=== PATIENT | male | born 1945 | race Caucasian/White ===

== ENCOUNTER 2018-01-31 02:31 | Inpatient (IN) ==
[2018-01-31] MEDS ORDERED: *HR* LORazepam 2 MG/ML VIAL IVP ONE (02:57)
--- NOTE | 2018-01-31 02:58 | Emergency Department Note ---
Disposition Clinical Impression: Lactic acidosis, Elevated troponin I level, Hyponatremia Dyspnea Qualifiers: Dyspnea type: unspecified Qualified Code(s): R06.00 - Dyspnea, unspecified Disposition: Still a Patient Condition: Undetermined Time of Disposition: 07:00 SOB HPI - General Chief Complaint: ED Shortness of Breath/Dyspnea Stated Complaint: Mynor Time Seen by Provider: 01/31/18 02:55 Source: patient, EMS Limitations: no limitations Nursing Notes Reviewed: Yes Vital Signs Reviewed: Yes - History of Present Illness 72 y.o. male presenting via EMS to the ED c/o sudden onset shortness of breath x 2-3 hours. He reports chest pain and describes it as "pain in my lungs". He reportedly took several Duo-neb treatments, without relief of symptoms. He states he has experienced a similar episode and was hospitalized [facility]. He notes he underwent a blood transfusion while there, but is unsure of any diagnosis or other interventions provided. He states he is unable to provide much history for his current symptoms secondary to feeling as though he cannot breathe. Pt Subjective Complaint: shortness of breath Onset (ago): hour(s) Consistency/Duration: constant, gradually worsening Improves with: nothing Worsens with: nothing Treatment prior to arrival: other (nebulizer) - Related Data Allergies Allergy/AdvReac Type Severity Reaction Status Date / Time No Known Allergies Allergy Verified 01/31/18 02:45 All systems ED: reviewed and negative except as stated. Past Medical History - Past Medical History Attestation: Yes The following information was validated with the patient. Source: patient Medical history: Reports: CHF, COPD, diabetes, hyperlipidemia, hypertension - Social History Smoking Status: Current every day smoker Smokeless Tobacco Status: No Alcohol use: Reports: none Drug use: Reports: none Physical Exam - General Limitations: no limitations General appearance: alert, in no apparent distress - Head Head exam: atraumatic, normocephalic, normal inspection - Eye Eye exam: Present: EOMI - ENT ENT exam: normal exam, normal oropharynx, mucous membranes moist - Neck Neck exam: Present: normal inspection, full ROM, trachea midline - Chest Chest inspection: Present: normal inspection, symmetric chest wall rise - Respiratory Respiratory exam: Present: normal lung sounds bilaterally - Cardiovascular Cardiovascular exam: Present: normal rhythm, tachycardia - Abdominal Exam Abdominal exam: Present: soft, Non-Tender. Absent: tenderness, distention, guarding, rebound, rigidity - Extremities Exam Extremities exam: Present: normal inspection, full ROM. Absent: tenderness, pedal edema - Neurological Exam Neurological exam: Present: alert, oriented X3 - Psychiatric Psychiatric exam: Present: normal affect, normal mood - Skin Skin exam: Present: warm, dry, intact, normal color Course Course Narrative: Patient seen and examined. Difficulty breathing over the last several hours. Upon my examination, his lungs are completely clear. He has no wheezing with good aeration. His oxygen saturation is 100% on room air. He is very agitated and continually saying he cannot breathe. Patient is tachycardic in the 120s. Cardiopulmonary workup was initiated. Since patient appears very anxious, he was given 1 mg of Ativan. - Reevaluation(s) Reevaluation #1: Patient's lab work came back with hyponatremia with a sodium of 126, lactic acidosis of greater than 10, elevated troponin of 0.07. Patient does have an anion gap based on his metabolic panel. We will add serum ketones, a VBG, repeat troponin, repeat lactic acid, salicylate level. I discussed with the hospitalist who would also like a CTA of the chest abdomen and pelvis to evaluate for either pulmonary embolus or ischemic bowel. Time: 05:24 Reevaluation #2: Pending CT results of the chest abdomen and pelvis, salicylate and VBG levels. LFTs, lithium level were ordered. Patient needs admitted once these results. [facility] Joseph Time: 07:00 Vital Signs Temperature 97.5 F L 01/31/18 02:33 Pulse Rate 128 01/31/18 02:33 Respiratory Rate 20 01/31/18 02:33 Blood Pressure 102/71 01/31/18 02:33 O2 Sat by Pulse Oximetry 93 01/31/18 02:33 Temperature 97.5 F L 01/31/18 02:33 Pulse Rate 105 01/31/18 07:02 Respiratory Rate 20 01/31/18 07:02 Blood Pressure 102/60 01/31/18 07:02 O2 Sat by Pulse Oximetry 97 01/31/18 07:02 Oxygen Delivery Oxygen Delivery Room Air Shortness of Breath/Dyspnea - Medical Records Medical records reviewed: Yes I reviewed the patient's medical records. - Lab Data Lab results reviewed: Yes I reviewed the patient's lab results. Result diagrams: 01/31/18 02:40 01/31/18 02:40 Lab Results 01/31/18 01/31/18 01/31/18 Range/Units 02:40 02:40 02:40 WBC 12.2 H (4.3-11.1) K/mcL RBC 3.48 L (4.19-5.50) M/mcL Hgb 9.7 L (12.9-16.9) g/dL Hct 28.6 L (37.5-50.1) % MCV 82.2 L (83.0-100.0) fL MCH 27.9 L (28.0-33.3) pg MCHC 33.9 (31.6-35.5) g/dL RDW 19.2 H (11.5-14.5) % Plt Count 175 (140-400) K/mcL MPV 10.6 (9.4-12.4) fL Immature Gran % 0.7 (0-4) % Seg Neutrophils % 92.1 % Lymphocytes % 4.1 % Monocytes % 3.0 % Eosinophils % 0.0 % Basophils % 0.1 % Neutrophils # 11.2 H (1.6-8.9) K/mcL Lymphocytes # 0.5 L (0.6-4.6) K/mcL Monocytes # 0.4 (0.0-1.3) K/mcL Eosinophils # 0.0 (0.0-0.6) K/mcL Basophils # 0.0 (0.0-0.2) K/mcL Sodium 126 L (136-145) mEq/L Potassium 3.5 (3.5-5.1) mEq/L Chloride 89 L (98-107) mEq/L Carbon Dioxide 15 L (23-29) mEq/L BUN 20 (8-23) mg/dL Creatinine 0.68 L (0.70-1.30) mg/dL Est GFR ( Amer) > 60 (> 60) Est GFR (Non-Af Amer) > 60 (> 60) BUN/Creatinine Ratio 29 H (6-26) Glucose 304 H (70-105) mg/dL Calculated Osmolality 276 L (280-300) Lactic Acid (0.5-2.2) mmol/L Calcium 9.0 (8.6-10.3) mg/dL Troponin I 0.07 H* (< 0.04) ng/mL B-Natriuretic Peptide 126 H (Less than 100) pg/mL Beta-Hydroxybutyric Acd (0.02-0.27) mmol/L Blood Type Antibody Screen 01/31/18 01/31/18 01/31/18 Range/Units 03:23 03:23 05:09 WBC (4.3-11.1) K/mcL RBC (4.19-5.50) M/mcL Hgb (12.9-16.9) g/dL Hct (37.5-50.1) % MCV (83.0-100.0) fL MCH (28.0-33.3) pg MCHC (31.6-35.5) g/dL RDW (11.5-14.5) % Plt Count (140-400) K/mcL MPV (9.4-12.4) fL Immature Gran % (0-4) % Seg Neutrophils % % Lymphocytes % % Monocytes % % Eosinophils % % Basophils % % Neutrophils # (1.6-8.9) K/mcL Lymphocytes # (0.6-4.6) K/mcL Monocytes # (0.0-1.3) K/mcL Eosinophils # (0.0-0.6) K/mcL Basophils # (0.0-0.2) K/mcL Sodium (136-145) mEq/L Potassium (3.5-5.1) mEq/L Chloride (98-107) mEq/L Carbon Dioxide (23-29) mEq/L BUN (8-23) mg/dL Creatinine (0.70-1.30) mg/dL Est GFR ( Amer) (> 60) Est GFR (Non-Af Amer) (> 60) BUN/Creatinine Ratio (6-26) Glucose (70-105) mg/dL Calculated Osmolality (280-300) Lactic Acid > 10.0 H* (0.5-2.2) mmol/L Calcium (8.6-10.3) mg/dL Troponin I (< 0.04) ng/mL B-Natriuretic Peptide (Less than 100) pg/mL Beta-Hydroxybutyric Acd 0.38 H (0.02-0.27) mmol/L Blood Type AB POSITIVE Antibody Screen NEGATIVE 01/31/18 Range/Units 05:09 WBC (4.3-11.1) K/mcL RBC (4.19-5.50) M/mcL Hgb (12.9-16.9) g/dL Hct (37.5-50.1) % MCV (83.0-100.0) fL MCH (28.0-33.3) pg MCHC (31.6-35.5) g/dL RDW (11.5-14.5) % Plt Count (140-400) K/mcL MPV (9.4-12.4) fL Immature Gran % (0-4) % Seg Neutrophils % % Lymphocytes % % Monocytes % % Eosinophils % % Basophils % % Neutrophils # (1.6-8.9) K/mcL Lymphocytes # (0.6-4.6) K/mcL Monocytes # (0.0-1.3) K/mcL Eosinophils # (0.0-0.6) K/mcL Basophils # (0.0-0.2) K/mcL Sodium (136-145) mEq/L Potassium (3.5-5.1) mEq/L Chloride (98-107) mEq/L Carbon Dioxide (23-29) mEq/L BUN (8-23) mg/dL Creatinine (0.70-1.30) mg/dL Est GFR ( Amer) (> 60) Est GFR (Non-Af Amer) (> 60) BUN/Creatinine Ratio (6-26) Glucose (70-105) mg/dL Calculated Osmolality (280-300) Lactic Acid 10.0 H* (0.5-2.2) mmol/L Calcium (8.6-10.3) mg/dL Troponin I (< 0.04) ng/mL B-Natriuretic Peptide (Less than 100) pg/mL Beta-Hydroxybutyric Acd (0.02-0.27) mmol/L Blood Type Antibody Screen - Radiology Data Radiology results reviewed: Yes I reviewed the patient's radiology results. Chest X-Ray 01/31/18 02:55 IMPRESSION: Negative portable chest. D/ / Alvarado Mace MD / Alvarado Mace MD Interpreting Provider: Alvarado Mace MD - EKG Data EKG attestation: Yes I reviewed and interpreted this EKG. EKG results narrative: EKG done at 239 shows sinus tachycardia with a rate of [address] elevation or depression. Left posterior fascicular block noted. Critical Care Time Critical Care Time: Yes Total Critical Care Time: 35 Attestation: Acute hypotension and acidosis. Fluid resuscitation required Attestation Statement - Attestation Attestation: Dr Alexandre note: Patient has been seen in conjunction with resident Dr. Tameka Juan; please see her charting for complete documentation. Assessment [id number] time with the patient and agree with the patient's treatment and disposition. Patient has no chest pain or abdominal pain. He ambulates from the room without difficulty. He is anxious and on arrival complains only eating a nebulizer treatment. He is a poor historian but denies taking any aspirin and Tylenol or Motrin. Denies being on lithium. CT results which show pericholecystic fluid are noted but not clinically applicable at this time. 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 The patient has no individually dysfunction abdominal pain, or leg pain. This time he has acidosis of unclear etiology. He is known to be on Glucophage. Disposition will be admission to the hospitalist with outliers still pending as above
[2018-01-31 03:19] LABS: Basophils % 0.1 %; Hematocrit 28.6 % (37.5-50.1); Hemoglobin 9.7 g/dL (12.9-16.9); Immature Granulocytes % 0.7 % (0-4); Lymphocytes # 0.5 K/mcL (0.6-4.6); Lymphocytes % 4.1 %; Mean Corpuscular HGB Conc 33.9 g/dL (31.6-35.5); Mean Corpuscular Hemoglobin 27.9 pg (28.0-33.3); Mean Corpuscular Volume 82.2 fL (83.0-100.0); Mean Platelet Volume 10.6 fL (9.4-12.4); Monocytes # 0.4 K/mcL (0.0-1.3); Neutrophils # 11.2 K/mcL (1.6-8.9); Platelet Count 175 K/mcL (140-400); Red Blood Count 3.48 M/mcL (4.19-5.50); Red Cell Distribution Width 19.2 % (11.5-14.5); Segmented Neutrophils % 92.1 %
[2018-01-31 03:30] LABS: BUN/Creatinine Ratio 29 (6-26); Blood Urea Nitrogen 20 mg/dL (8-23); Carbon Dioxide 15 mEq/L (23-29); Chloride 89 mEq/L (98-107); Glucose 304 mg/dL (70-105); Osmolality,Calculated 276 (280-300); Potassium 3.5 mEq/L (3.5-5.1); Sodium 126 mEq/L (136-145); eGFR For Non-African Americans > 60 (> 60)
[2018-01-31] MEDS ORDERED: 0.9 % Sodium Chloride 1,000 ML IVC ONE ×3 (04:00→07:37)
[2018-01-31 04:05] LABS: Troponin I 0.07 ng/mL (< 0.04)
[2018-01-31] MEDS ORDERED: diazePAM 10 MG/2 ML SYRINGE IVP STA (04:06)
[2018-01-31] MEDS ORDERED: Isovue-370 500 ML INFUS..BTL IV ONE (04:49)
[2018-01-31] MEDS ORDERED: Sodium Bicarbonate 50 MEQ/50 ML VIAL IVP ONE (05:27)
[2018-01-31 07:08] LABS: VBG HCO3 21 mEq/L (21-27); VBG PCO2 51 mmHg (41-51); VBG PH 7.21 pH Units (7.32-7.42); VBG PO2 42 mmHg (25-50)
--- NOTE | 2018-01-31 07:13 | Emergency Department Note ---
Disposition Clinical Impression: Lactic acidosis, Elevated troponin I level, Hyponatremia, Metabolic acidosis Dyspnea Qualifiers: Dyspnea type: unspecified Qualified Code(s): R06.00 - Dyspnea, unspecified Anemia Qualifiers: Anemia type: unspecified type Qualified Code(s): D64.9 - Anemia, unspecified Disposition: Admitted As Inpatient Condition: Undetermined Time of Disposition: 08:02 General Adult HPI - General Chief complaint: ED Shortness of Breath/Dyspnea Stated complaint: Mynor Time Seen by Provider: 01/31/18 02:55 Source: patient, EMS Limitations: no limitations - History of Present Illness Pain Scale: 0 - Related Data Allergies Allergy/AdvReac Type Severity Reaction Status Date / Time No Known Allergies Allergy Verified 01/31/18 02:45 Past Medical History - Past Medical History Medical history: Reports: CHF, COPD, diabetes, hyperlipidemia, hypertension - Social History Smoking Status: Current every day smoker Smokeless Tobacco Status: No Alcohol use: Reports: none Drug use: Reports: none Physical Exam - General Limitations: no limitations General appearance: alert, in no apparent distress Course Vital Signs Temperature 97.5 F L 01/31/18 02:33 Pulse Rate 128 01/31/18 02:33 Respiratory Rate 20 01/31/18 02:33 Blood Pressure 102/71 01/31/18 02:33 O2 Sat by Pulse Oximetry 93 01/31/18 02:33 Temperature 97.5 F L 01/31/18 02:33 Pulse Rate 106 01/31/18 07:50 Respiratory Rate 30 01/31/18 07:50 Blood Pressure 106/78 01/31/18 07:50 O2 Sat by Pulse Oximetry 100 01/31/18 07:50 Oxygen Delivery Oxygen Delivery Nasal Cannula Medical Decision Making - Lab Data Result diagrams: 01/31/18 02:40 01/31/18 02:40 Lab Results 01/31/18 01/31/18 01/31/18 Range/Units 02:40 02:40 02:40 WBC 12.2 H (4.3-11.1) K/mcL RBC 3.48 L (4.19-5.50) M/mcL Hgb 9.7 L (12.9-16.9) g/dL Hct 28.6 L (37.5-50.1) % MCV 82.2 L (83.0-100.0) fL MCH 27.9 L (28.0-33.3) pg MCHC 33.9 (31.6-35.5) g/dL RDW 19.2 H (11.5-14.5) % Plt Count 175 (140-400) K/mcL MPV 10.6 (9.4-12.4) fL Immature Gran % 0.7 (0-4) % Seg Neutrophils % 92.1 % Lymphocytes % 4.1 % Monocytes % 3.0 % Eosinophils % 0.0 % Basophils % 0.1 % Neutrophils # 11.2 H (1.6-8.9) K/mcL Lymphocytes # 0.5 L (0.6-4.6) K/mcL Monocytes # 0.4 (0.0-1.3) K/mcL Eosinophils # 0.0 (0.0-0.6) K/mcL Basophils # 0.0 (0.0-0.2) K/mcL Sodium 126 L (136-145) mEq/L Potassium 3.5 (3.5-5.1) mEq/L Chloride 89 L (98-107) mEq/L Carbon Dioxide 15 L (23-29) mEq/L BUN 20 (8-23) mg/dL Creatinine 0.68 L (0.70-1.30) mg/dL Est GFR ( Amer) > 60 (> 60) Est GFR (Non-Af Amer) > 60 (> 60) BUN/Creatinine Ratio 29 H (6-26) Glucose 304 H (70-105) mg/dL Calculated Osmolality 276 L (280-300) Lactic Acid (0.5-2.2) mmol/L Calcium 9.0 (8.6-10.3) mg/dL Total Bilirubin (0.3-1.0) mg/dL Direct Bilirubin (0.0-0.2) mg/dL Indirect Bilirubin (0.0-1.2) mg/dL AST (13-39) Units/L ALT (7-52) Units/L Alkaline Phosphatase (34-104) Units/L Troponin I 0.07 H* (< 0.04) ng/mL B-Natriuretic Peptide 126 H (Less than 100) pg/mL Serum Total Protein (6.4-8.9) g/dL Albumin (3.5-5.7) g/dL Globulin (2.4-3.5) g/dL Albumin/Globulin Ratio (1.1-2.2) Lipase (11-82) Units/L Beta-Hydroxybutyric Acd (0.02-0.27) mmol/L Salicylates (15.0-30.0) mg/dL [place] (0.6-1.2) mEq/L Blood Type Antibody Screen 01/31/18 01/31/18 01/31/18 Range/Units 03:23 03:23 05:09 WBC (4.3-11.1) K/mcL RBC (4.19-5.50) M/mcL Hgb (12.9-16.9) g/dL Hct (37.5-50.1) % MCV (83.0-100.0) fL MCH (28.0-33.3) pg MCHC (31.6-35.5) g/dL RDW (11.5-14.5) % Plt Count (140-400) K/mcL MPV (9.4-12.4) fL Immature Gran % (0-4) % Seg Neutrophils % % Lymphocytes % % Monocytes % % Eosinophils % % Basophils % % Neutrophils # (1.6-8.9) K/mcL Lymphocytes # (0.6-4.6) K/mcL Monocytes # (0.0-1.3) K/mcL Eosinophils # (0.0-0.6) K/mcL Basophils # (0.0-0.2) K/mcL Sodium (136-145) mEq/L Potassium (3.5-5.1) mEq/L Chloride (98-107) mEq/L Carbon Dioxide (23-29) mEq/L BUN (8-23) mg/dL Creatinine (0.70-1.30) mg/dL Est GFR ( Amer) (> 60) Est GFR (Non-Af Amer) (> 60) BUN/Creatinine Ratio (6-26) Glucose (70-105) mg/dL Calculated Osmolality (280-300) Lactic Acid > 10.0 H* (0.5-2.2) mmol/L Calcium (8.6-10.3) mg/dL Total Bilirubin (0.3-1.0) mg/dL Direct Bilirubin (0.0-0.2) mg/dL Indirect Bilirubin (0.0-1.2) mg/dL AST (13-39) Units/L ALT (7-52) Units/L Alkaline Phosphatase (34-104) Units/L Troponin I (< 0.04) ng/mL B-Natriuretic Peptide (Less than 100) pg/mL Serum Total Protein (6.4-8.9) g/dL Albumin (3.5-5.7) g/dL Globulin (2.4-3.5) g/dL Albumin/Globulin Ratio (1.1-2.2) Lipase (11-82) Units/L Beta-Hydroxybutyric Acd 0.38 H (0.02-0.27) mmol/L Salicylates (15.0-30.0) mg/dL [place] (0.6-1.2) mEq/L Blood Type AB POSITIVE Antibody Screen NEGATIVE 01/31/18 01/31/18 01/31/18 Range/Units 05:09 05:09 05:09 WBC (4.3-11.1) K/mcL RBC (4.19-5.50) M/mcL Hgb (12.9-16.9) g/dL Hct (37.5-50.1) % MCV (83.0-100.0) fL MCH (28.0-33.3) pg MCHC (31.6-35.5) g/dL RDW (11.5-14.5) % Plt Count (140-400) K/mcL MPV (9.4-12.4) fL Immature Gran % (0-4) % Seg Neutrophils % % Lymphocytes % % Monocytes % % Eosinophils % % Basophils % % Neutrophils # (1.6-8.9) K/mcL Lymphocytes # (0.6-4.6) K/mcL Monocytes # (0.0-1.3) K/mcL Eosinophils # (0.0-0.6) K/mcL Basophils # (0.0-0.2) K/mcL Sodium (136-145) mEq/L Potassium (3.5-5.1) mEq/L Chloride (98-107) mEq/L Carbon Dioxide (23-29) mEq/L BUN (8-23) mg/dL Creatinine (0.70-1.30) mg/dL Est GFR ( Amer) (> 60) Est GFR (Non-Af Amer) (> 60) BUN/Creatinine Ratio (6-26) Glucose (70-105) mg/dL Calculated Osmolality (280-300) Lactic Acid 10.0 H* (0.5-2.2) mmol/L Calcium (8.6-10.3) mg/dL Total Bilirubin 0.7 (0.3-1.0) mg/dL Direct Bilirubin 0.1 (0.0-0.2) mg/dL Indirect Bilirubin 0.6 (0.0-1.2) mg/dL AST 46 H (13-39) Units/L ALT 23 (7-52) Units/L Alkaline Phosphatase 62 (34-104) Units/L Troponin I (< 0.04) ng/mL B-Natriuretic Peptide (Less than 100) pg/mL Serum Total Protein 6.5 (6.4-8.9) g/dL Albumin 4.2 (3.5-5.7) g/dL Globulin 2.3 L (2.4-3.5) g/dL Albumin/Globulin Ratio 1.8 (1.1-2.2) Lipase 15 (11-82) Units/L Beta-Hydroxybutyric Acd (0.02-0.27) mmol/L Salicylates < 2.5 L (15.0-30.0) mg/dL [place] < 0.1 L (0.6-1.2) mEq/L Blood Type Antibody Screen Critical Care Time Critical Care Time: Yes Total Critical Care Time: 30 Attestation: The high probability of a clinically significant, sudden or life threatening deterioration of the [] system(s) required my full and direct attention, intervention and personal management. The aggregate critical care time was [] minutes. This time is in addition to time spent performing reported procedures but includes the following: [] Data Review and interpretation [] Patient assessment and monitoring of vital signs [] Documentation [] Medication orders and management Attestation Statement - Attestation Attestation: Care assumed from Dr. Alexandre at 7 AM pending LFTs and salicylate levels. Patient presented requesting a breathing treatment. He was found to be anxious and tachypneic upon arrival. The patient was evaluated and found to have a metabolic acidosis with a lactic acidosis of uncertain etiology. I have requested medication reconciliation tech to obtain an accurate current medication list. Upon evaluation the patient is resting completely. He is sleeping. He has no focal abdominal pain. I did review the transcribed reports of his CT chest as well as CT abdomen and pelvis. 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 He has evidence of preserved perfusion to his affected extremity - he is able to stand and bear full weight at bedside. He has a soft nontender abdomen including no RUQ tenderness on exam. Labs reviewed by me indicating a metabolic acidosis, hyponatremia, anemia. ECG shows lateral ST segment depression. The patient is not complaining of any chest pain 07:30: DARRELL performed. no gross blood. fecal occult testing sent and pending. salicylate level pending. CT abd pelvis shows possible acute cholecystitis although patient has no RUQ tenderness on exam. His physical exam is somewhat limited by his unreliable question responses. Call to Dr. Bearden to discuss the CT findings (case d/w at 07:34. He recs LFT's and coags) 07:35: I discussed this case with the night hospitalist who is aware of the resulted tests and the other tests that are pending 08:00: Call placed to the daytime admitting hospitalist to arrange bed placement and ongoing care 08:25: Case discussed in detail with Dr. Akbar. Patient to be admitted to the hospitalist service
[2018-01-31] MEDS ORDERED: 0.9 % Sodium Chloride 1,000 ML IV SCH (07:15)
[2018-01-31 07:21] LABS: Salicylate < 2.5 mg/dL (15.0-30.0)
[2018-01-31 08:33] LABS: Alanine Aminotransferase 23 Units/L (7-52); Albumin 4.2 g/dL (3.5-5.7); Albumin/Globulin Ratio 1.8 (1.1-2.2); Alkaline Phosphatase 62 Units/L (34-104); Aspartate Amino Transferase 46 Units/L (13-39); Bilirubin,Direct 0.1 mg/dL (0.0-0.2); Bilirubin,Indirect 0.6 mg/dL (0.0-1.2); Bilirubin,Total 0.7 mg/dL (0.3-1.0); Globulin 2.3 g/dL (2.4-3.5); Lipase 15 Units/L (11-82); Total Protein 6.5 g/dL (6.4-8.9)
[2018-01-31] MEDS ORDERED: Ipratropium/Albuterol Neb 3 ML IH PRN (09:26)
--- NOTE | 2018-01-31 09:28 | Internal Med History&Physical ---
Date of Encounter: 01/31/18 Time of Encounter: 09:28 Internal Medicine - H&P: HPI Chief complaint: Shortness of breath Admitted From: Home Plans for Post Hospital Care: Home History of present illness: Mr. Okeefe is a 72 year old male with medical hx of DM with PAD, COPD not on O2, tobacco abuse, HTN, HLD, who presented with complains of shortness of breath. The patient reports he was in his usual state of health in this apartment till last night when he developed sudden onset difficulty in breathing, associated with increasing cough and phglem production. He denies chest pain at that time, but reports his shortness of breath was severe enough to leave him feeling he was going to . He denies fever or chills, or sick contacts, he had been borrowing breathing treatment from his friends prior to someone when the squad. He denies chest pain, he denies confusion, headaches or any neurologic symptoms. He denies palpitations, he denies orthopnea or PND. He has chronic leg swelling which she takes Lasix, he denies any pain in the extremities, he denies abdominal pain, he is chronically constipated and denies any changes in his regular bowel habits. He denies urinary symptoms. Upon presentation he was tachypneic but not hypoxic, no tachycardia, however workup in the ER showed lactic acidosis greater than 10, metabolic acidosis because of lactic acidosis, mild leukocytosis with chronic anemia. Further studies showed no pulmonary embolism, right femoral artery complete occlusion, there is also associated mild splenomegaly cholelithiasis and acute cholecystitis but imaging. Despite these findings, the patient upon my evaluation seemed asymptomatic, even though he is a poor historian, he persistently denies active chest pain, he denies any abdominal pain, no changes in bowel movement, he has normal for signs or abdominal tenderness, and his main complaint is shortness of breath. Other workup in the ER showed elevated troponin, INR is 2.7, hyponatremia which is due to hyperglycemia, liver function tests is unremarkable. Fecal occult blood test is negative. Becenti and salicylate level is negative. The patient will be admitted as inpatient for management of NSTEMI, EKG has St segment depression in lat leads, lactic acidosis likely due to severe hypoxia and decreased cardiac perfusion, use of metformin, and aginal equivalent. We will also treat him for COPD exacerbation. Even though he has complete occlusion of the right femoral artery on imaging, the patient's right leg is pink and pulses are palpable so this is likely chronic. The patient is currently clinically stable and is full code. Past Med Surg Social Fam HX - Past Medical History Medical history: CHF, COPD, diabetes, hyperlipidemia, hypertension, peripheral artery disease - Social History Smoking Status: Current every day smoker Smokeless Tobacco Status: No Alcohol use: none Drug use: none Internal Medicine - H&P: Meds Albuterol Sulfate [Ventolin Hfa] 2 puff IH QID PRN 01/31/18 [History] Brimonidine 0.2% [Alphagan] 1 drop BOTH EYES BID 01/31/18 [History] Calcium Carbonate/Vitamin D3 [Calcium 500-Vit D3 200 Tablet] 2 tab PO DAILY 11/12 [History] Furosemide [Lasix] 40 mg PO DAILY 01/31/18 [History] Gabapentin [Neurontin] 300 mg PO HS 01/31/18 [History] Insulin NPH Human Isophane [Novolin N] 15 unit SQ QPM 01/31/18 [History] Insulin NPH Human Isophane [Novolin N] 20 unit SQ QAM 01/31/18 [History] Ipratropium/Albuterol Neb [Duoneb] 3 ml IH TID PRN 01/31/18 [History] Lisinopril [Zestril] 10 mg PO DAILY 01/31/18 [History] Magnesium Oxide [Magnesium] 400 mg PO DAILY 01/31/18 [History] Metformin HCl 1,000 mg PO BID 01/31/18 [History] Methadone 20 mg PO Q8HR 01/31/18 [History] Promethazine [Phenergan] 25 mg PO BID PRN 01/31/18 [History] Ranitidine HCl [Acid Display Maker] 150 mg PO BID 01/31/18 [History] Simvastatin [Zocor] 20 mg PO HS 01/31/18 [History] Vit C/E/Zn/Coppr/Lutein/Zeaxan [Preservision Areds 2 Softgel] 1 cap PO DAILY 11/12 [History] Warfarin [Coumadin] 5 mg PO DAILY 01/31/18 [History] hydrOXYzine HCl [Hydroxyzine HCl] 50 mg PO BID 01/31/18 [History] 3 Allergy/AdvReac Type Severity Reaction Status Date / Time No Known Allergies Allergy Verified 01/31/18 02:45 All Systems PM: A 10-system review of systems was performed and is negative for pertinent findings except as documented above in the HPI. - Constitutional Constitutional: as per HPI - EENT Eyes: as per HPI Ears: as per HPI Nose, mouth and throat: as per HPI - Cardiovascular Cardiovascular ROS IM: as per HPI - Respiratory Respiratory: as per HPI - Gastrointestinal Gastrointestinal: as per HPI - Musculoskeletal Musculoskeletal ROS IM: as per HPI - Integumentary Integumentary IM: as per HPI - Neurological Neurological ROS: as per HPI - Hematologic/Lymphatic Hematologic/Lymphatic: as per HPI - Constitutional Vitals: Temp Pulse Resp BP Pulse Ox 97.5 F L 106 30 106/78 97 01/31/18 02:33 01/31/18 07:50 01/31/18 07:50 01/31/18 07:50 01/31/18 09:24 General appearance: Present: A&O X 3, pleasant, no acute distress Exam: see detailed exam below - Head Head exam: Present: atraumatic - Eye Eye exam: Present: PERRL, conjuntiva pink, sclera anicteric Pupils: Present: PERRL - Neck Neck exam general surgery: Present: supple, trachea midline. Absent: lymphadenopathy - Respiratory Respiratory exam: Present: decreased breath sounds. Absent: rales, rhonchi, stridor, wheezes - Cardiovascular Cardiovascular exam: Present: RRR, +S1, +S2. Absent: diastolic murmur, gallop, rubs, systolic murmur - GI/Abdominal GI/Abdominal exam: Present: normal bowel sounds, soft, no peritoneal signs. Absent: distended, tenderness - Extremities Exam Extremities exam: Present: pedal edema (Bilateral pitting pedal edema with chronic venostasis changes. Pulses are present in both limbs) - Neurological Exam Neurological exam: Present: alert, CN II-XII intact, oriented X3, no focal deficits. Absent: pronater drift, facial droop, speech deficit - Skin Skin exam: Present: dry, intact Internal Med - H&P Results - Labs CBC & Chem 7: 01/31/18 02:40 01/31/18 02:40 - ABG Interpretation ABG results: 01/31/18 06:54 VBG pH 7.21 L VBG pCO2 51 VBG pO2 42 VBG HCO3 21 - Assessment and plan (1) NSTEMI (non-ST elevated myocardial infarction) Current Visit: Yes Status: Acute Assessment and plan: The patient with diabetes mellitus, severe peripheral arterial disease on warfarin who presented with acute onset shortness of breath associated with severe lactic acidosis. Presenting troponin 0.07 Severe artheroscleoris on imaging EKG with ST depression in lat leads Repeat troponin 33.2, repeat EKG shows ST depression INR 2.7 due to use of Afib at home. Hold warfarin Started on low-dose heparin infusion Aspirin 325 mg by mouth once Lipitor 40 mg now and daily Check Lipid panel and A1C a.m Echocardiogram scheduled HR >100, Start on metoprolol 25mg BID, one dose now Cardiology consulted-discussed this patient with Dr. Maria We will keep him nothing by mouth for possible cardiac catheterization Patient is high risk for rapid decompensation. (2) Lactic acidosis Current Visit: Yes Status: Acute Assessment and plan: Patient presented with lactate level was greater than 10 in the setting of acute shortness of breath and likely hypoxia. Has received vigorous hydration in the ER. Repeat lactic acid now at time of review 7 Continue IV fluid hydration and continue to monitor Liver Function tests is within normal limit Patient is also on metformin, will hold for now. (3) Elevated troponin I level Current Visit: Yes Status: Acute Assessment and plan: See NSTEMI (4) COPD exacerbation Current Visit: Yes Status: Acute Assessment and plan: Duonebs q4hr, albuterol every 2 hours Azithromycin by mouth daily Prednisone 40 mg daily. (5) History of DVT (deep vein thrombosis) Current Visit: Yes Status: Chronic Assessment and plan: Anticoagulated with warfarin INR is therapeutic at 2.7 Hold warfarin and continue heparin infusion for NSTEMI. (6) PAD (peripheral artery disease) Current Visit: Yes Status: Chronic Assessment and plan: Continue ASA (7) Diabetes mellitus Current Visit: Yes Status: Chronic Assessment and plan: Likely uncontrolled, complicated with peripheral vascular disease and presentation with hyperglycemia. Sliding-scale insulin, basal and prandial is chronic Diabetic diet after review by cardiology Check A1c with morning labs. 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 insulin use: with terminal block assembler use Diabetes mellitus complication status: with circulatory complication Diabetes mellitus complication detail: with peripheral angiopathy without gangrene Qualified Code(s): E11.51 - Type 2 diabetes mellitus with diabetic peripheral angiopathy without gangrene; Z79.4 - superintendent container terminal (current) use of insulin (8) Anemia Current Visit: Yes Status: Chronic Assessment and plan: chronic, stable at this time FOBT negative Qualifiers: Anemia type: unspecified type Qualified Code(s): D64.9 - Anemia, unspecified (9) Tobacco abuse Current Visit: Yes Status: Chronic Assessment and plan: cessation encouraged - Time Spent With Patient Total time spent is greater than 50% in coordination of care (as documented) at patient's floor/unit and/or counseling patient: Greater than 35 minutes
[2018-01-31] MEDS ORDERED: 0.9 % Sodium Chloride 1,000 ML IVC SCH (09:30)
[2018-01-31 09:45] LABS: INR 2.7
[2018-01-31 09:48] LABS: Activated Partial Thrombo Time 31.2 Seconds (26.0-36.0)
[2018-01-31] MEDS ORDERED: *HR* Dextrose 50 % in Water (Syg) 50 ML SYRINGE IVP PRN (09:53)
[2018-01-31] MEDS ORDERED: Dextrose Gel 15 GM/37.5 ML TUBE PO PRN ×2 (09:53)
[2018-01-31] MEDS ORDERED: D5% in Water 1,000 ML IVC PRN (09:53)
[2018-01-31] MEDS: Magnesium Oxide 400 MG TABLET PO SCH (10:00)
[2018-01-31] MEDS: Famotidine 20 MG TABLET PO SCH (10:01)
[2018-01-31 10:02] LABS: Troponin I 33.21 ng/mL (< 0.04)
[2018-01-31] MEDS ORDERED: *HR* Heparin 5,000 UNIT/ML VIAL IVP PRN ×2 (10:11)
[2018-01-31] MEDS: Cholecalciferol (D-3) 1,000 UNIT TABLET PO SCH (10:11)
[2018-01-31] MEDS ORDERED: Aspirin 325 MG TABLET PO ONE (10:11)
[2018-01-31] MEDS ORDERED: Heparin 25,000 UNIT/500 ML D5W 25,000 UNIT/500 ML BAG IVC SCH (10:15)
[2018-01-31] MEDS: predniSONE 20 MG TABLET PO SCH (10:21)
[2018-01-31] MEDS: Azithromycin 250 MG TABLET PO SCH (10:36)
[2018-01-31] MEDS: *HR* Methadone 10 MG TABLET PO SCH ×4 (10:37→23:20)
[2018-01-31] MEDS: Ipratropium/Albuterol Neb 3 ML IH SCH ×4 (10:43→23:39)
--- NOTE | 2018-01-31 11:47 | General Surgery Consult Note ---
Date of Encounter: 01/31/18 Time of Encounter: 11:44 Assessment and Plan (1) Abnormal CT of the abdomen Current Visit: Yes Status: Acute I have reviewed the images of the CT scan of the abdomen and pelvis which shows the periportal edema and fluid around the gallbladder. Fluid around the gallbladder by itself is concerning for cholecystitis however in the face of periportal edema as well as fluid around the gallbladder there is more concerned that this may be a primary liver process/problem or a coronary problem. Given the clinical setting of the patient having a history of CHF, a lactic acidosis of 10, and liver function tests are normal CT scan findings are more suggestive of a CHF picture and not a primary liver abnormality. Additionally, the patient has no abdominal pain symptoms so there is no evidence of acute cholecystitis present. Given the overall history of a poor perfusion state given the lactic acidosis I think that he may have CHF exacerbation and agree with an echo. At this time there appears to be no surgical issue and we will sign off. Please contact us if there are any questions or concerns. (2) Lactic acidosis Current Visit: Yes Status: Acute History of Present Illness Consult date: 01/31/18 Reason for consult: other (abnormal CT abdomen) Requesting physician: Sudheer Joseph History of present illness: The patient is a 72-year-old male who presented to [facility] emergency room after being transported by EMS due to sensation of shortness of breath. The patient is a poor historian and was initially seen in the emergency room complaining of shortness of breath that had been present for about 2-3 hours. He describes some chest discomfort to the staff at that time and was given duo nebs without any relief of symptoms. He, upon being asked, denied any abdominal pain symptoms and there is no report of a history of nausea or vomiting. Laboratory studies and a CT scan study was performed which showed cholecystitis and I wasl subsequently consulted to evaluate the patient. The patient currently is on the floor on [address] and denies any nausea or vomiting or abdominal pain symptoms. He appears arousable but does not appear appropriate. He is able to ask questions of whether or not he has had any sensations of diarrhea or constipation but is not really able to give any true history related to his symptoms. Past Med Surg Social Fam HX - Past Medical History Medical history: CHF, COPD, diabetes, hyperlipidemia, hypertension, peripheral artery disease - Social History Smoking Status: Current every day smoker Smokeless Tobacco Status: No Alcohol use: none Drug use: none Medications and Allergies Albuterol Sulfate [Ventolin Hfa] 2 puff IH QID PRN 01/31/18 [History] Brimonidine 0.2% [Alphagan] 1 drop BOTH EYES BID 01/31/18 [History] Calcium Carbonate/Vitamin D3 [Calcium 500-Vit D3 200 Tablet] 2 tab PO DAILY 11/12 [History] Furosemide [Lasix] 40 mg PO DAILY 01/31/18 [History] Gabapentin [Neurontin] 300 mg PO HS 01/31/18 [History] Insulin NPH Human Isophane [Novolin N] 15 unit SQ QPM 01/31/18 [History] Insulin NPH Human Isophane [Novolin N] 20 unit SQ QAM 01/31/18 [History] Ipratropium/Albuterol Neb [Duoneb] 3 ml IH TID PRN 01/31/18 [History] Lisinopril [Zestril] 10 mg PO DAILY 01/31/18 [History] Magnesium Oxide [Magnesium] 400 mg PO DAILY 01/31/18 [History] Metformin HCl 1,000 mg PO BID 01/31/18 [History] Methadone 20 mg PO Q8HR 01/31/18 [History] Promethazine [Phenergan] 25 mg PO BID PRN 01/31/18 [History] Ranitidine HCl [Acid Instructor Business Education] 150 mg PO BID 01/31/18 [History] Simvastatin [Zocor] 20 mg PO HS 01/31/18 [History] Vit C/E/Zn/Coppr/Lutein/Zeaxan [Preservision Areds 2 Softgel] 1 cap PO DAILY 11/12 [History] Warfarin [Coumadin] 5 mg PO DAILY 01/31/18 [History] hydrOXYzine HCl [Hydroxyzine HCl] 50 mg PO BID 01/31/18 [History] 3 Allergy/AdvReac Type Severity Reaction Status Date / Time No Known Allergies Allergy Verified 01/31/18 02:45 Review of Systems All systems PM: reviewed and no additional remarkable complaints except as stated All systems PM: The remainder of the systems were reviewed and are negative General Surgery Exam Initial Vital Signs Temp Pulse Resp BP Pulse Ox 97.5 F L 128 20 102/71 93 01/31/18 02:33 01/31/18 02:33 01/31/18 02:33 01/31/18 02:33 01/31/18 02:33 - General physical appearance well developed, moderate distress - Eyes PERRL, normal ocular movement - Neck no masses, trachea midline - Respiratory normal respiratory effort (Decreased breath sounds noted at the bases bilaterally) - Cardiovascular Cardiovascular exam: Present: tachycardia, no murmurs/rubs/gallops - Abdomen Abdomen general surgery: Present: bowel sounds present, soft, non tender (No pain to palpation noted in all 4 quadrants. No masses palpated) - Neurologic Present: CN 2-12 grossly intact, memory loss (Also memory loss) - Musculoskeletal Present: other (She has noted 2+ pitting edema bilaterally with venous stasis changes noted in the bilateral lower extremities.) Exam Initial Vital Signs Temp Pulse Resp BP Pulse Ox 97.5 F L 128 20 102/71 93 01/31/18 02:33 01/31/18 02:33 01/31/18 02:33 01/31/18 02:33 01/31/18 02:33 Results - Labs 01/31/18 02:40 01/31/18 02:40 Abnormal lab results WBC 12.2 K/mcL (4.3-11.1) H 01/31/18 02:40 RBC 3.48 M/mcL (4.19-5.50) L 01/31/18 02:40 Hgb 9.7 g/dL (12.9-16.9) L 01/31/18 02:40 Hct 28.6 % (37.5-50.1) L 01/31/18 02:40 MCV 82.2 fL (83.0-100.0) L 01/31/18 02:40 MCH 27.9 pg (28.0-33.3) L 01/31/18 02:40 RDW 19.2 % (11.5-14.5) H 01/31/18 02:40 Neutrophils # 11.2 K/mcL (1.6-8.9) H 01/31/18 02:40 Lymphocytes # 0.5 K/mcL (0.6-4.6) L 01/31/18 02:40 PT 31.0 Seconds (9.4-12.1) H 01/31/18 09:27 VBG pH 7.21 pH Units (7.32-7.42) L 01/31/18 06:54 Sodium 126 mEq/L (136-145) L 01/31/18 02:40 Chloride 89 mEq/L (98-107) L 01/31/18 02:40 Carbon Dioxide 15 mEq/L (23-29) L 01/31/18 02:40 Creatinine 0.68 mg/dL (0.70-1.30) L 01/31/18 02:40 BUN/Creatinine Ratio 29 (6-26) H 01/31/18 02:40 Glucose 304 mg/dL (70-105) H 01/31/18 02:40 Calculated Osmolality 276 (280-300) L 01/31/18 02:40 Lactic Acid 7.0 mmol/L (0.5-2.2) H* 01/31/18 09:27 AST 46 Units/L (13-39) H 01/31/18 05:09 Troponin I 33.21 ng/mL (< 0.04) H* 01/31/18 09:27 B-Natriuretic Peptide 126 pg/mL (Less than 100) H 01/31/18 02:40 Globulin 2.3 g/dL (2.4-3.5) L 01/31/18 05:09 Beta-Hydroxybutyric Acd 0.38 mmol/L (0.02-0.27) H 01/31/18 05:09 Salicylates < 2.5 mg/dL (15.0-30.0) L 01/31/18 05:09 Epworth < 0.1 mEq/L (0.6-1.2) L 01/31/18 05:09 All other labs normal. - Imaging CT scan - abdomen: report reviewed, image reviewed (CT scan images and report reviewed by me. This question of acute cholecystitis with cholelithiasis however the patient has mild splenomegaly and an image of decreased attenuation around the peripheral in segment segmental portal venous branches representing portal edema. There is a significant amount of portal edema as well as fluid around the gallbladder but no signs of inflammatory changes around the gallbladder.) Consult Discharge Plan - Plan [facility]errals: [facility] [Primary Care Provider] -
[2018-01-31] MEDS: Insulin LISPRO 300 UNITS/3 ML VIAL SQ SCH ×5 (12:42→21:27)
--- NOTE | 2018-01-31 12:42 | Cardiology Consult Note ---
<Win Del Real - Last Filed: 01/31/18 12:39> Date of Encounter: 01/31/18 Time of Encounter: 12:39 Assessment and Plan (1) NSTEMI (non-ST elevated myocardial infarction) Current Visit: Yes Status: Acute NSTEMI troponin up to 33.21. EKG with ischemia in the anteriolateral leads. F/u EKG did show resolution of ST depression. Reports prior W[place] and he declined LHC. BNP 120. CXR and CTA negative for acute CHF. LHC R/B/A discussed and he declines at this time. Patient does not want to discuss and is not receptive to information. TTE ordered. Consider palliative care consult if patient continues to decline. No heparin gtt due to therapeutic INR on coumadin. Start if INR less than 2.0. Asa, statin, and bb. (2) NSVT (nonsustained ventricular tachycardia) Current Visit: Yes Status: Acute 26 beat run NSVT seen. Metoprolol started by primary team. Keep potassium 4.0 or greater and mg 2.0 or greater. TTE pending. Discussion w patient/family: The assessment and plan as outlined above was discussed with the patient and/or family members who expressed understanding and agreement. All questions were answered. Thank you for involving us in the care of your patient. Please call with any questions. History of Present Illness Consult date: 01/31/18 Requesting physician: Sukhjinder Akbar Consult reason: NSTEMI Chief complaint: SOB, cough History of present illness: Mr. Okeefe is a 72 year old male with past medical history of DM, PAD, multiple DVT on coumadin, tobacco abuse, HTN, HLD. He presents with the c/o SOB and cough starting last night. Admits to orthopnea. Reports chronic BLE edema. Symptoms started after he smoked a cigarette. He states that he felt like he was going to because he could not catch his breath. On admission he was noted to have tachypnea and tachycardia but was not hypoxic. Cardiology consulted for NSTEMI with troponin up tp 33.21. He denies chest pain or syncope. Denies history of CAD although he states that he had elevated troponin during hospital stay in the past and was told he had a WV. He refused LHC at that time. Past Med Surg Social Fam HX - Past Medical History Attestation: Yes The following information was validated with the patient. Source: patient Medical history: COPD, diabetes, hyperlipidemia, hypertension, peripheral artery disease - Social History Smoking Status: Current every day smoker Smokeless Tobacco Status: No Alcohol use: none Drug use: none Medications and Allergies Albuterol Sulfate [Ventolin Hfa] 2 puff IH QID PRN 01/31/18 [History] Brimonidine 0.2% [Alphagan] 1 drop BOTH EYES BID 01/31/18 [History] Calcium Carbonate/Vitamin D3 [Calcium 500-Vit D3 200 Tablet] 2 tab PO DAILY 11/12 [History] Furosemide [Lasix] 40 mg PO DAILY 01/31/18 [History] Gabapentin [Neurontin] 300 mg PO HS 01/31/18 [History] Insulin NPH Human Isophane [Novolin N] 15 unit SQ QPM 01/31/18 [History] Insulin NPH Human Isophane [Novolin N] 20 unit SQ QAM 01/31/18 [History] Ipratropium/Albuterol Neb [Duoneb] 3 ml IH TID PRN 01/31/18 [History] Lisinopril [Zestril] 10 mg PO DAILY 01/31/18 [History] Magnesium Oxide [Magnesium] 400 mg PO DAILY 01/31/18 [History] Metformin HCl 1,000 mg PO BID 01/31/18 [History] Methadone 20 mg PO Q8HR 01/31/18 [History] Promethazine [Phenergan] 25 mg PO BID PRN 01/31/18 [History] Ranitidine HCl [Acid Kitchen Hand] 150 mg PO BID 01/31/18 [History] Simvastatin [Zocor] 20 mg PO HS 01/31/18 [History] Vit C/E/Zn/Coppr/Lutein/Zeaxan [Preservision Areds 2 Softgel] 1 cap PO DAILY 11/12 [History] Warfarin [Coumadin] 5 mg PO DAILY 01/31/18 [History] hydrOXYzine HCl [Hydroxyzine HCl] 50 mg PO BID 01/31/18 [History] 3 Allergy/AdvReac Type Severity Reaction Status Date / Time No Known Allergies Allergy Verified 01/31/18 02:45 All Systems Review: The remainder of the systems were reviewed and are negative Physical Examination Vital Signs, Last 4 Hours Temp Pulse Resp BP Pulse Ox 01/31/18 11:41 98.1 F 105 20 100/68 98 01/31/18 10:43 17 96 01/31/18 09:57 98.1 F 100 20 117/65 96 01/31/18 09:24 97 General: Conversant, No Apparent Distress HEENT: Atraumatic, Normocephaly, Mucus Membranes Moist Neck: No JVD, Normal carotid pulses Cardiac: Reg Rate and Rhythm, Normal S1 and S2, No Murmur, Other (tachycardia) Lungs: Normal Breath Sounds, No Wheeze, Rales, Rhonchi Neuro: No focal deficits noted, Other (Falls asleep during assessment, wakens easily) Abdomen: Soft, Non-Tender Skin: Other (Redness noted RLE) Musculoskeletal: No Chest Wall Tenderness Extremities: No Clubbing, No Cyanosis, Normal Pulses, Other (1+ edema BLE, right greater than left) Results 01/31/18 02:40 01/31/18 02:40 Lab Results 01/31/18 01/31/18 09:27 09:27 INR 2.7 APTT 31.2 Troponin I 33.21 H* Chest X-Ray 01/31/18 02:55 IMPRESSION: Negative portable chest. D/ / Alvarado Mace MD / Alvarado Mace MD Interpreting Provider: Alvarado Mace MD Chest CTA 01/31/18 04:49 IMPRESSION: Limited study with no definite scan evidence for pulmonary embolus. Emphysema. D/ / Alvarado Mace MD / Alvarado Mace MD Interpreting Provider: Alvarado Mace MD Abdomen/Pelvis CT 01/31/18 04:50 IMPRESSION: 1. No definite evidence for mesenteric ischemia. 2. Cholelithiasis and acute cholecystitis. 3. Mild splenomegaly. 4. Severe atherosclerotic disease. Complete occlusion in the right common femoral artery. D/ / Alvarado Mace MD / Alvarado Mace MD Interpreting Provider: Alvarado Mace MD - Imaging and Cardiology Chest Xray: report reviewed Echo: pending Other Results: CT reviewed - EKG Interpretation EKG results cardiology: personally reviewed Consult Discharge Plan - Plan [facility]errals: [facility] [Primary Care Provider[facility] - (patient is from [place]) <Willi Maria - Last Filed: 01/31/18 13:42> Date of Encounter: 01/31/18 - Attending Attestation I have personally performed a face to face evaluation on this patient. I have reviewed and agree with the care plan. History and Exam by me shows: Presents with SOB. Found to have significant elevation in troponin. C/W NSTEMI. Agree with current medical mgmt., have recommended left heart cath. At this time he refuses. Assessment and Plan Discussion w patient/family: The assessment and plan as outlined above was discussed with the patient and/or family members who expressed understanding and agreement. All questions were answered. Thank you for involving us in the care of your patient. Please call with any questions. History of Present Illness History of present illness: Mr. Okeefe is a 72 year old male All Systems Review: The remainder of the systems were reviewed and are negative Physical Examination Vital Signs, Last 4 Hours Temp Pulse Resp BP Pulse Ox 01/31/18 13:01 102 01/31/18 11:41 98.1 F 105 20 100/68 98 01/31/18 10:43 17 96 01/31/18 09:57 98.1 F 100 20 117/65 96 Results 01/31/18 02:40 01/31/18 02:40 Lab Results 01/31/18 01/31/18 09:27 09:27 INR 2.7 APTT 31.2 Magnesium 1.1 L Troponin I 33.21 H*
[2018-01-31 13:33] LABS: Magnesium 1.1 mg/dL (1.6-2.6)
[2018-01-31 14:10] LABS: Bilirubin,Urine Negative (Negative); Blood,Urine Small (Negative); Clarity,Urine Clear (Clear); Color,Urine Yellow (Yellow); Glucose,Urine (UA) 250 mg/dL (Normal); Ketones,Urine Negative (Negative); Leukocyte Esterase,Urine Negative (Negative); Nitrite,Urine Negative (Negative); Protein,Urine >=300 mg/dL (Neg-Trace); Specific Gravity,Urine > 1.030 (1.010-1.025); Urobilinogen,Urine Normal (Normal)
[2018-01-31 14:11] LABS: Bacteria,Urine None Seen per hpf (None-Few); Hyaline Casts,Urine None Seen per lpf (None-Few); Squamous Epithelial Cell,Urine Moderate per lpf (None-Few); WBC,Urine 0-3 per hpf (0-3)
--- NOTE | 2018-01-31 14:43 | Event Note ---
Date of Encounter: 01/31/18 Time of Encounter: 14:41 My attention was drawn to this patient was sitting at the edge of the bed, diaphoretic, complaining of pain and shortness of breath, and hypotensive. He is being managed for NSTEMI, current troponin 33. The patient has refused a heart catheterization, and has refused any interventions at this time. His mean arterial pressures greater than 70 at this time. I have educated the patient on his diagnosis, and the risk of cardiac and respiratory failure with risk of invasive mechanical intubation, need for pressors, and risk of . The patient verbalizes understanding. He continues to refuse intervention, he is still full code at this time. We will have ordered a PICC line and will start the patient on pressors for cardiogenic shock if his mean arterial pressures less than 65.
[2018-01-31] MEDS ORDERED: *HR* Methadone 10 MG TABLET PO SCH (16:00)
--- NOTE | 2018-01-31 17:38 | Event Note ---
Date of Encounter: 01/31/18 Time of Encounter: 17:37 Repeat troponin >73, unable to be read by the lab, patient continues to refuse intervention Blood pressure is improving ECHO is still pending
[2018-01-31] MEDS ORDERED: Warfarin perPT PO PRN (18:00)
--- NOTE | 2018-01-31 19:15 | Event Note ---
Date of Encounter: 02/01/18 Time of Encounter: 19:09 Patient now agrees to have a C. Dr. Linares-the assembler sandal parts bus driver/monitor was informed of patients's recent trop, symptoms and vitals and that he is agreeable to heart cath. He is still symptomatic with diaphoresis and shortness of breath Lamp Decorator bus driver/monitor requested a STAT EKG, which showed persistent St depression in lateral leads and ST elevateion in V3, the pictures of the new and old EKGs were sent to Dr. Linares, the assembler sandal parts bus driver/monitor The plan is for [facility]
[2018-01-31] MEDS ORDERED: Perflutren Lipid Microsphere 1.3 ML in 0.9 % Sodium Chloride 8.7 ML IVP ONE (20:59)
[2018-01-31] MEDS: Insulin DETEMIR 100 UNIT/ML X5UNITS SQ SCH (21:30)
[2018-01-31] MEDS: Gabapentin 300 MG CAPSULE PO SCH (21:30)
[2018-02-01] MEDS: Ipratropium/Albuterol Neb 3 ML IH SCH ×6 (04:34→23:57)
[2018-02-01 05:23] LABS: Basophils % 0.3 %; Eosinophils % 0.1 %; Hematocrit 31.5 % (37.5-50.1); Hemoglobin 10.8 g/dL (12.9-16.9); Immature Granulocytes % 0.6 % (0-4); Lymphocytes # 2.6 K/mcL (0.6-4.6); Lymphocytes % 18.1 %; Mean Corpuscular HGB Conc 34.3 g/dL (31.6-35.5); Mean Corpuscular Hemoglobin 28.6 pg (28.0-33.3); Mean Corpuscular Volume 83.3 fL (83.0-100.0); Mean Platelet Volume 9.4 fL (9.4-12.4); Monocytes # 1.5 K/mcL (0.0-1.3); Neutrophils # 10.3 K/mcL (1.6-8.9); Platelet Count 193 K/mcL (140-400); Red Blood Count 3.78 M/mcL (4.19-5.50); Red Cell Distribution Width 19.7 % (11.5-14.5); Segmented Neutrophils % 70.9 %
[2018-02-01 05:27] LABS: INR 3.9
[2018-02-01 05:30] LABS: Activated Partial Thrombo Time 32.2 Seconds (26.0-36.0)
[2018-02-01 05:39] LABS: Prothrombin Time 43.8 Seconds (9.4-12.1)
[2018-02-01 05:41] LABS: Chol/HDL Ratio 3.2 (0-4.9)
[2018-02-01 05:44] LABS: Alanine Aminotransferase 191 Units/L (7-52); Albumin 3.7 g/dL (3.5-5.7); Albumin/Globulin Ratio 1.6 (1.1-2.2); Alkaline Phosphatase 82 Units/L (34-104); Aspartate Amino Transferase 277 Units/L (13-39); BUN/Creatinine Ratio 26 (6-26); Bilirubin,Total 0.6 mg/dL (0.3-1.0); Blood Urea Nitrogen 23 mg/dL (8-23); Calcium 8.4 mg/dL (8.6-10.3); Carbon Dioxide 26 mEq/L (23-29); Chloride 96 mEq/L (98-107); Globulin 2.3 g/dL (2.4-3.5); Glucose 163 mg/dL (70-105); Osmolality,Calculated 273 (280-300); Potassium 4.8 mEq/L (3.5-5.1); Sodium 128 mEq/L (136-145); eGFR For Non-African Americans > 60 (> 60)
[2018-02-01] MEDS: Insulin LISPRO 300 UNITS/3 ML VIAL SQ SCH ×7 (08:07→20:25)
[2018-02-01] MEDS: *HR* Methadone 10 MG TABLET PO SCH ×3 (08:34→22:04)
[2018-02-01] MEDS: Furosemide 40 MG TABLET PO SCH (08:34)
[2018-02-01] MEDS: Azithromycin 250 MG TABLET PO SCH (08:35)
[2018-02-01] MEDS: Famotidine 20 MG TABLET PO SCH (08:35)
[2018-02-01] MEDS: Aspirin Enteric Coated 81 MG Tablet PO SCH (08:39)
[2018-02-01] MEDS: predniSONE 20 MG TABLET PO SCH (08:39)
[2018-02-01] MEDS: Cholecalciferol (D-3) 1,000 UNIT TABLET PO SCH (08:40)
[2018-02-01] MEDS: Magnesium Oxide 400 MG TABLET PO SCH (08:40)
[2018-02-01] MEDS: Multivit/Ca/Min/Fe/FA 1 TAB TABLET PO SCH (08:40)
[2018-02-01 08:53] LABS: Estimated Average Glucose 97 mg/dl
--- NOTE | 2018-02-01 10:15 | Cardiology Progress Note ---
Date of Encounter: 02/01/18 Time of Encounter: 08:30 Assessment and Plan (1) NSTEMI (non-ST elevated myocardial infarction) Current Visit: Yes Status: Acute NSTEMI troponin , 33.21 and now greater than 73. Repeat EKG last with ischemic changes. There was concern for mild ST elevation. EKG reviewed and decided patient was able to wait until INR decreased. No significant change from prior EKG. Reports prior NE in past and he declined LHC. BNP 120. CXR and CTA negative for acute PE or CHF but did show severe athrosclerosis. Notified that patient was willing to proceed with LHC. LHC R/B/A discussed and he states he is still considering. INR 3.9. Coumadin on hold. Vitamin K ordered. Re-evaluate INR this afternoon. Preferably patient should have LHC soon with EKG changes and elevated troponin. Consider palliative care consult if patient continues to decline. No heparin gtt due to therapeutic INR on coumadin. Start once INR less than 2.0. Asa, statin, and bb. (2) NSVT (nonsustained ventricular tachycardia) Current Visit: Yes Status: Acute 27 beat run NSVT seen yesterday. No recurrent events. Metoprolol started by primary team. Keep potassium 4.0 or greater and mg 2.0 or greater. Mg 1.1- magnesium replacement given. TTE pending. Discussion w patient/family: The assessment and plan as outlined above was discussed with the patient and/or family members who expressed understanding and agreement. All questions were answered. Thank you for involving us in the care of your patient. Please call with any questions. Objective Vital Signs, Last 4 Hours Temp Pulse Resp BP Pulse Ox 02/01/18 08:07 18 100 02/01/18 07:52 97.9 F 78 18 108/68 93 02/01/18 07:35 98.0 F 81 18 108/68 95 Results 02/01/18 05:05 02/01/18 05:05 Lab Results 01/31/18 01/31/18 02/01/18 09:27 16:40 05:05 WBC 14.5 H Hgb 10.8 L Hct 31.5 L Plt Count 193 INR APTT Sodium Potassium Chloride Carbon Dioxide BUN Creatinine Glucose Calcium Magnesium 1.1 L Total Bilirubin AST ALT Alkaline Phosphatase Troponin I 33.21 H* > 73.00 H* 02/01/18 02/01/18 05:05 05:05 WBC Hgb Hct Plt Count INR 3.9 APTT 32.2 Sodium 128 L Potassium 4.8 Chloride 96 L Carbon Dioxide 26 BUN 23 Creatinine 0.90 Glucose 163 H Calcium 8.4 L Magnesium Total Bilirubin 0.6 AST 277 H ALT 191 H Alkaline Phosphatase 82 Troponin I Consult Discharge Plan - Plan [facility]errals: [facility] [Primary Care Provider[facility] - (patient is from [place])
[2018-02-01] MEDS ORDERED: Albuterol 2.5 MG/3 ML NEBULIZER IH PRN (10:24)
--- NOTE | 2018-02-01 10:53 | Event Note ---
Date of Encounter: 01/31/18 Time of Encounter: 19:15 - Cardiology Event Note Called for question of cath since pt now agreed with cath. Asked primary team to get a new ECG. Pt seen by me, didn't have new complaints, changed his mind because "better late than sorry". Feels dyspnea no change, no CP. Vital stable, no O2 requirement. Able to lie flat. Bibasilar fine crackles. New ECG reviewed, mild ROSE III/F with STD I/L similar pattern c/w 10am ECG, lost R V3. Discussed the case with production control analyst interventionalist Dr Pak.
--- NOTE | 2018-02-01 11:43 | Event Note ---
Date of Encounter: 02/01/18 Time of Encounter: 11:15 - Cardiology Event Note Was informed patient was still having neck discomfort this morning. Troponin last night >70 and reviewed EKGs from last night with [facility] this morning, worsening ST elevation inferior leads. Patient reports he is wants [facility], will proceed. INR above 2, Vitamin K given, will plan on transradial approach if possible, to reduce risk of bleeding.
[2018-02-01] MEDS ORDERED: Verapamil 5 MG/2 ML VIAL ONE (11:55)
[2018-02-01] MEDS ORDERED: ISOVUE-370 200 ML INFUS..BTL IV ONE (11:55)
[2018-02-01] MEDS ORDERED: 0.9 % Sodium Chloride 1,000 ML ONE ×2 (11:55→12:11)
[2018-02-01] MEDS ORDERED: *HR* Heparin 10,000 UNIT/10 ML VIAL ONE (11:55)
[2018-02-01] MEDS ORDERED: Heparin 1,000 UNITS/500 mL 500 ML ONE (11:55)
[2018-02-01] MEDS ORDERED: Nitroglycerin 1,000 MCG/10 ML VIAL IV ONE (11:56)
--- NOTE | 2018-02-01 12:00 | Pre-Sedation Evaluation ---
Pre-sedation evaluation - Pre-sedation checklist Date of procedure: 02/01/18 Procedure: [facility] Recent Vitals: Last Vital Signs Temp 98.2 F 02/01/18 11:40 Pulse 73 02/01/18 11:40 Resp 18 02/01/18 11:40 BP 108/73 02/01/18 11:40 Pulse Ox 98 02/01/18 11:40 H&P (including ROS) documented in medical record: Yes Previous reaction to sedatives/anesthetics: Unknown Dietary Status: NPO after Midnight Dentition: No loose teeth or bridges ASA Classification *see protocol: CLASS IV-Severe systemic disease/constant threat to pt's life, [id number] to any of the above to indicate emergent Plan of Care: Pt appropriate candidate for procedure/moderate/conscious sedation , Risks/benefits of procedure/sedation discussed w/ patient/family, If not NPO; Risk of intake outweiged by necessity to perform procedure Cardiac Registry (Cardio Only) - Functional Capacity Functional Capacity: Unknown - Clincal Frailty Scale Clinical Frailty Scale: Vulnerable
--- NOTE | 2018-02-01 12:06 | Internal Med Progress Note ---
Hospitalist Progress Note - Encounter Date of Encounter: 02/01/18 Time of Encounter: 12:04 - Subjective Interval History: Patient seen and evaluated at bedside, it seems that the patient has poor insight of his current medical condition. He denies chest pain, shortness of breath, nausea, and vomiting. - Exam Vitals: Temp Pulse Resp BP Pulse Ox 98.2 F 73 18 108/73 98 02/01/18 11:40 02/01/18 11:40 02/01/18 11:40 02/01/18 11:40 02/01/18 11:40 Exam: General: Alert and oriented 3. In no acute distress. Cardiovascular: Normal S1 & S2, no rubs, murmurs or gallops. Lungs: Basilar crackles at both bases. Expiratory wheezes at the bases, and rales. Abdomen: Soft, non-tender, no rigidity. Extremities: Chronic venous Restasis changes in the lower extremity bilaterally , 1+ edema, no tenderness, no joint swelling or clubbing. Neurological: Normal cognition and motor skills. Rest of the physical exam is non contributory - Assessment and Plan (1) NSTEMI (non-ST elevated myocardial infarction) Current Visit: Yes Status: Acute Assessment and Plan: Patient presenting with chest pain, elevated lactic acid, troponins more than 70. EKG changes Plan: - Patient scheduled for cardiac cath - Continue aspirin - On Metoprolol and lisinopril - Will discuss with cardiology whether patient can be started on Brillinta or plavix - Will continue to follow cardiology recommendations (2) COPD (chronic obstructive pulmonary disease) Current Visit: Yes Status: Acute Assessment and Plan: Bacillary crackles, and expiratory wheezing. Plan: - Continue Prednisone 40mg daily/PO - Nebs Q6RT - Incentive spectrometry - Switched to levofloxacin 750mg/IV daily - (3) Lactic acidosis Current Visit: Yes Status: Acute Assessment and Plan: Due to NTSEMI. Plan: - Plan of care as #1 (4) Anemia Current Visit: Yes Status: Chronic Assessment and Plan: Possible anemia or chronic disease vs alcohol abuse Plan: - Monitor H&H - Iron panel - will consider transfusing if patient becomes symptomatic or based or cardiology recommendations if they want a target H&H as patient admitted for NSTEMI (5) History of DVT (deep vein thrombosis) Current Visit: Yes Status: Chronic Assessment and Plan: On warfarin. Plan: - Held, supratherapeutic INR, and patient is scheduled for a cardiac catheterization. (6) PAD (peripheral artery disease) Current Visit: Yes Status: Chronic Assessment and Plan: Plan: - Continue antiplatelet therapy. (7) Diabetes mellitus Current Visit: Yes Status: Chronic Assessment and Plan: Blood sugar well controlled. Plan: - To continue levemir 10 units plus Lispro AC and sliding scale - Diabetic diet following cardiac cath (8) Supratherapeutic INR Current Visit: Yes Status: Acute Assessment and Plan: Plan: - Warfarin has been held - Given 10mg of Vit K iv (9) Transaminitis Current Visit: Yes Status: Acute Assessment and Plan: Most likely due to decreased perfusion due to NTSEMI Plan: - F/U Am Liver function test (10) Congestive cardiac failure Current Visit: Yes Status: Chronic Assessment and Plan: No on acute exacerbation. Plan: - Strict intake and output - Water restriction to 1.5 litters a day - Continue furosemide 40mg PO daily. (11) Hyponatremia Current Visit: Yes Status: Acute Assessment and Plan: Possible due to pain. Plan: - Water restriction. - Patient with no neurological symptoms - DVT Prophylaxis: On full dose anticoagulation with warfarin due to a DVT Plan: - Warfarin held due to supratherapeutic INR. - Summary of Assessment and Plan Summary of Assessment and Plan: Patient scheduled to undergo a cardiac cath today. - Time Spent with Patient Total time spent is greater than 50% in coordination of care (as documented) at patient's floor/unit and/or counseling patient: Greater than 35 minutes Plan of Care Discussed with: patient Internal Medicine: Result - Labs CBC & Chem 7: 02/01/18 05:05 02/01/18 05:05 Labs: Short CBC 02/01/18 Range/Units 05:05 WBC 14.5 H (4.3-11.1) K/mcL Hgb 10.8 L (12.9-16.9) g/dL Hct 31.5 L (37.5-50.1) % Plt Count 193 (140-400) K/mcL Neutrophils # 10.3 H (1.6-8.9) K/mcL BMP 02/01/18 05:05 Sodium 128 L Potassium 4.8 Chloride 96 L Carbon Dioxide 26 BUN 23 Creatinine 0.90 Glucose 163 H Calcium 8.4 L Cardiac Enzymes 01/31/1801/31/18 Range/Units 09:27 16:40 Troponin I 33.21 H* > 73.00 H* (< 0.04) ng/mL Liver Function 02/01/18 Range/Units 05:05 Total Bilirubin 0.6 (0.3-1.0) mg/dL AST 277 H (13-39) Units/L ALT 191 H (7-52) Units/L Alkaline Phosphatase 82 (34-104) Units/L Albumin 3.7 (3.5-5.7) g/dL Urine 01/31/18 Range/Units 13:50 Urine Color Yellow (Yellow) Urine Clarity Clear (Clear) Urine pH 6.0 (5.0-8.0) pH Units Ur Specific Wake > 1.030 H (1.010-1.025) Urine Protein >=300 H (Neg-Trace) mg/dL Urine Glucose (UA) 250 H (Normal) mg/dL - ABG Interpretation ABG results: PT/INR, D-dimer PT 43.8 Seconds (9.4-12.1) H* 02/01/18 05:05 Consult Discharge Plan - Plan [facility]errals: [facility] [Primary Care Provider] - (patient is from [place]) (2) COPD (chronic obstructive pulmonary disease) Qualifiers: COPD type: unspecified COPD Qualified Code(s): J44.9 - Chronic obstructive pulmonary disease, unspecified (4) Anemia Qualifiers: Anemia type: unspecified type Qualified Code(s): D64.9 - Anemia, unspecified (7) Diabetes mellitus Qualifiers: Diabetes mellitus type: type 2 Diabetes mellitus fci insulin use: with fci use Diabetes mellitus complication status: with circulatory complication Diabetes mellitus complication detail: with peripheral angiopathy without gangrene Qualified Code(s): E11.51 - Type 2 diabetes mellitus with diabetic peripheral angiopathy without gangrene; Z79.4 - intermediate designer (current) use of insulin (10) Congestive cardiac failure Qualifiers: Heart failure type: systolic Heart failure chronicity: chronic Qualified Code(s): I50.22 - Chronic systolic (congestive) heart failure
[2018-02-01 12:08] LABS: Prothrombin Time 33.4 Seconds (9.4-12.1)
[2018-02-01] MEDS ORDERED: *HR* FentaNYL (PF) 100 MCG/2 ML VIAL ONE ×2 (12:21→12:36)
[2018-02-01] MEDS ORDERED: *HR* Midazolam HCl 2 MG/2 ML VIAL ONE ×3 (12:21→12:36)
[2018-02-01] MEDS ORDERED: DOPamine Premix 0 MG/0 ML BAG ONE (12:43)
--- NOTE | 2018-02-01 13:29 | Invasive Diagnostic Lab Proc ---
Name: Gerson Okeefe Date of Study: 02/01/2018 Date: 1945 Ht: 66.9in Medical Record#: [id number] Age: 72 Wt: 158.73lb Gender: Male BSA: 1.83 Order #: [id number] BMI: 24.91 Physicians Procedure Physician: Dae Frost MD, [facility] Referring MD: Referring MD: Staff Name Position Time In Sites, [facility] RT (R) Monitor 12:26 PM Laura Mart RN Chief Station Engineer 12:26 PM Denice Estes RT (R) Scrub 12:26 PM Indications Indication Non-Stemi Procedures Performed Procedure L HRT ARTERY/VENTRICLE ANGIO Pre-Procedure Checklist Informed consent is complete signed and on chart. H&P is on chart. ID band is on and ID verified with patient. Patient NPO for procedure The procedure was described for the patient and questions were answered. Blood Pressure: 117/69 ECG is on chart. Rhythm: NSR Plan of Care Patient will tolerate the procedure without complications. Adequate level of comfort will be maintained. Hemodynamics will remain stable Patient will recover from procedure without complications. Respiratory function will be maintained. Cardiac rhythm will remain stable. Patient temperature will be maintained. Patient and/or family have verbalized understanding of the procedure. Patient Education Chief Complaint/Reason for Test: Cardiac Cath Developmental Category: Geriatric (65+ years) Developmentally Appropriate for Age: Yes Learning Barriers: None Education Needs: Procedure Education Method: Verbal Information Taught: Cardiac Cath Educational Evaluation: Able to repeat information Intravenous Access Time IV Size Location DC'd Fluid/Drip Rate Units RN 18g 1 05/31" Patent On Arrival Rt Antecubital 0.9NaCl 50 ml/hr Laura Mart RN Allergies No Known Allergies Cephalexin Vital Signs Time BP (mmHg) HR (bpm) O2 Sat. RR (bpm) LOC 12:28 PM / % 5 = Fully awake and oriented or at pre-proc level 12:28 PM / % 4 = Oriented but drowsy 12:23 PM / 75 % 17 12:24 PM 117 / 69 74 98 % 13 12:29 PM 97 / 59 72 95 % 13 12:34 PM 92 / 59 72 96 % 17 12:39 PM 99 / 72 78 97 % 17 12:40 PM 76 / 52 77 93 % 11 12:42 PM 69 / 50 77 87 % 23 12:43 PM 73 / 44 72 99 % 18 12:44 PM 72 / 48 71 99 % 14 12:49 PM 83 / 53 74 91 % 13 12:54 PM 76 / 25 77 95 % 13 12:43 PM / % 4 = Oriented but drowsy Procedural Medications Time Medication Dose Units Method Given By 12:27 PM Oxygen 2 L/min nasal cannula Laura Mart RN 12:27 PM Versed 2 mg Intravenous Laura Mart RN 12:27 PM Fentanyl 50 mcg Intravenous Laura Mart RN 12:33 PM Versed 1 mg Intravenous Laura Mart RN 12:34 PM Fentanyl 25 mcg Intravenous Laura Mart RN 12:35 PM Lidocaine 2% 0.5 ml Subcutaneous Dae Frost MD, FACC 12:35 PM Versed 2 mg Intravenous Laura Mart RN 12:37 PM Fentanyl 50 mcg Intravenous Laura Mart RN 12:40 PM Heparin 4000 units Nitroglycerin 200 mcg Verapamil 2.5 mg Intraarterial Dae Frost MD, FACC 12:44 PM Versed 1 mg Intravenous Laura Mart RN ASA Classification: CLASS IV- Severe systemic that is constant threat to patient's life Emergent Procedure: ASA score is assumed Ifrah Score Preprocedure Postprocedure Activity 2- Moves 4 extremities sustained head lift Activity 2- Moves 4 extremities sustained head lift Circulation 2- SBP +/= 20 points of pre-anesthetic level Circulation 2- SBP +/= 20 points of pre-anesthetic level Consciousness 2- Awake and alert oriented x 3 Consciousness 2- Awake and alert oriented x 3 O2 Saturation 2- Able to maintain O2 satruation of 92% on room air O2 Saturation 2- Able to maintain O2 satruation of 92% on room air Respiratory 2- Able to deep breathe and cough well Respiratory 2- Able to deep breathe and cough well Total Score 10 Total Score 10 Contrast Agent: Isovue Diagnostic Contrast: 61 ml Total Contrast: 61 ml Fluoro Dose: 1819 mGy Procedure Log Time Note Enter By 12:23 PM HR=75 bpm, Resp=17 B/min 12:23 PM Vitals capture started with the following parameters, Patient=Adult, Interval=5 min, Initial Dftmxaqp=154 mmHg, Deflation Rate=5 mmHg, Cuff placed on Right Arm 12:24 PM CathStat 12:24 PM Case Start 12:24 PM HR=74 bpm, TMQC=045/69 mmhg, SpO2=98.0 %, Resp=13 B/min 12:25 PM Recorded ECG: HR=77 Condition=Condition 1 12: PM Pt arrived to rags laborer 2 at 12: tsites 12: PM Patient charges- Angio tray pack, Navilyst 3mm J, Pulse Oximetry and ACIST tubing and transducer tsites 12: PM Physician arrived 12: tsites 12: PM Letty Bejarano RT (R) Position: Monitor Time in: 12: tsites 12: PM Laura Mart RN Position: Chief Station Engineer Time in: 12: tsites 12: PM Denice Estes RT (R) Position: Scrub Time in: : tsites 12: PM Meet and greet completed tsites 12: PM Sign in performed according to hospital policy. tsites 12:27 PM Procedure start 12: tsites 12: PM Hair removed from procedure site in holding area using clippers. Right wrist prepped with Chloraprep by Letty Bejarano (R), then patient was draped. Skin intact. tsites 12: PM Time: 12:27 Oxygen on at 2 L/min per nasal cannula by Laura Mart RN tsites 12: PM Time: 12:27 Versed 2 mg Intravenous Given by Laura Mart RN tsites 12: PM Time: 12:27 Fentanyl 50 mcg Intravenous Given by Laura Mart RN tsites 12:27 PM Time: 12:27 Patient comfortable and pain free: Yes tsites 12:28 PM Time: 12:28LOC: 5 = Fully awake and oriented or at pre-proc level tsites 12:28 PM Clinical Presentation: Unstable angina tsites 12:28 PM pt feels 100% normal at this time. denies any chest pain or discomfort. sob last night tsites 12:28 PM Clinical Presentation: STEMI or equivalent tsites 12:29 PM HR=72 bpm, NIBP=97/59 mmhg, SpO2=95.0 %, Resp=13 B/min 12:30 PM Time out performed according to hospital policy tsites 12:31 PM Time: 12:35 0.5 ml Lidocaine 2% to right radial Subcutaneous Given by Dae Frost MD, [facility] tsites 12:32 PM ultrasound used for radial access tsites 12:34 PM Time: 12:33 Versed 1 mg Intravenous Given by Laura Mart RN tsites 12:34 PM Time: 12:34 Fentanyl 25 mcg Intravenous Given by Laura Mart RN tsites 12:34 PM HR=72 bpm, NIBP=92/59 mmhg, SpO2=96.0 %, Resp=17 B/min, Comment=sr bbb 12:37 PM Time: 12:35 Versed 2 mg Intravenous Given by Laura Mart RN tsites 12:37 PM Time: 12:37 Fentanyl 50 mcg Intravenous Given by Laura Mart RN tsites 12:39 PM HR=78 bpm, NIBP=99/72 mmhg, SpO2=97.0 %, Resp=17 B/min, Comment=sr bbb 12:40 PM NIBP STAT measurement started. 12:40 PM Access obtained by percutaneous puncture. 6Fr 11cm Terumo Glidesheath sheath placed in right Radial artery. [id number] tsites 12:40 PM Time: 12:40 Patient given 4,000 units Heparin, 200 mcg Nitroglycerin, and 2.5 mg Verapamil Intraarterial by Dae Frost MD, [facility]. This is given to reduce risk of vessel spasm and thrombosis. tsites 12:40 PM HR=77 bpm, NIBP=76/52 mmhg, SpO2=93 %, Resp=11 B/min, Comment=sr bbb 12:41 PM 5Fr TIG catheter inserted over the wire DNC tsites 12:41 PM NIBP STAT measurement started. 12:41 PM patient is moving on the table at this time tsites 12:42 PM HR=77 bpm, NIBP=69/50 mmhg, SpO2=87.0 %, Resp=23 B/min, Comment=sr bbb 12:42 PM Recorded Pressure: Ao, HR=76, Condition=Condition 1 (Aorta) Ao 75/46/59 12:42 PM LCA angiography performed in multiple views. tsites 12:43 PM Time: 12:27 Patient comfortable and pain free: Yes tsites 12:43 PM NIBP STAT measurement started. 12:43 PM Time: 12:28LOC: 4 = Oriented but drowsy tsites 12:43 PM HR=72 bpm, NIBP=73/44 mmhg, SpO2=99.0 %, Resp=18 B/min, Comment=sr bbb 12:44 PM Time: 12:44 Versed 1 mg Intravenous Given by Laura Mart RN tsites 12:44 PM Recorded Pressure: Ao, HR=71, Condition=Condition 1 (Aorta) Ao 79/47/61 12:44 PM HR=71 bpm, NIBP=72/48 mmhg, SpO2=99.0 %, Resp=14 B/min, Comment=sr bbb 12:45 PM repositioning catheter to RCA tsites 12:48 PM RCA angiography performed in multiple views. tsites 12:48 PM Catheter removed tsites 12:48 PM Recorded Pressure: LV, HR=75, Condition=Condition 1 (Left Ventricle) LV 88/8/16 12:48 PM 5Fr Pigtail catheter inserted over the wire C tsites 12:49 PM Catheter selectively placed in left ventricle tsites 12:49 PM HR=74 bpm, NIBP=83/53 mmhg, SpO2=91.0 %, Resp=13 B/min, Comment=sr bbb 12:50 PM Bolus angiogram of left Ventricle complete: 10 ml/sec for a total of 30 mls tsites 12:51 PM Recorded Pressure: LV, Ao, HR=73, Condition=Condition 1 (Left Ventricle) LV 97/25/23, (Aorta) Ao 95/49/68 12:54 PM HR=77 bpm, NIBP=76/25 mmhg, SpO2=95.0 %, Resp=13 B/min, Comment=sr bbb 12:57 PM Catheter removed tsites 12:57 PM Coronary Dominance: Co-dominant tsites 12:57 PM Procedure completed at 12:57 02/01/2018 tsites 12:58 PM Time: 12:43LOC: 4 = Oriented but drowsy tsites 12:58 PM Time: 12:43 Patient comfortable and pain free: Yes tsites 12:58 PM Did you address LIT flow and Dominance? Yes tsites 12:59 PM Sign out completed: Radiation Dose 193 mGy, 1819 cGy/cm2 Fluoro Time: 1.6 Isovue 370 - 200ml contrast 61 ml given by Dae Frost MD, [facility]. Complications: NoneCardiac Rehab Consult needed: NoConfirmed administered medications: Yes tsites 12:59 PM Isovue 370 - 200ml,1 Bottle(s) used. tsites 12:59 PM Arterial sheath pulled, Vasc Band closure device used and was Successful S/N. tsites 12:59 PM 18 ml air in Vasc Band. tsites 12:59 PM Estimated Blood Loss: minimal tsites 12:59 PM Post ECG NSR tsites 01:00 PM Post Blood Pressure 83/53 tsites 01:00 PM 13:00 Post Pulses Rt Radial 1+ tsites 01:00 PM Information taught Cardiac Cath and Vasc Band tsites 01:00 PM Education needs Procedure, Plan of Care, and Responsibilities of Patient in Care tsites 01:00 PM Learning barriers :None tsites 01:01 PM Education Methods Verbal tsites 01:01 PM Education evaluation Able to repeat information tsites 01:01 PM Site status No bleeding/hematoma - Rt Wrist as reported by Denice Estes RT (R) at 13:01 tsites 01:01 PM Plavix, Effient or Brilinta given No tsites 01:01 PM Delay to floor No tsites 01:02 PM Family placed in no family here at this time. tsites 01:02 PM Complications: None tsites 01:03 PM Patient out of room: 13:03 tsites 01:12 PM Complications: None tsites 01:12 PM Report given to Feliberto GARIBAY Pt taken to 2N Room #6. 13:12 tsites 01:14 PM ASA Class CLASS IV- Severe systemic that is constant threat to patient's life tsites 01:14 PM Coronary Dominance: Co-dominant tsites 01:14 PM Lesion found in Proximal LMCA. Pre Stenosis: 50 Pre LIT Flow: tsites 01:14 PM Lesion found in Proximal RCA. Pre Stenosis: 99 Pre LIT Flow: 2: Partial Flow/Perfusion (> 1 but < 3) tsites 01:14 PM Lesion found in 1st Marginal. Pre Stenosis: 80 Pre LIT Flow: tsites 01:15 PM Left Main Coronary Artery with 50% stenosis tsites 01:15 PM Circumflex, Obtuse Marginal, Left Posterior Descending, and Left Posterolateral Coronary Arteries with 80 % stenosis. If graft is supplying this area, 0 % stenosis tsites 01:15 PM Right Coronary, Right Posterior Descending Arteries with Right Posterolateral and Acute Marginal branches with 99 % stenosis. If graft is supplying this area, 0 % stenosis tsites 01:[address] surgery consulted. Spoke with Dr. Rolle about this consult, so he is aware. tsites Complications Complication None None None Hemodynamics Pressures Site Systolic/A Wave Diastolic/V Wave Mean AO 75 46 59 AO 79 47 61 LV 88 8 16 LV 97 25 23 AO 95 49 68 Post Procedure Information Blood Pressure: 83/53 mmHg Rhythm: NSR Post procedural instructions were given Surgery consult for CABG Closure Device Time Device Success/Fail 02/01/2018 1:02:00 PM MynxGrip Successful Site Checks Time Location Status Staff Sheath In? Note 01:01 PM Rt Wrist No bleeding/hematoma Denice Estes RT (R) Pulses Time Site Pre-Procedure Post-Procedure Note Rt DP Doppler Bilateral radial 2+ Lt DP 1+ 1:00:00 PM Rt Radial 1+ Updated by [facility], RT (R) on 02/01/2018 1:19:47 [facility] electronically signed on 02/01/2018 1:20:21 PM with status of Final
--- NOTE | 2018-02-01 13:30 | Event Note ---
Date of Encounter: 02/01/18 Time of Encounter: 13:25 - Cardiology Event Note Mr. Okeefe underwent LHC for NSTEMI. LHC revealed severe CAD including LMCA. EF 35%. CT surgery consulted for CABG evaluation. Patient informed of finding. Explained findings and recommendations more than once. Patient falls asleep during discussion and appears to not understand diagnosis. We will re-discuss once he is less sedated.
--- NOTE | 2018-02-01 14:37 | Invasive Diagnostic Lab Proc ---
Name: Gerson Okeefe Date of Study: 02/01/2018 Date: 1945 Ht: 66.9in Medical Record#: [id number] Age: 72 Wt: 158.73lb Gender: Male BSA: 1.83 Order #: [id number] BMI: 24.91 Physicians Procedure Physician: Dae Frost MD, [facility] Referring MD: Referring MD: Staff Name Position Time In Sites, [facility] RT (R) Monitor 12:26 PM Laura Mart RN Viscosity Inspector 12:26 PM Denice Estes RT (R) Scrub 12:26 PM Indications Indication Non-Stemi Procedures Performed Procedure L HRT ARTERY/VENTRICLE ANGIO Pre-Procedure Checklist Informed consent is complete signed and on chart. H&P is on chart. ID band is on and ID verified with patient. Patient NPO for procedure The procedure was described for the patient and questions were answered. Blood Pressure: 117/69 ECG is on chart. Rhythm: NSR Plan of Care Patient will tolerate the procedure without complications. Adequate level of comfort will be maintained. Hemodynamics will remain stable Patient will recover from procedure without complications. Respiratory function will be maintained. Cardiac rhythm will remain stable. Patient temperature will be maintained. Patient and/or family have verbalized understanding of the procedure. Patient Education Chief Complaint/Reason for Test: Cardiac Cath Developmental Category: Geriatric (65+ years) Developmentally Appropriate for Age: Yes Learning Barriers: None Education Needs: Procedure Education Method: Verbal Information Taught: Cardiac Cath Educational Evaluation: Able to repeat information Intravenous Access Time IV Size Location DC'd Fluid/Drip Rate Units RN 18g 1 05/31" Patent On Arrival Rt Antecubital 0.9NaCl 50 ml/hr Laura Mart RN Allergies No Known Allergies Cephalexin Vital Signs Time BP (mmHg) HR (bpm) O2 Sat. RR (bpm) LOC 12:28 PM / % 5 = Fully awake and oriented or at pre-proc level 12:28 PM / % 4 = Oriented but drowsy 12:23 PM / 75 % 17 12:24 PM 117 / 69 74 98 % 13 12:29 PM 97 / 59 72 95 % 13 12:34 PM 92 / 59 72 96 % 17 12:39 PM 99 / 72 78 97 % 17 12:40 PM 76 / 52 77 93 % 11 12:42 PM 69 / 50 77 87 % 23 12:43 PM 73 / 44 72 99 % 18 12:44 PM 72 / 48 71 99 % 14 12:49 PM 83 / 53 74 91 % 13 12:54 PM 76 / 25 77 95 % 13 12:43 PM / % 4 = Oriented but drowsy Procedural Medications Time Medication Dose Units Method Given By 12:27 PM Oxygen 2 L/min nasal cannula Laura Mart RN 12:27 PM Versed 2 mg Intravenous Laura Mart RN 12:27 PM Fentanyl 50 mcg Intravenous Laura Mart RN 12:33 PM Versed 1 mg Intravenous Laura Mart RN 12:34 PM Fentanyl 25 mcg Intravenous Laura Mart RN 12:35 PM Lidocaine 2% 0.5 ml Subcutaneous Dae Frost MD, FACC 12:35 PM Versed 2 mg Intravenous Laura Mart RN 12:37 PM Fentanyl 50 mcg Intravenous Laura Mart RN 12:40 PM Heparin 4000 units Nitroglycerin 200 mcg Verapamil 2.5 mg Intraarterial Dae Frost MD, FACC 12:44 PM Versed 1 mg Intravenous Laura Mart RN ASA Classification: CLASS IV- Severe systemic that is constant threat to patient's life Emergent Procedure: ASA score is assumed Ifrah Score Preprocedure Postprocedure Activity 2- Moves 4 extremities sustained head lift Activity 2- Moves 4 extremities sustained head lift Circulation 2- SBP +/= 20 points of pre-anesthetic level Circulation 2- SBP +/= 20 points of pre-anesthetic level Consciousness 2- Awake and alert oriented x 3 Consciousness 2- Awake and alert oriented x 3 O2 Saturation 2- Able to maintain O2 satruation of 92% on room air O2 Saturation 2- Able to maintain O2 satruation of 92% on room air Respiratory 2- Able to deep breathe and cough well Respiratory 2- Able to deep breathe and cough well Total Score 10 Total Score 10 Contrast Agent: Isovue Diagnostic Contrast: 61 ml Total Contrast: 61 ml Fluoro Dose: 1819 mGy Procedure Log Time Note Enter By 12:23 PM HR=75 bpm, Resp=17 B/min 12:23 PM Vitals capture started with the following parameters, Patient=Adult, Interval=5 min, Initial Rzlayglt=567 mmHg, Deflation Rate=5 mmHg, Cuff placed on Right Arm 12:24 PM CathStat 12:24 PM Case Start 12:24 PM HR=74 bpm, ECML=899/69 mmhg, SpO2=98.0 %, Resp=13 B/min 12:25 PM Recorded ECG: HR=77 Condition=Condition 1 12: PM 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 tsites 12:27 PM Procedure start 12: tsites 12: PM Hair removed from procedure site in holding area using clippers. Right wrist prepped with Chloraprep by Letty Bejarano (R), then patient was draped. Skin intact. tsites 12: PM Time: 12:27 Oxygen on at 2 L/min per nasal cannula by Laura Mart RN tsites 12: PM Time: 12:27 Versed 2 mg Intravenous Given by Laura Mart RN tsites 12: PM Time: 12:27 Fentanyl 50 mcg Intravenous Given by Laura Mart RN tsites 12:27 PM Time: 12:27 Patient comfortable and pain free: Yes tsites 12:28 PM Time: 12:28LOC: 5 = Fully awake and oriented or at pre-proc level tsites 12:28 PM Clinical Presentation: Unstable angina tsites 12:28 PM pt feels 100% normal at this time. denies any chest pain or discomfort. sob last night tsites 12:28 PM Clinical Presentation: STEMI or equivalent tsites 12:29 PM HR=72 bpm, NIBP=97/59 mmhg, SpO2=95.0 %, Resp=13 B/min 12:30 PM Time out performed according to hospital policy tsites 12:31 PM Time: 12:35 0.5 ml Lidocaine 2% to right radial Subcutaneous Given by Dae Frost MD, [facility] tsites 12:32 PM ultrasound used for radial access tsites 12:34 PM Time: 12:33 Versed 1 mg Intravenous Given by Laura Mart RN tsites 12:34 PM Time: 12:34 Fentanyl 25 mcg Intravenous Given by Laura Mart RN tsites 12:34 PM HR=72 bpm, NIBP=92/59 mmhg, SpO2=96.0 %, Resp=17 B/min, Comment=sr bbb 12:37 PM Time: 12:35 Versed 2 mg Intravenous Given by Laura Mart RN tsites 12:37 PM Time: 12:37 Fentanyl 50 mcg Intravenous Given by Laura Mart RN tsites 12:39 PM HR=78 bpm, NIBP=99/72 mmhg, SpO2=97.0 %, Resp=17 B/min, Comment=sr bbb 12:40 PM NIBP STAT measurement started. 12:40 PM Access obtained by percutaneous puncture. 6Fr 11cm Terumo Glidesheath sheath placed in right Radial artery. [id number] tsites 12:40 PM Time: 12:40 Patient given 4,000 units Heparin, 200 mcg Nitroglycerin, and 2.5 mg Verapamil Intraarterial by Dae Frost MD, [facility]. This is given to reduce risk of vessel spasm and thrombosis. tsites 12:40 PM HR=77 bpm, NIBP=76/52 mmhg, SpO2=93 %, Resp=11 B/min, Comment=sr bbb 12:41 PM 5Fr TIG catheter inserted over the wire DNC tsites 12:41 PM NIBP STAT measurement started. 12:41 PM patient is moving on the table at this time tsites 12:42 PM HR=77 bpm, NIBP=69/50 mmhg, SpO2=87.0 %, Resp=23 B/min, Comment=sr bbb 12:42 PM Recorded Pressure: Ao, HR=76, Condition=Condition 1 (Aorta) Ao 75/46/59 12:42 PM LCA angiography performed in multiple views. tsites 12:43 PM Time: 12:27 Patient comfortable and pain free: Yes tsites 12:43 PM NIBP STAT measurement started. 12:43 PM Time: 12:28LOC: 4 = Oriented but drowsy tsites 12:43 PM HR=72 bpm, NIBP=73/44 mmhg, SpO2=99.0 %, Resp=18 B/min, Comment=sr bbb 12:44 PM Time: 12:44 Versed 1 mg Intravenous Given by Laura Mart RN tsites 12:44 PM Recorded Pressure: Ao, HR=71, Condition=Condition 1 (Aorta) Ao 79/47/61 12:44 PM HR=71 bpm, NIBP=72/48 mmhg, SpO2=99.0 %, Resp=14 B/min, Comment=sr bbb 12:45 PM repositioning catheter to RCA tsites 12:48 PM RCA angiography performed in multiple views. tsites 12:48 PM Catheter removed tsites 12:48 PM Recorded Pressure: LV, HR=75, Condition=Condition 1 (Left Ventricle) LV 88/8/16 12:48 PM 5Fr Pigtail catheter inserted over the wire C tsites 12:49 PM Catheter selectively placed in left ventricle tsites 12:49 PM HR=74 bpm, NIBP=83/53 mmhg, SpO2=91.0 %, Resp=13 B/min, Comment=sr bbb 12:50 PM Bolus angiogram of left Ventricle complete: 10 ml/sec for a total of 30 mls tsites 12:51 PM Recorded Pressure: LV, Ao, HR=73, Condition=Condition 1 (Left Ventricle) LV 97/25/23, (Aorta) Ao 95/49/68 12:54 PM HR=77 bpm, NIBP=76/25 mmhg, SpO2=95.0 %, Resp=13 B/min, Comment=sr bbb 12:57 PM Catheter removed tsites 12:57 PM Coronary Dominance: Co-dominant tsites 12:57 PM Procedure completed at 12:57 02/01/2018 tsites 12:58 PM Time: 12:43LOC: 4 = Oriented but drowsy tsites 12:58 PM Time: 12:43 Patient comfortable and pain free: Yes tsites 12:58 PM Did you address LIT flow and Dominance? Yes tsites 12:59 PM Sign out completed: Radiation Dose 193 mGy, 1819 cGy/cm2 Fluoro Time: 1.6 Isovue 370 - 200ml contrast 61 ml given by Dae Frost MD, [facility]. Complications: NoneCardiac Rehab Consult needed: NoConfirmed administered medications: Yes tsites 12:59 PM Isovue 370 - 200ml,1 Bottle(s) used. tsites 12:59 PM Arterial sheath pulled, Vasc Band closure device used and was Successful S/N. tsites 12:59 PM 18 ml air in Vasc Band. tsites 12:59 PM Estimated Blood Loss: minimal tsites 12:59 PM Post ECG NSR tsites 01:00 PM Post Blood Pressure 83/53 tsites 01:00 PM 13:00 Post Pulses Rt Radial 1+ tsites 01:00 PM Information taught Cardiac Cath and Vasc Band tsites 01:00 PM Education needs Procedure, Plan of Care, and Responsibilities of Patient in Care tsites 01:00 PM Learning barriers :None tsites 01:01 PM Education Methods Verbal tsites 01:01 PM Education evaluation Able to repeat information tsites 01:01 PM Site status No bleeding/hematoma - Rt Wrist as reported by Denice Estes RT (R) at 13:01 tsites 01:01 PM Plavix, Effient or Brilinta given No tsites 01:01 PM Delay to floor No tsites 01:02 PM Family placed in no family here at this time. tsites 01:02 PM Complications: None tsites 01:03 PM Patient out of room: 13:03 tsites 01:12 PM Complications: None tsites 01:12 PM Report given to Feliberto GARIBAY Pt taken to 2N Room #6. 13:12 tsites 01:14 PM ASA Class CLASS IV- Severe systemic that is constant threat to patient's life tsites 01:14 PM Coronary Dominance: Co-dominant tsites 01:14 PM Lesion found in Proximal LMCA. Pre Stenosis: 50 Pre LIT Flow: tsites 01:14 PM Lesion found in Proximal RCA. Pre Stenosis: 99 Pre LIT Flow: 2: Partial Flow/Perfusion (> 1 but < 3) tsites 01:14 PM Lesion found in 1st Marginal. Pre Stenosis: 80 Pre LIT Flow: tsites 01:15 PM Left Main Coronary Artery with 50% stenosis tsites 01:15 PM Circumflex, Obtuse Marginal, Left Posterior Descending, and Left Posterolateral Coronary Arteries with 80 % stenosis. If graft is supplying this area, 0 % stenosis tsites 01:15 PM Right Coronary, Right Posterior Descending Arteries with Right Posterolateral and Acute Marginal branches with 99 % stenosis. If graft is supplying this area, 0 % stenosis tsites 01:[address] surgery consulted. Spoke with Dr. Rolle about this consult, so he is aware. tsites 02:26 PM Pt is a heart class 3 tsites Complications Complication None None None Hemodynamics Pressures Site Systolic/A Wave Diastolic/V Wave Mean AO 75 46 59 AO 79 47 61 LV 88 8 16 LV 97 25 23 AO 95 49 68 Post Procedure Information Blood Pressure: 83/53 mmHg Rhythm: NSR Post procedural instructions were given Surgery consult for CABG Closure Device Time Device Success/Fail 02/01/2018 1:02:00 PM MynxGrip Successful Site Checks Time Location Status Staff Sheath In? Note 01:01 PM Rt Wrist No bleeding/hematoma Denice Estes RT (R) Pulses Time Site Pre-Procedure Post-Procedure Note Rt DP Doppler Bilateral radial 2+ Lt DP 1+ 1:00:00 PM Rt Radial 1+ Updated by [facility], RT (R) on 02/01/2018 2:29:41 PM [facility], RT electronically signed on 02/01/2018 2:30:05 PM with status of Final
[2018-02-01 15:20] LABS: INR 2.1; Prothrombin Time 23.5 Seconds (9.4-12.1)
[2018-02-01] MEDS: Insulin DETEMIR 100 UNIT/ML X5UNITS SQ SCH (22:04)
[2018-02-01] MEDS: Gabapentin 300 MG CAPSULE PO SCH (22:04)
[2018-02-02] MEDS: Ipratropium/Albuterol Neb 3 ML IH SCH ×2 (03:41→07:47)
[2018-02-02 04:19] LABS: % Iron Saturation 13 % (20-55); Alanine Aminotransferase 159 Units/L (7-52); Albumin 3.8 g/dL (3.5-5.7); Albumin/Globulin Ratio 1.7 (1.1-2.2); Alkaline Phosphatase 77 Units/L (34-104); Aspartate Amino Transferase 159 Units/L (13-39); BUN/Creatinine Ratio 29 (6-26); Bilirubin,Direct 0.2 mg/dL (0.0-0.2); Bilirubin,Indirect 0.7 mg/dL (0.0-1.2); Bilirubin,Total 0.9 mg/dL (0.3-1.0); Blood Urea Nitrogen 26 mg/dL (8-23); Calcium 8.6 mg/dL (8.6-10.3); Carbon Dioxide 28 mEq/L (23-29); Chloride 98 mEq/L (98-107); Globulin 2.3 g/dL (2.4-3.5); Glucose 106 mg/dL (70-105); Iron 50 mcg/dL (65-175); Magnesium 1.9 mg/dL (1.6-2.6); Osmolality,Calculated 277 (280-300); Potassium 4.4 mEq/L (3.5-5.1); Sodium 131 mEq/L (136-145); Total Protein 6.1 g/dL (6.4-8.9); Transferrin 278 mg/dL (203-362); eGFR For Non-African Americans > 60 (> 60)
[2018-02-02 05:04] LABS: Basophils % 0.2 %; Eosinophils % 0.3 %; Hematocrit 27.6 % (37.5-50.1); Immature Granulocytes % 0.6 % (0-4); Lymphocytes # 3.3 K/mcL (0.6-4.6); Lymphocytes % 23.6 %; Mean Corpuscular Hemoglobin 27.9 pg (28.0-33.3); Mean Corpuscular Volume 84.7 fL (83.0-100.0); Mean Platelet Volume 10.3 fL (9.4-12.4); Monocytes # 1.6 K/mcL (0.0-1.3); Monocytes % 11.3 %; Neutrophils # 9.1 K/mcL (1.6-8.9); Platelet Count 183 K/mcL (140-400); Red Blood Count 3.26 M/mcL (4.19-5.50); Red Cell Distribution Width 19.7 % (11.5-14.5)
[2018-02-02 05:06] LABS: Hemoglobin 9.1 g/dL (12.9-16.9)
[2018-02-02] MEDS: *HR* Enoxaparin 80 MG/0.8 ML SYRINGE SQ SCH ×2 (05:38→17:02)
[2018-02-02] MEDS ORDERED: Ipratropium/Albuterol Neb 3 ML IH PRN (07:48)
[2018-02-02] MEDS: Furosemide 40 MG TABLET PO SCH (08:05)
[2018-02-02] MEDS: Magnesium Oxide 400 MG TABLET PO SCH (08:05)
[2018-02-02] MEDS: Famotidine 20 MG TABLET PO SCH ×2 (08:06→09:55)
[2018-02-02] MEDS: predniSONE 20 MG TABLET PO SCH (08:06)
[2018-02-02] MEDS: Aspirin Enteric Coated 81 MG Tablet PO SCH (08:06)
[2018-02-02] MEDS: Multivit/Ca/Min/Fe/FA 1 TAB TABLET PO SCH (08:06)
[2018-02-02] MEDS: Cholecalciferol (D-3) 1,000 UNIT TABLET PO SCH (08:07)
[2018-02-02] MEDS: *HR* Methadone 10 MG TABLET PO SCH ×3 (08:07→22:06)
[2018-02-02] MEDS: Levofloxacin 750 MG/150 ML 750 MG/150 ML BAG IVPB SCH (08:11)
[2018-02-02] MEDS: Insulin LISPRO 300 UNITS/3 ML VIAL SQ SCH ×7 (08:14→21:57)
--- NOTE | 2018-02-02 08:59 | Internal Med Progress Note ---
Hospitalist Progress Note - Encounter Date of Encounter: 02/02/18 Time of Encounter: 08:57 - Subjective Interval History: Patient seen and evaluated at bedside, denies chest pain or shortness of breath. Denies denies abdominal pain, nausea, vomiting. Patient keeps repeating that he needs to go home because he has some family matters needs to take care of. No overnight events.. - Exam Vitals: Temp Pulse Resp BP Pulse Ox 97.5 F L 76 18 120/72 96 02/02/18 07:28 02/02/18 08:05 02/02/18 07:28 02/02/18 08:02 02/02/18 07:28 Exam: General: Alert and oriented 3. In no acute distress. Cardiovascular: Normal S1 & S2, no rubs, murmurs or gallops. Lungs: Basilar crackles at both bases. Expiratory wheezes at the bases, and rales. Abdomen: Soft, non-tender, no rigidity. Extremities: Chronic venous stasis changes in the lower extremity bilaterally, 1 + edema, no tenderness, no joint swelling or clubbing. Neurological: Normal cognition and motor skills. Rest of the physical exam is non contributory - Assessment and Plan (1) NSTEMI (non-ST elevated myocardial infarction) Current Visit: Yes Status: Acute Assessment and Plan: S/P LHC. LHC revealed severe CAD including LMCA. EF 35%. Plan: - Thoracic surgery consulted. Recommended medical therapy, and/or angioplasty. - Continue aspirin - We will discuss with cardiology about starting patient on Plavix, or burning. - Metoprolol dose decreased to 25 mg once a day, because of low blood pressure. - We will continue to follow cardiology recommendation. - Continue full dose Lovenox for 48-72 hours. - Hold warfarin, continue decision is made whether to treat patient with medical therapy versus angioplasty. - Patient continues expressing his desire to leave the hospital. Explained to the patient that it's not a safe for him to go home at this time as he requires further treatment. - Patient seems to have a poor insight of his condition. (2) COPD (chronic obstructive pulmonary disease) Current Visit: Yes Status: Acute Assessment and Plan: Bilateral mild crackles at the bases, expiratory wheezings. No respiratory distress. Plan: - Continue nebs when necessary - Patient has refused nebs treatment, and told respiratory therapist that he would call them when he thinks, he needs treatment - Continue Levofloxacin for at least 4 more days - Prednisone 40mg PO daily. (3) Anemia Current Visit: Yes Status: Chronic Assessment and Plan: H&H is stable. No active signs of bleeding. Continue to monitor. (4) History of DVT (deep vein thrombosis) Current Visit: Yes Status: Chronic Assessment and Plan: Plan: Warfarin has been on hold for [facility]. - Continue to hold until decision is made whether to treat medically for to proceed with angioplasty - On full dose anticoagulation with lovenox (5) PAD (peripheral artery disease) Current Visit: Yes Status: Chronic Assessment and Plan: To continue aspirin and statins. (6) Transaminitis Current Visit: Yes Status: Acute Assessment and Plan: Possible secondary to hypo-perfusion Plan: - LFT trending down - will repeat LFT before d/c (7) Congestive cardiac failure Current Visit: Yes Status: Chronic Assessment and Plan: S/P [facility] E.F 35% Plan: - Continue low-dose beta uziel low-dose VERONICA inhibitor. - Furosemide has been held due to hypotension. (8) Hyperglycemia Current Visit: Yes Status: Acute Assessment and Plan: Possible secondary to hypo-perfusion. Nondiabetic, A1c of 5.0. Plan: - Continue low-dose Levemir 5 units daily at bedtime. And lispro sliding scale. blood sugar goal between 180-110 to avoid hypoglycemia DVT Prophylaxis: Anticoagulated due to NSTEMI - Time Spent with Patient Total time spent is greater than 50% in coordination of care (as documented) at patient's floor/unit and/or counseling patient: Greater than 35 minutes Plan of Care Discussed with: patient (and the nurse.) Internal Medicine: Result - Labs CBC & Chem 7: 02/02/18 03:11 02/02/18 03:11 Labs: Short CBC 02/02/18 Range/Units 03:11 WBC 14.1 H (4.3-11.1) K/mcL Hgb 9.1 L D (12.9-16.9) g/dL Hct 27.6 L (37.5-50.1) % Plt Count 183 (140-400) K/mcL Neutrophils # 9.1 H (1.6-8.9) K/mcL BMP 02/02/18 03:11 Sodium 131 L Potassium 4.4 Chloride 98 Carbon Dioxide 28 BUN 26 H Creatinine 0.89 Glucose 106 H Calcium 8.6 Liver Function 02/02/18 Range/Units 03:11 Total Bilirubin 0.9 (0.3-1.0) mg/dL Direct Bilirubin 0.2 (0.0-0.2) mg/dL AST 159 H (13-39) Units/L ALT 159 H (7-52) Units/L Alkaline Phosphatase 77 (34-104) Units/L Albumin 3.8 (3.5-5.7) g/dL - ABG Interpretation ABG results: PT/INR, D-dimer PT 23.5 Seconds (9.4-12.1) H 02/01/18 14:58 - Impressions Impressions Echocardiogram 01/31/18 08:30 Impressions: LVEF 45%. Moderate segmental left ventricular systolic dysfunction. Grossly normal RV size and function Moderate mitral regurgitation. Mild tricuspid regurgitation. No pulmonary hypertension. Estimated RA pressure is 15 mmHg. Left Ventricular Wall Motion: Rest Echo Findings The mid inferior septal, basal inferior septal and mid inferior lateral wilson were hypokinetic. The mid inferior, basal inferior and basal inferior lateral wilson were akinetic. All other wall segments showed normal motion. Findings: Study Quality * Technically adequate exam. ECG Findings * Sinus rhythm with PVCs. Left Ventricle * LVEF 45%. * Moderate segmental left ventricular systolic dysfunction. * Mild left ventricular diastolic dysfunction. * Definity echo contrast was used. * There is no LV thrombus. * Normal LV chamber size, wall thickness. Left Atrium * Normal left atrial size. Right Atrium * Normal right atrial size. Interatrial Septum * Interatrial septum not well evaluated. Aortic Valve * Mild aortic regurgitation. Mitral Valve * Moderate mitral regurgitation. Tricuspid Valve * Mild tricuspid regurgitation. * Estimated RVSP is 30 mmHg. * Estimated RA pressure is 15 mmHg. * No pulmonary hypertension. Pulmonic Valve * Pulmonic valve not well visualized. Aorta * Not well visualized Pericardium * The pericardium appears normal. IVC * The IVC is dilated. * < 50% respiratory change. Right Ventricle * No well seen, grossly normal size and function Consult Discharge Plan - Plan [facility] Provider[facility] - 02/11/18 10:30 am ([facility] team) (2) COPD (chronic obstructive pulmonary disease) Qualifiers: COPD type: unspecified COPD Qualified Code(s): J44.9 - Chronic obstructive pulmonary disease, unspecified (3) Anemia Qualifiers: Anemia type: unspecified type Qualified Code(s): D64.9 - Anemia, unspecified (7) Congestive cardiac failure Qualifiers: Heart failure type: systolic Heart failure chronicity: chronic Qualified Code(s): I50.22 - Chronic systolic (congestive) heart failure
--- NOTE | 2018-02-02 09:04 | Cardiothoracic Consult Note ---
Date of Encounter: 02/02/18 Time of Encounter: 08:58 - History of Present Illness History of present illness: Mr. Okeefe is a 72 year old male The patient is a 72-year-old gentleman who was admitted with shortness of breath and lactic acidosis. His troponin was up to 73. Echocardiogram revealed an ejection fraction of 45% with moderate mitral regurgitation. Cardiac catheterization revealed a 50% left main lesion. The LAD was not significantly blocked. The right coronary artery was 99% blocked. The first obtuse marginal branch of the circumflex had a 70-80% blockage. Ejection fraction was 35%. CT scan of the chest revealed emphysema. CT scan of the abdomen and pelvis revealed occlusion of his right femoral artery. Past medical history is notable for congestive heart failure, COPD, hyperlipidemia, hypertension, peripheral arterial disease, diabetes, previous myocardial infarction and deep venous thrombosis. He is status post right carotid endarterectomy and right femoral popliteal bypass grafting. 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 He is on insulin for his diabetes and Coumadin for his deep venous thrombosis. Social history. He lives in an apartment in [place] by himself. This is at the [place]. He continues to smoke AGAINST MEDICAL ADVICE on a daily basis. Does not drink alcohol. Review of systems is negative for saphenous vein varicosities or strippings. He does get edema in his lower extremities. No history of stroke or TIA. Past Med Surg Social Fam HX - Past Medical History Medical history: COPD, diabetes, hyperlipidemia, hypertension, peripheral artery disease - Social History Smoking Status: Current every day smoker Smokeless Tobacco Status: No Alcohol use: none Drug use: none Medications and Allergies Albuterol Sulfate [Ventolin Hfa] 2 puff IH QID PRN 01/31/18 [History] Brimonidine 0.2% [Alphagan] 1 drop BOTH EYES BID 01/31/18 [History] Calcium Carbonate/Vitamin D3 [Calcium 500-Vit D3 200 Tablet] 2 tab PO DAILY 11/12 [History] Furosemide [Lasix] 40 mg PO DAILY 01/31/18 [History] Gabapentin [Neurontin] 300 mg PO HS 01/31/18 [History] Insulin NPH Human Isophane [Novolin N] 15 unit SQ QPM 01/31/18 [History] Insulin NPH Human Isophane [Novolin N] 20 unit SQ QAM 01/31/18 [History] Ipratropium/Albuterol Neb [Duoneb] 3 ml IH TID PRN 01/31/18 [History] Lisinopril [Zestril] 10 mg PO DAILY 01/31/18 [History] Magnesium Oxide [Magnesium] 400 mg PO DAILY 01/31/18 [History] Metformin HCl 1,000 mg PO BID 01/31/18 [History] Methadone 20 mg PO Q8HR 01/31/18 [History] Promethazine [Phenergan] 25 mg PO BID PRN 01/31/18 [History] Ranitidine HCl [Acid Operations Technician] 150 mg PO BID 01/31/18 [History] Simvastatin [Zocor] 20 mg PO HS 01/31/18 [History] Vit C/E/Zn/Coppr/Lutein/Zeaxan [Preservision Areds 2 Softgel] 1 cap PO DAILY 11/12 [History] Warfarin [Coumadin] 5 mg PO DAILY 01/31/18 [History] hydrOXYzine HCl [Hydroxyzine HCl] 50 mg PO BID 01/31/18 [History] 3 Allergy/AdvReac Type Severity Reaction Status Date / Time No Known Allergies Allergy Verified 01/31/18 02:45 All Systems Review: The remainder of the systems were reviewed and are negative Physical Examination Vital Signs, Last 4 Hours Temp Pulse Resp BP Pulse Ox 02/02/18 08:05 76 02/02/18 08:02 120/72 02/02/18 07:28 97.5 F L 66 18 76/48 96 Pupils are equal, round and reactive to light and accommodation. He is edentulous. Neck is supple. Trachea in the midline. He is status post left carotid endarterectomy. Lungs are clear to percussion and auscultation. Heart is in a regular rate and rhythm. There is a 2/6 systolic murmur. Abdomen is benign. No tenderness, rebound or guarding. Extremities have 2+ pitting edema. He is status post right femoral-popliteal grafting. No saphenous vein varicosities or strippings. Cranial nerves, motor and sensory intact. I am unable to enter the assessment and plan under the appropriate setting, so I am placing it here. The patient has coronary artery disease involving the [place] coronary arteries of the [place] heart without angina which is I25.10. The options for treatment our medical therapy, PTCA with stent placement and open heart surgery. The patient is quite high risk for open heart surgery given his numerous medical problems. The patient himself refuses to have open heart surgery and I agree that it would be a prohibitive risk. His best options would be PTCA and stent placement in his right coronary artery with or without PTCA and stent placement in the circumflex coronary artery versus medical therapy. The patient states that he wishes to quit smoking and go with conservative measures. Results 02/02/18 03:11 02/02/18 03:11 Lab Results, Last 24 hours 02/01/18 02/01/18 02/01/18 11:45 11:45 14:58 WBC Hgb Hct Plt Count INR 3.0 2.1 Sodium Potassium Chloride Carbon Dioxide BUN Creatinine Glucose Calcium Magnesium 2.1 Total Bilirubin AST ALT Alkaline Phosphatase 02/02/18 02/02/18 03:11 03:11 WBC 14.1 H Hgb 9.1 L D Hct 27.6 L Plt Count 183 INR Sodium 131 L Potassium 4.4 Chloride 98 Carbon Dioxide 28 BUN 26 H Creatinine 0.89 Glucose 106 H Calcium 8.6 Magnesium 1.9 Total Bilirubin 0.9 AST 159 H ALT 159 H Alkaline Phosphatase 77 Consult Discharge Plan - Plan [facility]errals: [facility]Primary Care Provider[facility] - 02/11/18 10:30 am ([facility] team)
--- NOTE | 2018-02-02 11:57 | Cardiology Progress Note ---
Date of Encounter: 02/02/18 Time of Encounter: 11:53 Assessment and Plan (1) NSTEMI (non-ST elevated myocardial infarction) Current Visit: Yes Status: Acute NSTEMI troponin greater than 73. Repeat EKG last with ischemic changes. There was concern for mild ST elevation. EKG reviewed and decided patient was able to wait until INR decreased. No significant change from prior EKG. Reports prior NC in past and he declined [facility] this admission demonstrated severe multi-vessel CAD. CT surgery evaluated and he was high risk for surgery due to multiple co-morbidities. He declined surgery. PCI verses medical management discussed. He declines PCI. States he doesn't believe he had a heart attack. He states that he doesn't believe in stents. He prefers conservative therapy. Consider psychiatric evaluation. Not clear patient is capable of understanding diagnosis. We will proceed with medical management per his wishes. Discussed with Dr. Willi Maria. Start plavix and imdur. Continue asa, statin, and bb. Call with changes. Out-pt f/u will be scheduled. (2) NSVT (nonsustained ventricular tachycardia) Current Visit: Yes Status: Acute 27 beat run NSVT seen yesterday. No recurrent events. Metoprolol started by primary team. Keep potassium 4.0 or greater and mg 2.0 or greater. Mg 1.1- magnesium replacement given. Tele shows SR. One refugio seen. Otherwise no significant NSVT. Increase bb. TTE shows EF 45%, LVEF 45%. Moderate segmental left ventricular systolic dysfunction. Grossly normal RV size and function Moderate mitral regurgitation. Mild tricuspid regurgitation. No pulmonary hypertension. Estimated RA pressure is 15 mmHg. Discussion w patient/family: The assessment and plan as outlined above was discussed with the patient and/or family members who expressed understanding and agreement. All questions were answered. Thank you for involving us in the care of your patient. Please call with any questions. Subjective Principal diagnosis: NSTEMI Interval history: Mr. Okeefe denies chest pain or recurrent SOB. He states "I still don't fully believe I had a heart attack." Objective Vital Signs, Last 4 Hours Temp Pulse Resp BP Pulse Ox 02/02/18 11:18 97.5 F L 65 18 114/62 100 02/02/18 09:45 79 123/66 02/02/18 08:05 76 02/02/18 08:02 120/72 General: Conversant, No Apparent Distress HEENT: Atraumatic, Normocephaly, Mucus Membranes Moist Neck: No JVD, Normal carotid pulses Cardiac: Reg Rate and Rhythm, Normal S1 and S2, No Murmur Lungs: Normal Breath Sounds, No Wheeze, Rales, Rhonchi Neuro: Alert and responsive, No focal deficits noted Abdomen: Soft, Non-Tender Skin: No rashes noted on visualized skin Musculoskeletal: No Chest Wall Tenderness Extremities: No Clubbing, No Cyanosis, No Edema, Normal Pulses, Other (No problem noted with right radial access site. ) Results 02/02/18 03:11 02/02/18 03:11 Lab Results 02/01/18 02/01/18 02/01/18 11:45 11:45 14:58 WBC Hgb Hct Plt Count INR 3.0 2.1 Sodium Potassium Chloride Carbon Dioxide BUN Creatinine Glucose Calcium Magnesium 2.1 Total Bilirubin AST ALT Alkaline Phosphatase 02/02/18 02/02/18 03:11 03:11 WBC 14.1 H Hgb 9.1 L D Hct 27.6 L Plt Count 183 INR Sodium 131 L Potassium 4.4 Chloride 98 Carbon Dioxide 28 BUN 26 H Creatinine 0.89 Glucose 106 H Calcium 8.6 Magnesium 1.9 Total Bilirubin 0.9 AST 159 H ALT 159 H Alkaline Phosphatase 77 - Imaging and Cardiology Echo: report reviewed Cardiac cath: report reviewed - EKG Interpretation EKG results cardiology: personally reviewed Consult Discharge Plan - Plan [facility]errals: [facility]Primary Care Provider] - 02/11/18 10:30 am ([facility] team)
[2018-02-02 13:18] LABS: INR 1.2
--- NOTE | 2018-02-02 15:16 | Electrocardiograph Report ---
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
--- NOTE | 2018-02-02 15:24 | Electrocardiograph Report ---
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 Electronically Signed On 02-02-2018 15:23:06 EDT by Jesse Linares
--- NOTE | 2018-02-02 15:29 | Electrocardiograph Report ---
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
--- NOTE | 2018-02-02 15:49 | Electrocardiograph Report ---
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
[2018-02-02] MEDS: Isosorbide MONOnitrate (24 HR) 30 MG TAB.ER.24H PO SCH (17:01)
[2018-02-02] MEDS: Gabapentin 300 MG CAPSULE PO SCH (22:06)
[2018-02-02] MEDS: Insulin DETEMIR 100 UNIT/ML X5UNITS SQ SCH (22:09)
[2018-02-03] MEDS: *HR* Enoxaparin 80 MG/0.8 ML SYRINGE SQ SCH ×2 (06:49→17:15)
[2018-02-03] MEDS: *HR* Methadone 10 MG TABLET PO SCH ×2 (08:16→15:58)
[2018-02-03] MEDS: Aspirin Enteric Coated 81 MG Tablet PO SCH (08:17)
[2018-02-03] MEDS: Famotidine 20 MG TABLET PO SCH (08:17)
[2018-02-03] MEDS: Magnesium Oxide 400 MG TABLET PO SCH (08:17)
[2018-02-03] MEDS: Cholecalciferol (D-3) 1,000 UNIT TABLET PO SCH (08:17)
[2018-02-03] MEDS: Isosorbide MONOnitrate (24 HR) 30 MG TAB.ER.24H PO SCH (08:17)
[2018-02-03] MEDS: predniSONE 20 MG TABLET PO SCH (08:17)
[2018-02-03] MEDS: Multivit/Ca/Min/Fe/FA 1 TAB TABLET PO SCH (08:17)
[2018-02-03] MEDS: Insulin LISPRO 300 UNITS/3 ML VIAL SQ SCH ×7 (08:18→23:16)
[2018-02-03] MEDS: Levofloxacin 750 MG/150 ML 750 MG/150 ML BAG IVPB SCH (08:18)
--- NOTE | 2018-02-03 10:22 | Cardiology Progress Note ---
Date of Encounter: 02/03/18 Time of Encounter: 10:20 Assessment and Plan (1) NSTEMI (non-ST elevated myocardial infarction) Current Visit: Yes Status: Acute NSTEMI troponin greater than 73. EKGs with ischemic changes. Reports prior MT in past and he declined [facility] this admission demonstrated severe multi-vessel CAD. CT surgery evaluated and he was high risk for surgery due to multiple co-morbidities. He declined surgery. PCI verses medical management discussed. He declines PCI. States he doesn't believe he had a heart attack. He states that he doesn't believe in stents. He prefers conservative therapy. Psych consult recommended to assess ability to make decisions. Not clear patient is capable of understanding diagnosis. We will proceed with medical management per his wishes. He did not tolerate imdur with low blood pressure. Hold lisinopril. Continue asa, statin, and bb. (2) NSVT (nonsustained ventricular tachycardia) Current Visit: Yes Status: Acute 27 beat run NSVT seen yesterday. No recurrent events. Metoprolol started by primary team. Keep potassium 4.0 or greater and mg 2.0 or greater. Mg 1.1- magnesium replacement given. Tele shows SR. One refugio seen. Otherwise no significant NSVT. Unable to increase bb due to hypotension. TTE shows EF 45%, LVEF 45%. Moderate segmental left ventricular systolic dysfunction. Grossly normal RV size and function Moderate mitral regurgitation. Mild tricuspid regurgitation. No pulmonary hypertension. Estimated RA pressure is 15 mmHg. Discussion w patient/family: The assessment and plan as outlined above was discussed with the patient and/or family members who expressed understanding and agreement. All questions were answered. Thank you for involving us in the care of your patient. Please call with any questions. Subjective Principal diagnosis: NSTEMI Interval history: Mr. Okeefe denies chest pain or recurrent SOB. He states "I still don't think I need a stent." Objective Vital Signs, Last 4 Hours Temp Pulse Resp BP Pulse Ox 02/03/18 07:14 97.7 F 63 18 78/43 96 General: Conversant, No Apparent Distress HEENT: Atraumatic, Normocephaly, Mucus Membranes Moist Neck: No JVD, Normal carotid pulses Cardiac: Reg Rate and Rhythm, Normal S1 and S2, No Murmur Lungs: Normal Breath Sounds, No Wheeze, Rales, Rhonchi Neuro: Alert and responsive, No focal deficits noted Abdomen: Soft, Non-Tender Skin: No rashes noted on visualized skin Musculoskeletal: No Chest Wall Tenderness Extremities: No Clubbing, No Cyanosis, No Edema, Normal Pulses, Other (No problem with right groin access. ) Results 02/02/18 03:11 02/02/18 03:11 Lab Results 02/02/18 02/03/18 12:22 08:53 INR 1.2 Magnesium 1.4 L Consult Discharge Plan - Plan [facility]errals: [facility]Primary Care Provider] - 02/11/18 10:30 am ([facility] team)
--- NOTE | 2018-02-03 10:50 | Internal Med Progress Note ---
Hospitalist Progress Note - Encounter Date of Encounter: 02/03/18 Time of Encounter: 10:49 - Subjective Interval History: Evaluated at bed side, patient reports doing well, denies chest pain but reports that last night he was feeling lightheaded. Denies palpitations, shortness of breath. No nausea or vomiting. - Exam Vitals: Temp Pulse Resp BP Pulse Ox 97.7 F 63 18 78/43 96 02/03/18 07:14 02/03/18 07:14 02/03/18 07:14 02/03/18 07:14 02/03/18 07:14 Exam: General: Alert and oriented 3. no distress. Cardiovascular: Normal S1 & S2, no rubs, murmurs or gallops. Lungs: minimal Basilar crackles at both bases. no wheezes,or rales at the bases Abdomen: Soft, non-tender, no rigidity. Extremities: Chronic venous stasis changes in the lower extremity bilaterally, 2 + edema, no tenderness, no joint swelling or clubbing. Neurological: Normal cognition and motor skills. CN II-XII intact. Rest of the physical exam is non contributory - Assessment and Plan (1) NSTEMI (non-ST elevated myocardial infarction) Current Visit: Yes Status: Acute Assessment and Plan: Evaluated by cardiothoraxic surgery who recommended PCI. Patient refused PCI. Plan: - Cardiology recommended medical therapy - On aspirin and plavix - On Metoprolol 25mg daily - Isosorbide and Lisinopril discontinued due to hypotension - Psych consulted for assessment of capacity. Patient seems to lack insight of the seriousness of his medical condition - Continue On full dose lovenox until INR is therapeutic due to Hx DVT (2) Hypotension Current Visit: Yes Status: Acute Assessment and Plan: Possible due to cardiac disfunction vs medication induced. Plan: - DC isosorbide and lisinopril - Telemetry monitoring (3) Congestive cardiac failure Current Visit: Yes Status: Chronic Assessment and Plan: No on acute exacerbation. Plan: - Strict intake and out put - On a beta uziel - No stefan or Isosorbide due to hypotension - On low dose furosemide 20mg daily (4) COPD (chronic obstructive pulmonary disease) Current Visit: Yes Status: Acute Assessment and Plan: Plan: - Continue with Prednisone for at least 24 more hours - ON levofloxacin 750mg/IV daily - Nebs Q4RT - Patient educated about importance of smoking cessation (5) Anemia Current Visit: Yes Status: Chronic Assessment and Plan: Possible due to anemia of chronic disease Plan: - Continue to monitor - No intervention needed at this time. (6) History of DVT (deep vein thrombosis) Current Visit: Yes Status: Chronic Assessment and Plan: Plan: - Re-started on Warfarin daily - Continue full dose lovenox until INR is therapeutic - am INR (7) PAD (peripheral artery disease) Current Visit: Yes Status: Chronic Assessment and Plan: On dual antiplatelets therapy (8) Transaminitis Current Visit: Yes Status: Acute Assessment and Plan: Improving. f/u am LFTs (9) Hyperglycemia Current Visit: Yes Status: Acute Assessment and Plan: Hyperglycemia. No Hx of diabetes AC 5.0 Plan: - Continue insulin coverage as inpatient DVT Prophylaxis: On full dose lovenox due to a Hx of DVT. - Summary of Assessment and Plan Summary of Assessment and Plan: Patient needs to remain in the hospital due to hypotension. - Time Spent with Patient Total time spent is greater than 50% in coordination of care (as documented) at patient's floor/unit and/or counseling patient: Greater than 35 minutes Plan of Care Discussed with: patient (and the nurse.) Internal Medicine: Result - Labs CBC & Chem 7: 02/02/18 03:11 02/02/18 03:11 - ABG Interpretation ABG results: PT/INR, D-dimer PT 14.0 Seconds (9.4-12.1) H 02/02/18 12:22 Consult Discharge Plan - Plan [facility]errals: [facility] [Primary Care Provider] - 02/11/18 10:30 am ([facility] team) (2) Hypotension Qualifiers: Hypotension type: unspecified hypotension type Qualified Code(s): I95.9 - Hypotension, unspecified (3) Congestive cardiac failure Qualifiers: Heart failure type: systolic Heart failure chronicity: chronic Qualified Code(s): I50.22 - Chronic systolic (congestive) heart failure (4) COPD (chronic obstructive pulmonary disease) Qualifiers: COPD type: unspecified COPD Qualified Code(s): J44.9 - Chronic obstructive pulmonary disease, unspecified (5) Anemia Qualifiers: Anemia type: unspecified type Qualified Code(s): D64.9 - Anemia, unspecified
[2018-02-03 12:39] LABS: INR 1.2; Prothrombin Time 13.7 Seconds (9.4-12.1)
--- NOTE | 2018-02-03 14:39 | Consult Note ---
Date of Encounter: 02/03/18 Time of Encounter: 14:14 Assessment & Recommendation (1) Elevated troponin I level Current visit: Yes Status: Acute Assessment & Recommendation: Recommend further education on need for stent placement. Client appears to have capacity at this time. Client did say he would reconsider his refusal for stent placement if he thought his life expectancy would be shortened if he refused or if the stent was the only realistic treatment option at this time. He wants to know his options. History of Present Illness Requesting Physician: Ruiz Sagastume MD Reason for consult: capacity assessment History of present illness: Mr. Okeefe is a 72 year old male who was admitted medically due to respiratory and cardiac issues. Per consult he is refusing recommendation of the Server Security Administrator and Psychiatry consulted for a capacity assessment. On evaluation today client is alert and oriented. Pleasant and cooperative with assessment. According to client the recommendation is that he receive a stent. Client reports not wanting a stent because of what he hears about them on TV. Client also reports his Troponins have been high in the past but that it was never the recommendation that he have a stent before so he is reluctant to consider one now. Client reports no one has told him the stent is his only option. Client states he would reconsider the stent if he thought he did not have other options. Does not seem to be in denial about his condition but also does not seem to realize the importance of what is being recommended at this time. Client is aware that can result from not following a doctor's recommendations. However, he does not seem to think he is in that position. Based on his presentation he does have capacity in that he understands what is being recommended and that can result if the recommendation is not followed. However, he could use some more education on why the stent is being recommended and why it is the best/only option at this time. Client did say he would reconsider his refusal if he had more information indicating this was his best/only option. CC: Ruiz Sagastume MD Past Med Surg Social Fam HX - Past Medical History Medical history: COPD, diabetes, hyperlipidemia, hypertension, peripheral artery disease - Past Psychiatric History Psychiatric history: Reports: no psych history Family psychiatric history: Unknown Family History of Suicide: Unknown - Social History Smoking Status: Current every day smoker Smokeless Tobacco Status: No Alcohol use: none Drug use: none Medications & Allergies Albuterol Sulfate [Ventolin Hfa] 2 puff IH QID PRN 01/31/18 [History] Brimonidine 0.2% [Alphagan] 1 drop BOTH EYES BID 01/31/18 [History] Calcium Carbonate/Vitamin D3 [Calcium 500-Vit D3 200 Tablet] 2 tab PO DAILY 11/12 [History] Furosemide [Lasix] 40 mg PO DAILY 01/31/18 [History] Gabapentin [Neurontin] 300 mg PO HS 01/31/18 [History] Insulin NPH Human Isophane [Novolin N] 15 unit SQ QPM 01/31/18 [History] Insulin NPH Human Isophane [Novolin N] 20 unit SQ QAM 01/31/18 [History] Ipratropium/Albuterol Neb [Duoneb] 3 ml IH TID PRN 01/31/18 [History] Lisinopril [Zestril] 10 mg PO DAILY 01/31/18 [History] Magnesium Oxide [Magnesium] 400 mg PO DAILY 01/31/18 [History] Metformin HCl 1,000 mg PO BID 01/31/18 [History] Methadone 20 mg PO Q8HR 01/31/18 [History] Promethazine [Phenergan] 25 mg PO BID PRN 01/31/18 [History] Ranitidine HCl [Acid Environmental Engineering Assistant] 150 mg PO BID 01/31/18 [History] Simvastatin [Zocor] 20 mg PO HS 01/31/18 [History] Vit C/E/Zn/Coppr/Lutein/Zeaxan [Preservision Areds 2 Softgel] 1 cap PO DAILY 11/12 [History] Warfarin [Coumadin] 5 mg PO DAILY 01/31/18 [History] hydrOXYzine HCl [Hydroxyzine HCl] 50 mg PO BID 01/31/18 [History] 3 Allergy/AdvReac Type Severity Reaction Status Date / Time No Known Allergies Allergy Verified 01/31/18 02:45 Review of Systems Constitutional: Denies: fever, chills, weakness, weight change Eyes: Denies: eye pain, vision change Ears, Nose, Throat: Denies: ear pain, throat pain, dental pain, hearing loss, congestion Cardiovascular: Reports: other Respiratory: Reports: cough, dyspnea, sputum production Gastrointestinal: Denies: abdominal pain, nausea, vomiting, diarrhea, constipation Genitourinary male: Denies: urgency, dysuria, frequency, genital lesions Musculoskeletal: Denies: joint swelling, joint pain Integumentary: Denies: rash, lesions, pruritus Neurological: Denies: headache, weakness, numbness, memory loss Endocrine: Denies: fatigue, heat or cold intolerance Hematologic/Lymphatic: Denies: easy bruising, lymphadenopathy Allergic/Immunologic: Denies: urticaria, itchy eyes Psychiatry Exam - Constitutional Vitals: Temp Pulse Resp BP Pulse Ox 97.8 F 80 18 109/56 96 02/03/18 11:26 02/03/18 11:55 02/03/18 11:26 02/03/18 11:55 02/03/18 11:26 General appearance: age & developmentally appropriate, well-groomed, well- nourished - Musculoskeletal Gait: normal Station: relaxed Strength & Tone: normal for patient - Psychiatric Patient Orientation: Yes Person, Yes Time, Yes Place Level of alertness: Alert Behavior: calm, cooperative Psychomotor activity: Normal Eye Contact: Maintains Eye Contact Mood Description: Euthymic/stable Affect description: congruent with mood, full range Speech Volume: Normal Speech pattern: normal rate, normal rhythm, normal tone, fluent, spontaneous Language & Vocabulary: consistent with education Thought Process: Linear, Goal Oriented Thought Content: No Suicidal ideation, No Homicidal ideation, No Overt delusions Perceptual Disturbances: No Auditory hallucinations, No Visual hallucinations Attention Span Ability: Capable of Focused Attention Memory Description: Grossly Intact Patient Reliability: Reliable Historian Fund of knowledge: Yes abstraction ability, Yes aware of current events Intelligence Estimate: Average Judgment: Fair Insight: Partial Results - Labs Labs: Laboratory Last Values WBC 14.1 K/mcL (4.3-11.1) H 02/02/18 03:11 RBC 3.26 M/mcL (4.19-5.50) L 02/02/18 03:11 Hgb 9.1 g/dL (12.9-16.9) L D 02/02/18 03:11 Hct 27.6 % (37.5-50.1) L 02/02/18 03:11 MCV 84.7 fL (83.0-100.0) 02/02/18 03:11 MCH 27.9 pg (28.0-33.3) L 02/02/18 03:11 MCHC 33.0 g/dL (31.6-35.5) 02/02/18 03:11 RDW 19.7 % (11.5-14.5) H 02/02/18 03:11 Plt Count 183 K/mcL (140-400) 02/02/18 03:11 MPV 10.3 fL (9.4-12.4) 02/02/18 03:11 Immature Gran % 0.6 % (0-4) 02/02/18 03:11 Seg Neutrophils % 64.0 % 02/02/18 03:11 Lymphocytes % 23.6 % 02/02/18 03:11 Monocytes % 11.3 % 02/02/18 03:11 Eosinophils % 0.3 % 02/02/18 03:11 Basophils % 0.2 % 02/02/18 03:11 Neutrophils # 9.1 K/mcL (1.6-8.9) H 02/02/18 03:11 Lymphocytes # 3.3 K/mcL (0.6-4.6) 02/02/18 03:11 Monocytes # 1.6 K/mcL (0.0-1.3) H 02/02/18 03:11 Eosinophils # 0.0 K/mcL (0.0-0.6) 02/02/18 03:11 Basophils # 0.0 K/mcL (0.0-0.2) 02/02/18 03:11 PT 13.7 Seconds (9.4-12.1) H 02/03/18 11:41 INR 1.2 02/03/18 11:41 APTT 32.2 Seconds (26.0-36.0) 02/01/18 05:05 VBG pH 7.21 pH Units (7.32-7.42) L 01/31/18 06:54 VBG pCO2 51 mmHg (41-51) 01/31/18 06:54 VBG pO2 42 mmHg (25-50) 01/31/18 06:54 VBG HCO3 21 mEq/L (21-27) 01/31/18 06:54 Sodium 131 mEq/L (136-145) L 02/02/18 03:11 Potassium 4.4 mEq/L (3.5-5.1) 02/02/18 03:11 Chloride 98 mEq/L (98-107) 02/02/18 03:11 Carbon Dioxide 28 mEq/L (23-29) 02/02/18 03:11 BUN 26 mg/dL (8-23) H 02/02/18 03:11 Creatinine 0.89 mg/dL (0.70-1.30) 02/02/18 03:11 Est GFR ( Amer) > 60 (> 60) 02/02/18 03:11 Est GFR (Non-Af Amer) > 60 (> 60) 02/02/18 03:11 BUN/Creatinine Ratio 29 (6-26) H 02/02/18 03:11 Glucose 106 mg/dL (70-105) H 02/02/18 03:11 POC Glucose 129 mg/dL (70-99) H 02/03/18 11:26 Est Mean Plasma Glucose 97 mg/dl 02/01/18 05:05 Hemoglobin A1c 5.0 % (-5.6) 02/01/18 05:05 Calculated Osmolality 277 (280-300) L 02/02/18 03:11 Lactic Acid 1.4 mmol/L (0.5-2.2) 02/03/18 08:53 Calcium 8.6 mg/dL (8.6-10.3) 02/02/18 03:11 Magnesium 1.4 mg/dL (1.6-2.6) L 02/03/18 08:53 Iron 50 mcg/dL (65-175) L 02/02/18 03:11 % Saturation 13 % (20-55) L 02/02/18 03:11 Transferrin 278 mg/dL (203-362) 02/02/18 03:11 Total Bilirubin 0.9 mg/dL (0.3-1.0) 02/02/18 03:11 Direct Bilirubin 0.2 mg/dL (0.0-0.2) 02/02/18 03:11 Indirect Bilirubin 0.7 mg/dL (0.0-1.2) 02/02/18 03:11 AST 159 Units/L (13-39) H 02/02/18 03:11 ALT 159 Units/L (7-52) H 02/02/18 03:11 Alkaline Phosphatase 77 Units/L (34-104) 02/02/18 03:11 Troponin I > 73.00 ng/mL (< 0.04) H* 01/31/18 16:40 B-Natriuretic Peptide 126 pg/mL (Less than 100) H 01/31/18 02:40 Serum Total Protein 6.1 g/dL (6.4-8.9) L 02/02/18 03:11 Albumin 3.8 g/dL (3.5-5.7) 02/02/18 03:11 Globulin 2.3 g/dL (2.4-3.5) L 02/02/18 03:11 Albumin/Globulin Ratio 1.7 (1.1-2.2) 02/02/18 03:11 Triglycerides 151 mg/dL (< 150) H 02/01/18 05:05 Cholesterol 107 mg/dL (< 200) 02/01/18 05:05 LDL Cholesterol, Calc 44 mg/dL (0-99) 02/01/18 05:05 VLDL Cholesterol, Calc 30 mg/dL (< 31) 02/01/18 05:05 HDL Cholesterol 33 mg/dL (40-59) L 02/01/18 05:05 Cholesterol/HDL Ratio 3.2 (0-4.9) 02/01/18 05:05 Lipase 15 Units/L (11-82) 01/31/18 05:09 Beta-Hydroxybutyric Acd 0.38 mmol/L (0.02-0.27) H 01/31/18 05:09 Urine Color Yellow (Yellow) 01/31/18 13:50 Urine Clarity Clear (Clear) 01/31/18 13:50 Urine pH 6.0 pH Units (5.0-8.0) 01/31/18 13:50 Ur Specific [place] > 1.030 (1.010-1.025) H 01/31/18 13:50 Urine Protein >=300 mg/dL (Neg-Trace) H 01/31/18 13:50 Urine Glucose (UA) 250 mg/dL (Normal) H 01/31/18 13:50 Urine Ketones Negative mg/dL (Negative) 01/31/18 13:50 Urine Blood Small (Negative) H 01/31/18 13:50 Urine Nitrite Negative (Negative) 01/31/18 13:50 Urine Bilirubin Negative (Negative) 01/31/18 13:50 Urine Urobilinogen Normal mg/dL (Normal) 01/31/18 13:50 Ur Leukocyte Esterase Negative (Negative) 01/31/18 13:50 Urine Microscopic RBC 3-5 per hpf (0-3) H 01/31/18 13:50 Urine Microscopic WBC 0-3 per hpf (0-3) 01/31/18 13:50 Ur Squamous Epith Cells Moderate per lpf (None-Few) H 01/31/18 13:50 Urine Bacteria None Seen per hpf (None-Few) 01/31/18 13:50 Hyaline Casts None Seen per lpf (None-Few) 01/31/18 13:50 Ur Culture Indicated? NO (NO) 01/31/18 13:50 Stool Occult Bld Scrn Negative (Negative) 01/31/18 07:15 Salicylates < 2.5 mg/dL (15.0-30.0) L 01/31/18 05:09 Bennet < 0.1 mEq/L (0.6-1.2) L 01/31/18 05:09 Blood Type AB POSITIVE 01/31/18 03:23 Antibody Screen NEGATIVE 01/31/18 03:23 Consult Discharge Plan - Plan [facility] - 02/11/18 10:30 am ([facility] team)
[2018-02-03] MEDS: Furosemide 20 MG TABLET PO SCH (16:28)
[2018-02-03] MEDS ORDERED: *HR* Warfarin 5 MG TABLET PO ONE (18:00)
[2018-02-03] MEDS: Gabapentin 300 MG CAPSULE PO SCH (21:30)
[2018-02-03] MEDS: Insulin DETEMIR 100 UNIT/ML X5UNITS SQ SCH (21:31)
[2018-02-04] MEDS: *HR* Methadone 10 MG TABLET PO SCH ×4 (03:27→23:38)
[2018-02-04 05:53] LABS: Basophils % 0.1 %; Eosinophils % 0.4 %; Immature Granulocytes % 0.4 % (0-4); Lymphocytes # 1.8 K/mcL (0.6-4.6); Lymphocytes % 25.3 %; Mean Corpuscular HGB Conc 33.6 g/dL (31.6-35.5); Mean Corpuscular Hemoglobin 27.5 pg (28.0-33.3); Mean Corpuscular Volume 81.8 fL (83.0-100.0); Mean Platelet Volume 10.3 fL (9.4-12.4); Monocytes # 0.7 K/mcL (0.0-1.3); Monocytes % 9.5 %; Neutrophils # 4.4 K/mcL (1.6-8.9); Platelet Count 124 K/mcL (140-400); Red Blood Count 2.69 M/mcL (4.19-5.50); Red Cell Distribution Width 19.1 % (11.5-14.5); Segmented Neutrophils % 64.3 %
[2018-02-04 05:57] LABS: Hemoglobin 7.4 g/dL (12.9-16.9)
[2018-02-04] MEDS: *HR* Enoxaparin 80 MG/0.8 ML SYRINGE SQ SCH (05:59)
[2018-02-04 06:01] LABS: INR 1.3; Prothrombin Time 14.4 Seconds (9.4-12.1)
[2018-02-04 06:12] LABS: Alanine Aminotransferase 125 Units/L (7-52); Albumin 3.6 g/dL (3.5-5.7); Albumin/Globulin Ratio 1.6 (1.1-2.2); Alkaline Phosphatase 66 Units/L (34-104); Aspartate Amino Transferase 61 Units/L (13-39); BUN/Creatinine Ratio 30 (6-26); Bilirubin,Direct 0.2 mg/dL (0.0-0.2); Bilirubin,Indirect 0.5 mg/dL (0.0-1.2); Bilirubin,Total 0.7 mg/dL (0.3-1.0); Blood Urea Nitrogen 22 mg/dL (8-23); Calcium 8.6 mg/dL (8.6-10.3); Carbon Dioxide 31 mEq/L (23-29); Chloride 94 mEq/L (98-107); Globulin 2.2 g/dL (2.4-3.5); Glucose 221 mg/dL (70-105); Magnesium 1.4 mg/dL (1.6-2.6); Osmolality,Calculated 278 (280-300); Potassium 4.3 mEq/L (3.5-5.1); Sodium 129 mEq/L (136-145); Total Protein 5.8 g/dL (6.4-8.9); eGFR For Non-African Americans > 60 (> 60)
[2018-02-04] MEDS: Multivit/Ca/Min/Fe/FA 1 TAB TABLET PO SCH (09:08)
[2018-02-04] MEDS: Famotidine 20 MG TABLET PO SCH (09:09)
[2018-02-04] MEDS: predniSONE 20 MG TABLET PO SCH (09:10)
[2018-02-04] MEDS: Magnesium Oxide 400 MG TABLET PO SCH (09:10)
[2018-02-04] MEDS: Cholecalciferol (D-3) 1,000 UNIT TABLET PO SCH (09:10)
[2018-02-04] MEDS: Furosemide 20 MG TABLET PO SCH ×2 (09:11→15:59)
[2018-02-04] MEDS: Levofloxacin 750 MG/150 ML 750 MG/150 ML BAG IVPB SCH (09:11)
[2018-02-04] MEDS: Aspirin Enteric Coated 81 MG Tablet PO SCH (09:11)
[2018-02-04] MEDS: Insulin LISPRO 300 UNITS/3 ML VIAL SQ SCH ×7 (09:19→20:27)
--- NOTE | 2018-02-04 11:18 | Internal Med Progress Note ---
Hospitalist Progress Note - Encounter Date of Encounter: 02/04/18 Time of Encounter: 11:15 - Subjective Interval History: Patient evaluated at bedside, reports doing well, but slightly lightheaded which he believed is due to one of those new medications he has been taking. Denies chest pain, abdominal pain nausea or vomiting. Had a BM last night an denies having seen blood in it. - Exam Vitals: Temp Pulse Resp BP Pulse Ox 98.8 F 73 16 136/64 97 02/04/18 07:55 02/04/18 07:55 02/04/18 07:55 02/04/18 07:55 02/04/18 07:55 Exam: General: Alert and oriented 3. no distress. Cardiovascular: RRR, Normal S1 & S2, no rubs, murmurs or gallops. Lungs: Clear to auscultation b/l, no wheezes,or rales at the bases Abdomen: Soft, non-tender, no rigidity. Extremities: Chronic venous stasis changes in the lower extremity bilaterally, 2 + edema, no tenderness, no joint swelling or clubbing. Neurological: Normal cognition and motor skills. CN II-XII intact. Rest of the physical exam is non contributory - Assessment and Plan (1) NSTEMI (non-ST elevated myocardial infarction) Current Visit: Yes Status: Acute Assessment and Plan: Plan: continue with medical therapy on metoprolol 25mg/PO daily will re-start lisinopril 5mg/po daily as BP more stable on aspirin and plavix will continue to follow cardiology recommendations Psych evaluated the patient for capacity: Client appears to have capacity at this time (2) Congestive cardiac failure Current Visit: Yes Status: Chronic Assessment and Plan: No on exacerbation. Positive balance of 4 litters. Plan: As BP is more stable will increase Furosemide to 40mg/PO BID daily weight water restriction to 1.5 litter a day strict intake and output on low a dose ACEs and a Beta uziel will continue to follow cardiology recommendations (3) COPD (chronic obstructive pulmonary disease) Current Visit: Yes Status: Acute Assessment and Plan: Clear chest to auscultation b/l Plan: continue Nebs Q4RT PRN Discontinue levofloxacin, patient has completed 4 days of antibiotics D/C prednisone incentive spirometry (4) Anemia Current Visit: Yes Status: Chronic Assessment and Plan: Drop in H&H without signs of bleeding. Plan: will transfuse 1 unit of PRBCs repeat FOBT, as patient on dual antiplatelets plus on lovenox plus warfarin CBC 1 hour post transfusion if H&H drops post transfusion, will consider GI evaluation. (5) History of DVT (deep vein thrombosis) Current Visit: Yes Status: Chronic Assessment and Plan: Plan: Being bridge with lovenox until INR is therapeutic Continue Warfarin Patient has been refusing his lovenox dosage for the past 2 days. (6) PAD (peripheral artery disease) Current Visit: Yes Status: Chronic Assessment and Plan: Continue with dual antiplatelet therapy. (7) Hyperglycemia Current Visit: Yes Status: Acute Assessment and Plan: Non-diabetic Plan: Increase levemir to 10 units BID continue Lispro ac and slinding scale Diabetic diet (8) Hyponatremia Current Visit: Yes Status: Acute Assessment and Plan: Unclear etiology. Possible secondary pain from NSTEIM? Plan: Water restriction DVT Prophylaxis: On full dose anticoagulation due to a Hx of DVT. - Summary of Assessment and Plan Summary of Assessment and Plan: Possible DC tomorrow if Post transfusion H&H remains stable. If there is a drop in H&H will consider GI evaluation. - Time Spent with Patient Total time spent is greater than 50% in coordination of care (as documented) at patient's floor/unit and/or counseling patient: Greater than 35 minutes Plan of Care Discussed with: patient Internal Medicine: Result - Labs CBC & Chem 7: 02/04/18 04:50 02/04/18 04:50 Labs: Short CBC 02/04/18 Range/Units 04:50 WBC 6.9 D (4.3-11.1) K/mcL Hgb 7.4 L D (12.9-16.9) g/dL Hct 22.0 L (37.5-50.1) % Plt Count 124 L (140-400) K/mcL Neutrophils # 4.4 (1.6-8.9) K/mcL BMP 02/04/18 04:50 Sodium 129 L Potassium 4.3 Chloride 94 L Carbon Dioxide 31 H BUN 22 Creatinine 0.73 Glucose 221 H Calcium 8.6 Liver Function 02/04/18 Range/Units 04:50 Total Bilirubin 0.7 (0.3-1.0) mg/dL Direct Bilirubin 0.2 (0.0-0.2) mg/dL AST 61 H (13-39) Units/L ALT 125 H (7-52) Units/L Alkaline Phosphatase 66 (34-104) Units/L Albumin 3.6 (3.5-5.7) g/dL - ABG Interpretation ABG results: PT/INR, D-dimer PT 14.4 Seconds (9.4-12.1) H 02/04/18 04:50 Consult Discharge Plan - Plan Referrals: ESTRELLA,PCP [Primary Care Provider] - 02/11/18 10:30 am ([facility] team) (2) Congestive cardiac failure Qualifiers: Heart failure type: systolic Heart failure chronicity: chronic Qualified Code(s): I50.22 - Chronic systolic (congestive) heart failure (3) COPD (chronic obstructive pulmonary disease) Qualifiers: COPD type: unspecified COPD Qualified Code(s): J44.9 - Chronic obstructive pulmonary disease, unspecified (4) Anemia Qualifiers: Anemia type: unspecified type Qualified Code(s): D64.9 - Anemia, unspecified
--- NOTE | 2018-02-04 13:48 | Cardiology Progress Note ---
Date of Encounter: 02/04/18 Time of Encounter: 11:00 Assessment and Plan (1) NSTEMI (non-ST elevated myocardial infarction) Current Visit: Yes Status: Acute NSTEMI troponin greater than 73. EKGs with ischemic changes. Reports prior VT in past and he declined [facility] this admission demonstrated severe multi-vessel CAD including LMCA disease. CT surgery evaluated and he was high risk for surgery due to multiple co- morbidities and patient declined surgery. PCI verses medical management discussed extensively with patient. Informed he could have repeat VT, worsening CHF. He declines PCI. He prefers conservative therapy. Psych consulted and patient is deemed able to make his own decision at this time. [facility]. He did not tolerate imdur with low blood pressure. Continue asa,plavix, statin, and bb. Noted to have anemia and requiring transfusion. Stop therapeutic lovenox. Consider DVT prophylaxis if HGB stable. Out-pt f/u will be coordinated with [facility] and [facility] Cardiology will sign off. Call with questions or changes. (2) NSVT (nonsustained ventricular tachycardia) Current Visit: Yes Status: Acute 27 beat run NSVT seen on day of admit. No recurrent events. Metoprolol started. Keep potassium 4.0 or greater and mg 2.0 or greater. Mg 1.1- magnesium replacement given. Tele shows SR, no pauses, no significant bradycardia. No VT. TTE shows EF 45%, LVEF 45%. Moderate segmental left ventricular systolic dysfunction. Grossly normal RV size and function Moderate mitral regurgitation. Mild tricuspid regurgitation. No pulmonary hypertension. Estimated RA pressure is 15 mmHg. (3) Cardiomyopathy Current Visit: Yes Status: Acute EF 45%. currently euvolemic. Continue bb. No aceI due to severe hypotension. Consider starting in future if able. Low sodium diet. Qualifiers: Cardiomyopathy type: ischemic Qualified Code(s): I25.5 - Ischemic cardiomyopathy Discussion w patient/family: The assessment and plan as outlined above was discussed with the patient and/or family members who expressed understanding and agreement. All questions were answered. Thank you for involving us in the care of your patient. Please call with any questions. Subjective Principal diagnosis: NSTEMI Interval history: Mr. Okeefe denies chest pain or recurrent SOB. Reports intermittent dizziness. Objective Vital Signs, Last 4 Hours Temp Pulse Resp BP Pulse Ox 02/04/18 11:59 98.1 F 68 16 120/59 02/04/18 11:38 97.7 F 62 16 112/59 96 General: Conversant, No Apparent Distress HEENT: Atraumatic, Normocephaly, Mucus Membranes Moist Neck: No JVD, Normal carotid pulses Cardiac: Reg Rate and Rhythm, Normal S1 and S2, No Murmur Lungs: Normal Breath Sounds, No Wheeze, Rales, Rhonchi Neuro: Alert and responsive, No focal deficits noted Abdomen: Soft, Non-Tender Skin: No rashes noted on visualized skin Musculoskeletal: No Chest Wall Tenderness Extremities: No Clubbing, No Cyanosis, No Edema, Normal Pulses Results 02/04/18 04:50 02/04/18 04:50 Lab Results 02/04/18 02/04/18 02/04/18 04:50 04:50 04:50 WBC 6.9 D Hgb 7.4 L D Hct 22.0 L Plt Count 124 L INR 1.3 Sodium 129 L Potassium 4.3 Chloride 94 L Carbon Dioxide 31 H BUN 22 Creatinine 0.73 Glucose 221 H Calcium 8.6 Magnesium 1.4 L Total Bilirubin 0.7 AST 61 H ALT 125 H Alkaline Phosphatase 66 - Imaging and Cardiology Echo: report reviewed Cardiac cath: report reviewed - EKG Interpretation EKG results cardiology: personally reviewed Consult Discharge Plan - Plan Referrals: ESTRELLAPCP [Primary Care Provider] - 02/11/18 10:30 am ([facility] team)
[2018-02-04 16:26] LABS: Hematocrit 29.6 % (37.5-50.1); Mean Corpuscular HGB Conc 34.1 g/dL (31.6-35.5); Mean Corpuscular Hemoglobin 28.9 pg (28.0-33.3); Mean Corpuscular Volume 84.6 fL (83.0-100.0); Mean Platelet Volume 10.1 fL (9.4-12.4); Platelet Count 153 K/mcL (140-400); Red Cell Distribution Width 18.5 % (11.5-14.5)
[2018-02-04 16:29] LABS: Hemoglobin 10.1 g/dL (12.9-16.9)
[2018-02-04] MEDS ORDERED: *HR* Warfarin 5 MG TABLET PO ONE (18:00)
[2018-02-04] MEDS: Insulin DETEMIR 100 UNIT/ML X5UNITS SQ SCH (20:28)
[2018-02-04] MEDS: Gabapentin 300 MG CAPSULE PO SCH (20:28)
[2018-02-05 06:26] LABS: Basophils % 0.2 %; Eosinophils # 0.1 K/mcL (0.0-0.6); Eosinophils % 0.6 %; Hemoglobin 10.1 g/dL (12.9-16.9); Immature Granulocytes % 0.6 % (0-4); Lymphocytes # 2.3 K/mcL (0.6-4.6); Lymphocytes % 25.4 %; Mean Corpuscular HGB Conc 33.7 g/dL (31.6-35.5); Mean Corpuscular Hemoglobin 27.7 pg (28.0-33.3); Mean Corpuscular Volume 82.4 fL (83.0-100.0); Mean Platelet Volume 10.6 fL (9.4-12.4); Neutrophils # 5.6 K/mcL (1.6-8.9); Platelet Count 158 K/mcL (140-400); Red Blood Count 3.64 M/mcL (4.19-5.50); Red Cell Distribution Width 18.6 % (11.5-14.5); Segmented Neutrophils % 62.2 %
[2018-02-05 06:31] LABS: INR 1.3; Prothrombin Time 14.7 Seconds (9.4-12.1)
[2018-02-05 06:48] LABS: BUN/Creatinine Ratio 29 (6-26); Blood Urea Nitrogen 25 mg/dL (8-23); Calcium 9.6 mg/dL (8.6-10.3); Carbon Dioxide 32 mEq/L (23-29); Chloride 90 mEq/L (98-107); Glucose 160 mg/dL (70-105); Osmolality,Calculated 280 (280-300); Potassium 4.3 mEq/L (3.5-5.1); Sodium 131 mEq/L (136-145); eGFR For Non-African Americans > 60 (> 60)
[2018-02-05] MEDS: Insulin LISPRO 300 UNITS/3 ML VIAL SQ SCH ×4 (08:47→12:21)
[2018-02-05] MEDS: Magnesium Oxide 400 MG TABLET PO SCH (09:04)
[2018-02-05] MEDS: Famotidine 20 MG TABLET PO SCH (09:04)
[2018-02-05] MEDS: Cholecalciferol (D-3) 1,000 UNIT TABLET PO SCH (09:04)
[2018-02-05] MEDS: *HR* Methadone 10 MG TABLET PO SCH (09:04)
[2018-02-05] MEDS: Multivit/Ca/Min/Fe/FA 1 TAB TABLET PO SCH (09:04)
[2018-02-05] MEDS: Furosemide 20 MG TABLET PO SCH (09:05)
[2018-02-05] MEDS: Aspirin Enteric Coated 81 MG Tablet PO SCH (09:05)
[2018-02-05] MEDS: Insulin DETEMIR 100 UNIT/ML X5UNITS SQ SCH (10:41)
[2018-02-05 11:43] VITALS: BP 139/72
--- NOTE | 2018-02-05 11:49 | Discharge Summary ---
- NOTES TO OUTPATIENT PROVIDER Notes to Outpatient Provider: Patient to follow-up with primary care for acute blood loss anemia Orders not resulted at time of discharge: Pending orders 02/06/18 04:00 INR/PT [Prothrombin Time INR] [COAG] AM 0400 Date of Encounter: 02/05/18 Time of Encounter: 11:00 - Discharge Diagnosis (1) Hyponatremia Priority: Secondary Status: Acute (2) Anemia Priority: Secondary Status: Chronic Qualifiers: Anemia type: unspecified type Qualified Code(s): D64.9 - Anemia, unspecified (3) History of DVT (deep vein thrombosis) Priority: Secondary Status: Chronic (4) PAD (peripheral artery disease) Priority: Secondary Status: Chronic (5) NSTEMI (non-ST elevated myocardial infarction) Priority: Primary Status: Acute (6) COPD (chronic obstructive pulmonary disease) Priority: Primary Status: Acute Qualifiers: COPD type: unspecified COPD Qualified Code(s): J44.9 - Chronic obstructive pulmonary disease, unspecified (7) Congestive cardiac failure Priority: Secondary Status: Chronic Qualifiers: Heart failure type: systolic Heart failure chronicity: chronic Qualified Code(s): I50.22 - Chronic systolic (congestive) heart failure (8) Hyperglycemia Priority: Secondary Status: Acute Hospital course: Patient is a 72-year-old male with past medical history significant for DM with PAD, COPD not on O2, tobacco abuse, HTN, HLD, who presented with complains of shortness of breath. The patient was admitted as inpatient for management of NSTEMI, EKG changes including St segment depression in lat leads. During patients hospital stay cardiology was consulted and left heart catheterization showed multivessel coronary arterial disease. Cardiothoracic surgery evaluate patient as well and patient was determined to be a high surgical risk due to multiple comorbidities therefore he declined surgery. Patient was also treated for COPD exacerbation during hospital stay and was transfused 1 unit of packed red blood cells due to acute blood loss anemia. Patient will be discharged to follow up with primary care provider. - Time Spent with Patient Total time spent providing and/or coordinating discharge services: Less than 30 minutes - Discharge Medications Prescriptions: Aspirin Enteric Coated [Aspirin EC] 81 mg PO DAILY #30 tablet. Clopidogrel [Plavix] 75 mg PO DAILY #30 tablet Lisinopril [Zestril] 5 mg PO DAILY #30 tablet Metoprolol [Lopressor] 25 mg PO DAILY #30 tablet Home Medications: Albuterol Sulfate [Ventolin Hfa] 2 puff IH QID PRN 01/31/18 [History] Brimonidine 0.2% [Alphagan] 1 drop BOTH EYES BID 01/31/18 [History] Calcium Carbonate/Vitamin D3 [Calcium 500-Vit D3 200 Tablet] 2 tab PO DAILY 11/12 [History] Furosemide [Lasix] 40 mg PO DAILY 01/31/18 [History] Gabapentin [Neurontin] 300 mg PO HS 01/31/18 [History] Insulin NPH Human Isophane [Novolin N] 15 unit SQ QPM 01/31/18 [History] Insulin NPH Human Isophane [Novolin N] 20 unit SQ QAM 01/31/18 [History] Ipratropium/Albuterol Neb [Duoneb] 3 ml IH TID PRN 01/31/18 [History] Magnesium Oxide [Magnesium] 400 mg PO DAILY 01/31/18 [History] Metformin HCl 1,000 mg PO BID 01/31/18 [History] Methadone 20 mg PO Q8HR 01/31/18 [History] Promethazine [Phenergan] 25 mg PO BID PRN 01/31/18 [History] Ranitidine HCl [Acid Grocery Carrier] 150 mg PO BID 01/31/18 [History] Simvastatin [Zocor] 20 mg PO HS 01/31/18 [History] Vit C/E/Zn/Coppr/Lutein/Zeaxan [Preservision Areds 2 Softgel] 1 cap PO DAILY 11/12 [History] Warfarin [Coumadin] 5 mg PO DAILY 01/31/18 [History] hydrOXYzine HCl [Hydroxyzine HCl] 50 mg PO BID 01/31/18 [History] Aspirin Enteric Coated [Aspirin EC] 81 mg PO DAILY #30 tablet 02/05/18 [Rx] Clopidogrel [Plavix] 75 mg PO DAILY #30 tablet 02/05/18 [Rx] Lisinopril [Zestril] 5 mg PO DAILY #30 tablet 02/05/18 [Rx] Metoprolol [Lopressor] 25 mg PO DAILY #30 tablet 02/05/18 [Rx] Allergies/Adverse Reactions: 3 Allergy/AdvReac Type Severity Reaction Status Date / Time No Known Allergies Allergy Verified 01/31/18 02:45 Date of admission: 01/31/18 08:28 [facility] Consults: 01/31/18 10:23 Consult to Cardiology [CONS] Stat Comment: Consulting Provider: Cardiology [facility] Reason for Consult: NSTEMI, Trop 33 Time Notified: 10:09 Call Completed: Yes 01/31/18 14:26 Consult to Invasive Line Access Team [CONS] Stat Reason for Consult: cardiogenic shock Line Type: PICC 02/01/18 08:19 Consult to Cardiac Rehabilitation-Phase1 [CONS] Routine Comment: Reason for Consult: NSTEMI Call Completed: No 02/02/18 13:04 Consult to Psychiatry [CONS] Routine Consulting Provider: Psychiatry [facility] Reason consult: Capacity assessment - Constitutional Vitals: Temp Pulse Resp BP Pulse Ox 98.6 F 58 18 139/72 96 02/05/18 11:38 02/05/18 11:38 02/05/18 11:38 02/05/18 11:38 02/05/18 11:38 General appearance: Present: A&O X 3, pleasant, no acute distress Exam: General: Alert and oriented 3. no distress. Cardiovascular: RRR, Normal S1 & S2, no rubs, murmurs or gallops. - Patient Status Disposition: Home, Self-Care Condition: Undetermined - Discharge Instructions Instructions: Metoprolol (By mouth), Lisinopril (By mouth), Aspirin (By mouth) , Clopidogrel (By mouth), Myocardial Infarction (DC) Follow Up With: Willi Maria MD [Partnered Physician] - ([facility] WILL CALL YOU WITH A FOLLOW UP APPOINTMENT. ) [facility],PCP [Primary Care Provider] - 02/11/18 10:30 am ([facility]) Additional Instructions: - PLEASE CONTINUE TO HAVE YOUR PT/INR CHECKED BY THE [facility] FOR COUMADIN MANAGEMENT. - PLEASE CHECK YOUR HR AND BP IN AM AND PM AND KEEP A LOG AND TAKE WITH YOU TO YOUR FOLLOW UP APPOINTMENTS. RISK FACTORS: STOP SMOKING: If you smoke, STOP. Smoking or tobacco use significantly increases your risk of heart disease because nicotine causes the arteries to narrow or constrict. It also causes fats to stick to the artery. Your chances of having a heart attack are greatly increased if you continue to smoke. For more information, call the education line for smoking cessation [id number]-[id number] EAT A LOW FAT/CHOLESTEROL/SODIUM DIET: This diet may help reduce your chances of having a heart attack. LIFTING: With affected extremity: Avoid bending, pushing off and lifting more than 2 pounds for 24 hours The following 48 hours, avoid lifting anything more than 5 pounds Avoid strenuous activity or repetitive motions ACTIVITY: You may walk or climb stairs as tolerated You can resume sexual activity as tolerated In general, you are encouraged to engage in a minimum of 30 minutes or more of moderate intensity physical activity, such as brisk walking, daily or at least 3 -4 times weekly BATHING Do not submerge the site into water (bath tub, hot tub, swimming pool, dishes) for 1 week. This can be a source for infection into the blood stream. You may shower after 24 hours SITE CARE: After 24 hours, you may remove the dressing and leave the site open to air. Keep the site clean and dry. Clean gently and pat dry. You can expect bruising and tenderness that gradually resolve within a week or two. Return to work as instructed per your physician Resume driving as instructed per physician Keep all scheduled follow up appointments Resume medications as instructed IMPORTANT: If prescribed a Platelet Aggregation Inhibitor such as, Plavix, Brilinta or Effient: Duration of therapy is minimum one year These medications are often used in combination with Aspirin in prevention of future heart attacks Never discontinue unless consult with your Thinner Sprayer STROKE (CVA) Risk factors for a stroke are: Age, cigarette smoking, diabetes, excessive alcohol consumption, family history, high blood pressure, overweight, physical inactivity, prior stroke, heart attack, diagnosis of carotid artery stenosis or other artery disease. Warning signs: Sudden numbness or weakness of the face, arm or leg; especially on one side of the body, sudden confusion, trouble speaking or understanding, sudden trouble seeing in one or both eyes, sudden trouble walking, dizziness, loss of balance or coordination, sudden severe headache with no cause. Call 911 or go to the Emergency Room. CONGESTIVE HEART FAILURE: If you have been diagnosed with Congestive Heart Failure (CHF) and your symptoms return, make an appointment with your physician Weigh yourself daily. Notify your physician if you have a weight gain of two or more pounds in one day or five or more pounds in one week. If you experience any difficulty breathing, please call 911 BLEEDING: Although the risk of bleeding is minimal, it can happen. If you have any bleeding from the site, apply firm pressure above the puncture site for 10-15 minutes. If the bleeding does not stop, continue manual pressure and call 911 Contact [facility] ( ) if: You develop a fever greater than 101 degrees Fahrenheit Your site becomes reddened or has any drainage You have an increase in pain or burning at the site or if a large knot forms at the site. If you experience chest pain, shortness of breath, dizziness, or extreme tiredness, stop the activity and rest. Please notify [facility] office if you experience any of these symptoms and they are not relieved by rest please call 911!
[2018-02-05] MEDS ORDERED: *HR* Warfarin 7.5 MG TABLET PO ONE (18:00)
== END 2018-02-05 14:14 | disposition home or self-care (01) | DRG 281 ==
LOC: 2NNU 02:31 → EMEROOARM 02:31 → SUATTDRO 08:28 → 2NNU 08:37
PROVIDERS: ADMIT Internal Medicine; ATTEND Hospitalist

== ENCOUNTER 2018-03-28 06:19 | Inpatient (IN) ==
--- NOTE | 2018-03-28 06:35 | Emergency Department Note ---
Disposition Clinical Impression: Shortness of breath, Anxiety reaction Disposition: Still a Patient [facility]errals: [facility] [Primary Care Provider] - Forms: ED Satisfaction Letter General Adult HPI - General Chief complaint: ED Shortness of Breath/Dyspnea Stated complaint: sheron Time Seen by Provider: 03/28/18 06:23 Source: patient, EMS Mode of arrival: EMS Limitations: no limitations Nursing Notes Reviewed: Yes Vital Signs Reviewed: Yes - History of Present Illness HPI Narrative: Patient is a 72-year-old male with past medical history of hypertension, hyperlipidemia, COPD and CHF presenting to [facility] ED for a one-day history of dyspnea. According to EMS the patient has anxiety/panic disorder and has had multiple recurrent episodes of similar events where he feels short of breath and takes multiple DuoNeb nebs/albuterol inhalers. Patient admitted to using his nebulizer and inhaler multiple times today and states that he feels as though he cannot breathe. Patient states that answering questions causes a greater feeling of dyspnea and admits to headache but denies chest pain, nausea/vomiting, and numbness or paresthesias. Pt Subjective Complaint: Difficulty breathing Onset (ago): day(s) Pain Scale: 0 Improves with: rest Worsens with: other (Moving/talking) Associated symptoms: Reports: headaches, shortness of breath Treatments Prior to Arrival: other (Nebulizer and albuterol inhaler) - Related Data Home Medications Medication Instructions Recorded Confirmed Albuterol Sulfate [Ventolin Hfa] 2 puff IH QID PRN 01/31/18 01/31/18 Brimonidine 0.2% [Alphagan] 1 drop BOTH EYES BID 01/31/18 01/31/18 Calcium Carbonate/Vitamin D3 2 tab PO DAILY 01/31/18 01/31/18 [Calcium 500-Vit D3 200 Tablet] Furosemide [Lasix] 40 mg PO DAILY 01/31/18 01/31/18 Gabapentin [Neurontin] 300 mg PO HS 01/31/18 01/31/18 Insulin NPH Human Isophane 15 unit SQ QPM 01/31/18 01/31/18 [Novolin N] Insulin NPH Human Isophane 20 unit SQ QAM 01/31/18 01/31/18 [Novolin N] Ipratropium/Albuterol Neb [Duoneb] 3 ml IH TID PRN 01/31/18 01/31/18 Magnesium Oxide [Magnesium] 400 mg PO DAILY 01/31/18 01/31/18 Metformin HCl 1,000 mg PO BID 01/31/18 01/31/18 Methadone 20 mg PO Q8HR 01/31/18 01/31/18 Promethazine [Phenergan] 25 mg PO BID PRN 01/31/18 01/31/18 Ranitidine HCl [Acid Operator Control Room] 150 mg PO BID 01/31/18 01/31/18 Simvastatin [Zocor] 20 mg PO HS 01/31/18 01/31/18 Vit C/E/Zn/Coppr/Lutein/Zeaxan 1 cap PO DAILY 01/31/18 01/31/18 [Preservision Areds 2 Softgel] Warfarin [Coumadin] 5 mg PO DAILY 01/31/18 01/31/18 hydrOXYzine HCl [Hydroxyzine HCl] 50 mg PO BID 01/31/18 01/31/18 Previous Rx's Medication Instructions Recorded Aspirin Enteric Coated [Aspirin EC] 81 mg PO DAILY #30 tablet. 02/05/18 Clopidogrel [Plavix] 75 mg PO DAILY #30 tablet 02/05/18 Lisinopril [Zestril] 5 mg PO DAILY #30 tablet 02/05/18 Metoprolol [Lopressor] 25 mg PO DAILY #30 tablet 02/05/18 Allergies Allergy/AdvReac Type Severity Reaction Status Date / Time No Known Allergies Allergy Verified 01/31/18 02:45 All systems ED: reviewed and negative except as stated. Review of Systems: As Per HPI Cardiovascular: Reports: dyspnea on exertion. Denies: chest pain Respiratory: Reports: dyspnea Gastrointestinal: Denies: abdominal pain, nausea, vomiting Neurological: Reports: headache. Denies: numbness, paresthesias Psychiatric: Reports: anxiety Past Medical History - Past Medical History Medical history: Reports: CHF, COPD, diabetes, hyperlipidemia, hypertension, peripheral artery disease Psychiatric history: Reports: no psych history - Social History Smoking Status: Current every day smoker Smokeless Tobacco Status: No Alcohol use: Reports: none Drug use: Reports: none Physical Exam - General Limitations: no limitations General appearance: alert, in no apparent distress, anxious - Head Head exam: atraumatic, normocephalic, normal inspection - Eye Eye exam: Present: normal appearance, PERRL, EOMI. Absent: scleral icterus, conjunctival injection - Neck Neck exam: Present: trachea midline - Chest Chest inspection: Present: normal inspection, symmetric chest wall rise - Respiratory Respiratory exam: Present: normal lung sounds bilaterally. Absent: respiratory distress, wheezes, stridor, accessory muscle use, prolonged expiratory phase - Cardiovascular Cardiovascular exam: Present: normal rhythm, tachycardia, normal heart sounds, +S1, +S2. Absent: rubs, gallop, clicks, JVD, +S3, +S4 - Abdominal Exam Abdominal exam: Present: soft, Non-Tender, normal bowel sounds. Absent: distention, guarding, rebound, rigidity - Neurological Exam Neurological exam: Present: alert, oriented X3 - Psychiatric Psychiatric exam: Present: agitated, anxious - Skin Skin exam: Present: warm, dry, intact, normal color. Absent: cyanosis, diaphoresis Course Course Narrative: Patient history, review of systems, and physical exam are concerning for anxiety/panic attack versus cardiopulmonary pathology. CBC, BMP, BNP, troponin, chest x-ray, and EKG will be performed for further assessment of metabolic versus cardiopulmonary etiologies. - Reevaluation(s) Reevaluation #1: Anxiety appears to be worsening, patient states that he feels that he cannot breathe and needs more oxygen. Patient is satting currently 100% on room air. Patient is asking for medications given to him last time he was in the ED "to help him relax". Patient will be given 0.5 mg of Ativan for anxiety relief. Time: 06:53 Vital Signs Temperature 98.2 F 03/28/18 06:22 Pulse Rate 109 03/28/18 06:22 Respiratory Rate 26 03/28/18 06:22 Blood Pressure 110/98 03/28/18 06:22 O2 Sat by Pulse Oximetry 99 03/28/18 06:22 Temperature 98.2 F 03/28/18 06:22 Pulse Rate 109 03/28/18 06:22 Respiratory Rate 26 03/28/18 06:22 Blood Pressure 110/98 03/28/18 06:22 O2 Sat by Pulse Oximetry 99 03/28/18 06:22 Oxygen Delivery Oxygen Delivery Room Air Medical Decision Making - MDM Narrative Medical decision making narrative: Due to shift change patient will be transferred to the care of resident physician Dr. Benjamin Holley and attending physician Dr. James Valenzuela. - Lab Data Lab results reviewed: Yes I reviewed the patient's lab results. Result diagrams: 03/28/18 06:45 Lab Results 03/28/18 03/28/18 Range/Units 06:37 06:45 WBC 11.2 H (4.3-11.1) K/mcL RBC 4.00 L (4.19-5.50) M/mcL Hgb 11.1 L (12.9-16.9) g/dL Hct 33.1 L (37.5-50.1) % MCV 82.8 L (83.0-100.0) fL MCH 27.8 L (28.0-33.3) pg MCHC 33.5 (31.6-35.5) g/dL RDW 18.4 H (11.5-14.5) % Plt Count 162 (140-400) K/mcL MPV 9.6 (9.4-12.4) fL Immature Gran % 0.5 (0-4) % Seg Neutrophils % 86.5 % Lymphocytes % 7.6 % Monocytes % 4.6 % Eosinophils % 0.4 % Basophils % 0.4 % Neutrophils # 9.7 H (1.6-8.9) K/mcL Lymphocytes # 0.9 (0.6-4.6) K/mcL Monocytes # 0.5 (0.0-1.3) K/mcL Eosinophils # 0.1 (0.0-0.6) K/mcL Basophils # 0.1 (0.0-0.2) K/mcL POC Glucose 231 H (70-99) mg/dL - Radiology Data Radiology results reviewed: Yes I reviewed the patient's radiology results. Chest X-Ray 03/28/18 06:30 IMPRESSION: Pulmonary edema with trace pleural effusions. D/ / Alvarado Mace MD / Alvarado Mace MD Interpreting Provider: Alvarado Mace MD - EKG Data EKG #1 EKG attestation: Yes I reviewed and interpreted this EKG. EKG results narrative: Patient EKG shows sinus tachycardia with right axis deviation with a normal rhythm. Ventricular rate is 112 bpm, VT interval 159 ms, QRS duration 104 ms, QT/QTc interval 312/426 ms respectively. There are no overt ST segment elevations or depressions, abnormal Q waves inversions or any other signs of acute ischemic change. EKG performed today is improved from previous EKG performed on 01/31/[address] segment elevations with reciprocal depression.
[2018-03-28] MEDS ORDERED: *HR* LORazepam 2 MG/ML VIAL IVP ONE (06:44)
--- NOTE | 2018-03-28 06:48 | Emergency Department Note ---
Disposition Clinical Impression: Shortness of breath, Anxiety reaction Disposition: Still a Patient [facility]errals: [facility] [Primary Care Provider] - General Adult HPI - General Chief complaint: ED Shortness of Breath/Dyspnea Stated complaint: sheron Time Seen by Provider: 03/28/18 06:23 Source: patient, EMS Mode of arrival: EMS Limitations: no limitations - History of Present Illness Pain Scale: 0 Improves with: rest Worsens with: other (Moving/talking) Associated symptoms: Reports: headaches, shortness of breath Treatments Prior to Arrival: other (Nebulizer and albuterol inhaler) - Related Data Home Medications Medication Instructions Recorded Confirmed Albuterol Sulfate [Ventolin Hfa] 2 puff IH QID PRN 01/31/18 01/31/18 Brimonidine 0.2% [Alphagan] 1 drop BOTH EYES BID 01/31/18 01/31/18 Calcium Carbonate/Vitamin D3 2 tab PO DAILY 01/31/18 01/31/18 [Calcium 500-Vit D3 200 Tablet] Furosemide [Lasix] 40 mg PO DAILY 01/31/18 01/31/18 Gabapentin [Neurontin] 300 mg PO HS 01/31/18 01/31/18 Insulin NPH Human Isophane 15 unit SQ QPM 01/31/18 01/31/18 [Novolin N] Insulin NPH Human Isophane 20 unit SQ QAM 01/31/18 01/31/18 [Novolin N] Ipratropium/Albuterol Neb [Duoneb] 3 ml IH TID PRN 01/31/18 01/31/18 Magnesium Oxide [Magnesium] 400 mg PO DAILY 01/31/18 01/31/18 Metformin HCl 1,000 mg PO BID 01/31/18 01/31/18 Methadone 20 mg PO Q8HR 01/31/18 01/31/18 Promethazine [Phenergan] 25 mg PO BID PRN 01/31/18 01/31/18 Ranitidine HCl [Acid Laboratory Animal Caretaker] 150 mg PO BID 01/31/18 01/31/18 Simvastatin [Zocor] 20 mg PO HS 01/31/18 01/31/18 Vit C/E/Zn/Coppr/Lutein/Zeaxan 1 cap PO DAILY 01/31/18 01/31/18 [Preservision Areds 2 Softgel] Warfarin [Coumadin] 5 mg PO DAILY 01/31/18 01/31/18 hydrOXYzine HCl [Hydroxyzine HCl] 50 mg PO BID 01/31/18 01/31/18 Previous Rx's Medication Instructions Recorded Aspirin Enteric Coated [Aspirin EC] 81 mg PO DAILY #30 tablet. 02/05/18 Clopidogrel [Plavix] 75 mg PO DAILY #30 tablet 02/05/18 Lisinopril [Zestril] 5 mg PO DAILY #30 tablet 02/05/18 Metoprolol [Lopressor] 25 mg PO DAILY #30 tablet 02/05/18 Allergies Allergy/AdvReac Type Severity Reaction Status Date / Time No Known Allergies Allergy Verified 01/31/18 02:45 Cardiovascular: Reports: dyspnea on exertion. Denies: chest pain Respiratory: Reports: dyspnea Gastrointestinal: Denies: abdominal pain, nausea, vomiting Neurological: Reports: headache. Denies: numbness, paresthesias Psychiatric: Reports: anxiety Past Medical History - Past Medical History Medical history: Reports: CHF, COPD, diabetes, hyperlipidemia, hypertension, peripheral artery disease Psychiatric history: Reports: no psych history - Social History Smoking Status: Current every day smoker Smokeless Tobacco Status: No Alcohol use: Reports: none Drug use: Reports: none Physical Exam - General Limitations: no limitations General appearance: alert, in no apparent distress, anxious Course Vital Signs Temperature 98.2 F 03/28/18 06:22 Pulse Rate 109 03/28/18 06:22 Respiratory Rate 26 03/28/18 06:22 Blood Pressure 110/98 03/28/18 06:22 O2 Sat by Pulse Oximetry 99 03/28/18 06:22 Temperature 98.2 F 03/28/18 06:22 Pulse Rate 109 03/28/18 06:22 Respiratory Rate 26 03/28/18 06:22 Blood Pressure 110/98 03/28/18 06:22 O2 Sat by Pulse Oximetry 99 03/28/18 06:22 Oxygen Delivery Oxygen Delivery Room Air Attestation Statement - Attestation Attestation: I examined this patient and my medical decision-making was reviewed with the Resident Physician. I agree with the documented findings, disposition and treatment plan as described except to the extent set forth below. 72-year-old male presented to emergency room for shortness of breath. States it got worse over this evening and into this morning. Patient arrived via EMS. History of same in the past. Patient gets very anxious with this shortness of breath. He has a tendency to overuse his albuterol inhaler. His vitals are stable in the emergency room. He is not hypoxic. . We will check screening lab work. EKG was nondiagnostic. We will add on a chest x-ray as well. Patient is very anxious and feels like he is having panic attacks. We will give him is very low dose of Ativan to see if this helps with his breathing and anxiety. Pt does not wear home O2. He keeps wanting to wear his nasal canula. He doesn't wear any at home he is not wheezing at this time dispo pending based on labs and cxr and see how he repso
[2018-03-28 06:57] LABS: Basophils # 0.1 K/mcL (0.0-0.2); Basophils % 0.4 %; Eosinophils # 0.1 K/mcL (0.0-0.6); Eosinophils % 0.4 %; Hematocrit 33.1 % (37.5-50.1); Hemoglobin 11.1 g/dL (12.9-16.9); Immature Granulocytes % 0.5 % (0-4); Lymphocytes # 0.9 K/mcL (0.6-4.6); Lymphocytes % 7.6 %; Mean Corpuscular HGB Conc 33.5 g/dL (31.6-35.5); Mean Corpuscular Hemoglobin 27.8 pg (28.0-33.3); Mean Corpuscular Volume 82.8 fL (83.0-100.0); Mean Platelet Volume 9.6 fL (9.4-12.4); Monocytes # 0.5 K/mcL (0.0-1.3); Monocytes % 4.6 %; Neutrophils # 9.7 K/mcL (1.6-8.9); Platelet Count 162 K/mcL (140-400); Red Cell Distribution Width 18.4 % (11.5-14.5); Segmented Neutrophils % 86.5 %
[2018-03-28] MEDS ORDERED: Furosemide 20 MG/2 ML VIAL IVP ONE (07:03)
[2018-03-28 07:22] LABS: BUN/Creatinine Ratio 33 (6-26); Blood Urea Nitrogen 24 mg/dL (8-23); Calcium 9.7 mg/dL (8.6-10.3); Carbon Dioxide 23 mEq/L (23-29); Chloride 95 mEq/L (98-107); Glucose 211 mg/dL (70-105); Osmolality,Calculated 282 (280-300); Potassium 3.8 mEq/L (3.5-5.1); Sodium 131 mEq/L (136-145); eGFR For Non-African Americans > 60 (> 60)
[2018-03-28 07:25] LABS: Troponin I 0.25 ng/mL (< 0.04)
--- NOTE | 2018-03-28 07:26 | Emergency Department Note ---
Disposition Clinical Impression: Shortness of breath, Elevated troponin CHF exacerbation Qualifiers: Heart failure type: unspecified Qualified Code(s): I50.9 - Heart failure, unspecified Disposition: Admitted As Inpatient Condition: Fair [facility]: [facility]Primary Care Provider[facility] - Forms: ED Satisfaction Letter Time of Disposition: 08:00 SOB HPI - General Chief Complaint: ED Shortness of Breath/Dyspnea Stated Complaint: sheron Time Seen by Provider: 03/28/18 06:23 Source: patient, EMS Mode of arrival: EMS Limitations: no limitations Nursing Notes Reviewed: Yes Vital Signs Reviewed: Yes - Related Data Home Medications Medication Instructions Recorded Confirmed Albuterol Sulfate [Ventolin Hfa] 2 puff IH QID PRN 01/31/18 01/31/18 Brimonidine 0.2% [Alphagan] 1 drop BOTH EYES BID 01/31/18 01/31/18 Calcium Carbonate/Vitamin D3 2 tab PO DAILY 01/31/18 01/31/18 [Calcium 500-Vit D3 200 Tablet] Furosemide [Lasix] 40 mg PO DAILY 01/31/18 01/31/18 Gabapentin [Neurontin] 300 mg PO HS 01/31/18 01/31/18 Insulin NPH Human Isophane 15 unit SQ QPM 01/31/18 01/31/18 [Novolin N] Insulin NPH Human Isophane 20 unit SQ QAM 01/31/18 01/31/18 [Novolin N] Ipratropium/Albuterol Neb [Duoneb] 3 ml IH TID PRN 01/31/18 01/31/18 Magnesium Oxide [Magnesium] 400 mg PO DAILY 01/31/18 01/31/18 Metformin HCl 1,000 mg PO BID 01/31/18 01/31/18 Methadone 20 mg PO Q8HR 01/31/18 01/31/18 Promethazine [Phenergan] 25 mg PO BID PRN 01/31/18 01/31/18 Ranitidine HCl [Acid Laundry Operator Wash Room] 150 mg PO BID 01/31/18 01/31/18 Simvastatin [Zocor] 20 mg PO HS 01/31/18 01/31/18 Vit C/E/Zn/Coppr/Lutein/Zeaxan 1 cap PO DAILY 01/31/18 01/31/18 [Preservision Areds 2 Softgel] Warfarin [Coumadin] 5 mg PO DAILY 01/31/18 01/31/18 hydrOXYzine HCl [Hydroxyzine HCl] 50 mg PO BID 01/31/18 01/31/18 Previous Rx's Medication Instructions Recorded Aspirin Enteric Coated [Aspirin EC] 81 mg PO DAILY #30 tablet. 02/05/18 Clopidogrel [Plavix] 75 mg PO DAILY #30 tablet 02/05/18 Lisinopril [Zestril] 5 mg PO DAILY #30 tablet 02/05/18 Metoprolol [Lopressor] 25 mg PO DAILY #30 tablet 02/05/18 Allergies Allergy/AdvReac Type Severity Reaction Status Date / Time No Known Allergies Allergy Verified 01/31/18 02:45 All systems ED: reviewed and negative except as stated. Cardiovascular: Reports: dyspnea on exertion. Denies: chest pain Respiratory: Reports: dyspnea Gastrointestinal: Denies: abdominal pain, nausea, vomiting Neurological: Reports: headache. Denies: numbness, paresthesias Psychiatric: Reports: anxiety Past Medical History - Past Medical History Attestation: Yes The following information was validated with the patient. Source: patient Medical history: Reports: CHF, COPD, diabetes, hyperlipidemia, hypertension, peripheral artery disease Psychiatric history: Reports: no psych history - Social History Smoking Status: Current every day smoker Smokeless Tobacco Status: No Alcohol use: Reports: none Drug use: Reports: none Physical Exam - General Limitations: no limitations General appearance: alert, anxious - Head Head exam: atraumatic, normocephalic, normal inspection - Eye Eye exam: Present: normal appearance, PERRL, EOMI - ENT ENT exam: normal exam, normal oropharynx, mucous membranes moist - Neck Neck exam: Present: normal inspection, full ROM, trachea midline - Chest Chest inspection: Present: normal inspection, symmetric chest wall rise - Respiratory Respiratory exam: Present: other (Increased work of breathing, crackles of bilateral lower lobes) - Cardiovascular Cardiovascular exam: Present: normal rhythm, tachycardia, normal heart sounds - Abdominal Exam Abdominal exam: Present: soft, Non-Tender. Absent: tenderness, distention, guarding, rebound, rigidity - Extremities Exam Extremities exam: Present: full ROM. Absent: tenderness, pedal edema - Neurological Exam Neurological exam: Present: alert, oriented X3 - Psychiatric Psychiatric exam: Present: anxious - Skin Skin exam: Present: warm, dry, intact, normal color Course Course Narrative: Patient was a sign out from previous team, Dr. Zamudio and Dr. Decker, please see their notes for any additional detail. In summary, patient is a 72-year-old male with past medical history of COPD, CHF, uses daily inhalers and as needed Lasix 40 mg, previous NE in january 2018, on coumadin due to previous LE DVT. Not on chronic oxygen. States he has never required BiPAP in the past. Pr esents today due to increased work of breathing, shortness breath, increased sputum production, anxiety. Patient states that he woke up this morning and was feeling anxious and short of breath. He states that this feels somewhat similar to previous COPD and CHF exacerbations. Denies any chest pain. Denies any other nausea, vomiting, fevers, diarrhea, abdominal pain. He does report an increase in sputum production, mainly clear. Denies being on any recent antibiotics or steroids. He also notes that he has not been taking his Lasix because he has not noticed any lower extremity edema. He also reports that he is on a blood thinner due to previous history of lower extremity DVTs but denies any history of PE. He has been taking his daily blood thinner without any missed doses. Upon my evaluation, the previous team had ordered EKG, chest x- ray, basic blood work, troponin, BNP. Chest x-ray shows: Pulmonary edema with trace pleural effusions. CBC, BMP, troponin, BNP pending. Patient was given Ativan and Lasix by previous team. 07:26. Troponin is elevated 0.25 EKG reviewed again and there is no acute ST elevation or depression. Aspirin given. No other major lab abnormality. EKG #1 03/28/2018 at 06:32. Sinus tachycardia. Heart rate 112. IA 159. QRS 104. QTC 426. Normal axis. No acute ST elevation or depression. 07:40 BNP elevated at 700s from 100s. 07:46 EKG # at 07:46. Sinus tachycardia. Heart rate 107. IA 162. QRS 103. QTC 433. Normal axis. No acute ST elevation or depression. Remains unchanged from first EKG. Currently waiting on INR. If therapeutic, will not start heparin at this time. Jigger Operator has been paged to discuss case. Patient has improvement in breathing after Ativan and Lasix. Continues to deny any chest pain. 17:[address] Linares with cardiology. Arben EKG, lab findings, critical presentation. He reported that if INR was therapeutic, no heparin drip was indicated. However, if INR is less than 2, go ahead and start heparin drip without bolus. Otherwise, no acute intervention at this time. Also recommended obtaining an echocardiogram after patient is admitted. Chest X-Ray 03/28/18 06:30 IMPRESSION: Pulmonary edema with trace pleural effusions. D/ / Alvarado Mace MD / Alvarado Mace MD Interpreting Provider: Alvarado Mace MD Vital Signs Temperature 98.2 F 03/28/18 06:22 Pulse Rate 109 03/28/18 06:22 Respiratory Rate 26 03/28/18 06:22 Blood Pressure 110/98 03/28/18 06:22 O2 Sat by Pulse Oximetry 99 03/28/18 06:22 Temperature 98.2 F 03/28/18 06:22 Pulse Rate 108 03/28/18 08:25 Respiratory Rate 21 03/28/18 08:25 Blood Pressure 110/98 03/28/18 06:22 O2 Sat by Pulse Oximetry 97 03/28/18 08:25 Oxygen Delivery Oxygen Delivery Room Air Shortness of Breath/Dyspnea - MDM Narrative Medical decision making narrative: Patient was a sign out from previous team, Dr. Zamudio and Dr. Decker, please see their notes for any additional detail. In summary, patient is a 72-year-old male with past medical history of COPD, CHF, uses daily inhalers and as needed Lasix 40 mg, previous NE in january 2018, on coumadin due to previous LE DVT. Not on chronic oxygen. States he has never required BiPAP in the past. Presents today due to increased work of breathing, shortness breath, increased sputum production, anxiety. Patient states that he woke up this morning and was feeling anxious and short of breath. He states that this feels somewhat similar to previous COPD and CHF exacerbations. Denies any chest pain. Denies any other nausea, vomiting, fevers, diarrhea, abdominal pain. He does report an increase in sputum production, mainly clear. Denies being on any recent antibiotics or steroids. He also notes that he has not been taking his Lasix because he has not noticed any lower extremity edema. He also reports that he is on a blood thinner due to previous history of lower extremity DVTs but denies any history of PE. He has been taking his daily blood thinner without any missed doses. Upon my evaluation, the previous team had ordered EKG, chest x- ray, basic blood work, troponin, BNP. Chest x-ray shows: Pulmonary edema with trace pleural effusions. CBC, BMP, troponin, BNP pending. Patient was given Ativan and Lasix by previous team. 07:26. Troponin is elevated 0.25 EKG reviewed again and there is no acute ST elevation or depression. Aspirin given. No other major lab abnormality. EKG #1 03/28/2018 at 06:32. Sinus tachycardia. Heart rate 112. IA 159. QRS 104. QTC 426. Normal axis. No acute ST elevation or depression. 07:40 BNP elevated at 700s from 100s. 07:46 EKG # at 07:46. Sinus tachycardia. Heart rate 107. IA 162. QRS 103. QTC 433. Normal axis. No acute ST elevation or depression. Remains unchanged from first EKG. Currently waiting on INR. If therapeutic, will not start heparin at this time. Jigger Operator has been paged to discuss case. Patient has improvement in breathing after Ativan and Lasix. Continues to deny any chest pain. 17:[address] Linares with cardiology. Arben EKG, lab findings, critical presentation. He reported that if INR was therapeutic, no heparin drip was indicated. However, if INR is less than 2, go ahead and start heparin drip without bolus. Otherwise, no acute intervention at this time. Also recommended obtaining an echocardiogram after patient is admitted. - Lab Data Result diagrams: 03/28/18 06:45 03/28/18 06:45 Lab Results 03/28/18 03/28/18 03/28/18 Range/Units 06:37 06:45 06:45 WBC 11.2 H (4.3-11.1) K/mcL RBC 4.00 L (4.19-5.50) M/mcL Hgb 11.1 L (12.9-16.9) g/dL Hct 33.1 L (37.5-50.1) % MCV 82.8 L (83.0-100.0) fL MCH 27.8 L (28.0-33.3) pg MCHC 33.5 (31.6-35.5) g/dL RDW 18.4 H (11.5-14.5) % Plt Count 162 (140-400) K/mcL MPV 9.6 (9.4-12.4) fL Immature Gran % 0.5 (0-4) % Seg Neutrophils % 86.5 % Lymphocytes % 7.6 % Monocytes % 4.6 % Eosinophils % 0.4 % Basophils % 0.4 % Neutrophils # 9.7 H (1.6-8.9) K/mcL Lymphocytes # 0.9 (0.6-4.6) K/mcL Monocytes # 0.5 (0.0-1.3) K/mcL Eosinophils # 0.1 (0.0-0.6) K/mcL Basophils # 0.1 (0.0-0.2) K/mcL PT (9.4-12.1) Seconds INR Sodium 131 L (136-145) mEq/L Potassium 3.8 (3.5-5.1) mEq/L Chloride 95 L (98-107) mEq/L Carbon Dioxide 23 (23-29) mEq/L BUN 24 H (8-23) mg/dL Creatinine 0.72 (0.70-1.30) mg/dL Est GFR ( Amer) > 60 (> 60) Est GFR (Non-Af Amer) > 60 (> 60) BUN/Creatinine Ratio 33 H (6-26) Glucose 211 H (70-105) mg/dL POC Glucose 231 H (70-99) mg/dL Calculated Osmolality 282 (280-300) Calcium 9.7 (8.6-10.3) mg/dL Troponin I 0.25 H* (< 0.04) ng/mL B-Natriuretic Peptide (Less than 100) pg/mL 03/28/18 03/28/18 Range/Units 06:45 07:44 WBC (4.3-11.1) K/mcL RBC (4.19-5.50) M/mcL Hgb (12.9-16.9) g/dL Hct (37.5-50.1) % MCV (83.0-100.0) fL MCH (28.0-33.3) pg MCHC (31.6-35.5) g/dL RDW (11.5-14.5) % Plt Count (140-400) K/mcL MPV (9.4-12.4) fL Immature Gran % (0-4) % Seg Neutrophils % % Lymphocytes % % Monocytes % % Eosinophils % % Basophils % % Neutrophils # (1.6-8.9) K/mcL Lymphocytes # (0.6-4.6) K/mcL Monocytes # (0.0-1.3) K/mcL Eosinophils # (0.0-0.6) K/mcL Basophils # (0.0-0.2) K/mcL PT 36.6 H (9.4-12.1) Seconds INR 3.2 Sodium (136-145) mEq/L Potassium (3.5-5.1) mEq/L Chloride (98-107) mEq/L Carbon Dioxide (23-29) mEq/L BUN (8-23) mg/dL Creatinine (0.70-1.30) mg/dL Est GFR ( Amer) (> 60) Est GFR (Non-Af Amer) (> 60) BUN/Creatinine Ratio (6-26) Glucose (70-105) mg/dL POC Glucose (70-99) mg/dL Calculated Osmolality (280-300) Calcium (8.6-10.3) mg/dL Troponin I (< 0.04) ng/mL B-Natriuretic Peptide 774 H (Less than 100) pg/mL S.B.A.R. - Aria.[email or web address] Situation: Demographics, MOA Background: Presenting Complaint, Relevant PMH, Meds, & Allergies Assessment: Vital Signs, Course and respsone to treatment, Exam Concerns, Patient/Family Expectation, Pertinant Lab Results Recommendation: Barrier(s) to disposition, Recommendation based on pending studies, treatments, or consults S.B.A.RRustam Report Given to: Dr. Chris PedroAJelena Repor Time: 08:30
[2018-03-28] MEDS ORDERED: Aspirin 325 MG TABLET PO ONE (07:28)
[2018-03-28 08:06] LABS: INR 3.2; Prothrombin Time 36.6 Seconds (9.4-12.1)
[2018-03-28] MEDS ORDERED: Naloxone 0.4 MG/ML INJ IVP PRN (08:13)
[2018-03-28 08:54] LABS: Activated Partial Thrombo Time 39.4 Seconds (26.0-36.0)
--- NOTE | 2018-03-28 10:34 | Internal Med History&Physical ---
Date of Encounter: 03/28/18 Time of Encounter: 09:27 Internal Medicine - H&P: HPI Chief complaint: shortness of breath Admitted From: Home Plans for Post Hospital Care: Home History of present illness: Mr. Okeefe is a 72 year old male triple-vessel coronary artery disease (declined CABG), recent non-STEMI in January 2018, heart failure reduced EF 45%, DVT on Coumadin, and COPD not on home oxygen presented to emergency department with complaint of shortness of breath. As per patient his shortness of breath started in the early hours of this morning, progressively worsening prompting him to come to the emergency department for further evaluation. He was at rest when shortness of breath started and it woke him up from sleep. He felt anxious and is unsure if the anxiety has caused him to develop shortness of breath or the shortness of breath has caused him to develop anxiety. He does report sputum production and coughing in order to bring up thick phlegm. He reports that the phlegm is white in color denies blood. He does have history of COPD and has not used his inhalers in the past week, he was advised to stop smoking however he still smoking 5-6 cigarettes daily. He reports compliance with the rest of his medications. He denies fever, chills, chest pain, palpitations, nausea, vomiting, diarrhea. He has not received the pneumonia vaccination however he does report that these receive the influenza vaccination this year. Denies recent travel or sick contacts or antibiotic use. While in the ED he was found to be tachycardic and tachypnic, troponins were mildly elevated at 0.25 EKG did not show any acute ST T changes. Cardiology was consulted as he has significant cardiac history and recommended to hold off anticoagulation since he has supratherapeutic INR. He was endorsed for admissi on for further management of his respiratory symptoms Past Med Surg Social Fam HX - Past Medical History Medical history: CHF, COPD, diabetes, hyperlipidemia, hypertension, peripheral artery disease Psychiatric history: no psych history - Social History Smoking Status: Current every day smoker Smokeless Tobacco Status: No Alcohol use: none Drug use: none Internal Medicine - H&P: Meds Albuterol Sulfate [Ventolin Hfa] 2 puff IH QID PRN 01/31/18 [History] Brimonidine 0.2% [Alphagan] 1 drop BOTH EYES BID 01/31/18 [History] Calcium Carbonate/Vitamin D3 [Calcium 500-Vit D3 200 Tablet] 2 tab PO DAILY 01/31/18 [History] Furosemide [Lasix] 40 mg PO DAILY 01/31/18 [History] Gabapentin [Neurontin] 300 mg PO HS 01/31/18 [History] Insulin NPH Human Isophane [Novolin N] 15 unit SQ QPM 01/31/18 [History] Insulin NPH Human Isophane [Novolin N] 20 unit SQ QAM 01/31/18 [History] Ipratropium/Albuterol Neb [Duoneb] 3 ml IH TID PRN 01/31/18 [History] Magnesium Oxide [Magnesium] 400 mg PO DAILY 01/31/18 [History] Metformin HCl 1,000 mg PO BID 01/31/18 [History] Methadone 20 mg PO Q8HR 01/31/18 [History] Promethazine [Phenergan] 25 mg PO BID PRN 01/31/18 [History] Ranitidine HCl [Acid Hospital Nursing Assistant] 150 mg PO BID 01/31/18 [History] Simvastatin [Zocor] 20 mg PO HS 01/31/18 [History] Vit C/E/Zn/Coppr/Lutein/Zeaxan [Preservision Areds 2 Softgel] 1 cap PO DAILY 0 01/31/18 [History] Warfarin [Coumadin] 5 mg PO DAILY 01/31/18 [History] hydrOXYzine HCl [Hydroxyzine HCl] 50 mg PO BID 01/31/18 [History] Aspirin Enteric Coated [Aspirin EC] 81 mg PO DAILY #30 tablet. 02/05/18 [Rx] Clopidogrel [Plavix] 75 mg PO DAILY #30 tablet 02/05/18 [Rx] Lisinopril [Zestril] 5 mg PO DAILY #30 tablet 02/05/18 [Rx] Metoprolol [Lopressor] 25 mg PO DAILY #30 tablet 02/05/18 [Rx] Docusate [Colace] 200 mg PO DAILY PRN 03/28/18 [History] Multivitamin [One Daily Multivitamin] 1 tab PO DAILY 03/28/18 [History] Vit A/Vit C/Vit E/Zinc/Copper [Icaps Areds Softgel] 1 cap PO BID 03/28/18 [History] Warfarin [Coumadin] 5 mg PO 1800 03/28/18 [History] Allergy/AdvReac Type Severity Reaction Status Date / Time No Known Allergies Allergy Verified 03/28/18 12:50 All Systems PM: review of systems was performed and is negative for pertinent findings except as documented above in the HPI. - Constitutional Vitals: Temp Pulse Resp BP Pulse Ox 98.2 F 100 17 98/59 94 03/28/18 09:17 03/28/18 09:17 03/28/18 09:17 03/28/18 09:17 03/28/18 09:17 Exam: General: Patient is alert, oriented, in mild distress, speaks in full sentences Head: atraumatic, normocephalic, Eye: normal appearance, PERRL, no scleral icterus, no conjunctival injection ENT: mucous membranes moist, normal external ear exam Neck: normal inspection, trachea midline, full ROM, no carotid bruits Chest: normal inspection, symmetric chest rise Respiratory: Decreased breath sounds in the posterior leslie with occasional crackles, wheezing in the anterior chest Cardiovascular: Tachycardic s1 and s2 No clicks, rubs, gallops, or murmors. Abdomen: Bowel sounds present normoactive x-4 quadrants. Abdomen is soft, nondistended. no Epigastric tenderness. No guarding or rebound. No organomegaly noted, obese musculoskeletal: Spontaneously moving all extremities. +1 edema of bilateral lower extremities, erythema of the right lower extremity more than left lower extremity, no calf tenderness Skin: warm, dry, intact. Neuro: Alert and oriented x4. Sensation light touch intact. Cranial nerves 2- 12 is intact. Not aphasic, rapid hand movements intact, [id number] intact, Psych: Patient's affect is normal Internal Med - H&P Results - Labs CBC & Chem 7: 03/28/18 06:45 03/28/18 06:45 Labs: Short CBC 03/28/18 Range/Units 06:45 WBC 11.2 H (4.3-11.1) K/mcL Hgb 11.1 L (12.9-16.9) g/dL Hct 33.1 L (37.5-50.1) % Plt Count 162 (140-400) K/mcL Neutrophils # 9.7 H (1.6-8.9) K/mcL BMP 03/28/18 06:45 Sodium 131 L Potassium 3.8 Chloride 95 L Carbon Dioxide 23 BUN 24 H Creatinine 0.72 Glucose 211 H Calcium 9.7 Cardiac Enzymes 03/28/18 Range/Units 06:45 Troponin I 0.25 H* (< 0.04) ng/mL - EKG Data -: EKG Interpreted by Myself (sinus tachycardia, ?LAE, [id number]) - EKG Data When compared to previous EKG: there is no significant change - Impressions ITS Impressions Chest X-Ray 03/28/18 06:30 IMPRESSION: Pulmonary edema with trace pleural effusions. D/ / Alvarado Maec MD / Alvarado Mace MD Interpreting Provider: Alvarado Mace MD - Assessment and plan (1) Acute exacerbation of chronic obstructive pulmonary disease (COPD) Current Visit: Yes Status: Acute Assessment and plan: Solu-Medrol 125 mg once and continue with 40 mg every 8 hours Levaquin Urine antigens, sputum cultures, respiratory viral panel DuoNeb's every 4 hours Oxygen via nasal cannula keep saturations above 92 BiPAP when necessary for respiratory distress (2) Acute on chronic HFrEF (heart failure with reduced ejection fraction) Current Visit: Yes Status: Acute Assessment and plan: telemetry Lasix 20mg BID, monitor potassium level- hold for SBP<100 Continue home medications of not contraindicated Supplement O2 as needed Fluid restriction Serial troponin/CK-MB/gis analyst developer Intake/Output, Daily Weights Cardiology consulted by the ED physician will follow recommendations AM labs to be followed TTE 01/2018- LVEF 45%. Moderate segmental left ventricular systolic dysfunction. Grossly normal RV size and function Moderate mitral regurgitation. Mild tricuspid regurgitation. No pulmonary hypertension. Estimated RA pressure is 15 mmHg. (3) Elevated troponin Current Visit: Yes Status: Acute Assessment and plan: Most likely secondary to supply versus demand mismatch in known triple-vessel coronary artery disease- decliend CABG on previous admission Cardiology was consulted in the ED will follow recommendations We will continue home medications for now As INR is supratherapeutic cardiology had advised the ED physician to hold off anticoagulations for now- will follow Continue aspirin, Plavix, beta blockers, VERONICA inhibitor's, statin ( hold for SBP <90 and HR <60) serial troponins and ekgs utox, TSH (4) DVT (deep venous thrombosis) Current Visit: Yes Status: Acute Assessment and plan: continue coumadin pharmacy to dose Qualifiers: Chronicity: unspecified Laterality: unspecified laterality Qualified Code(s): I82.409 - Acute embolism and thrombosis of unspecified deep veins of unspecified lower extremity (5) Anemia Current Visit: No Status: Chronic Assessment and plan: chronic microcytic anemia baseline around 9-10 will continue to follow CBC Qualifiers: Anemia type: unspecified type Qualified Code(s): D64.9 - Anemia, unspecified (6) Diabetes mellitus Current Visit: No Status: Chronic Assessment and plan: started on sliding insulin- adjust as per finger sticks A1c in AM Qualifiers: Diabetes mellitus type: type 2 Diabetes mellitus [facility] insulin use: with terminal computer operator use Diabetes mellitus complication status: with circulatory complication Diabetes mellitus complication detail: with peripheral angiopathy without gangrene Qualified Code(s): E11.51 - Type 2 diabetes mellitus with diabetic peripheral angiopathy without gangrene; Z79.4 - USP (current) use of insulin - Time Spent With Patient Total time spent is greater than 50% in coordination of care (as documented) at patient's floor/unit and/or counseling patient:
[2018-03-28] MEDS ORDERED: methylPREDNISolone 125 MG/2 ML VIAL IVP ONE (10:48)
[2018-03-28] MEDS ORDERED: *HR* Dextrose 50 % in Water (Syg) 50 ML SYRINGE IVP PRN (11:03)
[2018-03-28] MEDS ORDERED: Dextrose Gel 15 GM/37.5 ML TUBE PO PRN ×2 (11:03)
[2018-03-28] MEDS ORDERED: D5% in Water 1,000 ML IVC PRN (11:03)
[2018-03-28] MEDS: Ipratropium/Albuterol Neb 3 ML IH SCH ×4 (11:23→23:42)
[2018-03-28] MEDS: Insulin LISPRO 300 UNITS/3 ML VIAL SQ SCH ×3 (12:41→20:32)
[2018-03-28] MEDS: Levofloxacin 750 MG/150 ML 750 MG/150 ML BAG IVPB SCH (12:42)
[2018-03-28] MEDS: hydrOXYzine pamoate 25 MG CAPSULE PO SCH ×2 (12:53→20:13)
--- NOTE | 2018-03-28 12:58 | Cardiology Consult Note ---
<Guero Birch T - Last Filed: 03/28/18 14:52> Date of Encounter: 03/28/18 Time of Encounter: 14:30 Assessment and Plan (1) NSTEMI (non-ST elevated myocardial infarction) Current Visit: No Status: Acute Will trend troponins and schedule echo. Last visit there were concerns that patient did not understand cardiac pathology and treatment options. Dr. Linares spoke with patient today and he is amenable to cardiac intervention if echo indicate there is a cardiac etiology to his SOB. Patient stopped lasix outpatient, recommend to continue lasix inpatient to [facility]. Discussion w patient/family: The assessment and plan as outlined above was discussed with the patient and/or family members who expressed understanding and agreement. All questions were answered. Thank you for involving us in the care of your patient. Please call with any questions. History of Present Illness Consult date: 03/28/18 Consult reason: SOB with history of untreated NSTEMI History of present illness: Mr. Okeefe is a 72 year old male consulted for SOB in conjunction with signficant cardiac history. He states that he started having SOB this morning while lying in bed. He denies chest pain but does endorse substernal chest tightness. He s tates he had brown sputum this morning, however previous history states it was white. Patient may not be accurate historian. Denies recent fever, chills, night sweats, coughing beyond baseline (smoker with COPD), or recent sick contacts. At ED this morning patient was tachycardic and tachypnic, elevated troponins 0.25, and no acute ST changes in EKG. He was admitted in January for NSTEMI with a troponin > 73, cath showing triple-vessel disease (declined CABG and stent), echo showing EF 45%. Patient left and did not follow up with medication reccomendations, only taking zocor, aspirin, lisinopril, and coumadin. He has a hisotry of CAD, NSTEMK, DVT on Coumadin, COPD. Patient smokes 5-6 cigarettes per day for 50 years. Past Med Surg Social Fam HX - Past Medical History Medical history: CHF, COPD, diabetes, hyperlipidemia, hypertension, peripheral artery disease Psychiatric history: no psych history - Past Surgical History Surgical History: carotid endarterectomy, LE Bypass, LE stent(s), tonsilectomy - Social History Smoking Status: Current every day smoker Smokeless Tobacco Status: No Alcohol use: none Drug use: none Medications and Allergies Albuterol Sulfate [Ventolin Hfa] 2 puff IH QID PRN 01/31/18 [History] Brimonidine 0.2% [Alphagan] 1 drop BOTH EYES BID 01/31/18 [History] Calcium Carbonate/Vitamin D3 [Calcium 500-Vit D3 200 Tablet] 2 tab PO DAILY 01/31/18 [History] Furosemide [Lasix] 40 mg PO DAILY PRN 01/31/18 [History] Gabapentin [Neurontin] 300 mg PO HS 01/31/18 [History] Insulin NPH Human Isophane [Novolin N] 15 unit SQ QPM 01/31/18 [History] Insulin NPH Human Isophane [Novolin N] 20 unit SQ QAM 01/31/18 [History] Ipratropium/Albuterol Neb [Duoneb] 3 ml IH TID PRN 01/31/18 [History] Metformin HCl 1,000 mg PO BID 01/31/18 [History] Methadone 20 mg PO Q8HR 01/31/18 [History] Promethazine [Phenergan] 25 mg PO BID PRN 01/31/18 [History] Ranitidine HCl [Acid Pulp Refiner Operator] 150 mg PO BID 01/31/18 [History] Simvastatin [Zocor] 20 mg PO HS 01/31/18 [History] Vit C/E/Zn/Coppr/Lutein/Zeaxan [Preservision Areds 2 Softgel] 1 cap PO DAILY 01/31/18 [History] Warfarin [Coumadin] 5 mg PO DAILY 01/31/18 [History] hydrOXYzine HCl [Hydroxyzine HCl] 50 mg PO BID 01/31/18 [History] Aspirin Enteric Coated [Aspirin EC] 81 mg PO DAILY #30 tablet. 02/05/18 [Rx] Clopidogrel [Plavix] 75 mg PO DAILY #30 tablet 02/05/18 [Rx] Lisinopril [Zestril] 5 mg PO DAILY #30 tablet 02/05/18 [Rx] Metoprolol [Lopressor] 25 mg PO DAILY #30 tablet 02/05/18 [Rx] Docusate [Colace] 200 mg PO DAILY PRN 03/28/18 [History] Multivitamin [One Daily Multivitamin] 1 tab PO DAILY 03/28/18 [History] Vit A/Vit C/Vit E/Zinc/Copper [Icaps Areds Softgel] 1 cap PO BID 03/28/18 [History] Warfarin [Coumadin] 5 mg PO 1800 03/28/18 [History] Allergy/AdvReac Type Severity Reaction Status Date / Time No Known Allergies Allergy Verified 03/28/18 12:50 All Systems Review: The remainder of the systems were reviewed and are negative - Constitutional Constitutional: no chills, no fatigue, no fever(s), no headache(s), no malaise, no night sweats - Cardiovascular Cardiovascular: as per HPI - Respiratory Respiratory: cough, dyspnea, hemoptysis, no wheezing - Gastrointestinal Gastrointestinal: no abdominal pain - Genitourinary Genitourinary: no dysuria, no hematuria Physical Examination Vital Signs, Last 4 Hours Temp Pulse Resp BP Pulse Ox 03/28/18 11:12 98.6 F 110 104/60 98 03/28/18 09:17 98.2 F 100 17 98/59 94 General: Conversant, No Apparent Distress HEENT: Atraumatic, Normocephaly Cardiac: Reg Rate and Rhythm, Normal S1 and S2, No Murmur Lungs: Normal Breath Sounds Neuro: Alert and responsive, No focal deficits noted Skin: No rashes noted on visualized skin Musculoskeletal: No Chest Wall Tenderness Extremities: No Clubbing, Normal Pulses, Other (Mild edema of LE) Results 03/28/18 06:45 03/28/18 06:45 Lab Results 03/28/18 03/28/18 03/28/18 06:45 06:45 06:45 WBC 11.2 H Hgb 11.1 L Hct 33.1 L Plt Count 162 INR APTT Sodium 131 L Potassium 3.8 Chloride 95 L Carbon Dioxide 23 BUN 24 H Creatinine 0.72 Glucose 211 H Calcium 9.7 Troponin I 0.25 H* B-Natriuretic Peptide 774 H TSH 03/28/18 03/28/18 03/28/18 07:44 11:23 11:23 WBC Hgb Hct Plt Count INR 3.2 APTT 39.4 H Sodium Potassium Chloride Carbon Dioxide BUN Creatinine Glucose Calcium Troponin I 0.84 H* B-Natriuretic Peptide TSH 0.497 - Imaging and Cardiology Echo: pending - EKG Interpretation EKG results cardiology: personally reviewed, no diagnostic ischemia, other (tachycardia) Consult Discharge Plan - Plan [facility]errals: [facility] [Primary Care Provider] - <Jesse Linares - Last Filed: 03/28/18 16:38> Date of Encounter: 03/28/18 - Attending Attestation Patient was seen and evaluated independently by me. Findings, assessment and plan were discussed at length with patient, questions answered. Agree with nurse practitioner's/resident's documentation. Addition as follows, 72 yo CM ho MIs, severe 4-v CAD (last admission [id number] [facility]: LM ostial 50%, LAD 70%, LCx 95%, ostial RCA 99%. Pt declined CABG and PCI), HFrEF EF 45%, DVT, DM, HTN, HLD, PAD, COPD smoking. P/w worsening dyspnea with productive cough. ECG SR, no active ischemic change. Trop 0.3-0.8. NAD, bibasilar fine crackles, scattered rhonchi, RR, B/L 2+ LE edema to mid shins Pt at home on ASA, warfarin, lisinopril, zocor, insulin, lasix prn, however off lasix for several days. Mild leukocytosis, INR 3.2 BNP 774, Bun/cr 24/0.7 A: Elevated troponin, type II vs type I NSTEMI, no dynamic ECG change Know severe multi-v CAD including ostial LM, declined CABG and PCI in the past, on ASA, warfarin ADHF, HFrEF, mild fluid overload COPD exacerbation Ho DVT on warfarin P: cycle trop till downtrending TTE for LVEF and RWMA lasix low dose of BB if BP allows discussed with pt regarding revascularization again, pt declined CABG, but willing to reconsider possible PCI if repeated TTE showed worsening LVEF Jesse Linares MD, PhD Assessment and Plan Discussion w patient/family: The assessment and plan as outlined above was discussed with the patient and/or family members who expressed understanding and agreement. All questions were answered. Thank you for involving us in the care of your patient. Please call with any questions. History of Present Illness History of present illness: Mr. Okeefe is a 72 year old male All Systems Review: The remainder of the systems were reviewed and are negative Physical Examination Vital Signs, Last 4 Hours Pulse Resp BP Pulse Ox 03/28/18 15:43 20 96 03/28/18 15:11 101 85/74 99 Results 03/28/18 06:45 03/28/18 06:45 Lab Results 03/28/18 03/28/18 03/28/18 06:45 06:45 06:45 WBC 11.2 H Hgb 11.1 L Hct 33.1 L Plt Count 162 INR APTT Sodium 131 L Potassium 3.8 Chloride 95 L Carbon Dioxide 23 BUN 24 H Creatinine 0.72 Glucose 211 H Calcium 9.7 Troponin I 0.25 H* B-Natriuretic Peptide 774 H TSH 03/28/18 03/28/18 03/28/18 07:44 11:23 11:23 WBC Hgb Hct Plt Count INR 3.2 APTT 39.4 H Sodium Potassium Chloride Carbon Dioxide BUN Creatinine Glucose Calcium Troponin I 0.84 H* B-Natriuretic Peptide TSH 0.497
[2018-03-28] MEDS: Sennosides 8.6 MG TABLET PO PRN (13:42)
[2018-03-28] MEDS: *HR* Methadone 10 MG TABLET PO SCH ×3 (13:42→20:13)
[2018-03-28] MEDS: MethylPREDNISolone 40 MG/ML VIAL IVP SCH ×2 (17:17→23:28)
[2018-03-28] MEDS: Furosemide 20 MG/2 ML VIAL IVP SCH (17:24)
[2018-03-28] MEDS ORDERED: Warfarin perPT PO PRN (18:00)
[2018-03-28] MEDS ORDERED: Perflutren Lipid Microsphere 1.3 ML in 0.9 % Sodium Chloride 8.7 ML IVP ONE (20:10)
[2018-03-28] MEDS: Gabapentin 300 MG CAPSULE PO SCH (20:13)
[2018-03-28] MEDS: Famotidine 20 MG TABLET PO SCH (20:13)
--- NOTE | 2018-03-28 20:53 | Electrocardiograph Report ---
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
[2018-03-29 00:06] LABS: Amphetamine Screen,Urine Negative ng/mL (Cutoff=1000); Barbiturate Screen,Urine Negative ng/mL (Cutoff=200); Benzodiazepines Screen,Urine Negative ng/mL (Cutoff=200); Cannabinoid Screen,Urine Positive ng/mL (Cutoff = 50); Cocaine Screen,Urine Negative ng/mL (Cutoff= 300); Opiate Screen,Urine Negative ng/mL (Cutoff=300); Phencyclidine Screen,Urine Negative ng/mL (Cutoff=25)
[2018-03-29 00:45] LABS: Adenovirus Not Detected (Not Detect); Bordetella Pertussis Not Detected (Not Detect); Chlamydophila pneumoniae Not Detected (Not Detect); Coronavirus 229E Not Detected (Not Detect); Coronavirus HKU1 Not Detected (Not Detect); Coronavirus NL63 Not Detected (Not Detect); Coronavirus OC43 Not Detected (Not Detect); Human Metapneumovirus Not Detected (Not Detect); Human Rhinovirus/Enterovirus Not Detected (Not Detect); Influenza A Subtype 2009 H1 Not Detected (Not Detect); Influenza A Untypeable Not Detected (Not Detect); Influenza B Not Detected (Not Detect); Mycoplasma pneumoniae Not Detected (Not Detect); Parainfluenza Virus 1 Not Detected (Not Detect); Parainfluenza Virus 2 Not Detected (Not Detect); Parainfluenza Virus 3 Not Detected (Not Detect); Parainfluenza Virus 4 Not Detected (Not Detect); Respiratory Syncytial Virus Not Detected (Not Detect)
[2018-03-29 01:01] LABS: INR 3.6; Prothrombin Time 40.8 Seconds (9.4-12.1)
[2018-03-29] MEDS ORDERED: traMADol 50 MG TABLET PO ONE (01:05)
[2018-03-29 01:06] LABS: Chol/HDL Ratio 2.5 (0-4.9)
[2018-03-29 01:10] LABS: Estimated Average Glucose 103 mg/dl; Hemoglobin A1C 5.2 %
[2018-03-29] MEDS: Ipratropium/Albuterol Neb 3 ML IH SCH ×7 (03:47→23:02)
--- NOTE | 2018-03-29 07:56 | Internal Med Progress Note ---
<James Reddy - Last Filed: 03/29/18 13:31> Hospitalist Progress Note - Encounter Date of Encounter: 03/29/18 Time of Encounter: 09:50 - Exam Vitals: Temp Pulse Resp BP Pulse Ox 98.0 F 81 18 96/66 100 03/29/18 07:04 03/29/18 07:04 03/29/18 11:11 03/29/18 07:04 03/29/18 11:11 - Assessment and Plan (1) Anemia Current Visit: No Status: Chronic (2) Diabetes mellitus Current Visit: No Status: Chronic (3) Elevated troponin Current Visit: Yes Status: Acute (4) Acute exacerbation of chronic obstructive pulmonary disease (COPD) Current Visit: Yes Status: Acute (5) Acute on chronic HFrEF (heart failure with reduced ejection fraction) Current Visit: Yes Status: Acute (6) DVT (deep venous thrombosis) Current Visit: Yes Status: Acute - Time Spent with Patient Total time spent is greater than 50% in coordination of care (as documented) at patient's floor/unit and/or counseling patient: Internal Medicine: Result - Labs CBC & Chem 7: 03/28/18 06:45 03/28/18 06:45 Labs: Cardiac Enzymes 03/28/18 03/29/18 03/29/18 Range/Units 19:09 00:32 06:02 Troponin I 1.39 H* 1.27 H* 1.10 H* (< 0.04) ng/mL - ABG Interpretation ABG results: PT/INR, D-dimer PT 40.8 Seconds (9.4-12.1) H 03/29/18 00:32 - Impressions Impressions Echocardiogram 03/28/18 14:07 Impressions: LVEF 40%. Mildly dilated left ventricle. Global left ventricular systolic dysfunction with regional variations. Mild left ventricular diastolic dysfunction. Normal right ventricular structure and function. Mild mitral regurgitation. Unable to estimate RVSP due to lack of TR jet. Left Ventricular Wall Motion: Rest Echo Findings The apex, apical inferior, mid inferior, basal inferior, apical anterior, mid anterior, basal anterior, apical septal, mid inferior septal, basal inferior septal, apical lateral, mid anterior lateral, basal anterior lateral, mid anterior septal, mid inferior lateral, basal anterior septal and basal inferior lateral wilson were hypokinetic. Findings: Study Quality * Technically adequate exam. ECG Findings * Normal sinus rhythm. Left Ventricle * LVEF 40%. * Mildly dilated left ventricle. * Global left ventricular systolic dysfunction with regional variations. * Mild left ventricular diastolic dysfunction. Right Ventricle * Normal right ventricular structure and function. Left Atrium * Mildly dilated left atrium. Right Atrium * Normal right atrial size. Aortic Valve * Trileaflet aortic valve. * Mildly calcified aortic valve leaflets. * No aortic regurgitation. * No aortic stenosis. Mitral Valve * Mildly thickened mitral valve leaflets. * Mild mitral annular calcification * Mild mitral regurgitation. * No mitral stenosis. Tricuspid Valve * Normal tricuspid valve structure and function. * No tricuspid regurgitation. * Unable to estimate RVSP due to lack of TR jet. Pulmonic Valve * Pulmonic valve is not well visualized. * No pulmonic regurgitation. Aorta * Normally sized aortic root. Pericardium * The pericardium appears normal. IVC * Normal IVC dimensions and inspiratory collapse. Pulmonary Artery * Normal visualized portions of the main pulmonary artery. Consult Discharge Plan - Plan Referrals: [facility] [Primary Care Provider] - - Attending Attestation I saw evaluated and examined this patient and my medical decision-making was reviewed with the Resident Physician, Cait Campbell. I agree with the do cumented findings, disposition and treatment plan as described except to any changes set forth below. We independently had [id number] contact with the patient. Patient complaining of not being able to sleep due to noise outside the his room. Denies any chest pain but does have some shortness of breath and had received bronchodilator treatment earlier with some improvement in his symptoms. He also has cough. No fevers or chills reported. On exam, patient has prolonged expiratory phase with decreased air entry bilaterally and mild wheezing. Heart sounds are normal. Abdomen is soft, nont miguel a. Patient is awake and alert. Acute COPD exacerbation: Continue O2 supplementation and bronchodilators. Begin to taper steroids. Acute on chronic combined congestive heart failure: Continue Lasix. Cardiology following. Elevated troponin: Concerning for non-ST elevation AK versus type II AK. 2-D echocardiogram done. EF 40% with global left ventricular systolic dysfunction. Patient may need left heart catheterization per cardiology recommendations. Deep vein thrombosis: Continue Coumadin. Chronic anemia. Hemoglobin 11.1 yesterday. We will continue to monitor here. High risk for complications. <Cait Campbell - Last Filed: 03/29/18 16:46> Hospitalist Progress Note - Encounter Date of Encounter: 03/29/18 Time of Encounter: 07:55 - Subjective Interval History: Pt seen and examined at bedside in no acute distress. Notes improvement of symptoms and feeling better today. Denies headache, blurry vision, SOB, chest pain, nausea, vomiting, diarrhea, abdominal pain. States he is amenable to cardiology procedure if echo suggests he needs it. - Exam Vitals: Temp Pulse Resp BP Pulse Ox 98.0 F 81 16 96/66 99 03/29/18 07:04 03/29/18 07:04 03/29/18 07:10 03/29/18 07:04 03/29/18 07:10 Exam: GEN: AOx3, NAD, resting comfortably in bed HEENT: Atraumatic, normocephalic CARDIO: RRR, No murmurs, rubs, gallups PULM: Mild wheezing, no rhonchi, rales, crackles ABD: Soft, non-tender NEURO: CN 2-12 intact, no focal neurologic deficits EXT: No edema b/l - Assessment and Plan (1) Acute exacerbation of chronic obstructive pulmonary disease (COPD) Current Visit: Yes Status: Acute Assessment and Plan: Urine antigens, sputum cultures, respiratory viral panel PLAN: Switch to PO Prednisone 40mg QD for 5 days D/C Levaquin, and start azithromycin 5 days Cont O2 if necessary to keep sats above 92 (2) Acute on chronic HFrEF (heart failure with reduced ejection fraction) Current Visit: Yes Status: Acute Assessment and Plan: TTE (01/2018): LVEF = 45% Moderate segmental left ventricular systolic dysfunction Grossly normal RV size and function Moderate mitral regurgitation Mild tricuspid regurgitation No Pulmonary HTN - estimated RA pressure = 15mmHg TTE (03/2018): LVEF = 40%; mildly dilated left ventricle Global left ventricular systolic dysfunction with regional variations Mild left ventricular diastolic dysfunction Normal right ventricular structure and function Mild mitral regurgitation PLAN: Supratherapeutic INR = 3.6 today so cannot do cath at this time; plan for out patient cath after INR in 1.5-2.0 range; Hold coumadin for 2-3 days per pharm rec; D/c with half dosage. F/U outpatient interventional cardiology Cont Lasix Cont home medications Supplemental O2 as needed Fluid restriction Monitor intake/output, daily weights (3) Elevated troponin Current Visit: Yes Status: Acute Assessment and Plan: Possibly secondary to supply vs demand mismatch; hx of triple vessel CAD (declined CABG on previous admission Trops trending down from 1.39 --> 1.27 --> 1.10 today PLAN: INR = supratherapeutic - will hold Coumadin for 2-3 days, and cut dosage in half upon discharge per discussion with pharmacy Cont aspirin, plavix, Beta blockers (Cut to 12.5mg BID today), VERONICA Inhibitors, statin (4) DVT (deep venous thrombosis) Current Visit: Yes Status: Acute Assessment and Plan: Pharmacy dosed coumadin - hold for now; cont upon discharge (5) Anemia Current Visit: No Status: Chronic Assessment and Plan: Chronic microcytic anemia - with baseline 9-10 Follow CBC (6) Diabetes mellitus Current Visit: No Status: Chronic Assessment and Plan: Sliding Scale INsulin - Time Spent with Patient Total time spent is greater than 50% in coordination of care (as documented) at patient's floor/unit and/or counseling patient: less than 15 minutes Plan of Care Discussed with: patient Internal Medicine: Result - Labs CBC & Chem 7: 03/28/18 06:45 03/28/18 06:45 Labs: Cardiac Enzymes 03/28/18 03/28/18 03/29/18 Range/Units 11:23 19:09 00:32 Troponin I 0.84 H* 1.39 H* 1.27 H* (< 0.04) ng/mL 03/29/18 Range/Units 06:02 Troponin I 1.10 H* (< 0.04) ng/mL - ABG Interpretation ABG results: PT/INR, D-dimer PT 40.8 Seconds (9.4-12.1) H 03/29/18 00:32 <James Reddy - Last Filed: 03/29/18 13:31> (1) Anemia Qualifiers: Anemia type: unspecified type Qualified Code(s): D64.9 - Anemia, unspecified (2) Diabetes mellitus Qualifiers: Diabetes mellitus type: type 2 Diabetes mellitus nursing home insulin use: with nursing home use Diabetes mellitus complication status: with circulatory complication Diabetes mellitus complication detail: with peripheral angiopathy without gangrene Qualified Code(s): E11.51 - Type 2 diabetes mellitus with diabetic peripheral angiopathy without gangrene; Z79.4 - half-way (current) use of insulin (6) DVT (deep venous thrombosis) Qualifiers: Chronicity: unspecified Laterality: unspecified laterality Qualified Code(s): I82.409 - Acute embolism and thrombosis of unspecified deep veins of unspecified lower extremity <Cait Campbell - Last Filed: 03/29/18 16:46> (4) DVT (deep venous thrombosis) Qualifiers: Chronicity: unspecified Laterality: unspecified laterality Qualified Code(s): I82.409 - Acute embolism and thrombosis of unspecified deep veins of unspecified lower extremity (5) Anemia Qualifiers: Anemia type: unspecified type Qualified Code(s): D64.9 - Anemia, unspecified (6) Diabetes mellitus Qualifiers: Diabetes mellitus type: type 2 Diabetes mellitus dialysis technician insulin use: with dialysis technician use Diabetes mellitus complication status: with circulatory complication Diabetes mellitus complication detail: with peripheral angiopathy without gangrene Qualified Code(s): E11.51 - Type 2 diabetes mellitus with diabetic peripheral angiopathy without gangrene; Z79.4 - double cutter (current) use of insulin
[2018-03-29] MEDS: Cholecalciferol (D-3) 1,000 UNIT TABLET PO SCH (09:25)
[2018-03-29] MEDS: Magnesium Oxide 400 MG TABLET PO SCH (09:25)
[2018-03-29] MEDS: Famotidine 20 MG TABLET PO SCH ×2 (09:26→22:01)
[2018-03-29] MEDS: MethylPREDNISolone 40 MG/ML VIAL IVP SCH (09:26)
[2018-03-29] MEDS: Aspirin Enteric Coated 81 MG Tablet PO SCH (09:26)
[2018-03-29] MEDS: hydrOXYzine pamoate 25 MG CAPSULE PO SCH ×2 (09:26→22:01)
[2018-03-29] MEDS: *HR* Methadone 10 MG TABLET PO SCH ×3 (09:27→22:02)
[2018-03-29] MEDS: Furosemide 20 MG/2 ML VIAL IVP SCH ×2 (09:27→17:45)
[2018-03-29] MEDS: Insulin LISPRO 300 UNITS/3 ML VIAL SQ SCH ×4 (09:28→22:02)
[2018-03-29] MEDS: Levofloxacin 750 MG/150 ML 750 MG/150 ML BAG IVPB SCH (09:29)
--- NOTE | 2018-03-29 14:05 | Cardiology Progress Note ---
<Guero Birch T - Last Filed: 03/29/18 14:10> Date of Encounter: 03/29/18 Time of Encounter: 14:03 Assessment and Plan (1) NSTEMI (non-ST elevated myocardial infarction) Current Visit: No Status: Acute Echo revealed decreased EF of 40% down from 45% with wall motion abnormalities. Patient has INR of 3.6, so cannot get cath today. Recommend outpatient cath. Cardiology will sign off at this time. Discussion w patient/family: The assessment and plan as outlined above was discussed with the patient and/or family members who expressed understanding and agreement. All questions were answered. Thank you for involving us in the care of your patient. Please call with any questions. Subjective Principal diagnosis: NSTEMI Interval history: Patient reports his SOB and chest tightness is improving a little. Echo came back showing decreased EF from 45 to 40% with lower wall motion abnormalities. Troponins are trending down from 1.39 yesterday to 1.27 then 1.1 today. Patient spoke with Dr. Up and he agreed to do a Cath for his decreased heart function. [facility] due to INR of 3.6. Will plan for outpatient cath. Objective Vital Signs, Last 4 Hours Resp Pulse Ox 03/29/18 11:11 18 100 General: Conversant HEENT: Atraumatic, Normocephaly Neck: Normal carotid pulses Cardiac: Reg Rate and Rhythm, Normal S1 and S2 Lungs: Other (Wheezing consistent wit COPD) Neuro: Alert and responsive, No focal deficits noted Abdomen: Soft, Non-Tender Skin: No rashes noted on visualized skin Musculoskeletal: No Chest Wall Tenderness Extremities: No Clubbing, No Cyanosis, Normal Pulses Results 03/28/18 06:45 03/28/18 06:45 Lab Results 03/28/18 03/29/18 03/29/18 19:09 00:32 00:32 INR 3.6 Troponin I 1.39 H* 1.27 H* 03/29/18 06:02 INR Troponin I 1.10 H* - Imaging and Cardiology Echo: report reviewed (Decreased EF of 40% down from 45%. Wall motion abnormalities.) Consult Discharge Plan - Plan Referrals: [facility] [Primary Care Provider] - <Colin Up - Last Filed: 03/29/18 15:53> Date of Encounter: 03/29/18 Assessment and Plan Discussion w patient/family: The assessment and plan as outlined above was discussed with the patient and/or family members who expressed understanding and agreement. All questions were answered. Thank you for involving us in the care of your patient. Please call with any questions. Results 03/28/18 06:45 03/28/18 06:45 Lab Results 03/28/18 03/29/18 03/29/18 19:09 00:32 00:32 INR 3.6 Troponin I 1.39 H* 1.27 H* 03/29/18 06:02 INR Troponin I 1.10 H* - Attending Attestation I have personally performed a face to face evaluation on this patient. I have reviewed and agree with the care plan as documented by the resident. History and Exam by me shows: Patient with significant history of CAD, with cardiac catheterization on 02/01/18 showing triple-vessel equivalent disease. He refused revascularization PCI or CABG at the time. Echo today shows EF of 40% Now amenable to cardiac catheterization with possible revascularization with PCI. He is on Coumadin for DVT . However INR is 3.6 today. We will arrange for outpatient cardiac catheterization as soon as INR is 2 or less. Continue guideline directed medical therapy including aspirin, Plavix, beta uziel, VERONICA inhibitor, high intensity statin. Thanks, Colin Up MD
[2018-03-29] MEDS ORDERED: *HR* Warfarin 5 MG TABLET PO SCH (18:00)
[2018-03-29] MEDS: Gabapentin 300 MG CAPSULE PO SCH (22:01)
[2018-03-30 03:36] LABS: Basophils % 0.2 %; Eosinophils % 0.3 %; Hematocrit 27.2 % (37.5-50.1); Immature Granulocytes % 0.2 % (0-4); Lymphocytes # 2.2 K/mcL (0.6-4.6); Lymphocytes % 23.3 %; Mean Corpuscular HGB Conc 33.8 g/dL (31.6-35.5); Mean Corpuscular Volume 82.9 fL (83.0-100.0); Mean Platelet Volume 10.7 fL (9.4-12.4); Monocytes % 10.5 %; Neutrophils # 6.1 K/mcL (1.6-8.9); Platelet Count 134 K/mcL (140-400); Red Blood Count 3.28 M/mcL (4.19-5.50); Red Cell Distribution Width 18.1 % (11.5-14.5); Segmented Neutrophils % 65.5 %
[2018-03-30 03:37] LABS: Hemoglobin 9.2 g/dL (12.9-16.9)
[2018-03-30 03:45] LABS: INR 1.6; Prothrombin Time 17.8 Seconds (9.4-12.1)
[2018-03-30 03:55] LABS: BUN/Creatinine Ratio 50 (6-26); Blood Urea Nitrogen 42 mg/dL (8-23); Calcium 9.3 mg/dL (8.6-10.3); Carbon Dioxide 28 mEq/L (23-29); Chloride 95 mEq/L (98-107); Glucose 169 mg/dL (70-105); Osmolality,Calculated 284 (280-300); Potassium 4.3 mEq/L (3.5-5.1); Sodium 130 mEq/L (136-145); eGFR For Non-African Americans > 60 (> 60)
[2018-03-30] MEDS: Ipratropium/Albuterol Neb 3 ML IH SCH ×6 (04:32→23:37)
[2018-03-30] MEDS: Furosemide 20 MG/2 ML VIAL IVP SCH (08:29)
[2018-03-30 08:59] LABS: % Iron Saturation 12 % (20-55); Iron 53 mcg/dL (65-175); Transferrin 306 mg/dL (203-362)
[2018-03-30 09:17] LABS: Ferritin 23 ng/mL (20-250)
[2018-03-30 09:24] LABS: Vitamin B12 694 pg/mL (250-1100)
[2018-03-30] MEDS: Magnesium Oxide 400 MG TABLET PO SCH (09:47)
[2018-03-30] MEDS: hydrOXYzine pamoate 25 MG CAPSULE PO SCH ×2 (09:47→20:30)
[2018-03-30] MEDS: Aspirin Enteric Coated 81 MG Tablet PO SCH (09:47)
[2018-03-30] MEDS: Cholecalciferol (D-3) 1,000 UNIT TABLET PO SCH (09:47)
[2018-03-30] MEDS: Azithromycin 250 MG TABLET PO SCH (09:47)
[2018-03-30] MEDS: predniSONE 20 MG TABLET PO SCH (09:47)
[2018-03-30] MEDS: *HR* Methadone 10 MG TABLET PO SCH ×3 (09:48→20:27)
[2018-03-30] MEDS: Insulin LISPRO 300 UNITS/3 ML VIAL SQ SCH ×4 (09:48→20:30)
[2018-03-30] MEDS: Famotidine 20 MG TABLET PO SCH ×2 (09:48→20:28)
[2018-03-30 09:53] LABS: Folate > 22.3 ng/mL (3.0-16.0)
[2018-03-30] MEDS ORDERED: 0.9 % Sodium Chloride 250 ML IVC ONE (10:11)
--- NOTE | 2018-03-30 10:43 | Discharge Summary ---
<Yordan Ramirez S - Last Filed: 03/30/18 11:26> - NOTES TO OUTPATIENT PROVIDER Notes to Outpatient Provider: Follow up on breathing status returning to baseline. Ensure completion of abx course. Orders not resulted at time of discharge: Pending orders 03/28/18 10:46 Culture,Sputum with Gram Stain [RM] Stat 03/28/18 11:23 Culture,Blood [BC] Stat 03/28/18 13:00 EKG [ECG 12 lead ECG] [ECG] Routine 03/29/18 13:00 EKG [ECG 12 lead ECG] [ECG] Routine 03/31/18 04:00 PT/INR [Prothrombin Time INR] [COAG] AM 0400 04/01/18 04:00 PT/INR [Prothrombin Time INR] [COAG] AM 0400 Date of Encounter: 03/30/18 Time of Encounter: 10:41 - Discharge Diagnosis (1) Acute exacerbation of chronic obstructive pulmonary disease (COPD) Priority: Primary Status: Acute (2) Anemia Priority: Secondary Status: Chronic Qualifiers: Anemia type: unspecified type Qualified Code(s): D64.9 - Anemia, unspecified (3) Diabetes mellitus Priority: Secondary Status: Chronic Qualifiers: Diabetes mellitus type: type 2 Diabetes mellitus jail insulin use: with jail use Diabetes mellitus complication status: with circulatory complication Diabetes mellitus complication detail: with peripheral angiopathy without gangrene Qualified Code(s): E11.51 - Type 2 diabetes mellitus with diabetic peripheral angiopathy without gangrene; 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 (4) Elevated troponin Priority: Secondary Status: Acute (5) Acute on chronic HFrEF (heart failure with reduced ejection fraction) Priority: Secondary Status: Acute (6) DVT (deep venous thrombosis) Priority: Secondary Status: Acute Qualifiers: Chronicity: unspecified Laterality: unspecified laterality Qualified Code(s): I82.409 - Acute embolism and thrombosis of unspecified deep veins of unspecified lower extremity (7) Constipation Priority: Secondary Status: Chronic Qualifiers: Constipation type: unspecified constipation type Qualified Code(s): K59.00 - Constipation, unspecified (8) GERD (gastroesophageal reflux disease) Priority: Secondary Status: Chronic Qualifiers: Esophagitis presence: esophagitis presence not specified Qualified Code(s): K21.9 - Gastro-esophageal reflux disease without esophagitis (9) Coronary artery disease Priority: Secondary Status: Chronic Qualifiers: Coronary Disease-Associated Artery/Lesion type: [place] artery [place] vs. transplanted heart: unspecified whether [place] or transplanted heart Associated angina: angina presence unspecified Qualified Code(s): I25.10 - Atherosclerotic heart disease of [place] coronary artery without angina pectoris (10) PAD (peripheral artery disease) Priority: Secondary Status: Chronic (11) Tobacco abuse Priority: Secondary Status: Chronic (12) Cardiomyopathy Priority: Secondary Status: Chronic Qualifiers: Cardiomyopathy type: ischemic Qualified Code(s): I25.5 - Ischemic cardiomyopathy (13) Hyperlipemia Priority: Secondary Status: Chronic Qualifiers: Hyperlipidemia type: unspecified Qualified Code(s): E78.5 - Hyperlipidemia, unspecified Hospital course: Mr. Okeefe is a 72 year old male with a PMH of triple-vessel coronary artery disease (declined CABG), recent non-STEMI in January 2018, heart failure reduced EF 45%, DVT on Coumadin, and COPD not on home oxygen presented to emergency department with complaint of shortness of breath. He states it started on 03/28 and only occured that day. It progressively worsened so he came to the ER for further evaluation. He was SOB at rest and it woke him from sleep, causing him anxiety. - pt reported some sputum production and coughing - there was no blood in sputum - denied any fever/chills/ night sweats Pt has a hx of COPD not on home oxygen and currently still smokes. - CXR showed pulmonary edema with trace pleural effusions - the pt was started on solu-medrol and levaquin and duonebs - on admission pt had a WBC count of 11.2, HR 109, RR 26 and met sepsis criteria - legionella and s pneumo antigens negative ECHO showed a LVEF of 40%, last ECHO had an LVEF of 45% - mildly dilated LV - pt had a troponin of 1.39 ---> 1.10 - cardiology was consulted and suggests outpatient cath and they signed off - couldn't complete inpt cath at the time 2/2 supratheraputic INR - INR on admission 3.2 ---> 3.6, today is 1.6 - on coumadin for hx of DVT - will schedule outpatient follow up with [facility] The pt will be discharged today. He is currently medically stable. BP stable. - continue Zithromax x 4 more days - prednisone taper as per prescribed - follow up next week with the [facility] - pt advised to quit smoking and to get pneumonia vaccine - restart Coumadin 2.5 mg PO, decreased dosage bc of supratheraputic INR - recheck PT/INR at an [facility] [place] lab in 3 days - follow up with coumadin clinic Discharge discussed with: patient Time spent discussing smoking cessation with patient: 3 to 10 minutes - Time Spent with Patient Total time spent providing and/or coordinating discharge services: Less than 30 minutes - Discharge Medications Prescriptions: Azithromycin [Zithromax] 500 mg PO DAILY 4 Days #8 tablet Clopidogrel [Plavix] 75 mg PO DAILY 30 Days #30 tablet Metoprolol [Lopressor] 12.5 mg PO BID 30 Days #30 tablet predniSONE [PredniSONE] 40 mg PO DAILY 10 Days #11 tablet Warfarin [Coumadin] 2.5 mg PO 1800 30 Days #30 tablet Home Medications: Albuterol Sulfate [Ventolin Hfa] 2 puff IH QID PRN 01/31/18 [History] Brimonidine 0.2% [Alphagan] 1 drop BOTH EYES BID 01/31/18 [History] Calcium Carbonate/Vitamin D3 [Calcium 500-Vit D3 200 Tablet] 2 tab PO DAILY 01/31/18 [History] Gabapentin [Neurontin] 300 mg PO HS 01/31/18 [History] Insulin NPH Human Isophane [Novolin N] 15 unit SQ QPM 01/31/18 [History] Insulin NPH Human Isophane [Novolin N] 20 unit SQ QAM 01/31/18 [History] Ipratropium/Albuterol Neb [Duoneb] 3 ml IH TID PRN 01/31/18 [History] Metformin HCl 1,000 mg PO BID 01/31/18 [History] Methadone 20 mg PO Q8HR 01/31/18 [History] Promethazine [Phenergan] 25 mg PO BID PRN 01/31/18 [History] Ranitidine HCl [Acid Seismology Technical Officer] 150 mg PO BID 01/31/18 [History] Simvastatin [Zocor] 20 mg PO HS 01/31/18 [History] Vit C/E/Zn/Coppr/Lutein/Zeaxan [Preservision Areds 2 Softgel] 1 cap PO DAILY 0 01/31/18 [History] hydrOXYzine HCl [Hydroxyzine HCl] 50 mg PO BID 01/31/18 [History] Aspirin Enteric Coated [Aspirin EC] 81 mg PO DAILY #30 tablet. 02/05/18 [Rx] Lisinopril [Zestril] 5 mg PO DAILY #30 tablet 02/05/18 [Rx] Docusate [Colace] 200 mg PO DAILY PRN 03/28/18 [History] Multivitamin [One Daily Multivitamin] 1 tab PO DAILY 03/28/18 [History] Vit A/Vit C/Vit E/Zinc/Copper [Icaps Areds Softgel] 1 cap PO BID 03/28/18 [History] Azithromycin [Zithromax] 500 mg PO DAILY 4 Days #8 tablet 03/30/18 [Rx] Clopidogrel [Plavix] 75 mg PO DAILY 30 Days #30 tablet 03/30/18 [Rx] Metoprolol [Lopressor] 12.5 mg PO BID 30 Days #30 tablet 03/30/18 [Rx] Warfarin [Coumadin] 2.5 mg PO 1800 30 Days #30 tablet 03/30/18 [Rx] predniSONE [PredniSONE] 40 mg PO DAILY 10 Days #11 tablet 03/30/18 [Rx] Allergies/Adverse Reactions: Allergy/AdvReac Type Severity Reaction Status Date / Time No Known Allergies Allergy Verified 03/28/18 12:50 Date of admission: 03/28/18 08:43 Primary care physician: PCP [place] Consults: 03/28/18 08:12 Consult to Cardiology [CONS] Stat Comment: Consulting Provider: Cardiology [facility] Reason for Consult: elevated trop, hx CHF, COPD, previous [place]; no acute ST changes; spoke with Vijay Call Completed: Yes 03/28/18 10:46 Consult to Case Management [CONS] Routine Comment: Consult to Nutrition [CONS] Routine Comment: Consulting Provider: NUTRITION Reason for Dietary Consult: PO Supplementation Discharging clinician: Yordan Ramirez Anticipated date of discharge: 03/30/18 - Constitutional Vitals: Temp Pulse Resp BP Pulse Ox 97.7 F 83 16 81/39 91 03/30/18 07:02 03/30/18 07:02 03/30/18 07:02 03/30/18 07:02 03/30/18 07:02 Exam: general - unpleasant, aox3, eating breakfast heent - ncat, moist mucus membranes cardio - rrr, s1s2 cta lungs - decreased breath sounds, no wheeze/rhonchi abd - soft, nontender, nondistended, no rebound or guarding skin - intact , no rash or open wound neuro - no FND extremities - strength intact 5/5 UE psych - appropriate mood and affect - Patient Status Disposition: Home, Self-Care Condition: Fair Functional capacity at discharge: independent ambulation Overall status at discharge: patient is progressing back to baseline - Ambulatory Orders Ambulatory Orders: Prothrombin Time INR [COAG] Time Frame: 3 Days, Facility: [facility], Location: Lab - Discharge Instructions [facility] Up With: [facility] [Primary Care Provider] - Jesse Linares MD [Non-Partnered Physician] - 04/03/18 - Diet and Activity Activity: increase activity as tolerated Diet: advance to your usual diet, low fat, low cholesterol <James Reddy - Last Filed: 03/30/18 15:45> Orders not resulted at time of discharge: Pending orders 03/28/18 10:46 Culture,Sputum with Gram Stain [RM] Stat 03/28/18 11:23 Culture,Blood [BC] Stat 03/28/18 13:00 EKG [ECG 12 lead ECG] [ECG] Routine 03/29/18 13:00 EKG [ECG 12 lead ECG] [ECG] Routine 03/30/18 13:13 Occult Blood,Stool [BF] Routine 03/31/18 04:00 BMP [Basic Metabolic Panel] AM 0400 Complete Blood Count [HEME] AM 0400 PT/INR [Prothrombin Time INR] [COAG] AM 0400 PT/INR [Prothrombin Time INR] [COAG] AM 0400 04/01/18 04:00 PT/INR [Prothrombin Time INR] [COAG] AM 0400 PT/INR [Prothrombin Time INR] [COAG] Routine Date of Encounter: 03/30/18 Time of Encounter: 09:55 - Discharge Diagnosis (1) Anemia Status: Chronic Qualifiers: Anemia type: unspecified type Qualified Code(s): D64.9 - Anemia, unspecified (2) PAD (peripheral artery disease) Status: Chronic (3) Diabetes mellitus Status: Chronic Qualifiers: Diabetes mellitus type: type 2 Diabetes mellitus jail insulin use: with middle or intermediate school principal use Diabetes mellitus complication status: with circulatory complication Diabetes mellitus complication detail: with peripheral angiopathy without gangrene Qualified Code(s): E11.51 - Type 2 diabetes mellitus with diabetic peripheral angiopathy without gangrene; 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 (4) Tobacco abuse Status: Chronic (5) Cardiomyopathy Status: Chronic Qualifiers: Cardiomyopathy type: ischemic Qualified Code(s): I25.5 - Ischemic cardiomyopathy (6) Elevated troponin Status: Acute (7) Acute exacerbation of chronic obstructive pulmonary disease (COPD) Status: Acute (8) Acute on chronic HFrEF (heart failure with reduced ejection fraction) Status: Acute (9) DVT (deep venous thrombosis) Status: Acute Qualifiers: Chronicity: unspecified Laterality: unspecified laterality Qualified Code(s): I82.409 - Acute embolism and thrombosis of unspecified deep veins of unspecified lower extremity (10) Constipation Status: Chronic Qualifiers: Constipation type: unspecified constipation type Qualified Code(s): K59.00 - Constipation, unspecified (11) GERD (gastroesophageal reflux disease) Status: Chronic Qualifiers: Esophagitis presence: esophagitis presence not specified Qualified Code(s): K21.9 - Gastro-esophageal reflux disease without esophagitis (12) Coronary artery disease Status: Chronic Qualifiers: Coronary Disease-Associated Artery/Lesion type: [place] artery [place] vs. transplanted heart: unspecified whether [place] or transplanted heart Associated angina: angina presence unspecified Qualified Code(s): I25.10 - Atherosclerotic heart disease of [place] coronary artery without angina pectoris (13) Hyperlipemia Status: Chronic Qualifiers: Hyperlipidemia type: unspecified Qualified Code(s): E78.5 - Hyperlipidemia, unspecified Hospital course: Mr. Okeefe is a 72 year old male Discharge discussed with: patient - Time Spent with Patient Total time spent providing and/or coordinating discharge services: Less than 30 minutes (10 min) Date of admission: 03/28/18 08:43 Primary care physician: [facility]CP [facility] Consults: 03/28/18 08:12 Consult to Cardiology [CONS] Stat Comment: Consulting Provider: Cardiology [facility] Reason for Consult: elevated trop, hx CHF, COPD, previous [place]; no acute ST ch anges; spoke with Linares Call Completed: Yes 03/28/18 10:46 Consult to Case Management [CONS] Routine Comment: Consult to Nutrition [CONS] Routine Comment: Consulting Provider: NUTRITION Reason for Dietary Consult: PO Supplementation 03/30/18 15:11 Consult to Cardiology [CONS] Routine Comment: Consulting Provider: Cardiology [facility] Reason for Consult: [facility] inpt, per primary team Call Completed: Yes - Constitutional Vitals: Temp Pulse Resp BP Pulse Ox 97.9 F 72 16 88/58 94 03/30/18 11:43 03/30/18 11:43 03/30/18 11:43 03/30/18 11:43 03/30/18 11:43 General appearance: Present: cooperative, A&O X 3, answers questions appropriately - Respiratory Respiratory exam: Present: prolonged expiratory phase. Absent: accessory muscle use, rales, rhonchi, wheezes - Cardiovascular Cardiovascular exam: Present: RRR, +S1, +S2. Absent: diastolic murmur, gallop, rubs, systolic murmur - GI/Abdominal GI/Abdominal exam: Present: normal bowel sounds, soft, no peritoneal signs. Absent: distended, tenderness - Attending Attestation I saw evaluated and examined this patient and my medical decision-making was reviewed with the Resident Physician, Yordan Ramirez. I agree with the documented findings, disposition and treatment plan as described except to any changes set forth below. We independently had [id number] contact with the patient. Patient with history of coronary artery disease, COPD, diabetes and hypertension, recent non-ST elevation [place] with CHF and reduced ejection fraction of 45% was hospitalized here for acute exacerbation of COPD. He was treated with bronchodilators, Solu-Medrol and DuoNeb's. Patient also was diagnosed with acute congestive heart failure and was treated with IV Lasix. He did have elevation in his troponins to a peak of 1.39. Cardiology was consulted. They recommended repeating echocardiogram initially which showed EF of 40%. Cardiology recommended left heart catheterization but since his INR was prolong ed, they recommended doing it as outpatient. At this time patient has continued to improve from his COPD and is clinically stable for discharge. He will complete steroid taper. He is Coumadin dose has been decreased and he will follow up with cardiology for cardiac catheterization as outpatient.
--- NOTE | 2018-03-30 13:17 | Event Note ---
Addendum entered and electronically signed by James Reddy MD 03/30/18 15:45: Patient has been hypotensive after discharge order had been placed. We will hold discharge for this patient. Cardiology has been reconsulted. Plan for left heart catheterization on Sunday. Continue to monitor blood counts closely. Patient does appear to have underlying iron deficiency anemia and will need EGD and colonoscopy as outpatient. Checking serum cortisol and FOBT. Continue to monitor vital signs closely. Gentle IV hydration for now. Original Note: Date of Encounter: 03/30/18 Time of Encounter: 13:15 Pt seen at bedside. He continues to have episodes of low BP - orthostatics (+). Last recorded BP 84/60. Pt denies lightheadedness, dizziness, blurred vision, palpiltations, or SOB. - will d/c discharge order, plan to hold pt one more day until vitals improve - H&H stat, pt hemoglobin this AM 9. On admission was 11. - check FOBT - check random cortisol, pt remains hypotensive and hyponatremic. r/o adrenal pathology
[2018-03-30] MEDS: *HR* Promethazine 25 MG/ML VIAL IVP PRN (14:16)
[2018-03-30 14:19] LABS: Hematocrit 28.1 % (37.5-50.1); Hemoglobin 9.4 g/dL (12.9-16.9)
[2018-03-30] MEDS ORDERED: 0.9 % Sodium Chloride 1,000 ML IVC ONE (14:55)
[2018-03-30] MEDS ORDERED: *HR* Warfarin 2.5 MG TABLET PO ONE (18:00)
[2018-03-30] MEDS: *HR* Enoxaparin 80 MG/0.8 ML SYRINGE SQ SCH (18:06)
[2018-03-30] MEDS: Sennosides 8.6 MG TABLET PO PRN (18:06)
[2018-03-30] MEDS: Gabapentin 300 MG CAPSULE PO SCH (20:29)
[2018-03-31] MEDS: Ipratropium/Albuterol Neb 3 ML IH SCH ×3 (04:35→08:23)
[2018-03-31 05:20] LABS: Basophils % 0.2 %; Eosinophils % 0.2 %; Hematocrit 25.7 % (37.5-50.1); Hemoglobin 8.6 g/dL (12.9-16.9); Immature Granulocytes % 0.4 % (0-4); Lymphocytes # 2.6 K/mcL (0.6-4.6); Mean Corpuscular HGB Conc 33.5 g/dL (31.6-35.5); Mean Corpuscular Hemoglobin 27.6 pg (28.0-33.3); Mean Corpuscular Volume 82.4 fL (83.0-100.0); Mean Platelet Volume 10.4 fL (9.4-12.4); Monocytes # 0.8 K/mcL (0.0-1.3); Monocytes % 9.5 %; Neutrophils # 4.9 K/mcL (1.6-8.9); Platelet Count 125 K/mcL (140-400); Red Blood Count 3.12 M/mcL (4.19-5.50); Red Cell Distribution Width 18.2 % (11.5-14.5); Segmented Neutrophils % 58.7 %
[2018-03-31 05:27] LABS: INR 1.3; Prothrombin Time 14.4 Seconds (9.4-12.1)
[2018-03-31 05:39] LABS: BUN/Creatinine Ratio 41 (6-26); Blood Urea Nitrogen 34 mg/dL (8-23); Calcium 8.8 mg/dL (8.6-10.3); Carbon Dioxide 28 mEq/L (23-29); Chloride 98 mEq/L (98-107); Glucose 108 mg/dL (70-105); Osmolality,Calculated 282 (280-300); Potassium 4.2 mEq/L (3.5-5.1); Sodium 132 mEq/L (136-145); eGFR For Non-African Americans > 60 (> 60)
[2018-03-31] MEDS: *HR* Enoxaparin 80 MG/0.8 ML SYRINGE SQ SCH (06:39)
--- NOTE | 2018-03-31 09:02 | Internal Med Progress Note ---
<JamesYordan S - Last Filed: 03/31/18 09:34> Hospitalist Progress Note - Encounter Date of Encounter: 03/31/18 Time of Encounter: 09:00 - Subjective Interval History: Mr. Okeefe is a 72 year old male with a PMH of triple-vessel coronary artery disease (declined CABG), recent non-STEMI in January 2018, heart failure reduced EF 45%, DVT on Coumadin, and COPD not on home oxygen presented to emergency department with complaint of shortness of breath. He states it started on 03/28 and only occured that day. It progressively worsened so he came to the ER for further evaluation. He was SOB at rest and it woke him from sleep, causing him anxiety. - pt reported some sputum production and coughing - there was no blood in sputum - denied any fever/chills/ night sweats The pt remained hypotensive yesterday without symptoms. He denied any fever/chills, chest pain, palpiltations, SOB, dizziness, blurry vision. The pt BP responded to fluids. He continued to have low hemoglobin so surgery was consulted who recommended NM bleeding scan. Cardiology was re-consulted for [facility] on Sunday. Currently pt is refusing all testing and diagnostic exams. He continues to throw nursing staff out of his room, yell at staff and refuses e xams/questions. - Exam Vitals: Temp Pulse Resp BP Pulse Ox 98.3 F 70 16 117/59 100 03/31/18 07:37 03/31/18 07:37 03/31/18 08:15 03/31/18 07:37 03/31/18 08:15 Exam: Patient refuses exam. - Assessment and Plan (1) Acute exacerbation of chronic obstructive pulmonary disease (COPD) Current Visit: Yes Status: Acute Assessment and Plan: SOB started on 03/28 and only occured that day - progressively worsened so he came to the ER for further evaluation - SOB was present at rest and it woke him from sleep, causing him anxiety. - pt reported some sputum production and coughing - there was no blood in sputum - denied any fever/chills/ night sweats On admission the pt met sepsis criteria - WBC count 11.2, HR 109, RR 26 - source of infxn most likely pneumonia Currently does not meet sepsis criteria - afebrile, HR 70, RR 16, BP stable Legionella and S. pnuemo antigens negative Plan: - Azithromycin 500mg PO daily day 2/5 - continue Prednisone 40mg PO daily - continue Duonebs - blood cx pending - dispo: pt to have LHC tomorrow with cardiology NPO at midnight, Lovenox held Cardiology consulted, appreciate recommendations (2) Hypotension Current Visit: Yes Status: Resolved Assessment and Plan: Pt remained hypotensive yesterday - systolic was in the 80's for majority of the day - today the pt has systolic 100-120's, diastolic high 50's to low 70's The pt was given a 250cc bolus of fluid yesterday followed by a 1L bag given over 4 hrs - the pt responded to fluids Plan: - likely multifactorial in origin pt has a hx of CHF with low EF, which can contribute to hypotension secondary to low CO pt continues to have low hemoglobin, may be losing blood and this may be contributing to his low BP - pt is being worked up for anemia as plan stated below - surgery and cardiology following (3) Elevated troponin Current Visit: Yes Status: Acute Assessment and Plan: Most likely secondary to supply versus demand mismatch - has known 3 vessel CAD, decline CABG - type II OH ECHO showed a LVEF of 40%, last ECHO had an LVEF of 45% - mildly dilated LV - pt had a troponin of 1.39 ---> 1.10 INR 1.3 this morning, was supratheraputic on admission Plan: - cardiology consulted signed off after initial evaluation, recommended outpatient LHC pt will be here longer than expected so re-consulted cardio, they plan to do LHC if pt is willing tomorrow NPO at midnight pt was started on Lovenox, currently held 2/2 dropping hemoglobin PT/INR in the AM - continue ASA, plavix, lopressor, zestril and zocor (4) Anemia Current Visit: No Status: Chronic Assessment and Plan: Pt had a hemoglobin of 11.1 on admission, hemoglobin has decreased to 9.4 ---> 8.6 - baseline appears to be around 10 - chronic microcyic anemia , most likely IDH in nature. Could be nutritional but need to r/o malignancy MCV 82 Iron 53, Fe % saturation 12 Transferrin 306 Ferritin 23 Plan: - pending H&H for 9am - FOBT pending - surgery consulted Recommended NM bleeding scan , pt is refusing all tests and diagnostic exams at this time pt is currently NPO however he is refusing and continues to eat breakfast Pt will need outpatient EGD/colonoscopy to r/o malignancy (5) Diabetes mellitus Current Visit: No Status: Chronic Assessment and Plan: Glucose this morning 108 - continue IDSS (6) Acute on chronic HFrEF (heart failure with reduced ejection fraction) Current Visit: Yes Status: Acute Assessment and Plan: Pt has a hx of known 3 vessel CAD - refused CABG on last admission in January TTE 01/2018- LVEF 45%. Moderate segmental left ventricular systolic dysfunction. Grossly normal RV size and function Moderate mitral regurgitation. Mild tricuspid regurgitation. No pulmonary hypertension. Estimated RA pressure is 15 mmHg. Plan: - on telemetr - Lasix 20mg BID - fluid restriction diet - strict I&O's - cardiology consulted - see plan as above for elevated troponins (7) DVT (deep venous thrombosis) Current Visit: Yes Status: Acute Assessment and Plan: On Coumadin, currently holding all anticoagulation due to low hemoglobin (8) Constipation Current Visit: No Status: Chronic Assessment and Plan: On Senna and colace (9) GERD (gastroesophageal reflux disease) Current Visit: No Status: Chronic Assessment and Plan: Chronic - on famotidine (10) Coronary artery disease Current Visit: No Status: Chronic Assessment and Plan: See plan as above for elevated troponins - continue beta uziel, zestril, statin, asa/plavix - cardiac diet - fluid restriction - strict I&O - cardiology to see (11) Hyperlipemia Current Visit: No Status: Chronic Assessment and Plan: On Zocor (12) PAD (peripheral artery disease) Current Visit: No Status: Chronic Assessment and Plan: Chronic - on asa/plavix (13) Tobacco abuse Current Visit: No Status: Chronic Assessment and Plan: Current everday smoker - offered NRT (14) Cardiomyopathy Current Visit: No Status: Chronic Assessment and Plan: Chronic - ischemic cardiomypathy with low EF (15) Hypertension Current Visit: No Status: Chronic Assessment and Plan: BP 117/59 - continue lopressor, zestril (16) DVT prophylaxis Current Visit: Yes Status: Acute Assessment and Plan: Anticoagulation held - SCD (17) Sepsis Current Visit: Yes Status: Resolved Assessment and Plan: Resolved On admission the pt met sepsis criteria - WBC count 11.2, HR 109, RR 26 - source of infxn most likely pneumonia Currently does not meet sepsis criteria - afebrile, HR 70, RR 16, BP stable Plan: - see plan as above - Time Spent with Patient Total time spent is greater than 50% in coordination of care (as documented) at patient's floor/unit and/or counseling patient: Internal Medicine: Result - Labs CBC & Chem 7: 03/31/18 04:41 03/31/18 04:41 Labs: Short CBC 03/30/18 03/31/18 Range/Units 14:09 04:41 WBC 8.4 (4.3-11.1) K/mcL Hgb 9.4 L 8.6 L (12.9-16.9) g/dL Hct 28.1 L 25.7 L (37.5-50.1) % Plt Count 125 L (140-400) K/mcL Neutrophils # 4.9 (1.6-8.9) K/mcL BMP 03/31/18 04:41 Sodium 132 L Potassium 4.2 Chloride 98 Carbon Dioxide 28 BUN 34 H Creatinine 0.83 Glucose 108 H Calcium 8.8 - ABG Interpretation ABG results: PT/INR, D-dimer PT 14.4 Seconds (9.4-12.1) H 03/31/18 04:41 Consult Discharge Plan - Plan Referrals: Jesse Linares MD [Non-Partnered Physician] - 04/03/18 [facility],PCP [Primary Care Provider] - <James Reddy - Last Filed: 03/31/18 14:55> Hospitalist Progress Note - Encounter Date of Encounter: 03/31/18 Time of Encounter: 10:25 - Exam Vitals: Temp Pulse Resp BP Pulse Ox 98.3 F 72 16 102/83 96 03/31/18 11:34 03/31/18 11:34 03/31/18 11:34 03/31/18 11:34 03/31/18 11:34 - Assessment and Plan (1) Anemia Current Visit: Yes Status: Chronic (2) PAD (peripheral artery disease) Current Visit: No Status: Chronic (3) Diabetes mellitus Current Visit: No Status: Chronic (4) Tobacco abuse Current Visit: No Status: Chronic (5) Cardiomyopathy Current Visit: No Status: Chronic (6) Elevated troponin Current Visit: Yes Status: Acute (7) Acute exacerbation of chronic obstructive pulmonary disease (COPD) Current Visit: Yes Status: Acute (8) Acute on chronic HFrEF (heart failure with reduced ejection fraction) Current Visit: Yes Status: Acute (9) DVT (deep venous thrombosis) Current Visit: Yes Status: Acute (10) Constipation Current Visit: No Status: Chronic (11) GERD (gastroesophageal reflux disease) Current Visit: No Status: Chronic (12) Coronary artery disease Current Visit: No Status: Chronic (13) Hyperlipemia Current Visit: No Status: Chronic (14) Hypertension Current Visit: No Status: Chronic (15) DVT prophylaxis Current Visit: Yes Status: Acute (16) Hypotension Current Visit: Yes Status: Resolved (17) Sepsis Current Visit: Yes Status: Resolved - Time Spent with Patient Total time spent is greater than 50% in coordination of care (as documented) at patient's floor/unit and/or counseling patient: Internal Medicine: Result - Labs CBC & Chem 7: 03/31/18 04:41 03/31/18 04:41 Labs: Short CBC 03/31/18 Range/Units 04:41 WBC 8.4 (4.3-11.1) K/mcL Hgb 8.6 L (12.9-16.9) g/dL Hct 25.7 L (37.5-50.1) % Plt Count 125 L (140-400) K/mcL Neutrophils # 4.9 (1.6-8.9) K/mcL BMP 03/31/18 04:41 Sodium 132 L Potassium 4.2 Chloride 98 Carbon Dioxide 28 BUN 34 H Creatinine 0.83 Glucose 108 H Calcium 8.8 - ABG Interpretation ABG results: PT/INR, D-dimer PT 14.4 Seconds (9.4-12.1) H 03/31/18 04:41 - Attending Attestation I saw evaluated and examined this patient and my medical decision-making was reviewed with the Resident Physician, Yordan Ramirez. I agree with the documented findings, disposition and treatment plan as described except to any changes set forth below. We independently had [id number] contact with the patient. When I initially talked to the patient today, he was adamant that he did not want left heart catheterization at this time. He wanted second opinion and wan vero to go home to take care of a few things before he had his left heart catheterization. Explained to the patient that he has needed this procedure to be done as early as possible to minimize risk of complication and further episodes of OH. He still does not want the procedure to be done. He denies any melena or hematochezia. He then reported that he is much more anxious than usual and medication is receiving was not helping him. I explained to him that we can treat his anxiety while he awaits this procedure. He expressed understanding and will stay in the hospital today. On exam, patient does have mild end expiratory wheezing. S1 and S2 are normal. Abdomen is soft. Nontender. No lower extremity edema. Acute COPD exacerbation: Continue O2 supplementation and bronchodilators. Taper steroids. Acute on chronic combined congestive heart failure: Lasix has been held as patient became hypotensive yesterday and hyponatremic. We will continue his other medications including Zestril, Lopressor. His blood pressure sustains, will start him on oral Lasix. Elevated troponin: Concerning for non-ST elevation OH versus type II OH. 2-D echocardiogram done. EF 40% with global left ventricular systolic dysfunction. Cardiology recommends left heart catheterization. However patient is not wanting this procedure at this time. Understands risks. Deep vein thrombosis: Coumadin was held and patient was started on Lovenox to bridge. However given him anemia with unknown source of bleeding, will stop medical anticoagulation. Acute on Chronic anemia. Hemoglobin 8.6 today. Consulted surgery to evaluate for possible GI bleed. Will place patient on IV PPI. Continue to monitor hemoglobin levels. Hold heparin products. For now continue aspirin. Hold Plavix. Monitor blood counts. Moderate risk for complications <Yordan Ramirez S - Last Filed: 03/31/18 09:34> (2) Hypotension Qualifiers: Hypotension type: orthostatic hypotension Qualified Code(s): I95.1 - Orthos tatic hypotension (4) Anemia Qualifiers: Anemia type: unspecified type Qualified Code(s): D64.9 - Anemia, unspecified (5) Diabetes mellitus Qualifiers: Diabetes mellitus type: type 2 Diabetes mellitus snf insulin use: with snf use Diabetes mellitus complication status: with circulatory complication Diabetes mellitus complication detail: with peripheral angiopathy without gangrene Qualified Code(s): E11.51 - Type 2 diabetes mellitus with diabetic peripheral angiopathy without gangrene; Z79.4 - rat exterminator (current) use of insulin (7) DVT (deep venous thrombosis) Qualifiers: Chronicity: unspecified Laterality: unspecified laterality Qualified Code(s): I82.409 - Acute embolism and thrombosis of unspecified deep veins of unspecified lower extremity (8) Constipation Qualifiers: Constipation type: unspecified constipation type Qualified Code(s): K59.00 - Constipation, unspecified (9) GERD (gastroesophageal reflux disease) Qualifiers: Esophagitis presence: esophagitis presence not specified Qualified Code(s): K21.9 - Gastro-esophageal reflux disease without esophagitis (10) Coronary artery disease Qualifiers: Coronary Disease-Associated Artery/Lesion type: [place] artery [place] vs. transplanted heart: unspecified whether pilot [place] or transplanted heart Associated angina: angina presence unspecified Qualified Code(s): I25.10 - Atherosclerotic heart disease of [place] coronary artery without angina pectoris (11) Hyperlipemia Qualifiers: Hyperlipidemia type: unspecified Qualified Code(s): E78.5 - Hyperlipidemia, unspecified (14) Cardiomyopathy Qualifiers: Cardiomyopathy type: ischemic Qualified Code(s): I25.5 - Ischemic cardiomyopathy (15) Hypertension Qualifiers: Hypertension type: essential hypertension Qualified Code(s): I10 - Essential (primary) hypertension (17) Sepsis Qualifiers: Sepsis type: sepsis due to unspecified organism Qualified Code(s): A41.9 - Sepsis, unspecified organism <James Reddy - Last Filed: 03/31/18 14:55> (1) Anemia Qualifiers: Anemia type: unspecified type Qualified Code(s): D64.9 - Anemia, unspecified (3) Diabetes mellitus Qualifiers: Diabetes mellitus type: type 2 Diabetes mellitus snf insulin use: with tank terminal gauger use Diabetes mellitus complication status: with circulatory complication Diabetes mellitus complication detail: with peripheral angiopathy without gangrene Qualified Code(s): E11.51 - Type 2 diabetes mellitus with diabetic peripheral angiopathy without gangrene; Z79.4 - rat exterminator (current) use of insulin (5) Cardiomyopathy Qualifiers: Cardiomyopathy type: ischemic Qualified Code(s): I25.5 - Ischemic cardiomyopathy (9) DVT (deep venous thrombosis) Qualifiers: Chronicity: unspecified Laterality: unspecified laterality Qualified Code(s): I82.409 - Acute embolism and thrombosis of unspecified deep veins of unspecified lower extremity (10) Constipation Qualifiers: Constipation type: unspecified constipation type Qualified Code(s): K59.00 - Constipation, unspecified (11) GERD (gastroesophageal reflux disease) Qualifiers: Esophagitis presence: esophagitis presence not specified Qualified Code(s): K21.9 - Gastro-esophageal reflux disease without esophagitis (12) Coronary artery disease Qualifiers: Coronary Disease-Associated Artery/Lesion type: [place] artery [place] vs. transplanted heart: unspecified whether [place] or transplanted heart Associated angina: angina presence unspecified Qualified Code(s): I25.10 - Atherosclerotic heart disease of [place] coronary artery without angina pectoris (13) Hyperlipemia Qualifiers: Hyperlipidemia type: unspecified Qualified Code(s): E78.5 - Hyperlipidemia, unspecified (14) Hypertension Qualifiers: Hypertension type: essential hypertension Qualified Code(s): I10 - Essential (primary) hypertension (16) Hypotension Qualifiers: Hypotension type: orthostatic hypotension Qualified Code(s): I95.1 - Ortho static hypotension (17) Sepsis Qualifiers: Sepsis type: sepsis due to unspecified organism Qualified Code(s): A41.9 - Sepsis, unspecified organism
[2018-03-31] MEDS: Insulin LISPRO 300 UNITS/3 ML VIAL SQ SCH ×4 (09:43→21:34)
[2018-03-31] MEDS: clonazePAM 0.5 MG TABLET PO PRN (09:54)
[2018-03-31] MEDS: hydrOXYzine pamoate 25 MG CAPSULE PO SCH ×2 (09:55→21:38)
[2018-03-31] MEDS: *HR* Methadone 10 MG TABLET PO SCH ×3 (09:55→21:33)
[2018-03-31] MEDS: Azithromycin 250 MG TABLET PO SCH (09:55)
[2018-03-31] MEDS: Aspirin Enteric Coated 81 MG Tablet PO SCH (09:55)
[2018-03-31] MEDS: Famotidine 20 MG TABLET PO SCH ×2 (09:56→21:34)
[2018-03-31] MEDS: Cholecalciferol (D-3) 1,000 UNIT TABLET PO SCH (09:56)
[2018-03-31] MEDS: Magnesium Oxide 400 MG TABLET PO SCH (09:57)
[2018-03-31] MEDS: predniSONE 20 MG TABLET PO SCH (09:57)
--- NOTE | 2018-03-31 10:21 | Cardiology Progress Note ---
Date of Encounter: 03/31/18 Time of Encounter: 07:30 Assessment and Plan (1) Elevated troponin I level Current Visit: Yes Status: Acute Patient initially presented with shortness of breath, mild troponin elevation. Of note, recent admission 2017 with troponin >73.0, underwent LHC at that time which demonstrated severe 3v CAD with LVEF 35-40%; patient declined CABG and high risk PCI at that time. It is also apparent that he declined follow-up with [facility] and [facility] TTE 03/29/18: LVEF 40% with global LV systolic dysfunction with regional variations, mild LVDD (previous admission LVEF 45% on TTE, 35-40% on LV gram) During this admission, he had agreed to high risk PCI (LM, ostial-prox RCA) however unable to proceed due to supratherapeutic INR--outpt LHC recommended. Cardiology reconsulted on 03/30 and plan was to proceed with staged PCI on Sunday; however he developed acute anemia overnight, now declining GI evaluation. Recommend staged PCI, will likely require impella support, if able after GI e valuation. It is unclear if patient will agree. Continue asa, statin, plavix, BB, ACEi. Will continue to follow. (2) Anemia Current Visit: Yes Status: Chronic Acute drop in H/H since admission. HgB 11.1 upon admission, now 8.6. Has been on chronic anticoagulation for hx of DVT, INR supratherapeutic upon arrival. Primary service has consulted surgery for evaluation, however at the present time patient adamantly declines. He denies abnormal or unusual bleeding. Unfortunately, given acute anemia, will not be able to proceed with [facility] with staged PCI and subsequent need for DAPT until H/H stabilizes/GI evaluation has been completed. Qualifiers: Anemia type: unspecified type Qualified Code(s): D64.9 - Anemia, unspecified (3) History of DVT (deep vein thrombosis) Current Visit: No Status: Chronic On coumadin, now on hold. (4) Cardiomyopathy Current Visit: No Status: Chronic Plan as above. Appears euvolemic. Continue BB, ACEi. Qualifiers: Cardiomyopathy type: ischemic Qualified Code(s): I25.5 - Ischemic cardiomyopathy Discussion w patient/family: The assessment and plan as outlined above was discussed with the patient and/or family members who expressed understanding and agreement. All questions were answered. Thank you for involving us in the care of your patient. Please call with any questions. The patient will be discussed and reviewed with Dr. Up, changes to be made accordingly. Subjective Principal diagnosis: NSTEMI Interval history: Patient has been inpatient for several days; this is my first interaction with patient. Seen and examined. Patient is agitated this AM due to NPO status due to concern of GI bleed. Surgery has been consulted for colonscopy. Currently, patient is adamantly declining evaluation. No chest pain/discomfort described. Denies abnormal or unusual bleeding. Objective Vital Signs, Last 4 Hours Temp Pulse Resp BP Pulse Ox 03/31/18 08:15 16 100 03/31/18 07:37 98.3 F 70 16 117/59 100 General: Conversant, Other (agitated) HEENT: Atraumatic, Normocephaly Cardiac: Reg Rate and Rhythm, Normal S1 and S2 Lungs: Normal Breath Sounds Neuro: Alert and responsive Abdomen: Soft Skin: No rashes noted on visualized skin Musculoskeletal: No Chest Wall Tenderness Extremities: No Edema, Normal Pulses Results 03/31/18 04:41 03/31/18 04:41 Lab Results 03/30/18 03/31/18 03/31/18 14:09 04:41 04:41 WBC 8.4 Hgb 9.4 L 8.6 L Hct 28.1 L 25.7 L Plt Count 125 L INR 1.3 Sodium Potassium Chloride Carbon Dioxide BUN Creatinine Glucose Calcium 03/31/18 04:41 WBC Hgb Hct Plt Count INR Sodium 132 L Potassium 4.2 Chloride 98 Carbon Dioxide 28 BUN 34 H Creatinine 0.83 Glucose 108 H Calcium 8.8 Active Medications Albuterol/Ipratropium (Duoneb) 3 ml IH [id number] [facility] Stop: 09/27/18 12:01 Last Admin: 03/31/18 08:23 Dose: Not Given Aspirin (Aspirin Ec) 81 mg PO DAILY [facility] Stop: 09/28/18 09:01 Last Admin: 03/31/18 09:55 Dose: 81 mg Azithromycin (Zithromax) 500 mg PO DAILY [facility] Stop: 09/29/18 09:01 Last Admin: 03/31/18 09:55 Dose: 500 mg Brimonidine Tartrate (Alphagan) 1 drop BOTH EYES BID [facility]; Protocol Stop: 09/27/18 21:01 Last Admin: 03/31/18 09:58 Dose: 1 drop Calcium Carbonate (Tums) 1,000 mg PO DAILY [facility] Stop: 09/28/18 09:01 Last Admin: 03/31/18 09:58 Dose: Not Given Clonazepam (Klonopin) 0.5 mg PO BID PRN PRN Reason: Anxiety Stop: 09/28/18 09:10 Last Admin: 03/31/18 09:54 Dose: 0.5 mg Clopidogrel Bisulfate (Plavix) 75 mg PO DAILY [facility] Stop: 09/27/18 11:01 Last Admin: 03/31/18 09:57 Dose: 75 mg Dextrose/Water (Dextrose 50% (Syg)) 25 ml IVP AD PRN PRN Reason: Hypoglycemia Stop: 09/27/18 11:04 Docusate Sodium (Colace) 100 mg PO BID PRN; Protocol PRN Reason: Constipation Stop: 09/28/18 15:01 Last Admin: 03/29/18 15:55 Dose: 100 mg Famotidine (Pepcid) 20 mg PO BID [facility] Stop: 09/27/18 21:01 Last Admin: 03/31/18 09:56 Dose: 20 mg Gabapentin (Neurontin) 300 mg PO [facility] Stop: 09/27/18 21:01 Last Admin: 03/30/18 20:29 Dose: 300 mg Glucagon (Glucagen) 1 mg IM ONCE PRN PRN Reason: Hypoglycemia Stop: 09/27/18 11:04 Glucose (Gluctose) 15 gm PO ONCE PRN PRN Reason: Hypoglycemia Stop: 09/27/18 11:04 Glucose (Gluctose) 30 gm PO ONCE PRN PRN Reason: Hypoglycemia Stop: 09/27/18 11:04 Hydroxyzine Pamoate (Hydroxyzine Pamoate) 50 mg PO BID [facility] Stop: 09/27/18 11:01 Last Admin: 03/31/18 09:55 Dose: Not Given Dextrose (Dextrose 5%) 1,000 mls @ 100 mls/hr IVC .Q10H PRN PRN Reason: HYPOGLYCEMIA Stop: 09/27/18 11:04 Insulin Human Lispro (Humalog) 0 units SQ HS [facility]; Protocol Stop: 09/27/18 21:01 Last Admin: 03/30/18 20:30 Dose: 4 units Insulin Human Lispro (Humalog) 0 units SQ TIDAC [facility]; Protocol Stop: 09/27/18 11:31 Last Admin: 03/31/18 09:43 Dose: Not Given Lisinopril (Zestril) 5 mg PO DAILY [facility]; Protocol Stop: 09/28/18 09:01 Last Admin: 03/31/18 09:57 Dose: Not Given Magnesium Oxide (Mag-Ox) 400 mg PO DAILY [facility]; Protocol Stop: 09/28/18 09:01 Last Admin: 03/31/18 09:57 Dose: 400 mg Methadone HCl (Methadone) 20 mg PO TID [facility] Stop: 09/27/18 12:42 Last Admin: 03/31/18 09:55 Dose: 20 mg Metoprolol Tartrate (Lopressor) 12.5 mg PO BID [facility] Stop: 09/28/18 21:01 Last Admin: 03/31/18 09:55 Dose: 12.5 mg Naloxone HCl (Narcan) 0.4 mg IVP Q2MIN PRN PRN Reason: SEE COMMENTS Stop: 09/27/18 08:14 Prednisone (Prednisone) 40 mg PO DAILY [facility] Stop: 09/29/18 09:01 Last Admin: 03/31/18 09:57 Dose: 40 mg Promethazine HCl (Phenergan) 12.5 mg IVP Q6HR PRN PRN Reason: Nausea And Vomiting Stop: 09/29/18 13:50 Last Admin: 03/30/18 14:16 Dose: 12.5 mg Senna (Senna) 17.2 mg PO BID PRN PRN Reason: Constipation Stop: 09/27/18 12:46 Last Admin: 03/30/18 18:06 Dose: 17.2 mg Simvastatin (Zocor) 20 mg PO HS [facility]; Protocol Stop: 09/27/18 21:01 Last Admin: 03/30/18 20:28 Dose: 20 mg Vitamin D (Vitamin D) 1,000 unit PO DAILY [facility] Stop: 09/28/18 09:01 Last Admin: 03/31/18 09:56 Dose: 1,000 unit - Imaging and Cardiology Echo: report reviewed Cardiac cath: report reviewed Other Results: 12 hour tele: avg HR=81 SR. Frequent PVCs, couplets noted. - EKG Interpretation EKG results cardiology: personally reviewed Consult Discharge Plan - Plan Referrals: Jesse Linares MD [Non-Partnered Physician] - 04/03/18 [facility] [Primary Care [facility] -
[2018-03-31] MEDS ORDERED: Ipratropium/Albuterol Neb 3 ML IH PRN (10:30)
[2018-03-31] MEDS ORDERED: *HR* LORazepam 2 MG/ML VIAL IVP ONE (10:37)
--- NOTE | 2018-03-31 14:08 | General Surgery Consult Note ---
<Ulices Lainez S - Last Filed: 03/31/18 17:16> Date of Encounter: 03/31/18 Time of Encounter: 10:15 Assessment and Plan (1) Hypotension Current Visit: Yes Status: Resolved Patient was hypotensive yesterday with systolic in 80s > today systolic of 100s- 120s, improved with fluid hydration Hgb 9.4 > 8.6 today, possibly 2/2 GI bleed Patient has history of CHF with low EF which may be contributing to hypotension Patient refused tagged RBC scan We talked extensively with patient, and he is in agreement to have upper and lower endoscopy tomorrow Will start bowel prep regimen with miralax/gatorade solution after dinner Ordered 20 mg dulcolax after dinner CLD today NPO at midnight Plan for upper and lower endoscopy tomorrow Qualifiers: Hypotension type: orthostatic hypotension Qualified Code(s): I95.1 - Orthostatic hypotension (2) Elevated troponin I level Current Visit: Yes Status: Acute Management per cardiology Recommend staged PCI (3) COPD exacerbation Current Visit: No Status: Acute Management per primary team Abx, duonebs, prednisone (4) History of DVT (deep vein thrombosis) Current Visit: No Status: Chronic Management per primary team On coumadin, now on hold History of Present Illness Consult date: 03/31/18 Reason for consult: other (GI bleed) Requesting physician: Yordan Ramirez History of present illness: 72 year old male with PMHx of triple vessel CAD (declined CABG), recent N-STEMI (02/12), CHF, COPD not on home O2 presented to [place] with SOB on 03/28. Surgery was consulted for low hemoglobin and rule out GI bleed. Patient became hypotensive with systolic in 80s yesterday, but was not expressing any symptoms. His Hgb was 9.2, down from 11.1 on admission. The patient's BP responded to fluid hydration. Patient has been on chronic anticoagulation for history of DVT and his INR was supratherapeutic on arrival. Surgery initially recommended a nuc med bleeding scan but the patient declined. Cardiology also recommended a heart cath, but patient is refusing intervention. Patient seen and examined today. He denies fevers/chills, CP, SOB, abdominal pain, nausea, vomiting. We discussed extensively with him the benefits of having an endoscopic procedure in the event of a GI bleed, and he did agree to have the procedure tomorrow. Past Med Surg Social Fam HX - Past Medical History Medical history: CHF, COPD, diabetes, hyperlipidemia, hypertension, peripheral artery disease Psychiatric history: no psych history - Past Surgical History Surgical History: carotid endarterectomy, LE Bypass, LE stent(s), tonsilectomy - Social History Smoking Status: Current every day smoker Smokeless Tobacco Status: No Alcohol use: none Drug use: none Medications and Allergies RX: Albuterol Sulfate [Ventolin Hfa] 2 puff IH QID PRN 01/31/18 [History] RX: Brimonidine 0.2% [Alphagan] 1 drop BOTH EYES BID 01/31/18 [History] RX: Calcium Carbonate/Vitamin D3 [Calcium 500-Vit D3 200 Tablet] 2 tab PO DAILY 01/31/18 [History] RX: Gabapentin [Neurontin] 300 mg PO HS 01/31/18 [History] RX: Insulin NPH Human Isophane [Novolin N] 15 unit SQ QPM 01/31/18 [History] RX: Insulin NPH Human Isophane [Novolin N] 20 unit SQ QAM 01/31/18 [History] RX: Ipratropium/Albuterol Neb [Duoneb] 3 ml IH TID PRN 01/31/18 [History] RX: Metformin HCl 1,000 mg PO BID 01/31/18 [History] RX: Methadone 20 mg PO Q8HR 01/31/18 [History] RX: Promethazine [Phenergan] 25 mg PO BID PRN 01/31/18 [History] RX: Ranitidine HCl [Acid Technology Administrator] 150 mg PO BID 01/31/18 [History] RX: Simvastatin [Zocor] 20 mg PO HS 01/31/18 [History] RX: Vit C/E/Zn/Coppr/Lutein/Zeaxan [Preservision Areds 2 Softgel] 1 cap PO DAILY 01/31/18 [History] RX: hydrOXYzine HCl [Hydroxyzine HCl] 50 mg PO BID 01/31/18 [History] RX: Aspirin Enteric Coated [Aspirin EC] 81 mg PO DAILY #30 tablet. 02/05/18 [Rx] RX: Lisinopril [Zestril] 5 mg PO DAILY #30 tablet 02/05/18 [Rx] RX: Docusate [Colace] 200 mg PO DAILY PRN 03/28/18 [History] RX: Multivitamin [One Daily Multivitamin] 1 tab PO DAILY 03/28/18 [History] RX: Vit A/Vit C/Vit E/Zinc/Copper [Icaps Areds Softgel] 1 cap PO BID 03/28/18 [History] RX: Azithromycin [Zithromax] 500 mg PO DAILY 4 Days #8 tablet 03/30/18 [Rx] RX: Clopidogrel [Plavix] 75 mg PO DAILY 30 Days #30 tablet 03/30/18 [Rx] RX: Metoprolol [Lopressor] 12.5 mg PO BID 30 Days #30 tablet 03/30/18 [Rx] RX: predniSONE [PredniSONE] 40 mg PO DAILY 10 Days #11 tablet 03/30/18 [Rx] Warfarin [Coumadin] 2.5 mg PO 1800 30 Days #30 tablet 03/30/18 [Rx] Allergy/AdvReac Type Severity Reaction Status Date / Time No Known Allergies Allergy Verified 03/28/18 12:50 Review of Systems All systems PM: The remainder of the systems were reviewed and are negative General Surgery Exam Initial Vital Signs Temp Pulse Resp BP Pulse Ox 98.2 F 109 26 110/98 99 03/28/18 06:22 03/28/18 06:22 03/28/18 06:22 03/28/18 06:22 03/28/18 06:22 - General physical appearance well developed - Respiratory normal expansion, normal respiratory effort - Abdomen Abdomen general surgery: Present: soft, non tender - Integumentary Integumentary general surgery: Present: warm and dry - Psychiatric Psychiatric general surgery: Present: A&Ox3, appropriate, other (reluctant to have any medical intervention) Exam Initial Vital Signs Temp Pulse Resp BP Pulse Ox 98.2 F 109 26 110/98 99 03/28/18 06:22 03/28/18 06:22 03/28/18 06:22 03/28/18 06:22 03/28/18 06:22 Results - Labs 03/31/18 04:41 03/31/18 04:41 Abnormal lab results RBC 3.12 M/mcL (4.19-5.50) L 03/31/18 04:41 Hgb 8.6 g/dL (12.9-16.9) L 03/31/18 04:41 Hct 25.7 % (37.5-50.1) L 03/31/18 04:41 MCV 82.4 fL (83.0-100.0) L 03/31/18 04:41 MCH 27.6 pg (28.0-33.3) L 03/31/18 04:41 RDW 18.2 % (11.5-14.5) H 03/31/18 04:41 Plt Count 125 K/mcL (140-400) L 03/31/18 04:41 PT 14.4 Seconds (9.4-12.1) H 03/31/18 04:41 APTT 39.4 Seconds (26.0-36.0) H 03/28/18 07:44 Sodium 132 mEq/L (136-145) L 03/31/18 04:41 BUN 34 mg/dL (8-23) H 03/31/18 04:41 BUN/Creatinine Ratio 41 (6-26) H 03/31/18 04:41 Glucose 108 mg/dL (70-105) H 03/31/18 04:41 POC Glucose 284 mg/dL (70-99) H 03/30/18 19:27 Iron 53 mcg/dL (65-175) L 03/30/18 08:26 % Saturation 12 % (20-55) L 03/30/18 08:26 Troponin I 1.10 ng/mL (< 0.04) H* 03/29/18 06:02 B-Natriuretic Peptide 774 pg/mL (Less than 100) H 03/28/18 06:45 Folate > 22.3 ng/mL (3.0-16.0) H 03/30/18 08:26 U Marijuana (THC) Screen Positive ng/mL (Cutoff = 50) H 03/28/18 23:32 Diabetes panel 03/31/18 Range/Units 04:41 Sodium 132 L (136-145) mEq/L Potassium 4.2 (3.5-5.1) mEq/L Chloride 98 (98-107) mEq/L Carbon Dioxide 28 (23-29) mEq/L BUN 34 H (8-23) mg/dL Creatinine 0.83 (0.70-1.30) mg/dL Glucose 108 H (70-105) mg/dL Calcium 8.8 (8.6-10.3) mg/dL Calcium panel 03/31/18 Range/Units 04:41 Calcium 8.8 (8.6-10.3) mg/dL Pituitary panel 03/31/18 Range/Units 04:41 Sodium 132 L (136-145) mEq/L Potassium 4.2 (3.5-5.1) mEq/L Chloride 98 (98-107) mEq/L Carbon Dioxide 28 (23-29) mEq/L BUN 34 H (8-23) mg/dL Creatinine 0.83 (0.70-1.30) mg/dL Glucose 108 H (70-105) mg/dL Calcium 8.8 (8.6-10.3) mg/dL Adrenal panel 03/31/18 Range/Units 04:41 Sodium 132 L (136-145) mEq/L Potassium 4.2 (3.5-5.1) mEq/L Chloride 98 (98-107) mEq/L Carbon Dioxide 28 (23-29) mEq/L BUN 34 H (8-23) mg/dL Creatinine 0.83 (0.70-1.30) mg/dL Glucose 108 H (70-105) mg/dL Calcium 8.8 (8.6-10.3) mg/dL All other labs normal. Consult Discharge Plan - Plan Referrals: Jesse Linares MD [Non-Partnered Physician] - 04/03/18 [place],PCP [Primary Care Provider] - <Andrew Mendoza - Last Filed: 03/31/18 19:09> Date of Encounter: 03/31/18 Review of Systems All systems PM: The remainder of the systems were reviewed and are negative General Surgery Exam Initial Vital Signs Temp Pulse Resp BP Pulse Ox 98.2 F 109 26 110/98 99 03/28/18 06:22 03/28/18 06:22 03/28/18 06:22 03/28/18 06:22 03/28/18 06:22 Exam Initial Vital Signs Temp Pulse Resp BP Pulse Ox 98.2 F 109 26 110/98 99 03/28/18 06:22 03/28/18 06:22 03/28/18 06:22 03/28/18 06:22 03/28/18 06:22 Results - Labs 03/31/18 04:41 03/31/18 04:41 Abnormal lab results RBC 3.12 M/mcL (4.19-5.50) L 03/31/18 04:41 Hgb 8.6 g/dL (12.9-16.9) L 03/31/18 04:41 Hct 25.7 % (37.5-50.1) L 03/31/18 04:41 MCV 82.4 fL (83.0-100.0) L 03/31/18 04:41 MCH 27.6 pg (28.0-33.3) L 03/31/18 04:41 RDW 18.2 % (11.5-14.5) H 03/31/18 04:41 Plt Count 125 K/mcL (140-400) L 03/31/18 04:41 PT 14.4 Seconds (9.4-12.1) H 03/31/18 04:41 APTT 39.4 Seconds (26.0-36.0) H 03/28/18 07:44 Sodium 132 mEq/L (136-145) L 03/31/18 04:41 BUN 34 mg/dL (8-23) H 03/31/18 04:41 BUN/Creatinine Ratio 41 (6-26) H 03/31/18 04:41 Glucose 108 mg/dL (70-105) H 03/31/18 04:41 POC Glucose 145 mg/dL (70-99) H 03/31/18 07:41 Iron 53 mcg/dL (65-175) L 03/30/18 08:26 % Saturation 12 % (20-55) L 03/30/18 08:26 Troponin I 1.10 ng/mL (< 0.04) H* 03/29/18 06:02 B-Natriuretic Peptide 774 pg/mL (Less than 100) H 03/28/18 06:45 Folate > 22.3 ng/mL (3.0-16.0) H 03/30/18 08:26 U Marijuana (THC) Screen Positive ng/mL (Cutoff = 50) H 03/28/18 23:32 Diabetes panel 03/31/18 Range/Units 04:41 Sodium 132 L (136-145) mEq/L Potassium 4.2 (3.5-5.1) mEq/L Chloride 98 (98-107) mEq/L Carbon Dioxide 28 (23-29) mEq/L BUN 34 H (8-23) mg/dL Creatinine 0.83 (0.70-1.30) mg/dL Glucose 108 H (70-105) mg/dL Calcium 8.8 (8.6-10.3) mg/dL Calcium panel 03/31/18 Range/Units 04:41 Calcium 8.8 (8.6-10.3) mg/dL Pituitary panel 03/31/18 Range/Units 04:41 Sodium 132 L (136-145) mEq/L Potassium 4.2 (3.5-5.1) mEq/L Chloride 98 (98-107) mEq/L Carbon Dioxide 28 (23-29) mEq/L BUN 34 H (8-23) mg/dL Creatinine 0.83 (0.70-1.30) mg/dL Glucose 108 H (70-105) mg/dL Calcium 8.8 (8.6-10.3) mg/dL Adrenal panel 03/31/18 Range/Units 04:41 Sodium 132 L (136-145) mEq/L Potassium 4.2 (3.5-5.1) mEq/L Chloride 98 (98-107) mEq/L Carbon Dioxide 28 (23-29) mEq/L BUN 34 H (8-23) mg/dL Creatinine 0.83 (0.70-1.30) mg/dL Glucose 108 H (70-105) mg/dL Calcium 8.8 (8.6-10.3) mg/dL All other labs normal. - Attending Attestation I examined this patient and my medical decision-making was reviewed with the Resident Physician. I agree with the documented findings, disposition and treatment plan as described except to the extent set forth below. The patient is seen and evaluated with resident. He refused bleeding scan. He refused heart catheterization. He has a drop in his hemoglobin and I have recommended EGD and colonoscopy. He initially refused EGD and colonoscopy. He has begrudgingly agreed to EGD and colonoscopy to try to identify the source of the bleeding. We will place him on the schedule for tomorrow. Bowel prep today. Andrew Mendoza MD FACS
[2018-03-31] MEDS: Pantoprazole 40 MG VIAL IVP SCH (17:44)
[2018-03-31] MEDS ORDERED: Polyethylene Glycol 3350 255 GM POWDER PO ONE (18:00)
[2018-03-31] MEDS: Gabapentin 300 MG CAPSULE PO SCH (21:33)
[2018-04-01] MEDS: Sennosides 8.6 MG TABLET PO PRN (00:22)
[2018-04-01 04:52] LABS: Basophils % 0.2 %; Eosinophils # 0.1 K/mcL (0.0-0.6); Eosinophils % 0.7 %; Hematocrit 26.9 % (37.5-50.1); Immature Granulocytes % 0.4 % (0-4); Lymphocytes # 2.8 K/mcL (0.6-4.6); Lymphocytes % 30.3 %; Mean Corpuscular HGB Conc 33.5 g/dL (31.6-35.5); Mean Corpuscular Hemoglobin 27.9 pg (28.0-33.3); Mean Corpuscular Volume 83.3 fL (83.0-100.0); Mean Platelet Volume 10.2 fL (9.4-12.4); Monocytes # 0.9 K/mcL (0.0-1.3); Neutrophils # 5.4 K/mcL (1.6-8.9); Platelet Count 124 K/mcL (140-400); Red Blood Count 3.23 M/mcL (4.19-5.50); Red Cell Distribution Width 17.9 % (11.5-14.5); Segmented Neutrophils % 58.4 %
[2018-04-01 04:59] LABS: INR 1.2; Prothrombin Time 13.9 Seconds (9.4-12.1)
[2018-04-01 05:13] LABS: BUN/Creatinine Ratio 34 (6-26); Blood Urea Nitrogen 24 mg/dL (8-23); Calcium 8.7 mg/dL (8.6-10.3); Carbon Dioxide 28 mEq/L (23-29); Chloride 95 mEq/L (98-107); Glucose 77 mg/dL (70-105); Osmolality,Calculated 273 (280-300); Sodium 130 mEq/L (136-145); eGFR For Non-African Americans > 60 (> 60)
[2018-04-01] MEDS ORDERED: 0.9 % Sodium Chloride 1,000 ML ONE (05:48)
--- NOTE | 2018-04-01 06:27 | Electrocardiograph Report ---
[facility] Test Date: 2018-03-28 Pat Name: Gerson Okeefe Department: EXAM19 Room: 2NE17 Gender: M W[employer] Selector: : 1945 Requested By: Miguel Osborn Order Number: [id number] Reading MD: Jose Raul Martin Measurements Intervals Dawson Rate: 112 P: 71 WV: 159 QRS: 104 QRSD: 104 T: 11 QT: 312 QTc: 426 Interpretive Statements Sinus tachycardia Right axis deviation Minimal ST depression, lateral leads Borderline ST elevation, anterior leads Electronically Signed On 04-01-2018 6:25:43 EST by Jose Raul Martin
[2018-04-01] MEDS: Pantoprazole 40 MG VIAL IVP SCH (06:44)
--- NOTE | 2018-04-01 08:27 | Event Note ---
<Ulices Lainez - Last Filed: 04/01/18 08:21> Date of Encounter: 04/01/18 Time of Encounter: 08:21 Surgery was consulted for possible GI bleed. Patient refused NM bleeding scan yesterday. We had an extensive discussion with patient yesterday about the need for upper and lower endoscopy to find the source of the bleed. He remained hesitant but did finally agree to the have procedures. Patient was given bowel prep yesterday and was scheduled for EGD and colonoscopy today. Patient seen and examined this morning. He is now adamantly refusing any intervention. Surgery will sign off for now, thank you for the consult. Please re-consult if needed. <Andrew Mendoza - Last Filed: 04/01/18 13:35> Date of Encounter: 04/01/18 The patient is seen and evaluated with rest and on morning rounds. He refused his bowel prep. I have strongly recommended that we investigate the cause of his gastrointestinal bleeding area he needs EGD and colonoscopy. The patient is well informed of this recommendation. He is made an informed decision not to proceed with diagnostic workup. Surgery will sign off Andrew Mendoza MD FACS
[2018-04-01] MEDS: Insulin LISPRO 300 UNITS/3 ML VIAL SQ SCH ×4 (09:23→21:54)
[2018-04-01] MEDS: Azithromycin 250 MG TABLET PO SCH (09:32)
[2018-04-01] MEDS: Famotidine 20 MG TABLET PO SCH (09:32)
[2018-04-01] MEDS: Aspirin Enteric Coated 81 MG Tablet PO SCH (09:35)
[2018-04-01] MEDS: Cholecalciferol (D-3) 1,000 UNIT TABLET PO SCH (09:35)
[2018-04-01] MEDS: *HR* Methadone 10 MG TABLET PO SCH ×3 (09:36→21:54)
[2018-04-01] MEDS: predniSONE 10 MG TABLET PO SCH (09:36)
[2018-04-01] MEDS: Magnesium Oxide 400 MG TABLET PO SCH (09:36)
[2018-04-01] MEDS: hydrOXYzine pamoate 25 MG CAPSULE PO SCH ×2 (09:37→21:53)
--- NOTE | 2018-04-01 10:18 | Cardiology Progress Note ---
Addendum entered and electronically signed by Gonzalez Parry DO 04/01/18 12:03: I have personally performed a face to face evaluation on this patient. I have reviewed and agree with the care plan. History and Exam by me shows: Patient independently seen and examined. Previous findings reviewed with patient. Options discussed with patient. He continues to decline CT surgery, PCI, or outside cardiology opinion. Risks of his decision discussed, including worsening cardiac function and cardiac causes of . He voiced understanding. No further cardiology recommendations at this time. Thanks, Gonzalez Parry DO, [facility] Original Note: Date of Encounter: 04/01/18 Time of Encounter: 08:30 Assessment and Plan (1) Elevated troponin I level Current Visit: Yes Status: Acute Patient initially presented with shortness of breath, mild troponin elevation. With his known history of severe 3V CAD that was not intervine on in January this year cardiology consulted for management. In 2017 troponin >73.0, underwent LHC at that time which demonstrated severe 3v CAD with LVEF 35- 40%; patient seen by CT surgery but was recommended for high risk PCI at that time. He declined intervention and went home with medical management. he did not follow with cardiology as recommended and apparently stopped taking medications. This admit his troponin was up to 1.39 and is now trending down. TTE 03/29/18: LVEF 40% with global LV systolic dysfunction with regional variati ons, mild LVDD (previous admission LVEF 45% on TTE, 35-40% on LV gram) During this admission, he had agreed to high risk PCI (LM, ostial-prox RCA) however unable to proceed due to supra-therapeutic INR. INR now 1.2. Unfortunately he was seen to have anemia and positive stool guiac over weekend. He is recommended to have GI eval prior to C. On my encounter today he is refusing endoscopy and is wanting to leave today. Staged PCI is recommended, will likely require impella support, if he agrees to GI evaluation. It is unclear if patient will agree. Continue asa, statin, plavix, BB, ACEi. Will continue to follow. If pt leaves we will schedule follow-up. (2) Anemia Current Visit: Yes Status: Chronic Acute drop in H/H since admission. HgB 11.1 upon admission, now 8.6 03/31/18 and 9.0 today. Has been on chronic anticoagulation for hx of DVT, INR supratherapeutic upon arrival. Primary service has consulted surgery for evaluation, however at the present time patient adamantly declines. He denies abnormal or unusual bleeding. Unfortunately, given acute anemia, will not be able to proceed with [facility] with staged PCI and subsequent need for DAPT until H/H stabilizes/GI evaluation has been completed. Qualifiers: Anemia type: unspecified type Qualified Code(s): D64.9 - Anemia, unspecified (3) History of DVT (deep vein thrombosis) Current Visit: No Status: Chronic On coumadin, now on hold. (4) Cardiomyopathy Current Visit: No Status: Chronic H/o chronic CHFrEF. EF 40%. Plan as above. Appears euvolemic. Continue BB, ACEi. Low sodium diet. Qualifiers: Cardiomyopathy type: ischemic Qualified Code(s): I25.5 - Ischemic cardiomyopathy Discussion w patient/family: The assessment and plan as outlined above was discussed with the patient and/or family members who expressed understanding and agreement. All questions were a nswered. Thank you for involving us in the care of your patient. Please call with any questions. Subjective Principal diagnosis: NSTEMI Interval history: Mr. Okeefe appears agitated on my exam. States he is upset because he does not want to go through colonoscopy. Objective Vital Signs, Last 4 Hours Temp Pulse Resp BP Pulse Ox 04/01/18 07:55 98.3 F 72 18 103/82 95 General: Conversant, No Apparent Distress HEENT: Atraumatic, Normocephaly, Mucus Membranes Moist Neck: No JVD, Normal carotid pulses Cardiac: Reg Rate and Rhythm Lungs: Other (respirations easy) Neuro: Alert and responsive, No focal deficits noted Abdomen: Soft, Non-Tender Skin: No rashes noted on visualized skin Extremities: No Clubbing, No Cyanosis, No Edema Results 04/01/18 04:22 04/01/18 04:22 Lab Results 04/01/18 04/01/18 04/01/18 04:22 04:22 04:22 WBC 9.2 Hgb 9.0 L Hct 26.9 L Plt Count 124 L INR 1.2 Sodium 130 L Potassium 4.0 Chloride 95 L Carbon Dioxide 28 BUN 24 H Creatinine 0.71 Glucose 77 Calcium 8.7 - Imaging and Cardiology Echo: report reviewed Cardiac cath: report reviewed - EKG Interpretation EKG results cardiology: personally reviewed Consult Discharge Plan - Plan Referrals: Jesse Linares MD [Non-Partnered Physician] - 04/03/18 [place],PCP [Primary Care Provider] -
--- NOTE | 2018-04-01 13:17 | Internal Med Progress Note ---
<AdrianCait - Last Filed: 04/01/18 13:14> Hospitalist Progress Note - Encounter Date of Encounter: 04/01/18 Time of Encounter: 13:15 - Subjective Interval History: Pt seen and examined at bedside currently in no acute distress. Discussed with patient at length why he does not want to pursue further workup of his anemia and possible GI bleed. States that he is tired of the hospital, and would like to go home and think about what decision he would like to make. States that there are risks to colonoscopy and he is unwilling to do procedure at this time. Also notes that he feels fine currently and does not see the point of doing any more tests or giving anymore blood. Declined colonoscopy and EGD this morning. Also declined any further workup from cardiology - states he knows that there are some issues with his heart, and he will pursue follow up once he gets home. Currently denies headache, blurry vision, SOB, chest pain, abdominal pain, nausea, vomiting, diarrhea. Hb = 9.2 this morning; BP = 103/82. FOBT = POSITIVE. UPDATE: After discussion with Dr. Reddy, pt agreed to NM Bleeding Scan. - Exam Vitals: Temp Pulse Resp BP Pulse Ox 98.3 F 94 18 103/82 95 04/01/18 07:55 04/01/18 12:10 04/01/18 07:55 04/01/18 12:10 04/01/18 07:55 Exam: GEN: AOx3, NAD; agitated, but willing to converse HEENT: atraumatic, normocephalic, EOMI CARDIO: RRR, no murmurs, rubs, gallups RESP: CTAB, no wheezes, rales, rhonchi ABD: soft, non-tender, non-distended NEURO: CN 2-12 intact, no focal deficits EXT: venous stasis dermatitis b/l lower extremities - Assessment and Plan (1) Anemia Current Visit: Yes Status: Chronic Assessment and Plan: Pt had hemoglobin of 11.1 on admission --> has decreaed to low of 8.6, but currently 9.2 today Baseline appears to be about 10 FOBT - positive PLAN: Pt declined colonoscopy and EGD at this time --> surgery has signed off due to patient refusal Pt initially refused NM bleeding scan, however, he is now willing F/U Hb/Hct Outpatient EGD, colonoscopy (2) Hypotension Current Visit: Yes Status: Acute Assessment and Plan: Pt was planned to be discharged 2 days ago, and it was noticed he was hypotensive - remained with systolic in 80s throughout the day; pt was held to b e monitored Pt responded to fluids - 250cc bolus, followed by 1L over 4 hrs BP today: 103/82 Hb today = 9.2 Denies lightededness, dizziness, SOB, chest pain PLAN: Currently stable Pt declines any other intervention at this time - declines Colonoscopy, EGD Surgery and Cardiology will sign off at this time - to be reconsulted as needed (3) Acute exacerbation of chronic obstructive pulmonary disease (COPD) Current Visit: Yes Status: Acute Assessment and Plan: 72 y/o M with PMHx of triple-vessel CAD (declined CABG), recent NSTEMI in jan 2018, CHF w reduced EF = 45%, DVT on coumadin, and COPD who presented to ED with SOB. SOB resolved after 1 day - but was associated with coughing and clear sputum production; Denied fevers/chills, hemoptysis, night sweats On admission - pt met sepsis criteria: WBC = 11.2, HR = 109, RR = 26 -- likely secondary to pneumonia Currently - does not met sepsis criteria: WBC = 9.2, HR = 72, RR = 18, BP = 103/82 Legionella and Strep Pneumo Ag negative PLAN: Azithromycin 500mg Day #3 Decreased prednisone to 30mg daily Cont Duoneb Blood Cx pending (4) Acute on chronic HFrEF (heart failure with reduced ejection fraction) Current Visit: Yes Status: Acute Assessment and Plan: Hx of known 3 vessel CAD - refused CABG on last admission in january TTE on this admission with LVEF = 40% CArdio recommends left heart cath Initially INR = 3.6, so cardio unable to cath with supratherapeutic INR Pt planned for Cath upon discharge with INR between 1.5-2 Pt found to be anemic, hypotensive prior to discharge Planned to cath while pt remained in hospital following colonoscopy, egd to r/o GI bleed PLAN: Pt now refused any interventions - refused colonoscopy, EGD Pt refused any cardiovascular intervention Both cardiology and surgery have signed off F/U outpatient cardiology (5) Elevated troponin Current Visit: Yes Status: Acute Assessment and Plan: Known 3 vessel CAD - declined CABG Most recent echo, LVEF = 40% INR today = 1.2 (was supratherapeutic on admission) Last troponins: 1.39 --> 1.10 (03/29) PLAN: Pt declines any intervention from cardiology at this time - states he would like to go home and think about it, and will follow up with them outpatient Cardiology has signed off due to patient not wanting any intervention Cont asa, plavix, lopressor, zestril, zocor Outpatient cardiology - left heart cath (6) Diabetes mellitus Current Visit: No Status: Chronic Assessment and Plan: Blood glucose this morning = 77 Cont low dose sliding scale (7) DVT (deep venous thrombosis) Current Visit: Yes Status: Acute Assessment and Plan: Hx of DVT on coumadin - currently holding due to low hemoglobin; Hold all anticoagulation (8) Constipation Current Visit: No Status: Chronic Assessment and Plan: Cont Colace (9) GERD (gastroesophageal reflux disease) Current Visit: No Status: Chronic Assessment and Plan: Cont Tums, Pepcid, Protonix (10) Coronary artery disease Current Visit: No Status: Chronic Assessment and Plan: Cont zestril, lopressor, zocor, aspirin Cardiac Diet F/U Outpatient cardiology for left heart cath sinct patient is refusing interventions at this time (11) Hyperlipemia Current Visit: No Status: Chronic Assessment and Plan: Cont zocor (12) Hypertension Current Visit: No Status: Chronic Assessment and Plan: Cont lopressor and zestril DVT Prophylaxis: Anticoagulation held due to presumed GI Bleed Cont SCDs - Time Spent with Patient Total time spent is greater than 50% in coordination of care (as documented) at patient's floor/unit and/or counseling patient: less than 15 minutes Plan of Care Discussed with: patient Internal Medicine: Result - Labs CBC & Chem 7: 04/01/18 04:22 04/01/18 04:22 Labs: Short CBC 04/01/18 Range/Units 04:22 WBC 9.2 (4.3-11.1) K/mcL Hgb 9.0 L (12.9-16.9) g/dL Hct 26.9 L (37.5-50.1) % Plt Count 124 L (140-400) K/mcL Neutrophils # 5.4 (1.6-8.9) K/mcL BMP 04/01/18 04:22 Sodium 130 L Potassium 4.0 Chloride 95 L Carbon Dioxide 28 BUN 24 H Creatinine 0.71 Glucose 77 Calcium 8.7 - ABG Interpretation ABG results: PT/INR, D-dimer PT 13.9 Seconds (9.4-12.1) H 04/01/18 04:22 Consult Discharge Plan - Plan Referrals: Jesse Linares MD [Non-Partnered Physician] - 04/03/18 [place],PCP [Primary Care Provider] - <James Reddy - Last Filed: 04/01/18 17:11> Hospitalist Progress Note - Encounter Date of Encounter: 04/01/18 Time of Encounter: 17:07 - Exam Vitals: Temp Pulse Resp BP Pulse Ox 97.7 F 75 20 130/70 96 04/01/18 16:32 04/01/18 16:32 04/01/18 16:32 04/01/18 16:32 04/01/18 16:32 - Assessment and Plan (1) Anemia Current Visit: Yes Status: Chronic (2) PAD (peripheral artery disease) Current Visit: No Status: Chronic (3) Diabetes mellitus Current Visit: No Status: Chronic (4) Tobacco abuse Current Visit: No Status: Chronic (5) Cardiomyopathy Current Visit: No Status: Chronic (6) Elevated troponin Current Visit: Yes Status: Acute (7) Acute exacerbation of chronic obstructive pulmonary disease (COPD) Current Visit: Yes Status: Acute (8) Acute on chronic HFrEF (heart failure with reduced ejection fraction) Current Visit: Yes Status: Acute (9) DVT (deep venous thrombosis) Current Visit: Yes Status: Acute (10) Constipation Current Visit: No Status: Chronic (11) GERD (gastroesophageal reflux disease) Current Visit: No Status: Chronic (12) Coronary artery disease Current Visit: No Status: Chronic (13) Hyperlipemia Current Visit: No Status: Chronic (14) Hypertension Current Visit: No Status: Chronic (15) DVT prophylaxis Current Visit: Yes Status: Acute (16) Hypotension Current Visit: Yes Status: Resolved (17) Sepsis Current Visit: Yes Status: Resolved - Time Spent with Patient Total time spent is greater than 50% in coordination of care (as documented) at patient's floor/unit and/or counseling patient: Internal Medicine: Result - Labs CBC & Chem 7: 04/01/18 04:22 04/01/18 04:22 Labs: Short CBC 04/01/18 Range/Units 04:22 WBC 9.2 (4.3-11.1) K/mcL Hgb 9.0 L (12.9-16.9) g/dL Hct 26.9 L (37.5-50.1) % Plt Count 124 L (140-400) K/mcL Neutrophils # 5.4 (1.6-8.9) K/mcL BMP 04/01/18 04:22 Sodium 130 L Potassium 4.0 Chloride 95 L Carbon Dioxide 28 BUN 24 H Creatinine 0.71 Glucose 77 Calcium 8.7 - ABG Interpretation ABG results: PT/INR, D-dimer PT 13.9 Seconds (9.4-12.1) H 04/01/18 04:22 - Impressions Impressions GI Bleed Scan Nuclear Medicine 04/01/18 12:24 IMPRESSION: No evidence of active GI bleeding during acquisition. RECOMMENDATIONS: If the patient shows hemodynamic signs of an active bleed in the next 20 hours, additional images can be acquired. D/ / Rodrigo Watkins MD / Rodrigo Watkins MD Interpreting Provider: Rodrigo Watkins MD - Attending Attestation I saw evaluated and examined this patient and my medical decision-making was reviewed with the Resident Physician, Yordan Ramirez. I agree with the documented findings, disposition and treatment plan as described except to any changes set forth below. We independently had [id number] contact with the patient. Evaluated patient earlier today. Patient absolutely refusing left heart catheterization at this time. He had agreed to EGD and colonoscopy yesterday but denies agreement. Today. He does not want these procedures either. He instead wants the nuclear medicine GI bleeding scan. Explained that it is probably not going to be of great value as he is not actively bleeding and EGD and colonoscopy would be better option. However he only wants GI bleeding scan instead. Even after that he does not want to undergo left heart catheterization. On exam, he is awake and alert. Walking up and down in his room with his cane. S1 and S2 are normal. Bilateral expiratory wheezing. Abdomen is soft. Nontender. No lower extremity edema. Acute COPD exacerbation: Continue O2 supplementation and bronchodilators. Taper steroids. Acute on chronic combined congestive heart failure: Restart oral Lasix. Blood pressure is better maintained right now. Continue aspirin, lisinopril, beta uziel. Elevated troponin: Concerning for non-ST elevation OK versus type II OK. 2-D echocardiogram done. EF 40% with global left ventricular systolic dysfunction. Cardiology recommends left heart catheterization. However patient is not wanting this procedure at this time. Understands risks. Deep vein thrombosis: Will resume Coumadin as GI bleeding scan did not show any active bleeding and patient's hemoglobin levels have remained stable. Acute on Chronic anemia. Patient refusing further workup. GI bleeding scan has been negative. Since his hemoglobin levels have remained stable, will resume Coumadin. Target INR of 1.52 per cardiology recommendations till he schedules for outpatient catheterization. Moderate risk for complications <Cait Campbell - Last Filed: 04/01/18 13:14> (1) Anemia Qualifiers: Anemia type: unspecified type Qualified Code(s): D64.9 - Anemia, unspecified (2) Hypotension Qualifiers: Hypotension type: unspecified hypotension type Qualified Code(s): I95.9 - Hypotension, unspecified (6) Diabetes mellitus Qualifiers: Diabetes mellitus type: type 2 Diabetes mellitus [facility] insulin use: with extermination supervisor use Diabetes mellitus complication status: with circulatory complication Diabetes mellitus complication detail: with peripheral angiopathy without gangrene Qualified Code(s): E11.51 - Type 2 diabetes mellitus with diabetic peripheral angiopathy without gangrene; Z79.4 - senior living (current) use of insulin (7) DVT (deep venous thrombosis) Qualifiers: Chronicity: unspecified Laterality: unspecified laterality Qualified Cod e(s): I82.409 - Acute embolism and thrombosis of unspecified deep veins of unspecified lower extremity (8) Constipation Qualifiers: Constipation type: unspecified constipation type Qualified Code(s): K59.00 - Constipation, unspecified (9) GERD (gastroesophageal reflux disease) Qualifiers: Esophagitis presence: esophagitis presence not specified Qualified Code(s): K21.9 - Gastro-esophageal reflux disease without esophagitis (10) Coronary artery disease Qualifiers: Coronary Disease-Associated Artery/Lesion type: [place] artery [place] vs. transplanted heart: unspecified whether [place] or transplanted heart Associated angina: angina presence unspecified Qualified Code(s): I25.10 - Atherosclerotic heart disease of [place] coronary artery without angina pectoris (11) Hyperlipemia Qualifiers: Hyperlipidemia type: unspecified Qualified Code(s): E78.5 - Hyperlipidemia, unspecified (12) Hypertension Qualifiers: Hypertension type: essential hypertension Qualified Code(s): I10 - Essential (primary) hypertension <James Reddy - Last Filed: 04/01/18 17:11> (1) Anemia Qualifiers: Anemia type: unspecified type Qualified Code(s): D64.9 - Anemia, unspecified (3) Diabetes mellitus Qualifiers: Diabetes mellitus type: type 2 Diabetes mellitus [facility] insulin use: with extermination supervisor use Diabetes mellitus complication status: with circulatory complication Diabetes mellitus complication detail: with peripheral angiopathy without gangrene Qualified Code(s): E11.51 - Type 2 diabetes mellitus with diabetic peripheral angiopathy without gangrene; Z79.4 - senior living (current) use of insulin (5) Cardiomyopathy Qualifiers: Cardiomyopathy type: ischemic Qualified Code(s): I25.5 - Ischemic cardiom yopathy (9) DVT (deep venous thrombosis) Qualifiers: Chronicity: unspecified Laterality: unspecified laterality Qualified Code(s) : I82.409 - Acute embolism and thrombosis of unspecified deep veins of unspecified lower extremity (10) Constipation Qualifiers: Constipation type: unspecified constipation type Qualified Code(s): K59.00 - Constipation, unspecified (11) GERD (gastroesophageal reflux disease) Qualifiers: Esophagitis presence: esophagitis presence not specified Qualified Code(s): K21.9 - Gastro-esophageal reflux disease without esophagitis (12) Coronary artery disease Qualifiers: Coronary Disease-Associated Artery/Lesion type: [place] artery [place] vs. transplanted heart: unspecified whether [place] or transplanted heart Associated angina: angina presence unspecified Qualified Code(s): I25.10 - Atherosclerotic heart disease of [place] coronary artery without angina pectoris (13) Hyperlipemia Qualifiers: Hyperlipidemia type: unspecified Qualified Code(s): E78.5 - Hyperlipidemia, unspecified (14) Hypertension Qualifiers: Hypertension type: essential hypertension Qualified Code(s): I10 - Essential (primary) hypertension (16) Hypotension Qualifiers: Hypotension type: orthostatic hypotension Qualified Code(s): I95.1 - Orthostatic hypotension (17) Sepsis Qualifiers: Sepsis type: sepsis due to unspecified organism Qualified Code(s): A41.9 - Sepsis, unspecified organism
[2018-04-01] MEDS: clonazePAM 0.5 MG TABLET PO PRN (17:04)
[2018-04-01] MEDS ORDERED: Warfarin perPT PO PRN (18:00)
[2018-04-01] MEDS: Gabapentin 300 MG CAPSULE PO SCH (21:53)
[2018-04-02] MEDS: *HR* Promethazine 25 MG/ML VIAL IVP PRN (01:46)
[2018-04-02 04:03] LABS: Basophils % 0.5 %; Eosinophils # 0.1 K/mcL (0.0-0.6); Eosinophils % 1.2 %; Hematocrit 27.2 % (37.5-50.1); Hemoglobin 9.2 g/dL (12.9-16.9); Immature Granulocytes % 0.4 % (0-4); Lymphocytes # 3.2 K/mcL (0.6-4.6); Lymphocytes % 37.1 %; Mean Corpuscular HGB Conc 33.8 g/dL (31.6-35.5); Mean Corpuscular Volume 82.7 fL (83.0-100.0); Mean Platelet Volume 10.6 fL (9.4-12.4); Monocytes # 0.9 K/mcL (0.0-1.3); Neutrophils # 4.3 K/mcL (1.6-8.9); Platelet Count 149 K/mcL (140-400); Red Blood Count 3.29 M/mcL (4.19-5.50); Red Cell Distribution Width 18.2 % (11.5-14.5); Segmented Neutrophils % 50.8 %
[2018-04-02 04:13] LABS: INR 1.3; Prothrombin Time 14.9 Seconds (9.4-12.1)
[2018-04-02 05:48] VITALS: BP 116/54
--- NOTE | 2018-04-02 07:23 | Discharge Summary ---
<Cait Campbell - Last Filed: 04/02/18 10:39> - NOTES TO OUTPATIENT PROVIDER Notes to Outpatient Provider: Please follow up with patient regarding colonoscopy and EGD. Also, appointment with Cardiology to discuss Left Heart Cath. Target INR 1.5 - 2 per cardiology in order to perform procedure. Plan to restart coumadin at 2.5mg PO QD. Re-check CBC, PT/INR in 2 days. Orders not resulted at time of discharge: Pending orders 03/28/18 10:46 Culture,Sputum with Gram Stain [RM] Stat 03/28/18 11:23 Culture,Blood [BC] Stat 03/28/18 13:00 EKG [ECG 12 lead ECG] [ECG] Routine 03/29/18 13:00 EKG [ECG 12 lead ECG] [ECG] Routine 03/30/18 13:13 Occult Blood,Stool [BF] Routine 04/03/18 04:00 INR/PT [Prothrombin Time INR] [COAG] AM 0400 04/04/18 04:00 INR/PT [Prothrombin Time INR] [COAG] AM 0400 04/05/18 04:00 INR/PT [Prothrombin Time INR] [COAG] AM 0400 Date of Encounter: 04/02/18 Time of Encounter: 07:21 - Discharge Diagnosis (1) Anemia Priority: Secondary Status: Chronic Qualifiers: Anemia type: unspecified type Qualified Code(s): D64.9 - Anemia, unspecified (2) Hypotension Priority: Secondary Status: Acute Qualifiers: Hypotension type: unspecified hypotension type Qualified Code(s): I95.9 - Hypotension, unspecified (3) Acute exacerbation of chronic obstructive pulmonary disease (COPD) Priority: Primary Status: Acute (4) Acute on chronic HFrEF (heart failure with reduced ejection fraction) Priority: Secondary Status: Acute (5) Elevated troponin Priority: Primary Status: Acute (6) Diabetes mellitus Priority: Secondary Status: Chronic Qualifiers: Diabetes mellitus type: type 2 Diabetes mellitus usp insulin use: with terminal carman use Diabetes mellitus complication status: with circulatory complication Diabetes mellitus complication detail: with peripheral angiopathy without gangrene Qualified Code(s): E11.51 - Type 2 diabetes mellitus with diabetic peripheral angiopathy without gangrene; Z79.4 - prison (current) use of insulin (7) DVT (deep venous thrombosis) Priority: Secondary Status: Acute Qualifiers: Chronicity: unspecified Laterality: unspecified laterality Qualified Code(s): I82.409 - Acute embolism and thrombosis of unspecified deep veins of unspecified lower extremity (8) Constipation Priority: Secondary Status: Chronic Qualifiers: Constipation type: unspecified constipation type Qualified Code(s): K59.00 - Constipation, unspecified (9) GERD (gastroesophageal reflux disease) Priority: Secondary Status: Chronic Qualifiers: Esophagitis presence: esophagitis presence not specified Qualified Code(s): K21.9 - Gastro-esophageal reflux disease without esophagitis (10) Coronary artery disease Priority: Secondary Status: Chronic Qualifiers: Coronary Disease-Associated Artery/Lesion type: [place] artery [place] vs. transplanted heart: unspecified whether [place] or transplanted heart Associated angina: angina presence unspecified Qualified Code(s): I25.10 - Atherosclerotic heart disease of [place] coronary artery without angina pectoris (11) Hyperlipemia Priority: Secondary Status: Chronic Qualifiers: Hyperlipidemia type: unspecified Qualified Code(s): E78.5 - Hyperlipidemia, unspecified (12) Hypertension Priority: Secondary Status: Chronic Qualifiers: Hypertension type: essential hypertension Qualified Code(s): I10 - Essenti al (primary) hypertension Hospital course: Mr. Okeefe is a 72 year old male with PMHx triple-vessel CAD (declined CABG), recent NSTEMI in jan 2018, heart failure with reduced EF (LVEF = 45% in 01/2018), DVTs on coumadin, and COPD. Pt presented to ED with Shortness of Breath. Per pt, woke up with SOB and anxiety associated with productive cough with white/clear sputum. Denied blood in sputum, fevers/chills/night sweats. Pt has hx of COPD not on home oxygen, but reports he has stopped smoking recently. CXR showed pulm edema with trace pleural effusions. Pt was started on Solumedrol, Levaquin, Duonebs. On admission, pt had white count = 11.2, HR = 109, RR = 26 - met sepsis criteria. Legionella and strep pneumo antigens were negative. Pt also found to have troponins elevated to 0.25, though EKG did not show any ST changes and no significant changes from previous EKG. Cardiology was consulted and found to have supratherapeutic INR - coumadin was held. During hospital course, troponins were trended and progressively gala to peak of 1.39 before turning downward. Repeat echo showed LVEF = 40% (down from previous echo 1 month ago with LVEF = 45%), and mildly dilated LV. Per cardiology, recommended left heart cath. However, during inpatient stay, INR was supratherapeutic to 3.6. Instead, cardiology signed off and recommended outpatient follow-up once INR therapeutic in 1.5 - 2.0 range. Pt was planned to be discharged home with resolving respiratory symptoms. However, prior to discharge, pt was noted to have low BPs with systolic pressu res in the 80s. Orthostatics were positive. Hb had dropped from 11 --> 9. Pt denied lightheadedness, dizziness, palpitations, or SOB. Pt responded to gentle hydration. However, pt continued to have low BPs. Cardiology was reconsulted and recommended left heart cath while patients remained in hospital and INR decreased to therapeutic range. However, due to anemia, pt was recommended to have colonoscopy and egd to rule out GI Bleed. Pt refused all testing, diagnostic exams, and recommendations stating that he feels fine, and wants to go home. Eventually agreed to NM Bleeding Scan which s howed no acute bleed. Recommend left heart cath, colonoscopy, egd, but patient has refused and states he wants to go home and think about it. Cardiology and GI signed off. Plan to discharge pt home today. Vital signs currently stable. Discharge discussed with: patient Time spent discussing smoking cessation with patient: 3 to 10 minutes - Time Spent with Patient Total time spent providing and/or coordinating discharge services: Less than 30 minutes - Discharge Medications Prescriptions: Omeprazole [PriLOSEC] 20 mg PO DAILY@0730 30 Days #30 capsule.dr Begum Medications: Albuterol Sulfate [Ventolin Hfa] 2 puff IH QID PRN 01/31/18 [History] Brimonidine 0.2% [Alphagan] 1 drop BOTH EYES BID 01/31/18 [History] Calcium Carbonate/Vitamin D3 [Calcium 500-Vit D3 200 Tablet] 2 tab PO DAILY 01/31/18 [History] Gabapentin [Neurontin] 300 mg PO HS 01/31/18 [History] Insulin NPH Human Isophane [Novolin N] 15 unit SQ QPM 01/31/18 [History] Insulin NPH Human Isophane [Novolin N] 20 unit SQ QAM 01/31/18 [History] Ipratropium/Albuterol Neb [Duoneb] 3 ml IH TID PRN 01/31/18 [History] Metformin HCl 1,000 mg PO BID 01/31/18 [History] Methadone 20 mg PO Q8HR 01/31/18 [History] Promethazine [Phenergan] 25 mg PO BID PRN 01/31/18 [History] Ranitidine HCl [Acid Bridge Tender] 150 mg PO BID 01/31/18 [History] Simvastatin [Zocor] 20 mg PO HS 01/31/18 [History] Vit C/E/Zn/Coppr/Lutein/Zeaxan [Preservision Areds 2 Softgel] 1 cap PO DAILY 01/31/18 [History] hydrOXYzine HCl [Hydroxyzine HCl] 50 mg PO BID 01/31/18 [History] Aspirin Enteric Coated [Aspirin EC] 81 mg PO DAILY #30 tablet. 02/05/18 [Rx] Lisinopril [Zestril] 5 mg PO DAILY #30 tablet 02/05/18 [Rx] Docusate [Colace] 200 mg PO DAILY PRN 03/28/18 [History] Multivitamin [One Daily Multivitamin] 1 tab PO DAILY 03/28/18 [History] Vit A/Vit C/Vit E/Zinc/Copper [Icaps Areds Softgel] 1 cap PO BID 03/28/18 [History] Azithromycin [Zithromax] 500 mg PO DAILY 4 Days #8 tablet 03/30/18 [Rx] Clopidogrel [Plavix] 75 mg PO DAILY 30 Days #30 tablet 03/30/18 [Rx] Metoprolol [Lopressor] 12.5 mg PO BID 30 Days #30 tablet 03/30/18 [Rx] Warfarin [Coumadin] 2.5 mg PO 1800 30 Days #30 tablet 03/30/18 [Rx] predniSONE [PredniSONE] 40 mg PO DAILY 10 Days #11 tablet 03/30/18 [Rx] Omeprazole [PriLOSEC] 20 mg PO DAILY@0730 30 Days #30 capsule. 04/02/18 [Rx] Allergies/Adverse Reactions: Allergy/AdvReac Type Severity Reaction Status Date / Time No Known Allergies Allergy Verified 03/28/18 12:50 Date of admission: 03/30/18 17:36 [facility] physician: [facility] Consults: 03/28/18 08:12 Consult to Cardiology [CONS] Stat Comment: Consulting Provider: Cardiology [facility] Reason for Consult: elevated trop, hx CHF, COPD, previous CO; no acute ST changes; spoke with Vijay Call Completed: Yes 03/28/18 10:46 Consult to Case Management [CONS] Routine Comment: Consult to Nutrition [CONS] Routine Comment: Consulting Provider: NUTRITION Reason for Dietary Consult: PO Supplementation 03/30/18 15:11 Consult to Cardiology [CONS] Routine Comment: Consulting Provider: Cardiology [facility] Reason for Consult: [facility] inpt, per primary team Call Completed: Yes 03/31/18 07:38 Consult to Surgery [CONS] Routine Consulting Provider: [facility] Reason for Consult: low hemoglobin, r/o GIB Call Completed: No Discharging clinician: Cait Campbell Anticipated date of discharge: 04/02/18 - Constitutional Vitals: Temp Pulse Resp BP Pulse Ox 97.5 F L 65 15 116/54 95 04/02/18 05:40 04/02/18 05:40 04/02/18 05:40 04/02/18 05:40 04/02/18 05:40 General appearance: Present: cooperative, A&O X 3, answers questions appropriately Exam: GEN: AOx3, NAD HEENT: Atraumatic, normocephalic, eomi CARDIO: RRR, no murmurs, rubs, gallups RESP: CTAB, no wheezes, rales, rhonchi ABD: Soft, non-tender, non-distended NEURO: AOx3, CN 2-12 intact; no focal deficits - Patient Status Disposition: Home, Self-Care Condition: Fair Overall status at discharge: patient is progressing back to baseline - Ambulatory Orders Ambulatory Orders: Complete Blood Count [HEME] Time Frame: 2 Days, Facility: [facility], Location: Lab Prothrombin Time INR [COAG] Time Frame: 2 Days, Facility: [facility], Location: Lab - Discharge Instructions Instructions: Warfarin (By mouth), Omeprazole (By mouth), Complete Blood Count (GEN) Follow Up With: Jesse Linares MD [Non-Partnered Physician] - 04/03/18 [place],PCP [Primary Care Provider] - 04/09/18 12:30 pm Additional Instructions: Please follow up with PCP within the next 2-3 days, and follow up with cardiology within the next week. Additionally, follow up with [facility] to monitor INR while on coumadin. Per cardiology recommendation for left heart catch, titrate coumadin to 1.5 - 2.0. - Diet and Activity Activity: resume usual activities as tolerated Diet: advance to your usual diet <Koby Meyer - Last Filed: 04/02/18 14:11> Orders not resulted at time of discharge: Pending orders 03/28/18 10:46 Culture,Sputum with Gram Stain [RM] Stat 03/30/18 13:13 Occult Blood,Stool [BF] Routine 04/03/18 04:00 INR/PT [Prothrombin Time INR] [COAG] AM 0400 04/04/18 04:00 INR/PT [Prothrombin Time INR] [COAG] AM 0400 04/05/18 04:00 INR/PT [Prothrombin Time INR] [COAG] AM 0400 Date of Encounter: 04/02/18 - Discharge Diagnosis (1) Anemia Status: Chronic Qualifiers: Anemia type: unspecified type Qualified Code(s): D64.9 - Anemia, unspecified (2) PAD (peripheral artery disease) Status: Chronic (3) Diabetes mellitus Status: Chronic Qualifiers: Diabetes mellitus type: type 2 Diabetes mellitus usp insulin use: wit h usp use Diabetes mellitus complication status: with circulatory complication Diabetes mellitus complication detail: with peripheral angiopathy without gangrene Qualified Code(s): E11.51 - Type 2 diabetes mellitus with diabetic peripheral angiopathy without gangrene; Z79.4 - intermediate manager (current) use of insulin (4) Tobacco abuse Status: Chronic (5) Cardiomyopathy Status: Chronic Qualifiers: Cardiomyopathy type: ischemic Qualified Code(s): I25.5 - Ischemic cardiomyopathy (6) Elevated troponin Status: Acute (7) Acute exacerbation of chronic obstructive pulmonary disease (COPD) Status: Acute (8) Acute on chronic HFrEF (heart failure with reduced ejection fraction) Status: Acute (9) DVT (deep venous thrombosis) Status: Acute Qualifiers: Chronicity: unspecified Laterality: unspecified laterality Qualified Code(s): I82.409 - Acute embolism and thrombosis of unspecified deep veins of unspecified lower extremity (10) Constipation Status: Chronic Qualifiers: Constipation type: unspecified constipation type Qualified Code(s): K59.00 - Constipation, unspecified (11) GERD (gastroesophageal reflux disease) Status: Chronic Qualifiers: Esophagitis presence: esophagitis presence not specified Qualified Code(s): K21.9 - Gastro-esophageal reflux disease without esophagitis (12) Coronary artery disease Status: Chronic Qualifiers: Coronary Disease-Associated Artery/Lesion type: [place] artery [place] vs. transplanted heart: unspecified whether [place] or transplanted heart Associated angina: angina presence unspecified Qualified Code(s): I25.10 - Atherosclerotic heart disease of [place] coronary artery without angina pectoris (13) Hyperlipemia Status: Chronic Qualifiers: Hyperlipidemia type: unspecified Qualified Code(s): E78.5 - Hyperlipidemia, unspecified (14) Hypertension Status: Chronic Qualifiers: Hypertension type: essential hypertension Qualified Code(s): I10 - Essential (primary) hypertension (15) DVT prophylaxis Status: Acute (16) Hypotension Status: Resolved Qualifiers: Hypotension type: orthostatic hypotension Qualified Code(s): I95.1 - Orthostatic hypotension (17) Sepsis Status: Resolved Qualifiers: Sepsis type: sepsis due to unspecified organism Qualified Code(s): A41.9 - Sepsis, unspecified organism Hospital course: Mr. Okeefe is a 72 year old male - Time Spent with Patient Total time spent providing and/or coordinating discharge services: Date of admission: 03/30/18 17:36 [facility] physician[facility] Consults: 03/28/18 08:12 Consult to Cardiology [CONS] Stat Comment: Consulting Provider: Alejandro Godwin Reason for Consult: elevated trop, hx CHF, COPD, previous CO; no acute ST changes; spoke with Vijay Call Completed: Yes 03/28/18 10:46 Consult to Case Management [CONS] Routine Comment: Consult to Nutrition [CONS] Routine Comment: Consulting Provider: NUTRITION Reason for Dietary Consult: PO Supplementation 03/30/18 15:11 Consult to Cardiology [CONS] Routine Comment: Consulting Provider: Alejandro Godwin Reason for Consult: [facility] inpt, per primary team Call Completed: Yes 03/31/18 07:38 Consult to Surgery [CONS] Routine Consulting Provider: [facility] Reason for Consult: low hemoglobin, r/o GIB Call Completed: No - Constitutional Vitals: Temp Pulse Resp BP Pulse Ox 97.5 F L 65 15 116/54 95 04/02/18 05:40 04/02/18 05:40 04/02/18 05:40 04/02/18 05:40 04/02/18 08:48 - Attending Attestation I saw and assessed this patient and agree with discharge summary as above. Patient was counseled to follow up outpatient with GI and cardiology GEN: AOx3, NAD HEENT: Atraumatic, normocephalic, eomi CARDIO: RRR, no murmurs, rubs, gallups RESP: CTAB, no wheezes, rales, rhonchi ABD: Soft, non-tender, non-distended NEURO: AOx3, CN 2-12 intact; no focal deficits
[2018-04-02] MEDS: Cholecalciferol (D-3) 1,000 UNIT TABLET PO SCH (08:41)
[2018-04-02] MEDS: hydrOXYzine pamoate 25 MG CAPSULE PO SCH (08:41)
[2018-04-02] MEDS: Azithromycin 250 MG TABLET PO SCH (08:42)
[2018-04-02] MEDS: predniSONE 10 MG TABLET PO SCH (08:42)
[2018-04-02] MEDS: *HR* Methadone 10 MG TABLET PO SCH (08:42)
[2018-04-02] MEDS: Magnesium Oxide 400 MG TABLET PO SCH (08:42)
[2018-04-02] MEDS: Aspirin Enteric Coated 81 MG Tablet PO SCH (08:42)
[2018-04-02] MEDS: Insulin LISPRO 300 UNITS/3 ML VIAL SQ SCH ×2 (08:43→12:53)
[2018-04-02] MEDS ORDERED: Furosemide 20 MG TABLET PO SCH (09:00)
[2018-04-02] MEDS ORDERED: *HR* Warfarin 5 MG TABLET PO ONE (18:00)
== END 2018-04-02 15:18 | disposition home or self-care (01) | DRG 871 ==
LOC: 2NENU 06:19 → EMEROOARM 06:19 → SUATTDRO 08:43 → 2NENU 08:50
PROVIDERS: ADMIT Internal Medicine; ATTEND Internal Medicine

== ENCOUNTER 2018-05-03 07:52 | Inpatient (IN) ==
--- NOTE | 2018-05-03 08:09 | Emergency Department Note ---
Disposition Clinical Impression: Multiple falls, Elevated troponin, Physical deconditioning Disposition: Admitted As Inpatient Condition: Fair [facility] Provider[facility] - Forms: ED Satisfaction Letter Fall HPI - General Chief Complaint: ED Fall Stated Complaint: Multiple Falls in night Time Seen by Provider: 05/03/18 07:53 Source: patient, EMS Mode of arrival: EMS Limitations: no limitations Nursing Notes Reviewed: Yes Vital Signs Reviewed: Yes - History of Present Illness HPI Narrative: 72-year-old male history of recent anemia, CAD with 4 stents placed 2 days ago at [facility] who presents to the ER via EMS with a complaint of multiple falls. States that he has fallen 3 times since yesterday. He just got out of the hospital there. He denies any loss of consciousness with his falls. He does not feel weak. States that he just falls. He ambulates with a cane at baseline. On the third fall he states he hit his head. States that he actually took an extra Plavix which looked like his atorvastatin. He denies any prodromal symptoms. No chest pain or shortness of breath. States his last fall was roughly 6 months ago. No symptoms that previously resulted in him being admitted a few weeks ago here. Pt Subjective Complaint: fall Onset (ago): hour(s) Fall From: standing Fall Witnessed: no Place Fall Occurred: home Loss of Consciousness: none Prolonged Down Time?: no Symptoms Prior to Fall: none Context: unknown Location of injury: head, back Associated symptoms (after fall): Reports: headache. Denies: neck pain, weakness, chest pain, shortness of breath, abdominal pain, unable to walk, lightheaded - Related Data Home Medications Medication Instructions Recorded Confirmed Albuterol Sulfate [Ventolin Hfa] 2 puff IH QID PRN 01/31/18 04/19/18 Calcium Carbonate/Vitamin D3 2 tab PO DAILY 01/31/18 04/19/18 [Calcium 500-Vit D3 200 Tablet] Gabapentin [Neurontin] 300 mg PO HS 01/31/18 04/19/18 Insulin NPH Human Isophane 15 unit SQ QPM 01/31/18 04/19/18 [Novolin N] Insulin NPH Human Isophane 20 unit SQ QAM 01/31/18 04/19/18 [Novolin N] Ipratropium/Albuterol Neb [Duoneb] 3 ml IH TID PRN 01/31/18 04/19/18 Metformin HCl 1,000 mg PO BID 01/31/18 04/19/18 Methadone 20 mg PO Q8HR 01/31/18 04/19/18 Ranitidine HCl [Acid Figure Skater] 150 mg PO BID 01/31/18 04/19/18 Simvastatin [Zocor] 20 mg PO HS 01/31/18 03/28/18 Vit C/E/Zn/Coppr/Lutein/Zeaxan 1 cap PO BID 01/31/18 04/19/18 [Preservision Areds 2 Softgel] hydrOXYzine HCl [Hydroxyzine HCl] 50 mg PO BID 01/31/18 03/28/18 Multivitamin [One Daily 1 tab PO DAILY 03/28/18 04/19/18 Multivitamin] Warfarin [Coumadin] 5 mg PO 1800 04/19/18 04/19/18 Previous Rx's Medication Instructions Recorded Aspirin Enteric Coated [Aspirin EC] 81 mg PO DAILY #30 tablet. 02/05/18 Lisinopril [Zestril] 5 mg PO DAILY #30 tablet 02/05/18 Allergies Allergy/AdvReac Type Severity Reaction Status Date / Time No Known Allergies Allergy Verified 03/28/18 12:50 All systems ED: reviewed and negative except as stated. Constitutional: Denies: fever Cardiovascular: Denies: chest pain Respiratory: Denies: dyspnea Gastrointestinal: Denies: abdominal pain, nausea, vomiting Musculoskeletal: Reports: back pain. Denies: neck pain Neurological: Reports: headache. Denies: weakness, numbness, paresthesias, vertigo Fall PMH - Past Medical History Medical history: Reports: cardiomyopathy, CHF, COPD, coronary artery disease, di abetes, hyperlipidemia, hypertension, peripheral artery disease Surgical history: Reports: carotid endarterectomy, LE Bypass, LE stent(s), tonsilectomy Psychiatric history: Reports: no psych history - Social History Smoking Status: Former smoker Alcohol use: Reports: none Drug use: Reports: none Physical Exam - General Limitations: no limitations General appearance: alert, in no apparent distress - Head Head exam: atraumatic, normocephalic, normal inspection - Eye Eye exam: Present: normal appearance - ENT ENT exam: normal exam - Neck Neck exam: Present: normal inspection, full ROM. Absent: tenderness - Chest Chest inspection: Present: normal inspection, symmetric chest wall rise. Absent: tenderness - Respiratory Respiratory exam: Present: normal lung sounds bilaterally - Cardiovascular Cardiovascular exam: Present: regular rate, normal rhythm, normal heart sounds - Abdominal Exam Abdominal exam: Present: soft, Non-Tender. Absent: tenderness, distention, guarding, rigidity - Extremities Exam Extremities exam: Present: normal inspection, full ROM - Expanded Upper Extremity Exam Shoulder exam: Present: normal inspection, full ROM Arm exam: Present: normal inspection, full ROM, ecchymosis (Numerous ecchymoses to the bilateral upper extremities which he reports was a result of being in the hospital not his falls.) Elbow exam: Present: normal inspection, full ROM Forearm/Wrist exam: Present: normal inspection, full ROM Hand exam: Present: normal inspection, full ROM Vascular exam: Normal: capillary refill, radial pulse - Expanded Lower Extremity Exam Hip/Pelvis exam: Present: normal inspection, full ROM Upper leg exam: Present: normal inspection, full ROM Knee exam: Present: normal inspection, full ROM Lower leg exam: Present: normal inspection, full ROM Ankle exam: Present: normal inspection, full ROM Foot/toe exam: Present: normal inspection, full ROM Neurovascular/Tendon exam: Absent: motor deficit, sensory deficit - Back Exam Back exam: Present: normal inspection, vertebral tenderness (Patient has midline lumbar tenderness) - Neurological Exam Neurological exam: Present: alert, other (GCS 15, no focal deficits, moves all extremities equally, follows commands.) - Skin Skin exam: Present: warm, dry Course Course Narrative: Patient seen and examined. Vital signs reviewed. He was able to ambulate here and felt okay on his feet. I reviewed his recent admission at which point he had an elevated troponin and was recommended to have a left heart catheterization. He had GI consultation for anemia and was found to have a Kim-Aldrich tear versus esophagitis. The patient then requested transfer to [facility] for second opinion. He has no symptoms currently that he was experiencing prior to his heart catheterization. Plan for CT imaging of his head, neck and lumbar spine as well as labs and urinalysis. The patient will likely require readmission. He does report being on no medications including carvedilol which she brought today. Potentially adverse reaction to his new medications. - Reevaluation(s) Reevaluation #1: Patient hypotensive on recheck. Plan to give liter of IV fluids. Possibly secondary to his recent carvedilol use. Vital Signs Temperature 97.9 F 05/03/18 07:53 Pulse Rate 86 05/03/18 07:53 Respiratory Rate 16 05/03/18 07:53 Blood Pressure 118/63 05/03/18 07:53 O2 Sat by Pulse Oximetry 99 05/03/18 07:53 Temperature 97.9 F 05/03/18 07:53 Pulse Rate 80 05/03/18 10:23 Respiratory Rate 16 05/03/18 10:23 Blood Pressure 129/55 05/03/18 10:23 O2 Sat by Pulse Oximetry 100 05/03/18 10:23 Oxygen Delivery Oxygen Delivery Room Air Fall - MDM Narrative Medical decision making narrative: 72-year-old male presenting with multiple falls. Recent left heart catheterization with 4 stents placed. He is well-appearing here. He was only able to briefly ambulate here with moderate difficulty. I suspect he has a decent amount of deconditioning from his recent hospitalization. Labs reviewed with no elevated troponin which in the setting could be ADMITTED to his recent cardiac intervention. The patient is admitted to the hospitalist service for elevated troponin as well as deconditioning and falls. - Lab Data Lab results reviewed: Yes I reviewed the patient's lab results. Result diagrams: 05/03/18 08:17 05/03/18 08:17 Lab Results 05/03/18 05/03/18 05/03/18 Range/Units 08:08 08:17 08:17 WBC 7.9 (4.3-11.1) K/mcL RBC 3.05 L (4.19-5.50) M/mcL Hgb 8.5 L (12.9-16.9) g/dL Hct 25.2 L (37.5-50.1) % MCV 82.6 L (83.0-100.0) fL MCH 27.9 L (28.0-33.3) pg MCHC 33.7 (31.6-35.5) g/dL RDW 20.5 H (11.5-14.5) % Plt Count 146 (140-400) K/mcL MPV 10.5 (9.4-12.4) fL Immature Gran % 0.4 (0-4) % Seg Neutrophils % 72.9 % Lymphocytes % 14.2 % Monocytes % 10.4 % Eosinophils % 1.8 % Basophils % 0.3 % Neutrophils # 5.8 (1.6-8.9) K/mcL Lymphocytes # 1.1 (0.6-4.6) K/mcL Monocytes # 0.8 (0.0-1.3) K/mcL Eosinophils # 0.1 (0.0-0.6) K/mcL Basophils # 0.0 (0.0-0.2) K/mcL PT 14.8 H (9.4-12.1) Seconds INR 1.3 Sodium (136-145) mEq/L Potassium (3.5-5.1) mEq/L Chloride (98-107) mEq/L Carbon Dioxide (23-29) mEq/L BUN (8-23) mg/dL Creatinine (0.70-1.30) mg/dL Est GFR ( Amer) (> 60) Est GFR (Non-Af Amer) (> 60) BUN/Creatinine Ratio (6-26) Glucose (70-105) mg/dL Calculated Osmolality (280-300) Calcium (8.6-10.3) mg/dL Troponin I (< 0.04) ng/mL Urine Color Yellow (Yellow) Urine Clarity Clear (Clear) Urine pH 6.5 (5.0-8.0) pH Units Ur Specific [place] 1.012 (1.010-1.025) Urine Protein 30 H (Neg-Trace) mg/dL Urine Glucose (UA) Normal (Normal) mg/dL Urine Ketones Negative (Negative) mg/dL Urine Blood Negative (Negative) Urine Nitrite Negative (Negative) Urine Bilirubin Negative (Negative) Urine Urobilinogen Normal (Normal) mg/dL Ur Leukocyte Esterase Negative (Negative) Urine Microscopic RBC 0-3 (0-3) per hpf Urine Microscopic WBC 0-3 (0-3) per hpf Ur Squamous Epith Cells Few (None-Few) per lpf Urine Bacteria None Seen (None-Few) per hpf Hyaline Casts None Seen (None-Few) per lpf Urine Sperm Present Ur Culture Indicated? NO (NO) 05/03/18 Range/Units 08:17 WBC (4.3-11.1) K/mcL RBC (4.19-5.50) M/mcL Hgb (12.9-16.9) g/dL Hct (37.5-50.1) % MCV (83.0-100.0) fL MCH (28.0-33.3) pg MCHC (31.6-35.5) g/dL RDW (11.5-14.5) % Plt Count (140-400) K/mcL MPV (9.4-12.4) fL Immature Gran % (0-4) % Seg Neutrophils % % Lymphocytes % % Monocytes % % Eosinophils % % Basophils % % Neutrophils # (1.6-8.9) K/mcL Lymphocytes # (0.6-4.6) K/mcL Monocytes # (0.0-1.3) K/mcL Eosinophils # (0.0-0.6) K/mcL Basophils # (0.0-0.2) K/mcL PT (9.4-12.1) Seconds INR Sodium 129 L (136-145) mEq/L Potassium 4.3 (3.5-5.1) mEq/L Chloride 93 L (98-107) mEq/L Carbon Dioxide 25 (23-29) mEq/L BUN 33 H (8-23) mg/dL Creatinine 0.99 (0.70-1.30) mg/dL Est GFR ( Amer) > 60 (> 60) Est GFR (Non-Af Amer) > 60 (> 60) BUN/Creatinine Ratio 33 H (6-26) Glucose 105 (70-105) mg/dL Calculated Osmolality 276 L (280-300) Calcium 9.6 (8.6-10.3) mg/dL Troponin I 0.25 H* (< 0.04) ng/mL Urine Color (Yellow) Urine Clarity (Clear) Urine pH (5.0-8.0) pH Units Ur Specific [place] (1.010-1.025) Urine Protein (Neg-Trace) mg/dL Urine Glucose (UA) (Normal) mg/dL Urine Ketones (Negative) mg/dL Urine Blood (Negative) Urine Nitrite (Negative) Urine Bilirubin (Negative) Urine Urobilinogen (Normal) mg/dL Ur Leukocyte Esterase (Negative) Urine Microscopic RBC (0-3) per hpf Urine Microscopic WBC (0-3) per hpf Ur Squamous Epith Cells (None-Few) per lpf Urine Bacteria (None-Few) per hpf Hyaline Casts (None-Few) per lpf Urine Sperm Ur Culture Indicated? (NO) - Radiology Data Radiology results reviewed: Yes I reviewed the patient's radiology results. Cervical Spine CT 05/03/18 08:00 IMPRESSION: No acute abnormality of the cervical spine. D/ / Pancho Garland MD / Pancho Garland MD Interpreting Provider: Pancho Garland MD Chest X-Ray 05/03/18 08:00 IMPRESSION: No evidence of acute cardiopulmonary disease. D/ / Rodrigo Larios MD / Rodrigo Larios MD Interpreting Provider: Rodrigo Larios MD Head CT 05/03/18 08:00 IMPRESSION: 1. No acute intracranial abnormality. 2. Moderate chronic small vessel ischemic changes. D/ / Pancho Garland MD / Pancho Garland MD Interpreting Provider: Pancho Garland MD Lumbar Spine CT 05/03/18 08:00 IMPRESSION: 1. No acute abnormality of the lumbar spine. 2. Severe atherosclerosis. D/ / Pancho Garland MD / Pancho Garland MD Interpreting Provider: Pancho Garland MD - EKG Data EKG attestation: Yes I reviewed and interpreted this EKG. EKG results narrative: EKG demonstrates sinus rhythm with PVCs with rate of 85 bpm. Normal axis. Normal intervals. Normal R-wave progression. No gross ST elevations or depressions. No acute ischemic findings. No significant changes from previous EKG dated 04/19/18. S.B.A.R. - S.IvánA.R. Situation: Demographics, MOA Background: Presenting Complaint, Relevant PMH, Meds, & Allergies Assessment: Course and respsone to treatment, Exam Concerns, Patient/Family Expectation, Pertinant Lab Results Recommendation: Barrier(s) to disposition, Recommendation based on pending studies, treatments, or consults Dayanna Report Given to: Dr. Kong Alan Repor Time: 10:05
[2018-05-03 08:23] LABS: Bilirubin,Urine Negative (Negative); Blood,Urine Negative (Negative); Clarity,Urine Clear (Clear); Color,Urine Yellow (Yellow); Glucose,Urine (UA) Normal (Normal); Ketones,Urine Negative (Negative); Leukocyte Esterase,Urine Negative (Negative); Nitrite,Urine Negative (Negative); PH,Urine 6.5 pH Units (5.0-8.0); Protein,Urine 30 mg/dL (Neg-Trace); Specific Gravity,Urine 1.012 (1.010-1.025); Urobilinogen,Urine Normal (Normal)
[2018-05-03 08:26] LABS: Basophils % 0.3 %; Eosinophils # 0.1 K/mcL (0.0-0.6); Eosinophils % 1.8 %; Hematocrit 25.2 % (37.5-50.1); Hemoglobin 8.5 g/dL (12.9-16.9); Immature Granulocytes % 0.4 % (0-4); Lymphocytes # 1.1 K/mcL (0.6-4.6); Lymphocytes % 14.2 %; Mean Corpuscular HGB Conc 33.7 g/dL (31.6-35.5); Mean Corpuscular Hemoglobin 27.9 pg (28.0-33.3); Mean Corpuscular Volume 82.6 fL (83.0-100.0); Mean Platelet Volume 10.5 fL (9.4-12.4); Monocytes # 0.8 K/mcL (0.0-1.3); Monocytes % 10.4 %; Neutrophils # 5.8 K/mcL (1.6-8.9); Platelet Count 146 K/mcL (140-400); Red Blood Count 3.05 M/mcL (4.19-5.50); Red Cell Distribution Width 20.5 % (11.5-14.5); Segmented Neutrophils % 72.9 %
[2018-05-03 08:32] LABS: Bacteria,Urine None Seen per hpf (None-Few); Hyaline Casts,Urine None Seen per lpf (None-Few); RBC,Urine 0-3 per hpf (0-3); Squamous Epithelial Cell,Urine Few per lpf (None-Few); WBC,Urine 0-3 per hpf (0-3)
[2018-05-03 08:34] LABS: INR 1.3; Prothrombin Time 14.8 Seconds (9.4-12.1)
[2018-05-03 08:42] LABS: Sperm,Urine Present
[2018-05-03 08:48] LABS: BUN/Creatinine Ratio 33 (6-26); Blood Urea Nitrogen 33 mg/dL (8-23); Calcium 9.6 mg/dL (8.6-10.3); Carbon Dioxide 25 mEq/L (23-29); Chloride 93 mEq/L (98-107); Glucose 105 mg/dL (70-105); Osmolality,Calculated 276 (280-300); Potassium 4.3 mEq/L (3.5-5.1); Sodium 129 mEq/L (136-145); eGFR For Non-African Americans > 60 (> 60)
[2018-05-03 08:51] LABS: Troponin I 0.25 ng/mL (< 0.04)
[2018-05-03] MEDS ORDERED: 0.9 % Sodium Chloride 1,000 ML IVC ONE (10:01)
--- NOTE | 2018-05-03 10:07 | Emergency Department Note ---
Disposition Clinical Impression: Multiple falls Disposition: Admitted As Inpatient [facility] Care Provider[facility] - Forms: ED Satisfaction Letter General Adult HPI - General Chief complaint: ED Fall Stated complaint: Multiple Falls in night Time Seen by Provider: 05/03/18 07:53 Source: patient, EMS Mode of arrival: EMS Limitations: no limitations - History of Present Illness Pain Scale: 8 - Related Data Home Medications Medication Instructions Recorded Confirmed Albuterol Sulfate [Ventolin Hfa] 2 puff IH QID PRN 01/31/18 04/19/18 Calcium Carbonate/Vitamin D3 2 tab PO DAILY 01/31/18 04/19/18 [Calcium 500-Vit D3 200 Tablet] Gabapentin [Neurontin] 300 mg PO HS 01/31/18 04/19/18 Insulin NPH Human Isophane 15 unit SQ QPM 01/31/18 04/19/18 [Novolin N] Insulin NPH Human Isophane 20 unit SQ QAM 01/31/18 04/19/18 [Novolin N] Ipratropium/Albuterol Neb [Duoneb] 3 ml IH TID PRN 01/31/18 04/19/18 Metformin HCl 1,000 mg PO BID 01/31/18 04/19/18 Methadone 20 mg PO Q8HR 01/31/18 04/19/18 Ranitidine HCl [Acid Veterinary Medicine Scientist] 150 mg PO BID 01/31/18 04/19/18 Simvastatin [Zocor] 20 mg PO HS 01/31/18 03/28/18 Vit C/E/Zn/Coppr/Lutein/Zeaxan 1 cap PO BID 01/31/18 04/19/18 [Preservision Areds 2 Softgel] hydrOXYzine HCl [Hydroxyzine HCl] 50 mg PO BID 01/31/18 03/28/18 Multivitamin [One Daily 1 tab PO DAILY 03/28/18 04/19/18 Multivitamin] Warfarin [Coumadin] 5 mg PO 1800 04/19/18 04/19/18 Previous Rx's Medication Instructions Recorded Aspirin Enteric Coated [Aspirin EC] 81 mg PO DAILY #30 tablet. 02/05/18 Lisinopril [Zestril] 5 mg PO DAILY #30 tablet 02/05/18 Allergies Allergy/AdvReac Type Severity Reaction Status Date / Time No Known Allergies Allergy Verified 03/28/18 12:50 Constitutional: Denies: fever Cardiovascular: Denies: chest pain Respiratory: Denies: dyspnea Gastrointestinal: Denies: abdominal pain, nausea, vomiting Musculoskeletal: Reports: back pain. Denies: neck pain Neurological: Reports: headache. Denies: weakness, numbness, paresthesias, vertigo Past Medical History - Past Medical History Medical history: Reports: cardiomyopathy, CHF, COPD, coronary artery disease, diabetes, hyperlipidemia, hypertension, peripheral artery disease Surgical history: Reports: carotid endarterectomy, LE Bypass, LE stent(s), tonsilectomy Psychiatric history: Reports: no psych history - Social History Smoking Status: Former smoker Smokeless Tobacco Status: No Alcohol use: Reports: none Drug use: Reports: none Physical Exam - General Limitations: no limitations General appearance: alert, in no apparent distress Course Vital Signs Temperature 97.9 F 05/03/18 07:53 Pulse Rate 86 05/03/18 07:53 Respiratory Rate 16 05/03/18 07:53 Blood Pressure 118/63 05/03/18 07:53 O2 Sat by Pulse Oximetry 99 05/03/18 07:53 Temperature 97.9 F 05/03/18 07:53 Pulse Rate 71 05/03/18 10:02 Respiratory Rate 14 05/03/18 10:02 Blood Pressure 77/66 05/03/18 10:02 O2 Sat by Pulse Oximetry 100 05/03/18 10:02 Oxygen Delivery Oxygen Delivery Room Air Medical Decision Making - Lab Data Result diagrams: 05/03/18 08:17 05/03/18 08:17 Lab Results 05/03/18 05/03/18 05/03/18 Range/Units 08:08 08:17 08:17 WBC 7.9 (4.3-11.1) K/mcL RBC 3.05 L (4.19-5.50) M/mcL Hgb 8.5 L (12.9-16.9) g/dL Hct 25.2 L (37.5-50.1) % MCV 82.6 L (83.0-100.0) fL MCH 27.9 L (28.0-33.3) pg MCHC 33.7 (31.6-35.5) g/dL RDW 20.5 H (11.5-14.5) % Plt Count 146 (140-400) K/mcL MPV 10.5 (9.4-12.4) fL Immature Gran % 0.4 (0-4) % Seg Neutrophils % 72.9 % Lymphocytes % 14.2 % Monocytes % 10.4 % Eosinophils % 1.8 % Basophils % 0.3 % Neutrophils # 5.8 (1.6-8.9) K/mcL Lymphocytes # 1.1 (0.6-4.6) K/mcL Monocytes # 0.8 (0.0-1.3) K/mcL Eosinophils # 0.1 (0.0-0.6) K/mcL Basophils # 0.0 (0.0-0.2) K/mcL PT 14.8 H (9.4-12.1) Seconds INR 1.3 Sodium (136-145) mEq/L Potassium (3.5-5.1) mEq/L Chloride (98-107) mEq/L Carbon Dioxide (23-29) mEq/L BUN (8-23) mg/dL Creatinine (0.70-1.30) mg/dL Est GFR ( Amer) (> 60) Est GFR (Non-Af Amer) (> 60) BUN/Creatinine Ratio (6-26) Glucose (70-105) mg/dL Calculated Osmolality (280-300) Calcium (8.6-10.3) mg/dL Troponin I (< 0.04) ng/mL Urine Color Yellow (Yellow) Urine Clarity Clear (Clear) Urine pH 6.5 (5.0-8.0) pH Units Ur Specific [place] 1.012 (1.010-1.025) Urine Protein 30 H (Neg-Trace) mg/dL Urine Glucose (UA) Normal (Normal) mg/dL Urine Ketones Negative (Negative) mg/dL Urine Blood Negative (Negative) Urine Nitrite Negative (Negative) Urine Bilirubin Negative (Negative) Urine Urobilinogen Normal (Normal) mg/dL Ur Leukocyte Esterase Negative (Negative) Urine Microscopic RBC 0-3 (0-3) per hpf Urine Microscopic WBC 0-3 (0-3) per hpf Ur Squamous Epith Cells Few (None-Few) per lpf Urine Bacteria None Seen (None-Few) per hpf Hyaline Casts None Seen (None-Few) per lpf Urine Sperm Present Ur Culture Indicated? NO (NO) 05/03/18 Range/Units 08:17 WBC (4.3-11.1) K/mcL RBC (4.19-5.50) M/mcL Hgb (12.9-16.9) g/dL Hct (37.5-50.1) % MCV (83.0-100.0) fL MCH (28.0-33.3) pg MCHC (31.6-35.5) g/dL RDW (11.5-14.5) % Plt Count (140-400) K/mcL MPV (9.4-12.4) fL Immature Gran % (0-4) % Seg Neutrophils % % Lymphocytes % % Monocytes % % Eosinophils % % Basophils % % Neutrophils # (1.6-8.9) K/mcL Lymphocytes # (0.6-4.6) K/mcL Monocytes # (0.0-1.3) K/mcL Eosinophils # (0.0-0.6) K/mcL Basophils # (0.0-0.2) K/mcL PT (9.4-12.1) Seconds INR Sodium 129 L (136-145) mEq/L Potassium 4.3 (3.5-5.1) mEq/L Chloride 93 L (98-107) mEq/L Carbon Dioxide 25 (23-29) mEq/L BUN 33 H (8-23) mg/dL Creatinine 0.99 (0.70-1.30) mg/dL Est GFR ( Amer) > 60 (> 60) Est GFR (Non-Af Amer) > 60 (> 60) BUN/Creatinine Ratio 33 H (6-26) Glucose 105 (70-105) mg/dL Calculated Osmolality 276 L (280-300) Calcium 9.6 (8.6-10.3) mg/dL Troponin I 0.25 H* (< 0.04) ng/mL Urine Color (Yellow) Urine Clarity (Clear) Urine pH (5.0-8.0) pH Units Ur Specific [place] (1.010-1.025) Urine Protein (Neg-Trace) mg/dL Urine Glucose (UA) (Normal) mg/dL Urine Ketones (Negative) mg/dL Urine Blood (Negative) Urine Nitrite (Negative) Urine Bilirubin (Negative) Urine Urobilinogen (Normal) mg/dL Ur Leukocyte Esterase (Negative) Urine Microscopic RBC (0-3) per hpf Urine Microscopic WBC (0-3) per hpf Ur Squamous Epith Cells (None-Few) per lpf Urine Bacteria (None-Few) per hpf Hyaline Casts (None-Few) per lpf Urine Sperm Ur Culture Indicated? (NO) Attestation Statement - Attestation Attestation: I examined this patient and my medical decision-making was reviewed with the Resident Physician. I agree with the documented findings, disposition and treatment plan as described except to the extent set forth below. 72 year old male with history of recent cardiac surgery and has been feelings increassingly more weak and near syncopal with multiple falls. [place] initially was normotensive and is now hypotensive, We will conitnue workup and admit to medicine
[2018-05-03] MEDS ORDERED: Acetaminophen 325 MG TABLET PO PRN (10:59)
[2018-05-03] MEDS ORDERED: Naloxone 0.4 MG/ML INJ IVP PRN (10:59)
[2018-05-03] MEDS ORDERED: Ipratropium/Albuterol Neb 3 ML IH PRN (11:05)
[2018-05-03] MEDS ORDERED: *HR* Dextrose 50 % in Water (Syg) 50 ML SYRINGE IVP PRN (11:08)
[2018-05-03] MEDS ORDERED: Dextrose Gel 15 GM/37.5 ML TUBE PO PRN ×2 (11:08)
[2018-05-03] MEDS ORDERED: D5% in Water 1,000 ML IVC PRN (11:08)
--- NOTE | 2018-05-03 11:15 | Internal Med History&Physical ---
<Jose Raul Vernon - Last Filed: 05/03/18 11:11> Date of Encounter: 05/03/18 Time of Encounter: 11:12 Internal Medicine - H&P: HPI Chief complaint: Weak and following Admitted From: Home Plans for Post Hospital Care: Home History of present illness: Mr. Guzman is a 72 year old male known significant medical history of type 2 diabetes uncontrolled complications, systolic heart failure with EF of 40%, triple-vessel disease with recent stent placements, CAD, hypertension, hyperlipidemia, previous DVTs on chronic anticoagulation presents the emergency department via EMS secondary to weakness and falling. Mr. Guzman states that he was discharged from [facility] yesterday evening when he got home he took his medications after which she started feeling lightheaded and dizzy, falling roughly 3 times while in the kitchen unable to get himself up without pulling himself up and had difficulty getting to the bedroom. His dizziness lightheadedness and nausea kept him awake last evening. When he tried to get himself in the bed he fell out of bed landing on his back hitting his head. He states that he was so weak he was unable to ambulate and crawl outside calling for help. He denies losing consciousness, change in vision, sore throat or cough, shortness of breath or chest pain, palpitations, abdominal pains, vomiting, diarrhea, constipation or difficulty or burning with urination. He does have known lower extremity edema which is been chronic secondary to his diabetes and heart failure but states that his swelling has been a little bit worse. He denies having symptoms like this prior to this episode and states that he has not really fallen before. Denies any change in color in his stools or any other concerning symptoms at this time. He does mention that he started a few new medications after his LH and stent placements at [facility]. Little background urination Mr. guzman was seen at our facility and worked up by cardiology with known triple vessel disease without intervention prior. As the patient refused stent placements and intervention at that time. He presented with elevated troponin and was supposed to go under [facility] here at [place] but elected to be transferred to [facility] for further evaluation and treatment. Past Med Surg Social Fam HX - Past Medical History Medical history: cardiomyopathy, CHF, COPD, coronary artery disease, diabetes, hyperlipidemia, hypertension, peripheral artery disease Psychiatric history: no psych history - Past Surgical History Surgical History: carotid endarterectomy, LE Bypass, LE stent(s), tonsilectomy - Social History Smoking Status: Former smoker Smokeless Tobacco Status: No Alcohol use: none Drug use: none - Family History Mother Hx Family Cardiac Disorders: Yes Internal Medicine - H&P: Meds RX: Albuterol Sulfate [Ventolin Hfa] 2 puff IH QID PRN 01/31/18 [History] RX: Calcium Carbonate/Vitamin D3 [Calcium 500-Vit D3 200 Tablet] 2 tab PO DAILY 01/31/18 [History] RX: Gabapentin [Neurontin] 300 mg PO HS 01/31/18 [History] RX: Insulin NPH Human Isophane [Novolin N] 15 unit SQ QPM 01/31/18 [History] RX: Insulin NPH Human Isophane [Novolin N] 20 unit SQ QAM 01/31/18 [History] RX: Ipratropium/Albuterol Neb [Duoneb] 3 ml IH TID PRN 01/31/18 [History] RX: Metformin HCl 1,000 mg PO BID 01/31/18 [History] RX: Methadone 20 mg PO Q8HR 01/31/18 [History] RX: Ranitidine HCl [Acid Stave Planer Tender] 150 mg PO BID 01/31/18 [History] RX: Simvastatin [Zocor] 20 mg PO HS 01/31/18 [History] RX: Vit C/E/Zn/Coppr/Lutein/Zeaxan [Preservision Areds 2 Softgel] 1 cap PO BID 01/31/18 [History] RX: hydrOXYzine HCl [Hydroxyzine HCl] 50 mg PO BID 01/31/18 [History] RX: Aspirin Enteric Coated [Aspirin EC] 81 mg PO DAILY #30 tablet. 02/05/18 [Rx] RX: Lisinopril [Zestril] 5 mg PO DAILY #30 tablet 02/05/18 [Rx] RX: Multivitamin [One Daily Multivitamin] 1 tab PO DAILY 03/28/18 [History] Warfarin [Coumadin] 5 mg PO 1800 04/19/18 [History] Allergy/AdvReac Type Severity Reaction Status Date / Time No Known Allergies Allergy Verified 03/28/18 12:50 All Systems PM: A 10-system review of systems was performed and is negative for pertinent findings except as documented above in the HPI. - Constitutional Constitutional: fatigue, falls, lethargy, malaise, weakness, no anorexia, no chills, no excessive sweating, no fever(s), no night sweats - EENT Eyes: no blurry vision, no loss of vision Nose, mouth and throat: no dry mouth, no dysphagia - Cardiovascular Cardiovascular ROS IM: edema, lightheadedness, other (Near-syncope), no chest pain, no claudication, no diaphoresis, no dyspnea, no dyspnea on exertion, no irregular heart rhythm, no orthopnea, no palpitations, no paroxysmal nocturnal dyspnea, no syncope - Respiratory Respiratory: no cough, no dyspnea, no hemoptysis, no wheezing - Gastrointestinal Gastrointestinal: nausea, no abdominal pain, no constipation, no diarrhea, no hematemesis, no vomiting - Genitourinary Genitourinary ROS male: no dysuria, no flank pain, no genital pain - Musculoskeletal Musculoskeletal ROS IM: back pain - Integumentary Integumentary IM: no erythema, no rash - Neurological Neurological ROS: dizziness, frequent falls, no confusion, no convulsions, no focal weakness - Constitutional Vitals: Temp Pulse Resp BP Pulse Ox 97.9 F 80 14 144/70 100 05/03/18 07:53 05/03/18 10:23 05/03/18 10:49 05/03/18 10:49 05/03/18 10:23 General appearance: Present: A&O X 3 Exam: Gen. alert and oriented interactive no acute distress HEENT normocephalic, atraumatic, pupils equal reactive to light, EOMI intact, oral mucosa moist, edentulous, neck supple trachea midline no palpable lymphadenopathy. Cardiac regular rate and rhythm, grade 2/6 systolic ejection murmur, radial pulses 2+ bilateral, bilateral lower extremity edema with chronic changes of venous stasis, 1+ pitting bilateral to midshin. Respiratory clear to auscultation bilateral Abdomen soft nontender to palpation positive bowel sounds Extremities symmetric bilateral patient moving all 4 spontaneously with 5 out of 5 muscle strength in all extremities Neurologic a and O 3, EOMI intact, sensation intact bilateral upper and lower extremities, 5 out of 5 muscle strength. Internal Med - H&P Results - Labs CBC & Chem 7: 05/03/18 08:17 05/03/18 08:17 Labs: Short CBC 05/03/18 Range/Units 08:17 WBC 7.9 (4.3-11.1) K/mcL Hgb 8.5 L (12.9-16.9) g/dL Hct 25.2 L (37.5-50.1) % Plt Count 146 (140-400) K/mcL Neutrophils # 5.8 (1.6-8.9) K/mcL BMP 05/03/18 08:17 Sodium 129 L Potassium 4.3 Chloride 93 L Carbon Dioxide 25 BUN 33 H Creatinine 0.99 Glucose 105 Calcium 9.6 Cardiac Enzymes 05/03/18 Range/Units 08:17 Troponin I 0.25 H* (< 0.04) ng/mL Urine 05/03/18 Range/Units 08:08 Urine Color Yellow (Yellow) Urine Clarity Clear (Clear) Urine pH 6.5 (5.0-8.0) pH Units Ur Specific [place] 1.012 (1.010-1.025) Urine Protein 30 H (Neg-Trace) mg/dL Urine Glucose (UA) Normal (Normal) mg/dL - Impressions ITS Impressions Cervical Spine CT 05/03/18 08:00 IMPRESSION: No acute abnormality of the cervical spine. D/ / Pancho Garland MD / Pancho Garland MD Interpreting Provider: Pancho Garland MD Chest X-Ray 05/03/18 08:00 IMPRESSION: No evidence of acute cardiopulmonary disease. D/ / Rodrigo Larios MD / Rodrigo Larios MD Interpreting Provider: Rodrigo Larios MD Head CT 05/03/18 08:00 IMPRESSION: 1. No acute intracranial abnormality. 2. Moderate chronic small vessel ischemic changes. D/ / Pancho Garland MD / Pancho Garland MD Interpreting Provider: Pancho Garland MD Lumbar Spine CT 05/03/18 08:00 IMPRESSION: 1. No acute abnormality of the lumbar spine. 2. Severe atherosclerosis. D/ / Pancho Garland MD / Pancho Garland MD Interpreting Provider: Pancho Garland MD - Assessment and plan (1) Near syncope Current Visit: Yes Status: Acute Assessment and plan: Mr. guzman presents to the emergency department with multiple falls lightheadedness dizziness after returning home after recent discharge at [facility] where she was treated with left heart catheter and multiple stent placements starting Coreg, Plavix and atorvastatin as new medications. - He had taken his medications that evening and started developing lig htheadedness and dizziness becoming symptomatic and falling multiple times at home. - EKG performed here at the emergency department demonstrates normal sinus rhythm with an increased QRS but no noticeable ST elevations depressions. - Troponin level was 0.25, after further review this looks like it is trending down and the correct trajectory as 2 weeks ago it was greater than 6. - Initial blood pressure demonstrated hypotension in the emergency department, corrected at this time. Plan: - CT of the head did not them straight any acute findings for stroke, no findings of bleed. - Chest x-ray and cervical spine x-ray without any concerning findings - We will hold Coreg and lisinopril given the hypotension and suspected beta uziel induced hypotension near syncopal episodes. Cannot rule out arrhythmia. - Admit with monitor tech to telemetry floor. - Orthostatic blood pressures to be obtained - Have documents released from [place]. Suspect that this is secondary to starting Coreg with too much beta blockade. We will have cardiology involved for further recommendations. (2) Multiple falls Current Visit: Yes Status: Acute Assessment and plan: Likely secondary to beta uziel induced near-syncope. We will continue monitor tech, rule out other causes. (3) Elevated troponin I level Current Visit: No Status: Acute Assessment and plan: Elevated troponin, likely trending down after recent cardiac catheterization and multiple stent placements. - We will trend 2 to make sure that this is appropriate. - At this time we will continue dual antiplatelet therapy and avoid heparin drip unless there is further concern. (4) Hyponatremia Current Visit: No Status: Acute Assessment and plan: Patient has a sodium of 129, review of previous history demonstrates is chronically been hyponatremic which may be secondary to his long systolic heart failure. We will continue to monitor with daily BMP until proven stable. I do not suspect that this is contributing to his falls at this time. (5) History of DVT (deep vein thrombosis) Current Visit: No Status: Chronic Assessment and plan: Patient missed a history of DVTs on chronic warfarin therapy. - We will continue warfarin with daily INRs (6) PAD (peripheral artery disease) Current Visit: No Status: Chronic Assessment and plan: Known history of PAD. Stable (7) Heart failure with reduced ejection fraction Current Visit: No Status: Acute Assessment and plan: Known history of systolic heart failure with ejection fraction of 40%. - We will obtain recent cardiac intervention documents from [facility] - No need to repeat echocardiogram at this time. Qualifiers: Heart failure chronicity: chronic Qualified Code(s): I50.22 - Chronic systolic (congestive) heart failure (8) GERD (gastroesophageal reflux disease) Current Visit: No Status: Chronic Assessment and plan: Protonix 40 mg daily Qualifiers: Esophagitis presence: esophagitis presence not specified Qualified Code(s): K21.9 - Gastro-esophageal reflux disease without esophagitis (9) Type 2 diabetes mellitus Current Visit: Yes Status: Acute Assessment and plan: Before meals at bedtime glucose checks - Low dose light scale insulin, will adjust based on patient's glucose levels - Diabetic diet Qualifiers: Diabetes mellitus correction insulin use: with correction use Qualified Code(s): E11.21 - Type 2 diabetes mellitus with diabetic nephropathy; 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 Guzman is a 72 year old male All Systems PM: A 10-system review of systems was performed and is negative for pertinent findings except as documented above in the HPI. - Constitutional Vitals: Temp Pulse Resp BP Pulse Ox 97.5 F L 69 14 153/60 98 12/07/18 11:17 05/03/18 11:17 05/03/18 11:17 05/03/18 11:17 05/03/18 11:17 Internal Med - H&P Results - Labs CBC & Chem 7: 05/03/18 08:17 05/03/18 08:17 Labs: Short CBC 05/03/18 Range/Units 08:17 WBC 7.9 (4.3-11.1) K/mcL Hgb 8.5 L (12.9-16.9) g/dL Hct 25.2 L (37.5-50.1) % Plt Count 146 (140-400) K/mcL Neutrophils # 5.8 (1.6-8.9) K/mcL BMP 05/03/18 08:17 Sodium 129 L Potassium 4.3 Chloride 93 L Carbon Dioxide 25 BUN 33 H Creatinine 0.99 Glucose 105 Calcium 9.6 Cardiac Enzymes 05/03/18 05/03/18 Range/Units 08:17 11:45 Troponin I 0.25 H* 0.19 H* (< 0.04) ng/mL Urine 05/03/18 Range/Units 08:08 Urine Color Yellow (Yellow) Urine Clarity Clear (Clear) Urine pH 6.5 (5.0-8.0) pH Units Ur Specific [place] 1.012 (1.010-1.025) Urine Protein 30 H (Neg-Trace) mg/dL Urine Glucose (UA) Normal (Normal) mg/dL - Impressions ITS Impressions Cervical Spine CT 05/03/18 08:00 IMPRESSION: No acute abnormality of the cervical spine. D/ / Pancho Garland MD / Pancho Garland MD Interpreting Provider: Pancho Garland MD Chest X-Ray 05/03/18 08:00 IMPRESSION: No evidence of acute cardiopulmonary disease. D/ / Rodrigo Larios MD / Rodrigo Larios MD Interpreting Provider: Rodrigo Larios MD Head CT 05/03/18 08:00 IMPRESSION: 1. No acute intracranial abnormality. 2. Moderate chronic small vessel ischemic changes. D/ / Pancho Garland MD / Pancho Garland MD Interpreting Provider: Pancho Garland MD Lumbar Spine CT 05/03/18 08:00 IMPRESSION: 1. No acute abnormality of the lumbar spine. 2. Severe atherosclerosis. D/ / Pancho Garland MD / Pancho Garland MD Interpreting Provider: Pancho Garland MD - Assessment and plan (1) Elevated troponin I level Current Visit: No Status: Acute (2) Hyponatremia Current Visit: No Status: Acute (3) History of DVT (deep vein thrombosis) Current Visit: No Status: Chronic (4) PAD (peripheral artery disease) Current Visit: No Status: Chronic (5) Heart failure with reduced ejection fraction Current Visit: No Status: Acute Qualifiers: Heart failure chronicity: chronic Qualified Code(s): I50.22 - Chronic systolic (congestive) heart failure (6) GERD (gastroesophageal reflux disease) Current Visit: No Status: Chronic Qualifiers: Esophagitis presence: esophagitis presence not specified Qualified Code(s): K21.9 - Gastro-esophageal reflux disease without esophagitis (7) Multiple falls Current Visit: Yes Status: Acute (8) Near syncope Current Visit: Yes Status: Acute (9) Type 2 diabetes mellitus Current Visit: Yes Status: Acute Qualifiers: Diabetes mellitus correction insulin use: with terminal system operator use Qualified Code(s): E11.21 - Type 2 diabetes mellitus with diabetic nephropathy; Z79.4 - terminal system operator (current) use of insulin - Time Spent With Patient Total time spent is greater than 50% in coordination of care (as documented) at patient's floor/unit and/or counseling patient: - Attending Attestation I have seen and examined this patient independently. I have discussed with resident physician Dr. Vernon regarding the management plan. Agree with the documentation
[2018-05-03 12:20] LABS: Estimated Average Glucose 97 mg/dl
--- NOTE | 2018-05-03 12:56 | Electrocardiograph Report ---
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
[2018-05-03] MEDS: Insulin LISPRO 300 UNITS/3 ML VIAL SQ SCH ×3 (13:11→21:33)
[2018-05-03] MEDS: Sennosides/Docusate Sodium TABLET PO SCH ×2 (13:56→21:33)
[2018-05-03] MEDS: Aspirin Enteric Coated 81 MG Tablet PO SCH (13:59)
[2018-05-03] MEDS ORDERED: *HR* Methadone 10 MG TABLET PO SCH (16:00)
[2018-05-03] MEDS ORDERED: *HR* Warfarin 5 MG TABLET PO ONE (18:00)
[2018-05-03] MEDS ORDERED: Warfarin perPT PO PRN (18:00)
[2018-05-03] MEDS: *HR* Methadone 10 MG TABLET PO SCH (21:33)
[2018-05-03] MEDS: hydrOXYzine pamoate 25 MG CAPSULE PO SCH (21:33)
[2018-05-04 04:27] LABS: Basophils % 0.2 %; Eosinophils # 0.2 K/mcL (0.0-0.6); Eosinophils % 3.1 %; Hematocrit 21.8 % (37.5-50.1); Hemoglobin 7.2 g/dL (12.9-16.9); Immature Granulocytes % 0.2 % (0-4); Lymphocytes # 1.4 K/mcL (0.6-4.6); Lymphocytes % 29.3 %; Mean Corpuscular Hemoglobin 27.7 pg (28.0-33.3); Mean Corpuscular Volume 83.8 fL (83.0-100.0); Monocytes # 0.7 K/mcL (0.0-1.3); Monocytes % 14.3 %; Neutrophils # 2.6 K/mcL (1.6-8.9); Platelet Count 121 K/mcL (140-400); Red Cell Distribution Width 20.9 % (11.5-14.5); Segmented Neutrophils % 52.9 %
[2018-05-04 04:34] LABS: INR 1.6; Prothrombin Time 18.1 Seconds (9.4-12.1)
[2018-05-04] MEDS: *HR* Methadone 10 MG TABLET PO SCH ×3 (05:48→20:34)
[2018-05-04] MEDS: Insulin LISPRO 300 UNITS/3 ML VIAL SQ SCH ×4 (07:36→20:32)
[2018-05-04] MEDS: Pantoprazole 40 MG VIAL IVP SCH (08:10)
[2018-05-04] MEDS: Sennosides/Docusate Sodium TABLET PO SCH ×2 (08:10→20:34)
[2018-05-04] MEDS: hydrOXYzine pamoate 25 MG CAPSULE PO SCH ×2 (08:10→20:34)
[2018-05-04] MEDS: Aspirin Enteric Coated 81 MG Tablet PO SCH (08:10)
[2018-05-04 13:20] LABS: Hematocrit 23.8 % (37.5-50.1); Hemoglobin 7.9 g/dL (12.9-16.9)
--- NOTE | 2018-05-04 13:53 | Internal Med Progress Note ---
Hospitalist Progress Note - Encounter Date of Encounter: 05/04/18 Time of Encounter: 13:51 - Subjective Interval History: Patient seen and examined at bedside currently sitting up in a chair sleeping arouses to verbal stimuli. Patient states that he has been feeling rather weak and tired. Presented with low blood pressure patient-did experience near s yncopal episode was unable to get off the floor. This morning patient was found to have hemoglobin 7.2 due to symptomatic anemia patient require more into midnights and close medical observation he will be switched inpatient status - Exam Vitals: Temp Pulse Resp BP Pulse Ox 97.6 F 68 15 100/46 96 05/04/18 11:12 05/04/18 11:12 05/04/18 11:12 05/04/18 11:12 05/04/18 11:12 Exam: Gen. alert and oriented interactive no acute distress-patient appears pale HEENT normocephalic, atraumatic, pupils equal reactive to light, EOMI intact, oral mucosa moist, edentulous, neck supple trachea midline no palpable ly mphadenopathy. Cardiac regular rate and rhythm, grade 2/6 systolic ejection murmur, radial pulses 2+ bilateral, bilateral lower extremity edema with chronic changes of venous stasis, 1+ pitting bilateral to midshin. Respiratory clear to auscultation bilateral Abdomen soft nontender to palpation positive bowel sounds Extremities symmetric bilateral patient moving all 4 spontaneously with 5 out of 5 muscle strength in all extremities Neurologic a and O 3, EOMI intact, sensation intact bilateral upper and lower extremities, 5 out of 5 muscle strength. - Assessment and Plan (1) Near syncope Current Visit: Yes Status: Acute Assessment and Plan: Mr. guzman presents to the emergency department with multiple falls lightheadedness dizziness after returning home after recent discharge at [facility] where she was treated with left heart catheter and multiple stent placements starting Coreg, Plavix and atorvastatin as new medications. - He had taken his medications that evening and started developing lightheadedness and dizziness becoming symptomatic and falling multiple times at home. - EKG performed here at the emergency department demonstrates normal sinus rhythm with an increased QRS but no noticeable ST elevations depressions. - Troponin level was 0.25, after further review this looks like it is trending down and the correct trajectory as 2 weeks ago it was greater than 6. - Initial blood pressure demonstrated hypotension in the emergency department, corrected at this time. Plan: - CT of the head did not them straight any acute findings for stroke, no findings of bleed. - Chest x-ray and cervical spine x-ray without any concerning findings - We will hold Coreg and lisinopril given the hypotension and suspected beta uziel induced hypotension near syncopal episodes. Cannot rule out arrhythmia. - Admit with monitoring and evaluation advisor to telemetry floor. - Orthostatic blood pressures to be obtained - Have documents released from [facility]. Suspect that this is secondary to starting Coreg with too much beta blockade. We will have cardiology involved for further recommendations. 05/04 Continue holding Coreg we will transfuse to hands PRBC for anemia Awaiting for documents from her left side BP is slowly improving after transfusion Fall precautions (2) Elevated troponin I level Current Visit: No Status: Acute Assessment and Plan: Elevated troponin, likely trending down after recent cardiac catheterization and multiple stent placements. - We will trend 2 to make sure that this is appropriate. - At this time we will continue dual antiplatelet therapy and avoid heparin drip unless there is further concern. 05/04 Troponin has remained flat likely trending down after recent cardiac catheterization and multiple stent placements Continue with cardiac monitoring Continue with dual antiplatelet therapy at this time due to recent stent placement (3) Hyponatremia Current Visit: No Status: Acute Assessment and Plan: Patient has a sodium of 129, review of previous history demonstrates is chronically been hyponatremic which may be secondary to his long systolic heart failure. We will continue to monitor with daily BMP until proven stable. I do not suspect that this is contributing to his falls at this time. 05/04 Sodium is up to 133 today we will continue to monitor-no neurological deficits noted at this time (4) History of DVT (deep vein thrombosis) Current Visit: No Status: Chronic Assessment and Plan: Patient missed a history of DVTs on chronic warfarin therapy. - We will continue warfarin with daily INRs 05/04 History DVTs continue with warfarin daily INRs currently 1.6 hemoglobin is low we will monitor for bleeding obtain stool for occult blood (5) PAD (peripheral artery disease) Current Visit: No Status: Chronic Assessment and Plan: Known history of PAD. Stable (6) Heart failure with reduced ejection fraction Current Visit: No Status: Acute Assessment and Plan: Known history of systolic heart failure with ejection fraction of 40%. - We will obtain recent cardiac intervention documents from [facility] - No need to repeat echocardiogram at this time. 05/04 History of systolic heart failure with EF of 40% Awaiting recent cardiac intervention from [facility] Monitor for fluid overload (7) GERD (gastroesophageal reflux disease) Current Visit: No Status: Chronic Assessment and Plan: Protonix 40 mg daily (8) Multiple falls Current Visit: Yes Status: Acute Assessment and Plan: Likely secondary to beta uziel induced near-syncope. We will continue monitoring and evaluation advisor, rule out other causes. 05/04 Suspect this may be related to beta uziel as well as anemia continue with cardiac monitoring Transfuse and monitor H&H Monitor vital signs Fall precautions (9) Type 2 diabetes mellitus Current Visit: Yes Status: Acute Assessment and Plan: Before meals at bedtime glucose checks - Low dose light scale insulin, will adjust based on patient's glucose levels - Diabetic diet 05/04 Continue with Accu-Cheks before meals and at bedtime with signs scale insulin di abetic diet (10) Anemia Current Visit: No Status: Acute Assessment and Plan: 1 patient does have a history of anemia currently hemoglobin was 7.2 this a.m. repeat hemoglobin 7.9 patient does endorse weakness and fatigue he is hypotensive Type and cross for 2 units PRBCs Patient is on Coumadin aspirin and Plavix we will obtain CT of abdomen to rule out any retroperitoneal bleeds Stool for occult blood Monitor H&H DVT Prophylaxis: On Coumadin - Time Spent with Patient Total time spent is greater than 50% in coordination of care (as documented) at patient's floor/unit and/or counseling patient: Internal Medicine: Result - Labs CBC & Chem 7: 05/04/18 13:09 05/04/18 14:44 Labs: Short CBC 05/04/18 05/04/18 Range/Units 03:45 13:09 WBC 4.9 (4.3-11.1) K/mcL Hgb 7.2 L 7.9 L (12.9-16.9) g/dL Hct 21.8 L 23.8 L (37.5-50.1) % Plt Count 121 L (140-400) K/mcL Neutrophils # 2.6 (1.6-8.9) K/mcL Cardiac Enzymes 05/03/18 05/03/18 Range/Units 16:57 22:50 Troponin I 0.19 H* 0.19 H* (< 0.04) ng/mL - ABG Interpretation ABG results: PT/INR, D-dimer PT 18.1 Seconds (9.4-12.1) H 05/04/18 03:45 Consult Discharge Plan - Plan [facility]errals[facility]Primary Care Provider[facility] - (6) Heart failure with reduced ejection fraction Qualifiers: Heart failure chronicity: chronic Qualified Code(s): I50.22 - Chronic systolic (congestive) heart failure (7) GERD (gastroesophageal reflux disease) Qualifiers: Esophagitis presence: esophagitis presence not specified Qualified Code(s): K21.9 - Gastro-esophageal reflux disease without esophagitis (9) Type 2 diabetes mellitus Qualifiers: 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
[2018-05-04 15:11] LABS: BUN/Creatinine Ratio 22 (6-26); Blood Urea Nitrogen 20 mg/dL (8-23); Calcium 8.5 mg/dL (8.6-10.3); Carbon Dioxide 28 mEq/L (23-29); Chloride 100 mEq/L (98-107); Glucose 123 mg/dL (70-105); Osmolality,Calculated 280 (280-300); Potassium 4.4 mEq/L (3.5-5.1); Sodium 133 mEq/L (136-145); eGFR For Non-African Americans > 60 (> 60)
[2018-05-04] MEDS ORDERED: 0.9 % Sodium Chloride 250 ML ONE ×2 (15:50→23:12)
[2018-05-04] MEDS ORDERED: *HR* Warfarin 5 MG TABLET PO ONE (18:00)
[2018-05-04 20:07] LABS: Hematocrit 25.6 % (37.5-50.1); Hemoglobin 8.5 g/dL (12.9-16.9)
[2018-05-05 03:35] LABS: Basophils % 0.2 %; Eosinophils # 0.2 K/mcL (0.0-0.6); Eosinophils % 3.1 %; Hematocrit 30.2 % (37.5-50.1); Immature Granulocytes % 0.4 % (0-4); Lymphocytes # 1.5 K/mcL (0.6-4.6); Lymphocytes % 28.1 %; Mean Corpuscular HGB Conc 33.8 g/dL (31.6-35.5); Mean Corpuscular Hemoglobin 28.6 pg (28.0-33.3); Mean Corpuscular Volume 84.6 fL (83.0-100.0); Mean Platelet Volume 9.9 fL (9.4-12.4); Monocytes # 0.6 K/mcL (0.0-1.3); Monocytes % 11.7 %; Neutrophils # 3.1 K/mcL (1.6-8.9); Platelet Count 114 K/mcL (140-400); Red Blood Count 3.57 M/mcL (4.19-5.50); Red Cell Distribution Width 18.7 % (11.5-14.5); Segmented Neutrophils % 56.5 %
[2018-05-05 03:41] LABS: INR 1.7
[2018-05-05 03:45] LABS: Hemoglobin 10.2 g/dL (12.9-16.9)
[2018-05-05 03:47] LABS: BUN/Creatinine Ratio 25 (6-26); Blood Urea Nitrogen 17 mg/dL (8-23); Calcium 8.7 mg/dL (8.6-10.3); Carbon Dioxide 27 mEq/L (23-29); Chloride 100 mEq/L (98-107); Glucose 118 mg/dL (70-105); Osmolality,Calculated 277 (280-300); Potassium 4.2 mEq/L (3.5-5.1); Sodium 132 mEq/L (136-145); eGFR For Non-African Americans > 60 (> 60)
[2018-05-05] MEDS: *HR* Methadone 10 MG TABLET PO SCH ×3 (06:06→21:21)
[2018-05-05] MEDS: Insulin LISPRO 300 UNITS/3 ML VIAL SQ SCH ×4 (09:48→21:13)
[2018-05-05] MEDS: Pantoprazole 40 MG VIAL IVP SCH (09:49)
[2018-05-05] MEDS: hydrOXYzine pamoate 25 MG CAPSULE PO SCH ×2 (09:49→21:21)
[2018-05-05] MEDS: Sennosides/Docusate Sodium TABLET PO SCH ×2 (09:49→21:21)
[2018-05-05] MEDS: Aspirin Enteric Coated 81 MG Tablet PO SCH (09:49)
[2018-05-05 12:53] LABS: Hematocrit 30.4 % (37.5-50.1); Hemoglobin 10.2 g/dL (12.9-16.9)
--- NOTE | 2018-05-05 14:03 | Internal Med Progress Note ---
Hospitalist Progress Note - Encounter Date of Encounter: 05/05/18 Time of Encounter: 13:45 - Subjective Interval History: Patient seen and examined at bedside currently sitting up on side of bed eating breakfast. Patient states he feels much better than yesterday he is more alert he is no longer pale. Denies any chest pain abdominal pain - Exam Vitals: Temp Pulse Resp BP Pulse Ox 97.9 F 79 16 120/76 97 05/05/18 11:49 05/05/18 11:49 05/05/18 11:49 05/05/18 11:49 05/05/18 11:49 Exam: Gen. alert and oriented interactive no acute distress HEENT normocephalic, atraumatic, pupils equal reactive to light, EOMI intact, oral mucosa moist, edentulous, neck supple trachea midline no palpable lymphadenopathy. Cardiac regular rate and rhythm, grade 2/6 systolic ejection murmur, radial pulses 2+ bilateral, bilateral lower extremity edema with chronic changes of venous stasis, 1+ pitting bilateral to midshin. Respiratory clear to auscultation bilateral Abdomen soft nontender to palpation positive bowel sounds Extremities symmetric bilateral patient moving all 4 spontaneously with 5 out of 5 muscle strength in all extremities Neurologic a and O 3, EOMI intact, sensation intact bilateral upper and lower extremities, 5 out of 5 muscle strength. - Assessment and Plan (1) Near syncope Current Visit: Yes Status: Acute Assessment and Plan: Mr. guzman presents to the emergency department with multiple falls lightheadedness dizziness after returning home after recent discharge at [facility] where she was treated with left heart catheter and multiple stent placements starting Coreg, Plavix and atorvastatin as new medications. - He had taken his medications that evening and started developing lightheadedness and dizziness becoming symptomatic and falling multiple times at home. - EKG performed here at the emergency department demonstrates normal sinus rhythm with an increased QRS but no noticeable ST elevations depressions. - Troponin level was 0.25, after further review this looks like it is trending down and the correct trajectory as 2 weeks ago it was greater than 6. - Initial blood pressure demonstrated hypotension in the emergency department, corrected at this time. Plan: - CT of the head did not them straight any acute findings for stroke, no findings of bleed. - Chest x-ray and cervical spine x-ray without any concerning findings - We will hold Coreg and lisinopril given the hypotension and suspected beta uziel induced hypotension near syncopal episodes. Cannot rule out arrhythmia. - Admit with monitoring analyst to telemetry floor. - Orthostatic blood pressures to be obtained - Have documents released from [facility]. Suspect that this is secondary to starting Coreg with too much beta blockade. We will have cardiology involved for further recommendations. 05/04 Continue holding Coreg we will transfuse to hands PRBC for anemia Awaiting for documents from her left side BP is slowly improving after transfusion Fall precautions 05/05 Blood pressure much improved-patient did receive 2 units of PRBCs we will continue to hold Coreg for now Awaiting for documentation from [facility] And tenuous fall precautions (2) Elevated troponin I level Current Visit: No Status: Acute Assessment and Plan: Elevated troponin, likely trending down after recent cardiac catheterization and multiple stent placements. - We will trend 2 to make sure that this is appropriate. - At this time we will continue dual antiplatelet therapy and avoid heparin drip unless there is further concern. 05/04 Troponin has remained flat likely trending down after recent cardiac catheterization and multiple stent placements Continue with cardiac monitoring Continue with dual antiplatelet therapy at this time due to recent stent placement 05/05 Most likely secondary to recent cardiac catheterization appears that remained flat trending down from recent procedure No chest pain continuous cardiac monitoring We will continue with antiplatelet therapy due to recent stent placement (3) Hyponatremia Current Visit: No Status: Acute Assessment and Plan: Patient has a sodium of 129, review of previous history demonstrates is chronically been hyponatremic which may be secondary to his long systolic heart failure. We will continue to monitor with daily BMP until proven stable. I do not suspect that this is contributing to his falls at this time. 05/04 Sodium is up to 133 today we will continue to monitor-no neurological deficits noted at this time 05/05 This has improved we will continue to monitor (4) History of DVT (deep vein thrombosis) Current Visit: No Status: Chronic Assessment and Plan: Patient missed a history of DVTs on chronic warfarin therapy. - We will continue warfarin with daily INRs 05/04 History DVTs continue with warfarin daily INRs currently 1.6 hemoglobin is low we will monitor for bleeding obtain stool for occult blood 05/05 Reason has a history DVTs he said it occurred approximately 10 years ago with no recurrence. Currently INR is 1.7 patient has had some anemia we will continue with current Coumadin dose and monitor hemoglobin closely (5) PAD (peripheral artery disease) Current Visit: No Status: Chronic Assessment and Plan: Known history of PAD. Stable (6) Heart failure with reduced ejection fraction Current Visit: No Status: Acute Assessment and Plan: Known history of systolic heart failure with ejection fraction of 40%. - We will obtain recent cardiac intervention documents from [facility] - No need to repeat echocardiogram at this time. 05/04 History of systolic heart failure with EF of 40% Awaiting recent cardiac intervention from [facility] Monitor for fluid overload 05/05 Does not appear to be fluid overloaded at this time Continue to monitor intake and output daily Monitor weight daily (7) GERD (gastroesophageal reflux disease) Current Visit: No Status: Chronic Assessment and Plan: Protonix 40 mg daily (8) Multiple falls Current Visit: Yes Status: Acute Assessment and Plan: Likely secondary to beta uziel induced near-syncope. We will continue monitoring analyst, rule out other causes. 05/04 Suspect this may be related to beta uziel as well as anemia continue with cardiac monitoring Transfuse and monitor H&H Monitor vital signs Fall precautions 05/05 Suspect may be related to anemia possible beta uziel will continue cardiac monitoring Patient has been transfused 2 units PRBCs continue to monitor H&H I will precautions (9) Type 2 diabetes mellitus Current Visit: Yes Status: Acute Assessment and Plan: Before meals at bedtime glucose checks - Low dose light scale insulin, will adjust based on patient's glucose levels - Diabetic diet 05/04 Continue with Accu-Cheks before meals and at bedtime with signs scale insulin diabetic diet 05/05 Accu-Cheks before meals and at bedtime sliding scale insulin diabetic diet (10) Anemia Current Visit: No Status: Acute Assessment and Plan: 1 patient does have a history of anemia currently hemoglobin was 7.2 this a.m. repeat hemoglobin 7.9 patient does endorse weakness and fatigue he is hypotensive Type and cross for 2 units PRBCs Patient is on Coumadin aspirin and Plavix we will obtain CT of abdomen to rule out any retroperitoneal bleeds Stool for occult blood Monitor H&H 05/05 Hemoglobin was 7.2 yesterday he did receive 2 units PRBCs today hemoglobin is 10.5 we will continue to monitor Stool occult was positive patient will be made nothing by mouth consult GI Continue with Protonix IV Continue monitoring H&H Patient had a recent stent 4 placement last week we will continue with aspirin and Plavix he has a history of DVT to Coumadin for now monitor and transfuse as needed DVT Prophylaxis: On Coumadin - Time Spent with Patient Total time spent is greater than 50% in coordination of care (as documented) at patient's floor/unit and/or counseling patient: Internal Medicine: Result - Labs CBC & Chem 7: 05/05/18 12:42 05/05/18 03:11 Labs: Short CBC 05/04/18 05/05/18 05/05/18 Range/Units 19:59 03:11 12:42 WBC 5.5 (4.3-11.1) K/mcL Hgb 8.5 L 10.2 L D 10.2 L (12.9-16.9) g/dL Hct 25.6 L 30.2 L 30.4 L (37.5-50.1) % Plt Count 114 L (140-400) K/mcL Neutrophils # 3.1 (1.6-8.9) K/mcL BMP 05/04/18 05/05/18 14:44 03:11 Sodium 133 L 132 L Potassium 4.4 4.2 Chloride 100 100 Carbon Dioxide 28 27 BUN 20 17 Creatinine 0.89 0.67 L Glucose 123 H 118 H Calcium 8.5 L 8.7 - ABG Interpretation ABG results: PT/INR, D-dimer PT 19.0 Seconds (9.4-12.1) H 05/05/18 03:11 Consult Discharge Plan - Plan [facility]errals: [facility]Primary Care Provider[facility] - ___ (6) Heart failure with reduced ejection fraction Qualifiers: Heart failure chronicity: chronic Qualified Code(s): I50.22 - Chronic systolic (congestive) heart failure (7) GERD (gastroesophageal reflux disease) Qualifiers: Esophagitis presence: esophagitis presence not specified Qualified Code(s): K21.9 - Gastro-esophageal reflux disease without esophagitis (9) Type 2 diabetes mellitus Qualifiers: Diabetes mellitus intermediate accountant insulin use: with intermediate accountant use Qualified Code(s): E11.21 - Type 2 diabetes mellitus with diabetic nephropathy; Z79.4 - extermination inspector (current) use of insulin (10) Anemia Qualifiers: Anemia type: unspecified type Qualified Code(s): D64.9 - Anemia, unspecified
[2018-05-05] MEDS ORDERED: *HR* Warfarin 5 MG TABLET PO ONE (18:00)
[2018-05-06 04:04] LABS: BUN/Creatinine Ratio 19 (6-26); Basophils % 0.2 %; Blood Urea Nitrogen 12 mg/dL (8-23); Calcium 8.6 mg/dL (8.6-10.3); Carbon Dioxide 26 mEq/L (23-29); Chloride 98 mEq/L (98-107); Eosinophils # 0.2 K/mcL (0.0-0.6); Eosinophils % 3.2 %; Glucose 119 mg/dL (70-105); Hematocrit 30.6 % (37.5-50.1); Hemoglobin 10.2 g/dL (12.9-16.9); Immature Granulocytes % 0.7 % (0-4); Immature Platelets 4.5 % (1.1-6.1); Lymphocytes # 1.7 K/mcL (0.6-4.6); Lymphocytes % 29.4 %; Mean Corpuscular HGB Conc 33.3 g/dL (31.6-35.5); Mean Corpuscular Hemoglobin 28.1 pg (28.0-33.3); Mean Corpuscular Volume 84.3 fL (83.0-100.0); Mean Platelet Volume 11.5 fL (9.4-12.4); Monocytes # 0.7 K/mcL (0.0-1.3); Monocytes % 12.5 %; Neutrophils # 3.2 K/mcL (1.6-8.9); Osmolality,Calculated 273 (280-300); Platelet Count 113 K/mcL (140-400); Potassium 3.9 mEq/L (3.5-5.1); Red Blood Count 3.63 M/mcL (4.19-5.50); Red Cell Distribution Width 18.8 % (11.5-14.5); Sodium 131 mEq/L (136-145); eGFR For Non-African Americans > 60 (> 60)
[2018-05-06 04:39] LABS: Prothrombin Time 22.8 Seconds (9.4-12.1)
[2018-05-06 05:07] LABS: Large Platelets Present (Not Present); Microcytosis Present (Not Present); Ovalocytes 1+ (Not Present); Platelet Estimate Decreased (Normal); Poikilocytosis 1+ (Not Present); Polychromasia 1+ (Not Present)
[2018-05-06] MEDS: *HR* Methadone 10 MG TABLET PO SCH ×2 (05:53→14:25)
[2018-05-06 07:15] VITALS: BP 134/69
[2018-05-06] MEDS: Insulin LISPRO 300 UNITS/3 ML VIAL SQ SCH ×2 (07:52→12:14)
[2018-05-06] MEDS: Pantoprazole 40 MG VIAL IVP SCH (08:23)
[2018-05-06] MEDS: Sennosides/Docusate Sodium TABLET PO SCH (08:23)
[2018-05-06] MEDS: Aspirin Enteric Coated 81 MG Tablet PO SCH (08:23)
[2018-05-06] MEDS: hydrOXYzine pamoate 25 MG CAPSULE PO SCH (08:23)
[2018-05-06] MEDS ORDERED: Hydrocortisone Rectal 2.5% CRM 28 GM TUBE RC SCH (09:15)
--- NOTE | 2018-05-06 11:36 | Discharge Summary ---
- NOTES TO OUTPATIENT PROVIDER Notes to Outpatient Provider: Visit with near syncope patient was found to be anemic as well as hypotensive-Coreg was held he did have bradycardia as well as hypotension he was given 2 units PRBCs hemoglobin up to 10 has been stable- recent stent placement on aspirin and Plavix which we will continue history DVT on Coumadin. We will closely watch for signs of bleeding monitor H&H CT of abdomen completed which did show proctitis-continue with Proctosol-we will give stool softener as well as MiraLAX-he will be discharged with home health nursing he will monitor his blood pressure and heart rate and he will follow-up with cardiology Orders not resulted at time of discharge: Pending orders 05/07/18 04:00 CBC [Complete Blood Count] [HEME] AM 0400 Chem 7 [Basic Metabolic Panel] AM 0400 Date of Encounter: 05/06/18 Time of Encounter: 11:36 - Discharge Diagnosis (1) Near syncope Priority: Primary Status: Acute (2) Elevated troponin I level Priority: Secondary Status: Acute (3) Hyponatremia Priority: Secondary Status: Acute (4) PAD (peripheral artery disease) Priority: Secondary Status: Chronic (5) Heart failure with reduced ejection fraction Priority: Secondary Status: Acute Qualifiers: Heart failure chronicity: chronic Qualified Code(s): I50.22 - Chronic systolic (congestive) heart failure (6) GERD (gastroesophageal reflux disease) Priority: Secondary Status: Chronic Qualifiers: Esophagitis presence: esophagitis presence not specified Qualified Code(s): K21.9 - Gastro-esophageal reflux disease without esophagitis (7) Multiple falls Priority: Secondary Status: Acute (8) Type 2 diabetes mellitus Priority: Secondary Status: Acute Qualifiers: Diabetes mellitus detention insulin use: with intermediate project manager use Qualified Code(s): E11.21 - Type 2 diabetes mellitus with diabetic nephropathy; Z79.4 - extermination supervisor (current) use of insulin (9) Anemia Priority: Secondary Status: Acute Qualifiers: Anemia type: unspecified type Qualified Code(s): D64.9 - Anemia, unspecified Hospital course: Mr. Okeefe is a 72 year old male past history of type 2 diabetes systolic heart failure EF of 40% triple-vessel disease with recent stent placement 4 approximately 1 week ago CAD hypertension hyperlipidemia previous DVT and is on chronic anticoagulation presented to [facility] ED. Prior to presentation to the ER patient had been discharged from [facility] the day before he took his medication the evening he began to feel lightheaded and dizzy he fell approximately 3 times was unable to get himself up he was able to crawl to outside and call for help In the emergency room department patient was noted to have a low blood pressure systolic in the 70s he was given IV fluids which he did respond positively. Radiographic workup was negative for any fracture or hemorrhage lab work did show hyponatremia however this appears to be his baseline troponin was elevated however seems to be trending down secondary to recent left heart catheter. - Patient underwent left heart catheter [place] -complex 90% proximal lesion and left main drug-eluting stent complex 95% mid lesion to circumflex drug-eluting stent complex 95% proximal lesion and RCA drug-eluting stent complex 90% proximal lesion in left main drug-eluting stent- completed 04/29/2018 -previous echo completed on 03/28/2018 shows EF of 40% mildly dilated with ventricle global left ventricular systolic dysfunction mild left ventricular diastolic dysfunction normal right ventricular structure and function mildly monitor regurgitation. Patient was discharged home on Coreg and lisinopril and patient admits that he did not check his vital signs prior to taking the medication. -He was admitted and monitored noted to have anemia with hemoglobin of 7.2 no chest pain or shortness of breath voiced. Coreg was stopped he was given 2 units of PRBCs during admission. Hemoglobin improved to 10 and remained stable throughout admission the patient's heart rates on 40s to 60s blood pressure did improve after blood transfusion. Patient did have an EGD last week 04/23/2018 prior to transfer [place] was noted that he had internal hemorrhoids-CT of abdomen did show prostatitis I did review and discuss case with attending Dr Monroe -patient will follow-up outpatient PCP and GI. We will recheck patient's chemistry and CBC as outpatient patient will be discharged with home health -he will monitor his blood pressure and heart rate and keep a log. Patient does have an appointment with cardiology on Sunday. I did review follow-up appointments and medications with the patient who verbalized understanding. Advised patient to return to the hospital if any more episodes of lightheadedness and noticed any bleeding. Patient verbalized und erstanding he is hemodynamically stable at this time is ready for discharge Discharge discussed with: patient - Time Spent with Patient Total time spent providing and/or coordinating discharge services: - Discharge Medications Prescriptions: Hydrocortisone Rectal CRM [Proctosol-Hc] 1 appl RC BID #1 tube Polyethylene Glycol 3350 [MiraLAX] 17 gm PO DAILY PRN #14 powd.pack PRN Reason: Constipation Sennosides/Docusate Sodium [Senna-Docusate Sodium Tablet] 1 each PO DAILY #30 tablet Home Medications: Albuterol Sulfate [Ventolin Hfa] 2 puff IH QID PRN 01/31/18 [History] Calcium Carbonate/Vitamin D3 [Calcium 500-Vit D3 200 Tablet] 1 tab PO BID 01/31/18 [History] Gabapentin [Neurontin] 300 mg PO HS 01/31/18 [History] Insulin NPH Human Isophane [Novolin N] 15 unit SQ QPM 01/31/18 [History] Insulin NPH Human Isophane [Novolin N] 20 unit SQ QAM 01/31/18 [History] Ipratropium/Albuterol Neb [Duoneb] 3 ml IH TID PRN 01/31/18 [History] Metformin HCl 1,000 mg PO BID 01/31/18 [History] Methadone 20 mg PO Q8HR 01/31/18 [History] Ranitidine HCl [Acid Corn Sheller] 150 mg PO BID 01/31/18 [History] Vit C/E/Zn/Coppr/Lutein/Zeaxan [Preservision Areds 2 Softgel] 1 cap PO BID 01/31/18 [History] hydrOXYzine HCl [Hydroxyzine HCl] 50 mg PO BID PRN 01/31/18 [History] Aspirin Enteric Coated [Aspirin EC] 81 mg PO DAILY #30 tablet. 02/05/18 [Rx] Lisinopril [Zestril] 5 mg PO DAILY #30 tablet 02/05/18 [Rx] Multivitamin [One Daily Multivitamin] 1 tab PO DAILY 03/28/18 [History] Warfarin [Coumadin] 5 mg PO 1800 04/19/18 [History] Atorvastatin [Lipitor] 40 mg PO HS 05/03/18 [History] Clopidogrel [Plavix] 75 mg PO DAILY 05/03/18 [History] Hydrocortisone Rectal CRM [Proctosol-Hc] 1 appl RC BID #1 tube 05/06/18 [Rx] Polyethylene Glycol 3350 [MiraLAX] 17 gm PO DAILY PRN #14 powd.pack 05/06/18 [Rx] Sennosides/Docusate Sodium [Senna-Docusate Sodium Tablet] 1 each PO DAILY #30 tablet 05/06/18 [Rx] Allergies/Adverse Reactions: Allergy/AdvReac Type Severity Reaction Status Date / Time No Known Allergies Allergy Verified 03/28/18 12:50 Date of admission: 05/04/18 13:47 [facility] care [facility] Discharging clinician: Janet Gibbs Anticipated date of discharge: 05/06/18 - Constitutional Vitals: Temp Pulse Resp BP Pulse Ox 97.8 F 76 16 134/69 97 05/06/18 07:13 05/06/18 07:13 05/06/18 07:13 05/06/18 07:13 05/06/18 07:13 General appearance: Present: A&O X 3 Exam: GENERAL: Pleasant cooperative alert and oriented 3 HEENT: Head is normocephalic and atraumatic. Extraocular muscles are intact. Pupils are equal, round, and reactive to light and accommodation. NECK: Supple. No carotid bruits. No lymphadenopathy or thyromegaly. LUNGS: CTA, symmetrical expansion. Respirations easy and unlabored HEART: Regular rate and rhythm, S1, S2 without murmur. ABDOMEN: Soft, nontender, and nondistended. Positive bowel sounds. No hepatosplenomegaly was noted. EXTREMITIES: Without any cyanosis, clubbing, rash, lesions or edema. NEUROLOGIC: Cranial nerves II through XII are grossly intact. PSYCHIATRIC: Appropriate affect, denies SI/HI, without agitation or anxiety SKIN: No ulceration or induration present. - Patient Status Disposition: Home Health Service Condition: Fair Functional capacity at discharge: uses cane/walker Overall status at discharge: patient is back to baseline - Discharge Instructions Instructions: Proctitis (DC), Anemia (DC), Fall Prevention (DC) Follow Up With: ESTRELLA,PCP [Primary Care Provider] - 05/14/18 2:00 pm Colin Up MD [Non-Partnered Physician] - 05/13/18 9:30 am Additional Instructions: Follow-up appointments: If there is not an appointment listed below, please call your physician and schedule a follow-up appointment. If you have congestive heart failure and your symptoms return, make an appointment with your physician. Medication List: Carry an up to date list of medications you are taking at all time. We have given you an updated medication list including any new medications that you have been prescribed. Please provide that list to your primary provider Symptoms: If your condition changes or you experience any of the following symptoms, notify your physician immediately: Unusual or worsening pain, fever, persistent nausea and vomiting, bleeding, increase in swelling (especially in your legs), sudden weight gain, extreme dizziness, chest pain, increased drainage or redness from a wound or incision. Go to the emergency department if you experience a problem with breathing. Weights: If you have a history of swelling or shortness of breath, weigh yourself daily and notify your physician if you have a weight gain of two or more pounds in one day or 5 or more pounds in a week. If you experience any of the warning signs for stroke: Sudden numbness or weakness of the face, arm or leg; especially on one side of the body, sudden confusion, trouble speaking or understanding, sudden trouble seeing in one or both eyes, sudden trouble walking, dizziness, loss of balance or coordination, sudden sever headache with no cause; Call 911 or go to the emergency room. Stroke is a medical emergency. Some risk factors for stroke: Age, cigarette smoking, diabetes, excessive alcohol consumption, family history, high blood pressure, overweight, physical inactivity, prior stroke, heart attack, diagnosis of carotid artery stenosis or other artery disease. If you smoke, STOP: Smoking or tobacco use significantly increases your risk of heart and lung disease. Your chance of disease greatly increases if you continue to smoke. For more information, call the [place] tobacco quit line for smoking cessation 4-409-AJOK-NOW ( ) - Diet and Activity Activity: increase activity as tolerated Diet: advance to your usual diet
--- NOTE | 2018-05-06 14:27 | Physician Discharge Referral ---
Home Health/Hosp Referral Info Transfer to: Home Health Attending Provider: Melvin Provider in Charge Post Discharge: PCP - Diagnosis (1) Near syncope Priority: Primary Status: Acute (2) Elevated troponin I level Priority: Secondary Status: Acute (3) Hyponatremia Priority: Secondary Status: Acute (4) PAD (peripheral artery disease) Priority: Secondary Status: Chronic (5) Heart failure with reduced ejection fraction Priority: Secondary Status: Acute (6) GERD (gastroesophageal reflux disease) Priority: Secondary Status: Chronic (7) Multiple falls Priority: Secondary Status: Acute (8) Type 2 diabetes mellitus Priority: Secondary Status: Acute (9) Anemia Priority: Secondary Status: Acute - Respiratory Orders Smoking Cessation: Smoking cessation has been advised. For more information, call the [employer] Tobacco Quit Line at 8-278-SXZH-NOW. - Services Needed Following services are medically necessary services: Nursing ( Recheck CBC Chem - 05/09/2018) - Transfer Medications Prescriptions: Hydrocortisone Rectal CRM [Proctosol-Hc] 1 appl RC BID #1 tube Polyethylene Glycol 3350 [MiraLAX] 17 gm PO DAILY PRN #14 powd.pack PRN Reason: Constipation Sennosides/Docusate Sodium [Senna-Docusate Sodium Tablet] 1 each PO DAILY #30 tablet Home Medications: Albuterol Sulfate [Ventolin Hfa] 2 puff IH QID PRN 01/31/18 [History] Calcium Carbonate/Vitamin D3 [Calcium 500-Vit D3 200 Tablet] 1 tab PO BID 01/31/18 [History] Gabapentin [Neurontin] 300 mg PO HS 01/31/18 [History] Insulin NPH Human Isophane [Novolin N] 15 unit SQ QPM 01/31/18 [History] Insulin NPH Human Isophane [Novolin N] 20 unit SQ QAM 01/31/18 [History] Ipratropium/Albuterol Neb [Duoneb] 3 ml IH TID PRN 01/31/18 [History] Metformin HCl 1,000 mg PO BID 01/31/18 [History] Methadone 20 mg PO Q8HR 01/31/18 [History] Ranitidine HCl [Acid Pumper Hand] 150 mg PO BID 01/31/18 [History] Vit C/E/Zn/Coppr/Lutein/Zeaxan [Preservision Areds 2 Softgel] 1 cap PO BID 01/31/18 [History] hydrOXYzine HCl [Hydroxyzine HCl] 50 mg PO BID PRN 01/31/18 [History] Aspirin Enteric Coated [Aspirin EC] 81 mg PO DAILY #30 tablet. 02/05/18 [Rx] Lisinopril [Zestril] 5 mg PO DAILY #30 tablet 02/05/18 [Rx] Multivitamin [One Daily Multivitamin] 1 tab PO DAILY 03/28/18 [History] Warfarin [Coumadin] 5 mg PO 1800 04/19/18 [History] Atorvastatin [Lipitor] 40 mg PO HS 05/03/18 [History] Clopidogrel [Plavix] 75 mg PO DAILY 05/03/18 [History] Hydrocortisone Rectal CRM [Proctosol-Hc] 1 appl RC BID #1 tube 05/06/18 [Rx] Polyethylene Glycol 3350 [MiraLAX] 17 gm PO DAILY PRN #14 powd.pack 05/06/18 [Rx] Sennosides/Docusate Sodium [Senna-Docusate Sodium Tablet] 1 each PO DAILY #30 tablet 05/06/18 [Rx] Allergies/Adverse Reactions: Allergy/AdvReac Type Severity Reaction Status Date / Time No Known Allergies Allergy Verified 03/28/18 12:50 Certification: Further, I certify that my clinical findings support that this patient is homebound (i.e. absences from home require considerable and taxing effort and are for medical reasons or [employer] services or infrequently or short duration when for other reasons) because: Homebound Reason: Severity of cardiac or pulmonary status limits activity tolerance Attestation: My signature below is to certify that this patient is under my care and that I, or nurse practitioner, or a physician's seo assistant working with me, has a [id number] encounter with this patient.
[2018-05-06] MEDS ORDERED: *HR* Warfarin 5 MG TABLET PO ONE (18:00)
== END 2018-05-06 17:17 | disposition home health service (06) | DRG 641 ==
LOC: EMEROOARM 07:52 → 3BNU 07:52
PROVIDERS: ADMIT Internal Medicine; ATTEND Internal Medicine

== ENCOUNTER 2018-08-18 23:52 | Inpatient (IN) ==
[2018-08-19] MEDS ORDERED: 0.9 % Sodium Chloride 1,000 ML IVC ONE (00:02)
--- NOTE | 2018-08-19 00:19 | Emergency Department Note ---
Disposition Clinical Impression: Acute exacerbation of chronic obstructive airways disease CHF exacerbation Qualifiers: Heart failure type: unspecified Qualified Code(s): I50.9 - Heart failure, unspecified Disposition: Admitted As Inpatient Condition: Fair Time of Disposition: 04:37 General Adult HPI - General Chief complaint: ED Shortness of Breath/Dyspnea Stated complaint: RAI Time Seen by Provider: 08/19/18 00:02 Source: EMS Mode of arrival: EMS Limitations: no limitations Nursing Notes Reviewed: Yes Vital Signs Reviewed: Yes - History of Present Illness HPI Narrative: Patient is a 72-year-old male with a past medical history of COPD, hypertension, peripheral vascular disease, and heart disease that reports that he became short of breath over the course of this evening, he took his blood pressure at home and noted that he seemed a little hypertensive to so he took an extra dose of his lisinopril. Patient states that he is not on oxygen at home, but he began to feel more and more short of breath so called the squad. Patient is denying any fevers or chills at this time, chest pain, abdominal pain, nausea, vomiting, diarrhea, constipation, dizziness, weakness. Patient is endorsing some in termittent tingling in his hands that has been going on chronically. Patient is also stating that his breathing feels very tight, but he did not want a treatment en route with squad. Patient denies any recent symptoms of an upper respiratory infection. Pain Scale: 0 - Related Data Home Medications Medication Instructions Recorded Confirmed Albuterol Sulfate [Ventolin Hfa] 2 puff IH QID PRN 01/31/18 04/19/18 Calcium Carbonate/Vitamin D3 1 tab PO BID 01/31/18 05/03/18 [Calcium 500-Vit D3 200 Tablet] Gabapentin [Neurontin] 300 mg PO HS 01/31/18 04/19/18 Insulin NPH Human Isophane 15 unit SQ QPM 01/31/18 05/03/18 [Novolin N] Insulin NPH Human Isophane 20 unit SQ QAM 01/31/18 05/03/18 [Novolin N] Ipratropium/Albuterol Neb [Duoneb] 3 ml IH TID PRN 01/31/18 05/03/18 Metformin HCl 1,000 mg PO BID 01/31/18 05/03/18 Methadone 20 mg PO Q8HR 01/31/18 05/03/18 Ranitidine HCl [Acid [employer]] 150 mg PO BID 01/31/18 05/03/18 Vit C/E/Zn/Coppr/Lutein/Zeaxan 1 cap PO BID 01/31/18 05/03/18 [Preservision Areds 2 Softgel] hydrOXYzine HCl [Hydroxyzine HCl] 50 mg PO BID PRN 01/31/18 05/03/18 Multivitamin [One Daily 1 tab PO DAILY 03/28/18 05/03/18 Multivitamin] Warfarin [Coumadin] 5 mg PO 1800 04/19/18 05/03/18 Atorvastatin [Lipitor] 40 mg PO HS 05/03/18 05/03/18 Clopidogrel [Plavix] 75 mg PO DAILY 05/03/18 05/03/18 Previous Rx's Medication Instructions Recorded Aspirin Enteric Coated [Aspirin EC] 81 mg PO DAILY #30 tablet. 02/05/18 Lisinopril [Zestril] 5 mg PO DAILY #30 tablet 02/05/18 Polyethylene Glycol 3350 [MiraLAX] 17 gm PO DAILY PRN #14 powd.pack 05/06/18 Sennosides/Docusate Sodium 1 each PO DAILY #30 tablet 05/06/18 [Senna-Docusate Sodium Tablet] Allergies Allergy/AdvReac Type Severity Reaction Status Date / Time No Known Allergies Allergy Verified 03/28/18 12:50 Constitutional: Denies: fever, chills ENT ED: Denies: throat pain Cardiovascular: Denies: chest pain, palpitations Respiratory: Reports: cough, dyspnea, wheezes. Denies: hemoptysis Gastrointestinal: Denies: abdominal pain, nausea, vomiting, diarrhea, constipation Musculoskeletal: Denies: back pain, neck pain Integumentary: Denies: rash, abrasion Neurological: Reports: headache, paresthesias (right and left hand, chronic) Psychiatric: Reports: anxiety Endocrine: Denies: fatigue, heat or cold intolerance Hematological/Lymphatic: Denies: easy bleeding, easy bruising Allergic/Immunologic: Denies: facial swelling, urticaria Past Medical History - Past Medical History Medical history: Reports: cardiomyopathy, CHF, COPD, coronary artery disease, diabetes, hyperlipidemia, hypertension, peripheral artery disease Surgical history: Reports: carotid endarterectomy, LE Bypass, LE stent(s), tonsilectomy Psychiatric history: Reports: no psych history - Social History Smoking Status: Former smoker Smokeless Tobacco Status: No Alcohol use: Reports: none Drug use: Reports: none Physical Exam General: A&O x 3. No acute distress. Well developed, well nourished. Head: atraumatic, normocephalic. ENT: No conjunctival injection, no scleral icterus. PERRLA. EOMI. Oropharynx non- erythematous. mucous membranes moist. Neuro: No focal deficits, no speech deficit, no facial droop, mentating well. Pulm: Lungs sound diminished in the bases, with prolonged expiratory phase, and mild wheezes diffusely Cardio: RRR no m/r/g. Chest not tender to palpation. Abd: Soft, non-distended. Normoactive bowel sounds. Non-tender to palpation. No guarding. Non rigid. Extremities: Mian LE edema with chronic venous insufficiency ulcers Skin: warm, dry, intact. Psych: Appropriate mood and affect. Answers questions appropriately. Cooperative with exam. - General Limitations: no limitations General appearance: alert Course Course Narrative: Suspect exacerbation of chronic underlying pulmonary disease, but cannot rule out ACS. Will get CXR, CBC, BMP, troponin, EKG. Will administer breathing treatment. Vital Signs Temperature 98.5 F 08/18/18 23:56 Pulse Rate 104 08/18/18 23:56 Respiratory Rate 22 08/18/18 23:56 Blood Pressure 140/71 08/18/18 23:56 O2 Sat by Pulse Oximetry 93 08/18/18 23:56 Temperature 98.5 F 08/18/18 23:56 Pulse Rate 81 08/19/18 03:31 Respiratory Rate 16 08/19/18 03:31 Blood Pressure 111/58 08/19/18 03:31 O2 Sat by Pulse Oximetry 99 08/19/18 03:31 Oxygen Delivery Oxygen Delivery Nasal Cannula Medical Decision Making - [facility] Narrative Medical decision making narrative: Pts XR was concerning for mian pulmonary edema, and mian LE were both swollen with 2+ pitting edema. Pt is requiring 3L NC to maintain saturation >90% and is not on oxygen at home. Pt has signs of COPD and CHF exacerbation. Pt will be admitted to hospitalist, Dr. Vásquez accepts on behalf of Dr. Butler. Pt verbalized understanding and agreement with the plan. Pt was given an opportunity to ask questions and all of his concerns were addressed. Pt Remained stable while in the department. - Medical Records Medical records reviewed: Yes I reviewed the patient's medical records. - Lab Data Lab results reviewed: Yes I reviewed the patient's lab results. Result diagrams: 08/19/18 00:08 08/19/18 00:08 Lab Results 08/19/18 08/19/18 08/19/18 Range/Units 00:08 00:08 00:08 WBC 11.6 H (4.3-11.1) K/mcL RBC 3.72 L (4.19-5.50) M/mcL Hgb 11.1 L (12.9-16.9) g/dL Hct 32.0 L (37.5-50.1) % MCV 86.0 (83.0-100.0) fL MCH 29.8 (28.0-33.3) pg MCHC 34.7 (31.6-35.5) g/dL RDW 20.5 H (11.5-14.5) % Plt Count 206 (140-400) K/mcL MPV 9.7 (9.4-12.4) fL Immature Gran % 0.5 (0-4) % Seg Neutrophils % 74.6 % Lymphocytes % 14.0 % Monocytes % 9.2 % Eosinophils % 1.1 % Basophils % 0.6 % Neutrophils # 8.6 (1.6-8.9) K/mcL Lymphocytes # 1.6 (0.6-4.6) K/mcL Monocytes # 1.1 (0.0-1.3) K/mcL Eosinophils # 0.1 (0.0-0.6) K/mcL Basophils # 0.1 (0.0-0.2) K/mcL PT (9.4-12.1) Seconds INR APTT (26.0-36.0) Seconds Sodium 126 L (136-145) mEq/L Potassium 4.0 (3.5-5.1) mEq/L Chloride 89 L (98-107) mEq/L Carbon Dioxide 27 (23-29) mEq/L BUN 15 (8-23) mg/dL Creatinine 0.62 L (0.70-1.30) mg/dL Est GFR ( Amer) > 60 (> 60) Est GFR (Non-Af Amer) > 60 (> 60) BUN/Creatinine Ratio 24 (6-26) Glucose 76 (70-105) mg/dL Calculated Osmolality 262 L (280-300) Lactic Acid 1.2 (0.5-2.2) mmol/L Calcium 9.4 (8.6-10.3) mg/dL Total Bilirubin 2.1 H (0.3-1.0) mg/dL Direct Bilirubin 0.5 H (0.0-0.2) mg/dL Indirect Bilirubin 1.6 H (0.0-1.2) mg/dL AST 37 (13-39) Units/L ALT 19 (7-52) Units/L Alkaline Phosphatase 75 (34-104) Units/L Troponin I 0.04 H* (< 0.04) ng/mL B-Natriuretic Peptide (Less than 100) pg/mL Serum Total Protein 7.3 (6.4-8.9) g/dL Albumin 4.5 (3.5-5.7) g/dL Globulin 2.8 (2.4-3.5) g/dL Albumin/Globulin Ratio 1.6 (1.1-2.2) Urine Color (Yellow) Urine Clarity (Clear) Urine pH (5.0-8.0) pH Units Ur Specific [place] (1.010-1.025) Urine Protein (Neg-Trace) mg/dL Urine Glucose (UA) (Normal) mg/dL Urine Ketones (Negative) mg/dL Urine Blood (Negative) Urine Nitrite (Negative) Urine Bilirubin (Negative) Urine Urobilinogen (Normal) mg/dL Ur Leukocyte Esterase (Negative) Urine Microscopic RBC (0-3) per hpf Urine Microscopic WBC (0-3) per hpf Ur Squamous Epith Cells (None-Few) per lpf Urine Bacteria (None-Few) per hpf Hyaline Casts (None-Few) per lpf Ur Culture Indicated? (NO) 08/19/18 08/19/18 08/19/18 Range/Units 00:08 00:08 03:00 WBC (4.3-11.1) K/mcL RBC (4.19-5.50) M/mcL Hgb (12.9-16.9) g/dL Hct (37.5-50.1) % MCV (83.0-100.0) fL MCH (28.0-33.3) pg MCHC (31.6-35.5) g/dL RDW (11.5-14.5) % Plt Count (140-400) K/mcL MPV (9.4-12.4) fL Immature Gran % (0-4) % Seg Neutrophils % % Lymphocytes % % Monocytes % % Eosinophils % % Basophils % % Neutrophils # (1.6-8.9) K/mcL Lymphocytes # (0.6-4.6) K/mcL Monocytes # (0.0-1.3) K/mcL Eosinophils # (0.0-0.6) K/mcL Basophils # (0.0-0.2) K/mcL PT 37.9 H (9.4-12.1) Seconds INR 3.4 APTT 38.1 H (26.0-36.0) Seconds Sodium (136-145) mEq/L Potassium (3.5-5.1) mEq/L Chloride (98-107) mEq/L Carbon Dioxide (23-29) mEq/L BUN (8-23) mg/dL Creatinine (0.70-1.30) mg/dL Est GFR ( Amer) (> 60) Est GFR (Non-Af Amer) (> 60) BUN/Creatinine Ratio (6-26) Glucose (70-105) mg/dL Calculated Osmolality (280-300) Lactic Acid (0.5-2.2) mmol/L Calcium (8.6-10.3) mg/dL Total Bilirubin (0.3-1.0) mg/dL Direct Bilirubin (0.0-0.2) mg/dL Indirect Bilirubin (0.0-1.2) mg/dL AST (13-39) Units/L ALT (7-52) Units/L Alkaline Phosphatase (34-104) Units/L Troponin I (< 0.04) ng/mL B-Natriuretic Peptide 1057 H (Less than 100) pg/mL Serum Total Protein (6.4-8.9) g/dL Albumin (3.5-5.7) g/dL Globulin (2.4-3.5) g/dL Albumin/Globulin Ratio (1.1-2.2) Urine Color Yellow (Yellow) Urine Clarity Clear (Clear) Urine pH 6.5 (5.0-8.0) pH Units Ur Specific [place] 1.009 L (1.010-1.025) Urine Protein 100 H (Neg-Trace) mg/dL Urine Glucose (UA) Normal (Normal) mg/dL Urine Ketones Negative (Negative) mg/dL Urine Blood Negative (Negative) Urine Nitrite Negative (Negative) Urine Bilirubin Negative (Negative) Urine Urobilinogen Normal (Normal) mg/dL Ur Leukocyte Esterase Negative (Negative) Urine Microscopic RBC 0-3 (0-3) per hpf Urine Microscopic WBC 0-3 (0-3) per hpf Ur Squamous Epith Cells None Seen (None-Few) per lpf Urine Bacteria None Seen (None-Few) per hpf Hyaline Casts None Seen (None-Few) per lpf Ur Culture Indicated? NO (NO) - Radiology Data Radiology results reviewed: Yes I reviewed the patient's radiology results. Chest X-Ray 08/19/18 00:02 IMPRESSION: Diffuse interstitial prominence, new from prior exam 05/03/2018 concerning for acute interstitial process such as interstitial edema or atypical pneumonia. There may be trace bilateral pleural effusions. D/ / Baldev Fritz MD / Baldev Fritz MD Interpreting Provider: Baldev Fritz MD - EKG Data EKG #1 EKG attestation: Yes I reviewed and interpreted this EKG. EKG results narrative: HR 104, rhythm sinus tachycardia with PVCs, axis normal at 86. [place] 165, QRS 104, QTc 453. ST depression in V5-V6 worse when compared to previous from 05/03/18.
[2018-08-19] MEDS ORDERED: Ipratropium/Albuterol Neb 3 ML IH ONE (00:22)
[2018-08-19 00:25] LABS: Basophils # 0.1 K/mcL (0.0-0.2); Basophils % 0.6 %; Eosinophils # 0.1 K/mcL (0.0-0.6); Eosinophils % 1.1 %; Hemoglobin 11.1 g/dL (12.9-16.9); Immature Granulocytes % 0.5 % (0-4); Lymphocytes # 1.6 K/mcL (0.6-4.6); Mean Corpuscular HGB Conc 34.7 g/dL (31.6-35.5); Mean Corpuscular Hemoglobin 29.8 pg (28.0-33.3); Mean Platelet Volume 9.7 fL (9.4-12.4); Monocytes # 1.1 K/mcL (0.0-1.3); Monocytes % 9.2 %; Neutrophils # 8.6 K/mcL (1.6-8.9); Platelet Count 206 K/mcL (140-400); Red Blood Count 3.72 M/mcL (4.19-5.50); Red Cell Distribution Width 20.5 % (11.5-14.5); Segmented Neutrophils % 74.6 %
[2018-08-19 00:33] LABS: INR 3.4; Prothrombin Time 37.9 Seconds (9.4-12.1)
[2018-08-19 00:35] LABS: Activated Partial Thrombo Time 38.1 Seconds (26.0-36.0)
[2018-08-19 00:45] LABS: Alanine Aminotransferase 19 Units/L (7-52); Albumin 4.5 g/dL (3.5-5.7); Albumin/Globulin Ratio 1.6 (1.1-2.2); Alkaline Phosphatase 75 Units/L (34-104); Aspartate Amino Transferase 37 Units/L (13-39); BUN/Creatinine Ratio 24 (6-26); Bilirubin,Direct 0.5 mg/dL (0.0-0.2); Bilirubin,Indirect 1.6 mg/dL (0.0-1.2); Bilirubin,Total 2.1 mg/dL (0.3-1.0); Blood Urea Nitrogen 15 mg/dL (8-23); Calcium 9.4 mg/dL (8.6-10.3); Carbon Dioxide 27 mEq/L (23-29); Chloride 89 mEq/L (98-107); Globulin 2.8 g/dL (2.4-3.5); Glucose 76 mg/dL (70-105); Osmolality,Calculated 262 (280-300); Sodium 126 mEq/L (136-145); Total Protein 7.3 g/dL (6.4-8.9); eGFR For Non-African Americans > 60 (> 60)
[2018-08-19 00:57] LABS: Troponin I 0.04 ng/mL (< 0.04)
[2018-08-19] MEDS ORDERED: *HR* LORazepam 2 MG/ML VIAL IVP ONE (01:26)
[2018-08-19] MEDS ORDERED: Furosemide 40 MG/4 ML VIAL IVP ONE ×2 (01:28→08:16)
[2018-08-19 03:13] LABS: Bilirubin,Urine Negative (Negative); Blood,Urine Negative (Negative); Clarity,Urine Clear (Clear); Color,Urine Yellow (Yellow); Glucose,Urine (UA) Normal (Normal); Ketones,Urine Negative (Negative); Leukocyte Esterase,Urine Negative (Negative); Nitrite,Urine Negative (Negative); PH,Urine 6.5 pH Units (5.0-8.0); Protein,Urine 100 mg/dL (Neg-Trace); Specific Gravity,Urine 1.009 (1.010-1.025); Urobilinogen,Urine Normal (Normal)
[2018-08-19 03:16] LABS: Bacteria,Urine None Seen per hpf (None-Few); Hyaline Casts,Urine None Seen per lpf (None-Few); RBC,Urine 0-3 per hpf (0-3); Squamous Epithelial Cell,Urine None Seen per lpf (None-Few); WBC,Urine 0-3 per hpf (0-3)
--- NOTE | 2018-08-19 08:38 | Internal Med History&Physical ---
Date of Encounter: 08/19/18 Time of Encounter: 08:18 Internal Medicine - H&P: HPI Chief complaint: SOB Admitted From: Emergency Dept History of present illness: Gerson Okeefe is a 72 M w hx HFrEF 40%, ICM, CAD s/p PCI, DVT on warfarin, COPD, DM2, HTN, HLD, PAD s/p and bifem bypass, who p/w sudden onset shortness of breath. Pt states that he was feeling fine yesterday, but that last night he seemed a bit winded so he took an albuterol nebulizer for the first time in several weeks (was out of them and only recently got replacement). He says that within ten minutes of taking his albuterol neb, he felt significantly more short of breath, could not catch his breath or lie down. He denies F/C/N/V/D. Did recently get stents placed for known 3v coronary disease. Says his legs are swollen but not much more so than usual. In the ED, pt HR 100s, RR 22. CXR w b/l interstitial changes suggestive of edema. Labs with BNP 1000, trop 0.04, Tbili 2.1, Ibili 1.6, Na 126, Cl 89. Admitted for Given NS 1L bolus initially, then dose of Lasix 40 iv x1 and admitted for CHF exacerbation. Past medical, surgical, social, and family histories reviewed and updated as below. Past Med Surg Social Fam HX - Past Medical History Medical history: cardiomyopathy, CHF, COPD, coronary artery disease, diabetes, hyperlipidemia, hypertension, peripheral artery disease Psychiatric history: no psych history - Past Surgical History Surgical History: carotid endarterectomy, LE Bypass, LE stent(s), tonsilectomy - Social History Smoking Status: Former smoker Smokeless Tobacco Status: No Alcohol use: none Drug use: none - Family History Mother Living Status: Hx Family Cardiac Disorders: Yes (mother heart attack) Hx Family Respiratory Disorders: No Hx Family Cancer: No Hx Family GI Disorders: No Hx Family Genitourinary Disorders: No Hx Family Endocrine Disorder: No Hx Family Musculoskeletal Disorders: No Hx Family Neuromuscular Disorders: No Hx Family Neurologic Disorders: No Hx Family HEENT Disorders: No Hx Family Autoimmune Disorders: No Hx Family Reproductive Disorders: No Hx Family Psychosocial Disorders: No Hx Family Medical Disorders: No Internal Medicine - H&P: Meds Albuterol Sulfate [Ventolin Hfa] 2 puff IH QID PRN 01/31/18 [History] Gabapentin [Neurontin] 300 mg PO HS 01/31/18 [History] Insulin NPH Human Isophane [Novolin N] 15 unit SQ QPM 01/31/18 [History] Insulin NPH Human Isophane [Novolin N] 20 unit SQ QAM 01/31/18 [History] Ipratropium/Albuterol Neb [Duoneb] 3 ml IH TID PRN 01/31/18 [History] Metformin HCl 1,000 mg PO BIDWM 01/31/18 [History] Methadone 20 mg PO Q8HR 01/31/18 [History] Ranitidine HCl [Acid [employer]] 150 mg PO BID 01/31/18 [History] Vit C/E/Zn/Coppr/Lutein/Zeaxan [Preservision Areds 2 Softgel] 1 cap PO BID 01/31 [History] Aspirin Enteric Coated [Aspirin EC] 81 mg PO DAILY #30 tablet. 02/05/18 [Rx] Lisinopril [Zestril] 5 mg PO DAILY #30 tablet 02/05/18 [Rx] Multivitamin [One Daily Multivitamin] 1 tab PO DAILY 03/28/18 [History] Warfarin [Coumadin] 5 mg PO 1800 04/19/18 [History] Clopidogrel [Plavix] 75 mg PO DAILY 05/03/18 [History] Atorvastatin Calcium [Lipitor] 40 mg PO DAILY 08/19/18 [History] Brimonidine 0.2% [Alphagan] 1 drop BOTH EYES BID 08/19/18 [History] Carvedilol [Coreg] 3.125 mg PO QPM 08/19/18 [History] Furosemide [Lasix] 20 mg PO QAM 08/19/18 [History] Ipratropium/Albuterol Sulfate [Combivent Respimat Inhal [place]] 4 gm IH Q4H PRN 08/19/18 [History] Isosorbide MONOnitrate [Isosorbide Mononitrate ER] 30 mg PO QPM 08/19/18 [History] Spironolactone [Aldactone] 25 mg PO BID 08/19/18 [History] Allergy/AdvReac Type Severity Reaction Status Date / Time No Known Allergies Allergy Verified 08/19/18 10:11 All Systems PM: A 10-system review of systems was performed and is negative for pertinent findings except as documented above in the HPI. - Constitutional Vitals: Temp Pulse Resp BP Pulse Ox 97.8 F 84 16 130/70 99 08/19/18 07:23 08/19/18 07:23 08/19/18 07:23 08/19/18 07:23 08/19/18 07:23 Exam: General: NAD, avoidant eye contact, chronically ill appearing, disheveled, very anxious and rambling Head: Atraumatic, normocephalic. Face symmetric Eyes: EOMI, sclerae anicteric ENT: Mucous membranes moist. Normal oral mucosa and dentition. Trachea midline. Thoracic: No visible chest wall deformities. Bibasilar crackles and end expiratory wheezing diffusely Cardio: Normal S1 and S2, regular rate and rhythm, no murmurs. Abdomen: Soft, nontender, nondistended. Extremities: Warm, well perfused. DP pulses 2+ b/l. No clubbing, cyanosis. Does have pitting edema to knees b/l Skin: Intact. Skin discoloration circumferential on legs likely chronic venous stasis Neuro: Awake, fully oriented. Decent memory, concentration, attention. Speech fluent. Anxious. Internal Med - H&P Results - Labs CBC & Chem 7: 08/19/18 00:08 08/19/18 00:08 Labs: Short CBC 08/19/18 Range/Units 00:08 WBC 11.6 H (4.3-11.1) K/mcL Hgb 11.1 L (12.9-16.9) g/dL Hct 32.0 L (37.5-50.1) % Plt Count 206 (140-400) K/mcL Neutrophils # 8.6 (1.6-8.9) K/mcL BMP 08/19/18 00:08 Sodium 126 L Potassium 4.0 Chloride 89 L Carbon Dioxide 27 BUN 15 Creatinine 0.62 L Glucose 76 Calcium 9.4 Cardiac Enzymes 08/19/18 Range/Units 00:08 Troponin I 0.04 H* (< 0.04) ng/mL Liver Function 08/19/18 Range/Units 00:08 Total Bilirubin 2.1 H (0.3-1.0) mg/dL Direct Bilirubin 0.5 H (0.0-0.2) mg/dL AST 37 (13-39) Units/L ALT 19 (7-52) Units/L Alkaline Phosphatase 75 (34-104) Units/L Albumin 4.5 (3.5-5.7) g/dL Urine 08/19/18 Range/Units 03:00 Urine Color Yellow (Yellow) Urine Clarity Clear (Clear) Urine pH 6.5 (5.0-8.0) pH Units Ur Specific [place] 1.009 L (1.010-1.025) Urine Protein 100 H (Neg-Trace) mg/dL Urine Glucose (UA) Normal (Normal) mg/dL - Impressions ITS Impressions Chest X-Ray 08/19/18 00:02 IMPRESSION: Diffuse interstitial prominence, new from prior exam 05/03/2018 concerning for acute interstitial process such as interstitial edema or atypical pneumonia. There may be trace bilateral pleural effusions. D/ / 08/19/2018 07:06:41 Baldev Fritz MD / [email or web address] Interpreting Provider: Baldev Fritz MD - Summary of Assessment and Plan Summary of Assessment and Plan: Gerson Okeefe is a 72 M w hx HFrEF 40%, ICM, CAD s/p PCI, DVT on warfarin, COPD, DM2, HTN, HLD, PAD s/p and bifem bypass, who p/w sudden SOB, crackles, wheezing, hypoxia, elevated BNP, congested CXR, elevated trop and lateral ST depressions, concerning for CHF exacerbation and flash pulmonary edema possibly caused by ischemia. Acute on chronic HFrEF 40%, ICM: pt p/w flash pulmonary edema. Findings include crackles, pedal edema, SOB, CXR w congestion, BNP 1000. Trop was mildly elevated to 0.04 on admission, concern for ischemic etiology of exacerbation and acute pulmonary edema. - Lasix 40 iv x1 and reassess in PM, is s/p Lasix 40 iv x1 in ED - strict I&Os, daily standing weight, cardiac 1.5L - continue home ACEi and nicol - at d/c will need low dose toprol started (did not tolerate coreg in past) COPD in acute exacerbation: likely 2/2 CHF above - nebs q4h&prn - prednisone 40 daily x5d, s/p solumedrol 125 in ED - azithromycin 500 po daily x5d - home inhalers NSTEMI: ST depressions in lateral leads, mild trop bump - tele - trend trops - increase home lipitor to 80 - continue DAPT - TTE - Cardio consult - hold warfarin and start hep gtt when INR approaches 2 Hypervolemic hyponatremia: and hypochloremia, diurese and monitor Indirect hyperbilirubinemia: not acutely anemic to suggest hemolysis, possible 2/2 hepatic congestion, diurese and monitor Acute hypoxic respiratory failure: requiring 2L O2 to maintain sats >88% - supplemental O2, wean as able - IS - treat causes as above - walk test prior to discharge CAD s/p PCI, HLD, PAD: stents placed 04/2018 at [facility], on DAPT and Statin as above DVT: remote, still on warfarin, daily INR Chronic pain: home methadone and gabapentin DM2: holding PO, home insulin + SSI GERD: home H2 uziel Anxiety: very much so PPx: hep gtt when INR downtrends to 2 FEN: cardiac ADA 1.5L, no MIVF Lines: PIV Consults: Cardio Code: Full Dispo: patient requires inpatient eval and management at this time. Anticipate 2-3 days. Will be homegoing
[2018-08-19] MEDS ORDERED: Naloxone 0.4 MG/ML INJ IVP PRN (08:46)
[2018-08-19] MEDS ORDERED: Acetaminophen 325 MG TABLET PO PRN (08:46)
[2018-08-19] MEDS ORDERED: Ondansetron 4 MG/2 ML VIAL IVP PRN (08:46)
--- NOTE | 2018-08-19 09:00 | Emergency Department Note ---
Disposition Clinical Impression: Acute exacerbation of chronic obstructive airways disease CHF exacerbation Qualifiers: Heart failure type: unspecified Qualified Code(s): I50.9 - Heart failure, unspecified Disposition: Admitted As Inpatient Condition: Fair General Adult HPI - General Chief complaint: ED Shortness of Breath/Dyspnea Stated complaint: RAI Time Seen by Provider: 08/19/18 00:02 Source: EMS Mode of arrival: EMS Limitations: no limitations Nursing Notes Reviewed: Yes Vital Signs Reviewed: Yes - History of Present Illness Pain Scale: 0 - Related Data Home Medications Medication Instructions Recorded Confirmed Albuterol Sulfate [Ventolin Hfa] 2 puff IH QID PRN 01/31/18 08/19/18 Calcium Carbonate/Vitamin D3 1 tab PO DAILY 01/31/18 08/19/18 [Calcium 500-Vit D3 200 Tablet] Gabapentin [Neurontin] 300 mg PO HS 01/31/18 08/19/18 Insulin NPH Human Isophane 15 unit SQ QPM 01/31/18 08/19/18 [Novolin N] Insulin NPH Human Isophane 20 unit SQ QAM 01/31/18 08/19/18 [Novolin N] Ipratropium/Albuterol Neb [Duoneb] 3 ml IH TID PRN 01/31/18 08/19/18 Metformin HCl 1,000 mg PO BID 01/31/18 08/19/18 Methadone 20 mg PO Q8HR 01/31/18 08/19/18 Ranitidine HCl [Acid Taxicab Dispatcher] 150 mg PO BID 01/31/18 08/19/18 Vit C/E/Zn/Coppr/Lutein/Zeaxan 1 cap PO BID 01/31/18 08/19/18 [Preservision Areds 2 Softgel] hydrOXYzine HCl [Hydroxyzine HCl] 50 mg PO BID PRN 01/31/18 08/19/18 Multivitamin [One Daily 1 tab PO DAILY 03/28/18 08/19/18 Multivitamin] Warfarin [Coumadin] 5 mg PO 1800 04/19/18 08/19/18 Atorvastatin [Lipitor] 40 mg PO HS 05/03/18 08/19/18 Clopidogrel [Plavix] 75 mg PO DAILY 05/03/18 08/19/18 Previous Rx's Medication Instructions Recorded Aspirin Enteric Coated [Aspirin EC] 81 mg PO DAILY #30 tablet. 02/05/18 Lisinopril [Zestril] 5 mg PO DAILY #30 tablet 02/05/18 Polyethylene Glycol 3350 [MiraLAX] 17 gm PO DAILY PRN #14 powd.pack 05/06/18 Sennosides/Docusate Sodium 1 each PO DAILY #30 tablet 05/06/18 [Senna-Docusate Sodium Tablet] Allergies Allergy/AdvReac Type Severity Reaction Status Date / Time No Known Allergies Allergy Verified 03/28/18 12:50 Constitutional: Denies: fever, chills ENT ED: Denies: throat pain Cardiovascular: Denies: chest pain, palpitations Respiratory: Reports: cough, dyspnea, wheezes. Denies: hemoptysis Gastrointestinal: Denies: abdominal pain, nausea, vomiting, diarrhea, constipation Musculoskeletal: Denies: back pain, neck pain Integumentary: Denies: rash, abrasion Neurological: Reports: headache, paresthesias (right and left hand, chronic) Psychiatric: Reports: anxiety Endocrine: Denies: fatigue, heat or cold intolerance Hematological/Lymphatic: Denies: easy bleeding, easy bruising Allergic/Immunologic: Denies: facial swelling, urticaria Past Medical History - Past Medical History Medical history: Reports: cardiomyopathy, CHF, COPD, coronary artery disease, diabetes, hyperlipidemia, hypertension, peripheral artery disease Surgical history: Reports: carotid endarterectomy, LE Bypass, LE stent(s), tonsilectomy Psychiatric history: Reports: no psych history - Social History Smoking Status: Former smoker Smokeless Tobacco Status: No Alcohol use: Reports: none Drug use: Reports: none Physical Exam - General Limitations: no limitations General appearance: alert Course Vital Signs Temperature 98.5 F 08/18/18 23:56 Pulse Rate 104 08/18/18 23:56 Respiratory Rate 22 08/18/18 23:56 Blood Pressure 140/71 08/18/18 23:56 O2 Sat by Pulse Oximetry 93 08/18/18 23:56 Temperature 97.8 F 08/19/18 07:23 Pulse Rate 84 08/19/18 07:23 Respiratory Rate 16 08/19/18 07:23 Blood Pressure 130/70 08/19/18 07:23 O2 Sat by Pulse Oximetry 99 08/19/18 07:23 Oxygen Delivery Oxygen Delivery Nasal Cannula Medical Decision Making - Lab Data Result diagrams: 08/19/18 00:08 08/19/18 00:08 Lab Results 08/19/18 08/19/18 08/19/18 Range/Units 00:08 00:08 00:08 WBC 11.6 H (4.3-11.1) K/mcL RBC 3.72 L (4.19-5.50) M/mcL Hgb 11.1 L (12.9-16.9) g/dL Hct 32.0 L (37.5-50.1) % MCV 86.0 (83.0-100.0) fL MCH 29.8 (28.0-33.3) pg MCHC 34.7 (31.6-35.5) g/dL RDW 20.5 H (11.5-14.5) % Plt Count 206 (140-400) K/mcL MPV 9.7 (9.4-12.4) fL Immature Gran % 0.5 (0-4) % Seg Neutrophils % 74.6 % Lymphocytes % 14.0 % Monocytes % 9.2 % Eosinophils % 1.1 % Basophils % 0.6 % Neutrophils # 8.6 (1.6-8.9) K/mcL Lymphocytes # 1.6 (0.6-4.6) K/mcL Monocytes # 1.1 (0.0-1.3) K/mcL Eosinophils # 0.1 (0.0-0.6) K/mcL Basophils # 0.1 (0.0-0.2) K/mcL PT (9.4-12.1) Seconds INR APTT (26.0-36.0) Seconds Sodium 126 L (136-145) mEq/L Potassium 4.0 (3.5-5.1) mEq/L Chloride 89 L (98-107) mEq/L Carbon Dioxide 27 (23-29) mEq/L BUN 15 (8-23) mg/dL Creatinine 0.62 L (0.70-1.30) mg/dL Est GFR ( Amer) > 60 (> 60) Est GFR (Non-Af Amer) > 60 (> 60) BUN/Creatinine Ratio 24 (6-26) Glucose 76 (70-105) mg/dL POC Glucose (70-99) mg/dL Calculated Osmolality 262 L (280-300) Lactic Acid 1.2 (0.5-2.2) mmol/L Calcium 9.4 (8.6-10.3) mg/dL Total Bilirubin 2.1 H (0.3-1.0) mg/dL Direct Bilirubin 0.5 H (0.0-0.2) mg/dL Indirect Bilirubin 1.6 H (0.0-1.2) mg/dL AST 37 (13-39) Units/L ALT 19 (7-52) Units/L Alkaline Phosphatase 75 (34-104) Units/L Troponin I 0.04 H* (< 0.04) ng/mL B-Natriuretic Peptide (Less than 100) pg/mL Serum Total Protein 7.3 (6.4-8.9) g/dL Albumin 4.5 (3.5-5.7) g/dL Globulin 2.8 (2.4-3.5) g/dL Albumin/Globulin Ratio 1.6 (1.1-2.2) Urine Color (Yellow) Urine Clarity (Clear) Urine pH (5.0-8.0) pH Units Ur Specific Jackson (1.010-1.025) Urine Protein (Neg-Trace) mg/dL Urine Glucose (UA) (Normal) mg/dL Urine Ketones (Negative) mg/dL Urine Blood (Negative) Urine Nitrite (Negative) Urine Bilirubin (Negative) Urine Urobilinogen (Normal) mg/dL Ur Leukocyte Esterase (Negative) Urine Microscopic RBC (0-3) per hpf Urine Microscopic WBC (0-3) per hpf Ur Squamous Epith Cells (None-Few) per lpf Urine Bacteria (None-Few) per hpf Hyaline Casts (None-Few) per lpf Ur Culture Indicated? (NO) 08/19/18 08/19/18 08/19/18 Range/Units 00:08 00:08 00:29 WBC (4.3-11.1) K/mcL RBC (4.19-5.50) M/mcL Hgb (12.9-16.9) g/dL Hct (37.5-50.1) % MCV (83.0-100.0) fL MCH (28.0-33.3) pg MCHC (31.6-35.5) g/dL RDW (11.5-14.5) % Plt Count (140-400) K/mcL MPV (9.4-12.4) fL Immature Gran % (0-4) % Seg Neutrophils % % Lymphocytes % % Monocytes % % Eosinophils % % Basophils % % Neutrophils # (1.6-8.9) K/mcL Lymphocytes # (0.6-4.6) K/mcL Monocytes # (0.0-1.3) K/mcL Eosinophils # (0.0-0.6) K/mcL Basophils # (0.0-0.2) K/mcL PT 37.9 H (9.4-12.1) Seconds INR 3.4 APTT 38.1 H (26.0-36.0) Seconds Sodium (136-145) mEq/L Potassium (3.5-5.1) mEq/L Chloride (98-107) mEq/L Carbon Dioxide (23-29) mEq/L BUN (8-23) mg/dL Creatinine (0.70-1.30) mg/dL Est GFR ( Amer) (> 60) Est GFR (Non-Af Amer) (> 60) BUN/Creatinine Ratio (6-26) Glucose (70-105) mg/dL POC Glucose 79 (70-99) mg/dL Calculated Osmolality (280-300) Lactic Acid (0.5-2.2) mmol/L Calcium (8.6-10.3) mg/dL Total Bilirubin (0.3-1.0) mg/dL Direct Bilirubin (0.0-0.2) mg/dL Indirect Bilirubin (0.0-1.2) mg/dL AST (13-39) Units/L ALT (7-52) Units/L Alkaline Phosphatase (34-104) Units/L Troponin I (< 0.04) ng/mL B-Natriuretic Peptide 1057 H (Less than 100) pg/mL Serum Total Protein (6.4-8.9) g/dL Albumin (3.5-5.7) g/dL Globulin (2.4-3.5) g/dL Albumin/Globulin Ratio (1.1-2.2) Urine Color (Yellow) Urine Clarity (Clear) Urine pH (5.0-8.0) pH Units Ur Specific Jackson (1.010-1.025) Urine Protein (Neg-Trace) mg/dL Urine Glucose (UA) (Normal) mg/dL Urine Ketones (Negative) mg/dL Urine Blood (Negative) Urine Nitrite (Negative) Urine Bilirubin (Negative) Urine Urobilinogen (Normal) mg/dL Ur Leukocyte Esterase (Negative) Urine Microscopic RBC (0-3) per hpf Urine Microscopic WBC (0-3) per hpf Ur Squamous Epith Cells (None-Few) per lpf Urine Bacteria (None-Few) per hpf Hyaline Casts (None-Few) per lpf Ur Culture Indicated? (NO) 08/19/18 08/19/18 Range/Units 01:26 03:00 WBC (4.3-11.1) K/mcL RBC (4.19-5.50) M/mcL Hgb (12.9-16.9) g/dL Hct (37.5-50.1) % MCV (83.0-100.0) fL MCH (28.0-33.3) pg MCHC (31.6-35.5) g/dL RDW (11.5-14.5) % Plt Count (140-400) K/mcL MPV (9.4-12.4) fL Immature Gran % (0-4) % Seg Neutrophils % % Lymphocytes % % Monocytes % % Eosinophils % % Basophils % % Neutrophils # (1.6-8.9) K/mcL Lymphocytes # (0.6-4.6) K/mcL Monocytes # (0.0-1.3) K/mcL Eosinophils # (0.0-0.6) K/mcL Basophils # (0.0-0.2) K/mcL PT (9.4-12.1) Seconds INR APTT (26.0-36.0) Seconds Sodium (136-145) mEq/L Potassium (3.5-5.1) mEq/L Chloride (98-107) mEq/L Carbon Dioxide (23-29) mEq/L BUN (8-23) mg/dL Creatinine (0.70-1.30) mg/dL Est GFR ( Amer) (> 60) Est GFR (Non-Af Amer) (> 60) BUN/Creatinine Ratio (6-26) Glucose (70-105) mg/dL POC Glucose 87 (70-99) mg/dL Calculated Osmolality (280-300) Lactic Acid (0.5-2.2) mmol/L Calcium (8.6-10.3) mg/dL Total Bilirubin (0.3-1.0) mg/dL Direct Bilirubin (0.0-0.2) mg/dL Indirect Bilirubin (0.0-1.2) mg/dL AST (13-39) Units/L ALT (7-52) Units/L Alkaline Phosphatase (34-104) Units/L Troponin I (< 0.04) ng/mL B-Natriuretic Peptide (Less than 100) pg/mL Serum Total Protein (6.4-8.9) g/dL Albumin (3.5-5.7) g/dL Globulin (2.4-3.5) g/dL Albumin/Globulin Ratio (1.1-2.2) Urine Color Yellow (Yellow) Urine Clarity Clear (Clear) Urine pH 6.5 (5.0-8.0) pH Units Ur Specific Jackson 1.009 L (1.010-1.025) Urine Protein 100 H (Neg-Trace) mg/dL Urine Glucose (UA) Normal (Normal) mg/dL Urine Ketones Negative (Negative) mg/dL Urine Blood Negative (Negative) Urine Nitrite Negative (Negative) Urine Bilirubin Negative (Negative) Urine Urobilinogen Normal (Normal) mg/dL Ur Leukocyte Esterase Negative (Negative) Urine Microscopic RBC 0-3 (0-3) per hpf Urine Microscopic WBC 0-3 (0-3) per hpf Ur Squamous Epith Cells None Seen (None-Few) per lpf Urine Bacteria None Seen (None-Few) per hpf Hyaline Casts None Seen (None-Few) per lpf Ur Culture Indicated? NO (NO) Critical Care Time Critical Care Time: Yes Total Critical Care Time: 35 Attestation: Critical care performed: Time is exclusive of separately billable procedures. Time includes: direct patient care, patient reassessment, coordination of patient care, interpretation of data (laboratory data, radiology data, and respiratory data), review of patient's medical records, medical consultation and documentation of patient care. Procedures included in critical care time: Procedures excluded from critical care time: Attestation Statement - Attestation Attestation: I, Felice De Oliveira MD, personally evaluated this patient and discussed their management with the resident physician. I reviewed the resident's note and agree with the documented findings, medical decision making, and plan of care. 72-year-old male with history of COPD and CHF presents to the emergency department with a complaint of increased shortness of breath which started earlier this evening and has gotten progressively worse throughout the night. No cough or fever. No chest pain. Patient also complains of just feeling very anxious and states that in the past he had have Ativan for similar symptoms and it really helped. On examination patient is a well-developed well-nourished elderly male in no acute distress. He is somewhat anxious and tachypneic but has good oxygen saturation on oxygen by nasal cannula. He does not use home oxygen. There is no cyanosis or diaphoresis. He is alert and oriented 3. Breath sounds are eq ual bilaterally. There are some moist bibasilar rales, right greater than left. Heart regular rate and rhythm. Abdomen soft with present bowel sounds. EKG shows sinus tachycardia with ventricular rate of 104. WBC per. Lateral ST segment depression which was present on prior EKG but seems slightly worse than previously. Labs reviewed. Chest x-ray shows trace bilateral pleural effusions and interstitial edema. Patient received Lasix 40 mg IV in the emergency department. The hospitalist, Dr. Vásquez, was consulted and accepted admission of the patient.
[2018-08-19] MEDS: *HR* Methadone 10 MG TABLET PO SCH ×4 (09:16→21:10)
[2018-08-19] MEDS: Sennosides/Docusate Sodium TABLET PO SCH (09:17)
[2018-08-19] MEDS: Aspirin Enteric Coated 81 MG Tablet PO SCH (09:17)
[2018-08-19] MEDS: Famotidine 20 MG TABLET PO SCH ×2 (09:17→21:10)
[2018-08-19] MEDS: hydrOXYzine pamoate 25 MG CAPSULE PO PRN ×2 (09:18→21:18)
[2018-08-19] MEDS: Insulin NPH 100 UNIT/ML (x5UNIT) SQ SCH ×2 (09:27→17:01)
[2018-08-19] MEDS ORDERED: Perflutren Lipid Microsphere 1.3 ML in 0.9 % Sodium Chloride 8.7 ML IVP ONE (15:23)
--- NOTE | 2018-08-19 17:50 | Electrocardiograph Report ---
[address] [place], [place] [address] Test Date: 2018-08-19 Pat Name: Gerson Okeefe Department: [id number] Room: 2A63 Gender: M Abstract Checker: : 1945 Requested By: Zehra Sosa Order Number: [id number] Reading MD: Purnima Holland Measurements Intervals [place] Rate: 104 P: 80 FL: 165 QRS: 86 QRSD: 104 T: 71 QT: 344 QTc: 453 Interpretive Statements Sinus tachycardia Paired ventricular premature complexes Probable left atrial enlargement Left ventricular hypertrophy Repol abnrm suggests ischemia, lateral leads Electronically Signed On 08-19-2018 17:49:01 EDT by Purnima Holland
[2018-08-19] MEDS ORDERED: Isosorbide MONOnitrate (24 HR) 30 MG TAB.ER.24H PO SCH (18:00)
[2018-08-19] MEDS ORDERED: *HR* Warfarin 5 MG TABLET PO SCH (18:00)
[2018-08-19] MEDS ORDERED: Spironolactone 25 MG TABLET PO SCH (21:00)
[2018-08-19] MEDS: Gabapentin 300 MG CAPSULE PO SCH (21:10)
[2018-08-20 06:08] LABS: Hemoglobin 9.1 g/dL (12.9-16.9); Mean Corpuscular Hemoglobin 29.5 pg (28.0-33.3); Mean Corpuscular Volume 84.4 fL (83.0-100.0); Platelet Count 160 K/mcL (140-400); Red Blood Count 3.08 M/mcL (4.19-5.50); Red Cell Distribution Width 20.8 % (11.5-14.5)
[2018-08-20 06:45] LABS: BUN/Creatinine Ratio 30 (6-26); Blood Urea Nitrogen 24 mg/dL (8-23); Carbon Dioxide 32 mEq/L (23-29); Chloride 93 mEq/L (98-107); Glucose 84 mg/dL (70-105); Magnesium 1.5 mg/dL (1.6-2.6); Osmolality,Calculated 271 (280-300); Potassium 4.8 mEq/L (3.5-5.1); Sodium 129 mEq/L (136-145); Troponin I 0.09 ng/mL (< 0.04); eGFR For Non-African Americans > 60 (> 60)
[2018-08-20] MEDS ORDERED: Furosemide 40 MG/4 ML VIAL IVP SCH (08:00)
[2018-08-20] MEDS: Furosemide 20 MG/2 ML VIAL IVP SCH ×2 (08:59→17:37)
[2018-08-20] MEDS: Sennosides/Docusate Sodium TABLET PO SCH (08:59)
[2018-08-20] MEDS: Aspirin Enteric Coated 81 MG Tablet PO SCH (08:59)
[2018-08-20] MEDS: Famotidine 20 MG TABLET PO SCH ×2 (08:59→21:09)
[2018-08-20] MEDS: Insulin NPH 100 UNIT/ML (x5UNIT) SQ SCH ×2 (09:00→17:37)
[2018-08-20] MEDS: *HR* Methadone 10 MG TABLET PO SCH ×3 (09:50→21:09)
--- NOTE | 2018-08-20 10:40 | Cardiology Consult Note ---
Addendum entered and electronically signed by Win Del Real CNP 08/20/18 13:24: Lisinopril and spironlactone d/c'd today for low b/p overnight. Low dose bb started. Original Note: <Win Del Real - Last Filed: 08/20/18 13:15> Date of Encounter: 08/20/18 Time of Encounter: 10:00 Assessment and Plan (1) Acute on chronic HFrEF (heart failure with reduced ejection fraction) Current Visit: No Status: Acute Acute on chronic HFrEF. EF 30-35%. CXR shows interstitial pulmonary edema less likely atypical PNA. BNP 1065. Agree with IV lasix. Patient refuses to measure urine. Currently positive net I&O. Reports symptoms improved. Continue for 24 more hours. Strict I&O and daily weight. CHF education reviewed. Low sodium diet. Restart carvedilol and aceI. Consider restarting spironlactone if b/p allows. (2) Coronary artery disease Current Visit: No Status: Chronic H/o STEMI 01/2018 with PCI to severe disease in the RCA. There was severe three vessel CAD including left main disease remaining. EF 35-40%. He was recommended to have CABG verses high risk PCI with use of impella (LMCA and ostial to prox RCA). Patient initially declined intervention. 04/2019 he was re-admitted for chest pain and transferred to [facility] per patient request for [facility]. We will order records. Continue asa, plavix, statin, and bb. Qualifiers: Coronary Disease-Associated Artery/Lesion type: [place] artery [place] vs. transplanted heart: unspecified whether [place] or transplanted heart Associated angina: angina presence unspecified Qualified Code(s): I25.10 - Atherosclerotic heart disease of [place] coronary artery without angina pectoris (3) Elevated troponin I level Current Visit: No Status: Acute Troponin elevation up to 0.25 and trending down. EKG shows St, HR 104, LVH. No significant chnage from EKG 04/2018. Demand ischemia in the setting of acute on chronic HFrEF vs NSTEMI. Suspect demand ischemia. Denies chest pain. TTE shows EF 30-35%. Prior TTE 03/2018 showed EF 40%. EH 35-40% on C 01/2018. We will order LHC and TTE reports from [facility]. Discussion w patient/family: The assessment and plan as outlined above was discussed with the patient and/or family members who expressed understanding and agreement. All questions were answered. Thank you for involving us in the care of your patient. Please call with any questions. History of Present Illness Consult date: 08/20/18 Requesting physician: Baldev Lund Consult reason: CHF, elevated troponin Chief complaint: SOB for one day History of present illness: Mr. Okeefe is a 72 year old male with past medical history significant for CAD s/p inferior STEMI 01/2018, staged PCI 04/2018 at [facility], COPD, PVD, DVT on coumadin, and chronic anemia. He presents with the c/o SOB. On my exam he states he was SOB "one time". He admits to BLE edema but feels it is at baseline with his PVD. He denies chest pain. Work-up re-veals acute on chronic HFrEF. He is also seen to have mild troponin elevation. Past Med Surg Social Fam HX - Past Medical History Medical history: cardiomyopathy, CHF, COPD, coronary artery disease, diabetes, hyperlipidemia, hypertension, myocardial infarction, peripheral artery disease Psychiatric history: no psych history - Past Surgical History Surgical History: carotid endarterectomy, LE Bypass, LE stent(s), tonsilectomy - Social History Smoking Status: Former smoker Smokeless Tobacco Status: No Alcohol use: none Drug use: none - Family History Mother Living Status: Hx Family Cardiac Disorders: Yes (mother heart attack) Hx Family Respiratory Disorders: No Hx Family Cancer: No Hx Family GI Disorders: No Hx Family Genitourinary Disorders: No Hx Family Endocrine Disorder: No Hx Family Musculoskeletal Disorders: No Hx Family Neuromuscular Disorders: No Hx Family Neurologic Disorders: No Hx Family HEENT Disorders: No Hx Family Autoimmune Disorders: No Hx Family Reproductive Disorders: No Hx Family Psychosocial Disorders: No Hx Family Medical Disorders: No Medications and Allergies Albuterol Sulfate [Ventolin Hfa] 2 puff IH QID PRN 01/31/18 [History] Gabapentin [Neurontin] 300 mg PO HS 01/31/18 [History] Insulin NPH Human Isophane [Novolin N] 15 unit SQ QPM 01/31/18 [History] Insulin NPH Human Isophane [Novolin N] 20 unit SQ QAM 01/31/18 [History] Ipratropium/Albuterol Neb [Duoneb] 3 ml IH TID PRN 01/31/18 [History] Metformin HCl 1,000 mg PO BIDWM 01/31/18 [History] Methadone 20 mg PO Q8HR 01/31/18 [History] Ranitidine HCl [Acid Government Teacher] 150 mg PO BID 01/31/18 [History] Vit C/E/Zn/Coppr/Lutein/Zeaxan [Preservision Areds 2 Softgel] 1 cap PO BID 01/31/18 [History] Aspirin Enteric Coated [Aspirin EC] 81 mg PO DAILY #30 tablet. 02/05/18 [Rx] Lisinopril [Zestril] 5 mg PO DAILY #30 tablet 02/05/18 [Rx] Multivitamin [One Daily Multivitamin] 1 tab PO DAILY 03/28/18 [History] Warfarin [Coumadin] 5 mg PO 1800 04/19/18 [History] Clopidogrel [Plavix] 75 mg PO DAILY 05/03/18 [History] Atorvastatin Calcium [Lipitor] 40 mg PO DAILY 08/19/18 [History] Brimonidine 0.2% [Alphagan] 1 drop BOTH EYES BID 08/19/18 [History] Carvedilol [Coreg] 3.125 mg PO QPM 08/19/18 [History] Furosemide [Lasix] 20 mg PO QAM 08/19/18 [History] Ipratropium/Albuterol Sulfate [Combivent Respimat [place]] 4 gm IH Q4H PRN 08/19/18 [History] Isosorbide MONOnitrate [Isosorbide Mononitrate ER] 30 mg PO QPM 08/19/18 [History] Spironolactone [Aldactone] 25 mg PO BID 08/19/18 [History] 3 Allergy/AdvReac Type Severity Reaction Status Date / Time No Known Allergies Allergy Verified 08/19/18 10:11 All Systems Review: The remainder of the systems were reviewed and are negative Physical Examination Vital Signs, Last 4 Hours Temp Pulse Resp BP Pulse Ox 08/20/18 07:46 98.0 F 80 19 111/60 91 General: Conversant, No Apparent Distress HEENT: Atraumatic, Normocephaly, Mucus Membranes Moist Neck: No JVD, Normal carotid pulses Cardiac: Reg Rate and Rhythm, Normal S1 and S2, No Murmur Lungs: Normal Breath Sounds, No Wheeze, Rales, Rhonchi, Other (Lung sounds diminished. ) Neuro: Alert and responsive, No focal deficits noted Abdomen: Soft, Non-Tender Skin: No rashes noted on visualized skin Musculoskeletal: No Chest Wall Tenderness Extremities: No Clubbing, Other (BLE with brownish discoloration, thickened skin noted, trace pitting edema.) Results 08/20/18 05:55 08/20/18 05:55 Lab Results 08/20/18 08/20/18 05:55 05:55 WBC 7.8 Hgb 9.1 L D Hct 26.0 L Plt Count 160 Sodium 129 L Potassium 4.8 Chloride 93 L Carbon Dioxide 32 H BUN 24 H Creatinine 0.80 Glucose 84 Calcium 9.0 Magnesium 1.5 L Troponin I 0.09 H* - Imaging and Cardiology Echo: report reviewed - EKG Interpretation EKG results cardiology: personally reviewed Consult Discharge Plan - Plan [facility]errals: [facility]Primary Care Provider[facility] - <Purnima Holland - Last Filed: 08/20/18 13:42> Date of Encounter: 08/20/18 - Attending Attestation I examined this patient and my medical decision-making was reviewed with the INFORMATION BROKER. I agree with the documented findings, disposition and treatment plan as described. Mr. Okeefe presents with acute on chronic systolic HF exacerbation. Agree with IV diuresis. Discrepancy between Echo EF done during this admission (EF 30-35%) vs Echo EF 03/2018 35-40%. Attempting to obtain [facility] records from 04/2018 to help clarify. Troponin elevation may be from demand ischemia. Patient denies chest pain. He declines pursuing aggressive interventions like coronary angiography. For now, continue IV diuresis and medical management. Obtaining records from [facility]. Assessment and Plan Discussion w patient/family: The assessment and plan as outlined above was discussed with the patient and/or family members who expressed understanding and agreement. All questions were answered. Thank you for involving us in the care of your patient. Please call with any questions. History of Present Illness History of present illness: Mr. Okeefe is a 72 year old male All Systems Review: The remainder of the systems were reviewed and are negative Physical Examination Vital Signs, Last 4 Hours Temp Pulse Resp BP Pulse Ox 08/20/18 11:21 99.0 F 71 18 115/66 97 Results 08/20/18 05:55 08/20/18 05:55 Lab Results 08/20/18 08/20/18 05:55 05:55 WBC 7.8 Hgb 9.1 L D Hct 26.0 L Plt Count 160 Sodium 129 L Potassium 4.8 Chloride 93 L Carbon Dioxide 32 H BUN 24 H Creatinine 0.80 Glucose 84 Calcium 9.0 Magnesium 1.5 L Troponin I 0.09 H*
--- NOTE | 2018-08-20 11:35 | Internal Med Progress Note ---
Hospitalist Progress Note - Encounter Date of Encounter: 08/20/18 Time of Encounter: 11:33 - Subjective Interval History: Pt feels Ok, [facility], pt has back pain and is difficult for him to get around. - Exam Vitals: Temp Pulse Resp BP Pulse Ox 99.0 F 71 18 115/66 97 08/20/18 11:21 08/20/18 11:21 08/20/18 11:21 08/20/18 11:21 08/20/18 11:21 Exam: General: NAD, avoidant eye contact, chronically ill appearing, disheveled, very anxious and rambling Head: Atraumatic, normocephalic. Face symmetric Eyes: EOMI, sclerae anicteric ENT: Mucous membranes moist. Normal oral mucosa and dentition. Trachea midline. Thoracic: No visible chest wall deformities. Bibasilar crackles and end expiratory wheezing diffusely Cardio: Normal S1 and S2, regular rate and rhythm, no murmurs. Abdomen: Soft, nontender, nondistended. Extremities: Warm, well perfused. DP pulses 2+ b/l. No clubbing, cyanosis. Does have pitting edema to knees b/l Skin: Intact. Skin discoloration circumferential on legs likely chronic venous stasis Neuro: Awake, fully oriented. Decent memory, concentration, attention. Speech fluent. Anxious. - Summary of Assessment and Plan Summary of Assessment and Plan: Gerson Okeefe is a 72 M w hx HFrEF 40%, ICM, CAD s/p PCI, DVT on warfarin, COPD, DM2, HTN, HLD, PAD s/p and bifem bypass, who p/w sudden SOB, crackles, wheezing, hypoxia, elevated BNP, congested CXR, elevated trop and lateral ST depressions, concerning for CHF exacerbation and flash pulmonary edema possibly caused by ischemia. 1) Acute on chronic HFrEF 40% Pt still has crackles on the right lung pt will need to be diuresed further however BP is borderline Will discontine all BP meds and focus on diruesis 2) COPD in acute exacerbation: likely 2/2 CHF above - nebs q4h&prn - prednisone 40 daily x5d, s/p solumedrol 125 in ED - azithromycin 500 po daily x5d - home inhalers 3) NSTEMI: ST depressions in lateral leads, mild trop bump -deffered to card 4) Chronic pain: home methadone and gabapentin 5) dispo: Await PT/Ot to see pt, marisela jaimes, on 20 IV BID only, likely to increase To home in 1 -2 days Time: 35 min - Time Spent with Patient Total time spent is greater than 50% in coordination of care (as documented) at patient's floor/unit and/or counseling patient: Internal Medicine: Result - Labs CBC & Chem 7: 08/20/18 05:55 08/20/18 05:55 Labs: Short CBC 08/20/18 Range/Units 05:55 WBC 7.8 (4.3-11.1) K/mcL Hgb 9.1 L D (12.9-16.9) g/dL Hct 26.0 L (37.5-50.1) % Plt Count 160 (140-400) K/mcL BMP 08/20/18 05:55 Sodium 129 L Potassium 4.8 Chloride 93 L Carbon Dioxide 32 H BUN 24 H Creatinine 0.80 Glucose 84 Calcium 9.0 Cardiac Enzymes 08/20/18 Range/Units 05:55 Troponin I 0.09 H* (< 0.04) ng/mL - ABG Interpretation ABG results: PT/INR, D-dimer PT 37.9 Seconds (9.4-12.1) H 08/19/18 00:08 - Impressions Impressions Chest X-Ray 08/19/18 00:02 IMPRESSION: Diffuse interstitial prominence, new from prior exam 05/03/2018 concerning for acute interstitial process such as interstitial edema or atypical pneumonia. There may be trace bilateral pleural effusions. D/ / 08/19/2018 07:06:41 [facility] Interpreting Provider: Baldev Fritz MD Echocardiogram Limited Views 08/19/18 12:01 Impressions: LVEF 30-35%. Moderately dilated left ventricle. Severe global left ventricular systolic dysfunction with regional variations. There is no LV thrombus. Definity echo contrast was used. Left Ventricular Wall Motion: Rest Echo Findings The apex, apical inferior, mid inferior, basal inferior, apical anterior, mid anterior, basal anterior, apical septal, mid inferior septal, basal inferior septal, apical lateral, mid anterior lateral, basal anterior lateral, mid anterior septal, mid inferior lateral, basal anterior septal and basal inferior lateral wilson were hypokinetic. Findings: Study Quality * Technically adequate exam. ECG Findings * Normal sinus rhythm. Left Ventricle * LVEF 30-35%. * Moderately dilated left ventricle. * Severe global left ventricular systolic dysfunction with regional variations. * There is no LV thrombus. * Definity echo contrast was used. Right Ventricle * Normal right ventricular structure Consult Discharge Plan - Plan [facility] Care Provider[facility] -
--- NOTE | 2018-08-20 15:29 | Event Note ---
Date of Encounter: 08/20/18 Time of Encounter: 15:27 - Cardiology Event Note Records not yet received. Recommend continuing IV diuresis until euvolemic and transition to PO prior to d/c. Will obtain records for outpt follow-up. Will coordinate outpt follow-up in 1-2 weeks. Cardiology signing off. Reconsult PRN.
[2018-08-20] MEDS: Gabapentin 300 MG CAPSULE PO SCH (21:09)
[2018-08-20 22:10] LABS: Activated Partial Thrombo Time 29.5 Seconds (26.0-36.0)
[2018-08-20 22:12] LABS: INR 1.5; Prothrombin Time 17.3 Seconds (9.4-12.1)
[2018-08-20] MEDS ORDERED: *HR* Warfarin 5 MG TABLET PO ONE (23:15)
[2018-08-21 06:48] LABS: INR 1.4
[2018-08-21 08:33] LABS: BUN/Creatinine Ratio 38 (6-26); Blood Urea Nitrogen 26 mg/dL (8-23); Calcium 9.2 mg/dL (8.6-10.3); Carbon Dioxide 33 mEq/L (23-29); Chloride 92 mEq/L (98-107); Glucose 77 mg/dL (70-105); Osmolality,Calculated 272 (280-300); Potassium 4.4 mEq/L (3.5-5.1); Sodium 129 mEq/L (136-145); eGFR For Non-African Americans > 60 (> 60)
[2018-08-21] MEDS: Furosemide 20 MG/2 ML VIAL IVP SCH (09:24)
[2018-08-21] MEDS: Famotidine 20 MG TABLET PO SCH (09:24)
[2018-08-21] MEDS: *HR* Methadone 10 MG TABLET PO SCH ×2 (09:24→15:10)
[2018-08-21] MEDS: Sennosides/Docusate Sodium TABLET PO SCH (09:24)
[2018-08-21] MEDS: Aspirin Enteric Coated 81 MG Tablet PO SCH (09:24)
[2018-08-21] MEDS: Insulin NPH 100 UNIT/ML (x5UNIT) SQ SCH (09:25)
[2018-08-21 11:26] VITALS: BP 124/63
--- NOTE | 2018-08-21 13:07 | Physician Discharge Referral ---
Home Health/Hosp Referral Info Transfer to: Home Health (RN, aids, PT/OT) - Diagnosis (1) CHF exacerbation Status: Acute - Respiratory Orders Smoking Cessation: Smoking cessation has been advised. For more information, call the [place] Tobacco Quit Line at 0-423-INCL-NOW. - Transfer Medications Prescriptions: Furosemide [Lasix] 40 mg PO BID #60 tab Home Medications: Albuterol Sulfate [Ventolin Hfa] 2 puff IH QID PRN 01/31/18 [History] Gabapentin [Neurontin] 300 mg PO HS 01/31/18 [History] Insulin NPH Human Isophane [Novolin N] 15 unit SQ QPM 01/31/18 [History] Insulin NPH Human Isophane [Novolin N] 20 unit SQ QAM 01/31/18 [History] Ipratropium/Albuterol Neb [Duoneb] 3 ml IH TID PRN 01/31/18 [History] Methadone 20 mg PO Q8HR 01/31/18 [History] Ranitidine HCl [[place] Historian] 150 mg PO BID 01/31/18 [History] Vit C/E/Zn/Coppr/Lutein/Zeaxan [Preservision Areds 2 Softgel] 1 cap PO BID 01/31/18 [History] Aspirin Enteric Coated [Aspirin EC] 81 mg PO DAILY #30 tablet. 02/05/18 [Rx] Lisinopril [Zestril] 5 mg PO DAILY #30 tablet 02/05/18 [Rx] Multivitamin [One Daily Multivitamin] 1 tab PO DAILY 03/28/18 [History] Warfarin [Coumadin] 5 mg PO 1800 04/19/18 [History] Clopidogrel [Plavix] 75 mg PO DAILY 05/03/18 [History] Atorvastatin Calcium [Lipitor] 40 mg PO DAILY 08/19/18 [History] Brimonidine 0.2% [Alphagan] 1 drop BOTH EYES BID 08/19/18 [History] Carvedilol [Coreg] 3.125 mg PO QPM 08/19/18 [History] Ipratropium/Albuterol Sulfate [Combivent Respimat Inhal [place]] 4 gm IH Q4H PRN 08/19/18 [History] Isosorbide MONOnitrate [Isosorbide Mononitrate ER] 30 mg PO QPM 08/19/18 [History] Spironolactone [Aldactone] 25 mg PO BID 08/19/18 [History] Furosemide [Lasix] 40 mg PO BID #60 tab 08/21/18 [Rx] Allergies/Adverse Reactions: Allergy/AdvReac Type Severity Reaction Status Date / Time No Known Allergies Allergy Verified 08/19/18 10:11 Certification: Further, I certify that my clinical findings support that this patient is homebound (i.e. absences from home require considerable and taxing effort and are for medical reasons or worship services or infrequently or short duration when for other reasons) because: Homebound Reason: Post-surgery restriction and or conditions limit ability to leave home Attestation: My signature below is to certify that this patient is under my care and that I, or nurse practitioner, or a physician's fitness assistant working with me, has a [id number] encounter with this patient.
--- NOTE | 2018-08-21 13:10 | Discharge Summary ---
- NOTES TO OUTPATIENT PROVIDER Notes to Outpatient Provider: 1.5 L fluid restriciton, No Salt diet: weigh in underware each night record in log, if wt gains more than 2 lbs in 24 hours, take extra lasix and stop drink fluid until calling PCP in the AM; CHF diet strict, no ice chips Orders not resulted at time of discharge: Pending orders 08/19/18 00:11 Culture,Blood [BC] Stat 08/22/18 04:00 INR/PT [Prothrombin Time INR] [COAG] AM 0400 08/23/18 04:00 INR/PT [Prothrombin Time INR] [COAG] AM 040 Date of Encounter: 08/21/18 Time of Encounter: 13:08 - Discharge Diagnosis (1) CHF exacerbation Priority: Primary (systolic) Status: Acute Qualifiers: Heart failure type: systolic Qualified Code(s): I50.23 - Acute on chronic systolic (congestive) heart failure Hospital course: Gerson Okeefe is a 72 M w hx HFrEF 40%, ICM, CAD s/p PCI, DVT on warfarin, COPD, DM2, HTN, HLD, PAD s/p and bifem bypass, who p/w sudden onset shortness of breath. Pt states that he was feeling fine yesterday, but that last night he seemed a bit winded so he took an albuterol nebulizer for the first time in several weeks (was out of them and only recently got replacement). He says that within ten minutes of taking his albuterol neb, he felt significantly more short of breath, could not catch his breath or lie down. He denies F/C/N/V/D. Did recently get stents placed for known 3v coronary disease. Says his legs are swollen but not much more so than usual. Pt was kept in the hospitla and pt was given IV lasix 20 BID given his BP, and pt imrpoved on lasix and today no longer has SOB and did not qualify for rehab, pt deemed stable enough to be dsicharged. Time: 35 min - Time Spent with Patient Total time spent providing and/or coordinating discharge services: - Discharge Medications Prescriptions: New Furosemide [Lasix] 40 mg PO BID #60 tab Continue Ranitidine HCl [Acid Trade Union Secretary] 150 mg PO BID Vit C/E/Zn/Coppr/Lutein/Zeaxan [Preservision Areds 2 Softgel] 1 cap PO BID Methadone 20 mg PO Q8HR Insulin NPH Human Isophane [Novolin N] 20 unit SQ QAM Insulin NPH Human Isophane [Novolin N] 15 unit SQ QPM Gabapentin [Neurontin] 300 mg PO HS Albuterol Sulfate [Ventolin Hfa] 2 puff IH QID PRN PRN Reason: Shortness Of Breath Ipratropium/Albuterol Neb [Duoneb] 3 ml IH TID PRN PRN Reason: Dyspnea Aspirin Enteric Coated [Aspirin EC] 81 mg PO DAILY #30 tablet. Lisinopril [Zestril] 5 mg PO DAILY #30 tablet Multivitamin [One Daily Multivitamin] 1 tab PO DAILY Warfarin [Coumadin] 5 mg PO 1800 Clopidogrel [Plavix] 75 mg PO DAILY Atorvastatin Calcium [Lipitor] 40 mg PO DAILY Brimonidine 0.2% [Alphagan] 1 drop BOTH EYES BID Carvedilol [Coreg] 3.125 mg PO QPM Ipratropium/Albuterol Sulfate [Combivent Respimat Inhal [place]] [address] N PRN Reason: BREATHING Isosorbide MONOnitrate [Isosorbide Mononitrate ER] 30 mg PO QPM Spironolactone [Aldactone] 25 mg PO BID Discontinued Metformin HCl 1,000 mg PO BIDWM Furosemide [Lasix] 20 mg PO QAM Home Medications: Albuterol Sulfate [Ventolin Hfa] 2 puff IH QID PRN 01/31/18 [History] Gabapentin [Neurontin] 300 mg PO HS 01/31/18 [History] Insulin NPH Human Isophane [Novolin N] 15 unit SQ QPM 01/31/18 [History] Insulin NPH Human Isophane [Novolin N] 20 unit SQ QAM 01/31/18 [History] Ipratropium/Albuterol Neb [Duoneb] 3 ml IH TID PRN 01/31/18 [History] Methadone 20 mg PO Q8HR 01/31/18 [History] Ranitidine HCl [Acid Trade Union Secretary] 150 mg PO BID 01/31/18 [History] Vit C/E/Zn/Coppr/Lutein/Zeaxan [Preservision Areds 2 Softgel] 1 cap PO BID 01/31/18 [History] Aspirin Enteric Coated [Aspirin EC] 81 mg PO DAILY #30 tablet. 02/05/18 [Rx] Lisinopril [Zestril] 5 mg PO DAILY #30 tablet 02/05/18 [Rx] Multivitamin [One Daily Multivitamin] 1 tab PO DAILY 03/28/18 [History] Warfarin [Coumadin] 5 mg PO 1800 04/19/18 [History] Clopidogrel [Plavix] 75 mg PO DAILY 05/03/18 [History] Atorvastatin Calcium [Lipitor] 40 mg PO DAILY 08/19/18 [History] Brimonidine 0.2% [Alphagan] 1 drop BOTH EYES BID 08/19/18 [History] Carvedilol [Coreg] 3.125 mg PO QPM 08/19/18 [History] Ipratropium/Albuterol Sulfate [Combivent Respimat Inhal [place]] 4 gm IH Q4H PRN 08/19/18 [History] Isosorbide MONOnitrate [Isosorbide Mononitrate ER] 30 mg PO QPM 08/19/18 [History] Spironolactone [Aldactone] 25 mg PO BID 08/19/18 [History] Furosemide [Lasix] 40 mg PO BID #60 tab 08/21/18 [Rx] Allergies/Adverse Reactions: Allergy/AdvReac Type Severity Reaction Status Date / Time No Known Allergies Allergy Verified 08/19/18 10:11 Date of admission: 08/19/18 08:46 Primary care physician: [facility] Consults: 08/19/18 09:29 Consult to Nurse Navigator [CONS] Routine Comment: chf, copd 08/19/18 09:32 Consult to Occupational Therapy [CONS] Routine Comment: Evaluate, develop and implement POC Reason for Consult: lives home alone, multiple falls in last 6 months. d/c planning Does patient have active BEDREST order?: No Is patient medically & hemodynamically stable?: Yes Patient assessed for mobility or mobilized this visit?: Yes Consult to Physical Therapy [CONS] Routine Comment: Evaluate, develop and implement POC Reason for Consult: lives home alone, multiple falls in last 6 months. d/c planning Does patient have active BEDREST order?: No Is patient medically & hemodynamically stable?: Yes Patient assessed for mobility or mobilized this visit?: Yes Consult to Trade Union Secretary [CONS] Routine Reason for SW Consult: d/c planning 08/19/18 12:02 Consult to Cardiology [CONS] Routine Comment: Consulting Provider: Cardiology [place] Reason for Consult: nstemi in pt s/p PCI Call Completed: Yes - Constitutional Vitals: Temp Pulse Resp BP Pulse Ox 98.0 F 90 18 124/63 92 08/21/18 11:25 08/21/18 11:25 08/21/18 11:25 08/21/18 11:25 08/21/18 11:25 Exam: General: NAD, avoidant eye contact, chronically ill appearing, disheveled, very anxious and rambling Head: Atraumatic, normocephalic. Face symmetric Eyes: EOMI, sclerae anicteric ENT: Mucous membranes moist. Normal oral mucosa and dentition. Trachea midline. Thoracic: No visible chest wall deformities. Bibasilar crackles and end expiratory wheezing diffusely Cardio: Normal S1 and S2, regular rate and rhythm, no murmurs. Abdomen: Soft, nontender, nondistended. Extremities: Warm, well perfused. DP pulses 2+ b/l. No clubbing, cyanosis. Does have pitting edema to knees b/l Skin: Intact. Skin discoloration circumferential on legs likely chronic venous stasis Neuro: Awake, fully oriented. Decent memory, concentration, attention. Speech fluent. Anxious. - Patient Status Disposition: Home Health Service Condition: Fair - Discharge Instructions Instructions: Heart Failure (DC), Fluid Restriction (DC) [facility]: [facility] Provider[facility] - 08/28/18 10:00 am
[2018-08-21] MEDS ORDERED: *HR* Warfarin 5 MG TABLET PO ONE (18:00)
[2018-08-21] MEDS ORDERED: Warfarin perPT PO PRN (18:00)
== END 2018-08-21 16:50 | disposition home or self-care (01) | DRG 280 ==
LOC: EMEROOARM 23:52 → 2ANU 23:52
PROVIDERS: ADMIT Pediatrics; ATTEND Pediatrics

== ENCOUNTER 2018-11-15 15:58 | Inpatient (IN) ==
[2018-11-15] MEDS ORDERED: Isovue-370 500 ML BOTTLE IVP ONE (16:20)
--- NOTE | 2018-11-15 16:23 | Emergency Department Note ---
Disposition Clinical Impression: NSTEMI (non-ST elevated myocardial infarction) CHF exacerbation Qualifiers: Heart failure type: unspecified Qualified Code(s): I50.9 - Heart failure, unspecified Disposition: Admitted As Inpatient Time of Disposition: 18:20 SOB HPI - General Chief Complaint: ED Shortness of Breath/Dyspnea Stated Complaint: Elevated Trop Time Seen by Provider: 11/15/18 16:09 Source: patient, EMS Nursing Notes Reviewed: Yes Vital Signs Reviewed: Yes - History of Present Illness 73-year-old male with history of CHF, COPD, CAD, DVT who presents the emergency department with complaint of shortness of breath. This is been ongoing for a few days now. He denies any chest pain but states he feels congested in the right side of his chest. He was evaluated at the [facility] and found to have elevated troponins in the was therefore sent to the emergency department for evaluation. At this time he denies any chest pain. He has noted a increase in swelling specifically in his left lower extremity though his previous DVT was on the right lower extremity. He does take Lasix for CHF. He denies any previous history of pulmonary embolism. He denies any recent hospitalizations or long travel. - Related Data Home Medications Medication Instructions Recorded Confirmed Gabapentin [Neurontin] 300 mg PO HS 01/31/18 11/15/18 Insulin NPH Human Isophane 15 unit SQ QPM 01/31/18 11/15/18 [Novolin N] Insulin NPH Human Isophane 20 unit SQ QAM 01/31/18 11/15/18 [Novolin N] Ipratropium/Albuterol Neb [Duoneb] 3 ml IH TID PRN 01/31/18 11/15/18 Methadone 20 mg PO Q8HR 01/31/18 11/15/18 Ranitidine HCl [Acid [place] Floorperson] 150 mg PO BID 01/31/18 11/15/18 Warfarin [Coumadin] 5 mg PO 1800 04/19/18 11/15/18 Clopidogrel [Plavix] 75 mg PO DAILY 05/03/18 11/15/18 Atorvastatin Calcium [Lipitor] 40 mg PO DAILY 08/19/18 11/15/18 Metformin HCl [Glucophage] 1,000 mg PO BIDWM 09/11/18 11/15/18 Furosemide [Lasix] 20 mg PO BID 09/29/18 11/15/18 Albuterol Sulfate [Proair 2 puff IH QID PRN 11/15/18 11/15/18 Respiclick] Ipratropium/Albuterol Sulfate 1 gm IH Q4H PRN 11/15/18 11/15/18 [Combivent Respimat Inhal [place]] Lisinopril [Zestril] 5 mg PO DAILY 11/15/18 11/15/18 Magnesium Hydroxide [Milk of 30 ml PO HS 11/15/18 11/15/18 Magnesia] Multivit-Min/FA/Lutein/Zeaxant 1 tab PO BID 11/15/18 11/15/18 [Macular Vitamin Tablet] Multivitamin with Minerals 1 cap PO DAILY 11/15/18 11/15/18 [Myvitalife] Allergies Allergy/AdvReac Type Severity Reaction Status Date / Time No Known Allergies Allergy Verified 09/11/18 06:15 Review of Systems: ROS per history of present illness, all other systems reviewed and negative or normal. All systems ED: reviewed and negative except as stated. Review of Systems: As Per HPI Past Medical History - Past Medical History Medical history: Reports: cardiomyopathy, CHF, COPD, coronary artery disease, DVT, diabetes, GERD, GI bleed, hyperlipidemia, hypertension, myocardial infarction, peripheral artery disease, other Surgical history: Reports: carotid endarterectomy, LE Bypass, LE stent(s), tonsillectomy Psychiatric history: Reports: anxiety, depression, prior suicide attempt, previous psychiatric hospitalization - Social History Smoking Status: Current some day smoker Smokeless Tobacco Status: No Alcohol use: Reports: none Drug use: Reports: none Physical Exam General: Conversant. No apparent distress. Follow commands. Appears stated age. Neck: No JVD. Trachea midline. Neck supple. Eyes: PERRL. No scleral icterus. HENT: Normocephalic and atraumatic. Moist mucus membranes. Cardiovascular: Regular rate and rhythm. Normal S1 and S2. No murmurs appreciated. Normal capillary refill. Extremities well perfused with 2+ distal pulses bilaterally. Patient does have chronic venous stasis with 2+ pitting edema up to the level of the thigh on the left lower extremity. Right lower extremity shows trace edema Pulmonary: End expiratory wheezing diffusely. No crackles. No respiratory distress. Abdomen: Soft, nondistended, and tontender. No bruits or masses. No guarding. Neuro: Alert and oriented x3. No slurred speech. No focal deficits noted. Skin: No rashes noted on visualized skin. Musculoskeletal: No bony abnormalities visualized. Moves all extremities. Psych: Normal mood. Pleasant. Makes appropriate eye contact. - General General appearance: alert, in no apparent distress Course Vital Signs Temperature 98.0 F 11/15/18 16:02 Pulse Rate 92 11/15/18 16:02 Respiratory Rate 20 11/15/18 16:02 Blood Pressure 123/80 11/15/18 16:02 O2 Sat by Pulse Oximetry 100 11/15/18 16:02 Temperature 98.3 F 11/15/18 19:03 Pulse Rate 92 11/15/18 19:03 Respiratory Rate 15 11/15/18 21:31 Blood Pressure 123/72 11/15/18 19:03 O2 Sat by Pulse Oximetry 90 11/15/18 21:31 Oxygen Delivery Oxygen Delivery Room Air Shortness of Breath/Dyspnea - MDM Narrative Medical decision making narrative: 73-year-old male with history of DVT, CAD, CHF, diabetes who presents the emergency room with complaints of shortness of breath. He was transfer from the [facility] due to elevated troponins. The patient does not have ischemic EKG changes. The patient does have right-sided peripheral edema worsened in the left. Likely his symptoms are consistent with CHF but given his history of DVT, shortness of breath did evaluate with CT angiogram chest to evaluate for pulmonary embolus him. Laboratory evaluation completed at the [facility] significant for troponin of 0.17 and 0.224 earlier today. INR 3.9. This was negative for pulmonary embolism but significant for changes consistent with congestive heart failure. Discussed case with on-call hospitalist Dr. Allen who agrees with plan for admission and accepts the patie nt to the inpatient service. Patient agrees with and understands course of treatment plan including plan for admission. All questions answered. - Medical Records Medical records reviewed: Yes I reviewed the patient's medical records. - Radiology Data Radiology results reviewed: Yes I reviewed the patient's radiology results. Chest CTA 11/15/18 16:20 IMPRESSION: No evidence of pulmonary embolism. Overall findings suggestive of CHF decompensation. D/ / Tamir Lassiter / Tamir Lassiter Interpreting Provider: Tamir Lassiter - EKG Data EKG attestation: Yes I reviewed and interpreted this EKG. EKG results narrative: Normal sinus rhythm rate of 94. Normal axis. No acute ischemic changes. When compared with prior from 09/29/18 there are no significant changes.
--- NOTE | 2018-11-15 16:25 | Emergency Department Note ---
Disposition Clinical Impression: NSTEMI (non-ST elevated myocardial infarction) CHF exacerbation Qualifiers: Heart failure type: unspecified Qualified Code(s): I50.9 - Heart failure, unspecified Disposition: Admitted As Inpatient Condition: Good Time of Disposition: 18:20 General Adult HPI - General Chief complaint: ED Shortness of Breath/Dyspnea Stated complaint: Elevated Trop Time Seen by Provider: 11/15/18 16:09 Source: patient, EMS - History of Present Illness Pain Scale: 7 - Related Data Home Medications Medication Instructions Recorded Confirmed Gabapentin [Neurontin] 300 mg PO HS 01/31/18 11/15/18 Insulin NPH Human Isophane 15 unit SQ QPM 01/31/18 11/15/18 [Novolin N] Insulin NPH Human Isophane 20 unit SQ QAM 01/31/18 11/15/18 [Novolin N] Ipratropium/Albuterol Neb [Duoneb] 3 ml IH TID PRN 01/31/18 11/15/18 Methadone 20 mg PO Q8HR 01/31/18 11/15/18 Ranitidine HCl [Acid Senior Cobol Developer] 150 mg PO BID 01/31/18 11/15/18 Warfarin [Coumadin] 5 mg PO 1800 04/19/18 11/15/18 Clopidogrel [Plavix] 75 mg PO DAILY 05/03/18 11/15/18 Atorvastatin Calcium [Lipitor] 40 mg PO DAILY 08/19/18 11/15/18 Metformin HCl [Glucophage] 1,000 mg PO BIDWM 09/11/18 11/15/18 Albuterol Sulfate [Proair 2 puff IH QID PRN 11/15/18 11/15/18 Respiclick] Ipratropium/Albuterol Sulfate 1 gm IH Q4H PRN 11/15/18 11/15/18 [Combivent Respimat 20-100 Mcg] Lisinopril [Zestril] 5 mg PO DAILY 11/15/18 11/15/18 Magnesium Hydroxide [Milk of 30 ml PO HS 11/15/18 11/15/18 Magnesia] Multivit-Min/FA/Lutein/Zeaxant 1 tab PO BID 11/15/18 11/15/18 [Macular Vitamin Tablet] Multivitamin with Minerals 1 cap PO DAILY 11/15/18 11/15/18 [Myvitalife] Previous Rx's Medication Instructions Recorded Furosemide [Lasix] 40 mg PO BID 30 Days #60 tablet 11/18/18 Metoprolol XL (24 HR) Succ [Toprol 12.5 mg PO DAILY #30 tab.er.24h 11/18/18 Xl] metOLazone [Zaroxolyn] 5 mg PO DAILY@0730 60 Days #60 11/18/18 tablet Allergies Allergy/AdvReac Type Severity Reaction Status Date / Time No Known Allergies Allergy Verified 09/11/18 06:15 Past Medical History - Past Medical History Medical history: Reports: cardiomyopathy, CHF, COPD, coronary artery disease, DVT, diabetes, GERD, GI bleed, hyperlipidemia, hypertension, myocardial infarction, peripheral artery disease, other Surgical history: Reports: carotid endarterectomy, LE Bypass, LE stent(s), tonsillectomy Psychiatric history: Reports: anxiety, depression, prior suicide attempt, previous psychiatric hospitalization - Social History Smoking Status: Current some day smoker Smokeless Tobacco Status: No Alcohol use: Reports: none Drug use: Reports: none Physical Exam - General General appearance: alert, in no apparent distress Course Vital Signs Temperature 98.0 F 11/15/18 16:02 Pulse Rate 92 11/15/18 16:02 Respiratory Rate 20 11/15/18 16:02 Blood Pressure 123/80 11/15/18 16:02 O2 Sat by Pulse Oximetry 100 11/15/18 16:02 Temperature 98.2 F 11/18/18 11:09 Pulse Rate 59 11/18/18 11:09 Respiratory Rate 16 11/18/18 11:09 Blood Pressure 104/52 11/18/18 11:09 O2 Sat by Pulse Oximetry 95 11/18/18 11:09 Oxygen Delivery Oxygen Delivery Room Air Medical Decision Making - Lab Data Result diagrams: 11/18/18 06:32 11/18/18 06:32 Attestation Statement - Attestation Attestation: I examined this patient and my medical decision-making was reviewed with the Resident Physician. I agree with the documented findings, disposition and treatment plan as described except to the extent set forth below. Patient sent from the [facility] due to elevated troponin. I am told that he is on ronic Coumadin due to paroxysmal atrial fibrillation, and also has a recently diagnosed DVT, INR is 3.7. He is pain-free at the time of my evaluation. Has some lateral ST depressions on EKG that are unchanged from prior. I was present for the resident's EKG interpretation. Calling the hospitalist for admission.
[2018-11-15] MEDS ORDERED: ALBUTEROL SULFATE IH PRN (17:31)
[2018-11-15] MEDS ORDERED: IPRATROPIUM IH PRN (17:31)
[2018-11-15] MEDS ORDERED: Naloxone 0.4 MG/ML INJ IVP PRN (17:46)
[2018-11-15] MEDS ORDERED: *HR* Promethazine 25 MG/ML VIAL IVP PRN (17:46)
[2018-11-15] MEDS ORDERED: *HR* Warfarin 5 MG TABLET PO SCH (18:00)
--- NOTE | 2018-11-15 18:01 | Internal Med History&Physical ---
Date of Encounter: 11/15/18 Time of Encounter: 17:52 Internal Medicine - H&P: HPI Chief complaint: SOB Admitted From: Home Plans for Post Hospital Care: Home History of present illness: Mr. Okeefe is a 73 year old male who has history of CHF, COPD p-atrial fibrillation hypertension GERD chronic pain presented to [facility] for sudden onset of shortness of breath. Patient stated that he started to have shortness of breath this morning, but not like COPD, He did notice increasing bilateral leg swelling for 1 week. He denies any chest pain, in the [facility] he was found elevated troponin 0.172, 2nd trop 0.228, EKG has no ST elevation but has nonspecific ST-T changes. he was sent to emergency room for admission for possible non-STEMI. Patient denies fever or chills no productive cough, he does have scant wheezing bilateral. Diminished breath sounds. He said he takes albuterol as needed at home. Denies any nausea vomiting diarrhea or constipation. Lab reviewed from [facility] creatinine 0.84 INR 3.7 WBC 8.0. Patient is going to be admitted for non-ST elevated [place]. Past Med Surg Social Fam HX - Past Medical History Medical history: cardiomyopathy, CHF, COPD, coronary artery disease, DVT, diabetes, GERD, GI bleed, hyperlipidemia, hypertension, myocardial infarction, peripheral artery disease, other Additional medical history: carotid stenosis. lactic acidosis and sepsis. NSTEMI. anemia. cardiomyopathy Psychiatric history: anxiety, depression, prior suicide attempt, previous psychi atric hospitalization - Past Surgical History Surgical History: carotid endarterectomy, LE Bypass, LE stent(s), tonsillectomy Additional surgical history: left carotid. 4 cardiac stents. right leg cleaned out arteries w/2 stents 1 on each groin - Social History Smoking Status: Current some day smoker Smokeless Tobacco Status: No Alcohol use: none Drug use: none - Family History Mother Living Status: Hx Family Cardiac Disorders: Yes (mother heart attack) Hx Family Respiratory Disorders: No Hx Family Cancer: No Hx Family GI Disorders: No Hx Family Endocrine Disorder: No Hx Family Neuromuscular Disorders: No Hx Family Neurologic Disorders: No Hx Family HEENT Disorders: No Hx Family Autoimmune Disorders: No Internal Medicine - H&P: Meds Gabapentin [Neurontin] 300 mg PO HS 01/31/18 [History] Insulin NPH Human Isophane [Novolin N] 15 unit SQ QPM 01/31/18 [History] Insulin NPH Human Isophane [Novolin N] 20 unit SQ QAM 01/31/18 [History] Ipratropium/Albuterol Neb [Duoneb] 3 ml IH TID PRN 01/31/18 [History] Methadone 20 mg PO Q8HR 01/31/18 [History] Ranitidine HCl [Acid Biometric Screener] 150 mg PO BID 01/31/18 [History] Warfarin [Coumadin] 5 mg PO 1800 04/19/18 [History] Clopidogrel [Plavix] 75 mg PO DAILY 05/03/18 [History] Atorvastatin Calcium [Lipitor] 40 mg PO DAILY 08/19/18 [History] Metformin HCl [Glucophage] 1,000 mg PO BIDWM 09/11/18 [History] Furosemide [Lasix] 20 mg PO BID 09/29/18 [History] Albuterol Sulfate [Proair Respiclick] 2 puff IH QID PRN 11/15/18 [History] Ipratropium/Albuterol Sulfate [Combivent Respimat Inhal [place]] 1 gm IH Q4H PRN 11/15/18 [History] Lisinopril [Zestril] 5 mg PO DAILY 11/15/18 [History] Magnesium Hydroxide [Milk of Magnesia] 30 ml PO HS 11/15/18 [History] Multivit-Min/FA/Lutein/Zeaxant [Macular Vitamin Tablet] 1 tab PO BID 11/15/18 [History] Multivitamin with Minerals [Myvitalife] 1 cap PO DAILY 11/15/18 [History] Allergy/AdvReac Type Severity Reaction Status Date / Time No Known Allergies Allergy Verified 09/11/18 06:15 All Systems PM: A 10-system review of systems was performed and is negative for pertinent findings except as documented above in the HPI. - Constitutional Vitals: Temp Pulse Resp BP Pulse Ox 98.0 F 92 20 123/80 100 11/15/18 16:02 11/15/18 16:02 11/15/18 16:02 11/15/18 16:02 11/15/18 16:02 General appearance: Present: A&O X 3, pleasant Exam: CONSTITUTIONAL: Patient appears as an age appropriate male well developed, in no acute distress. EYES Clear sclerae, bilateral pupils are equal, reactive to light and accommodation. Extraocular movements are intact RESPIRATORY: No accessory muscle use, bilateral diminished breath sounds to auscultation, scant wheezing, no crackles/rales. CARDIOVASCULAR: Regular heart rate, normal S1 and S2, no murmurs GASTROINTESTINAL: bowel sounds present, soft, no tenderness. No hepatosplenomegaly. No bilateral CVA tenderness MUSCULOSKELETAL: Joints in normal range of motion, no clubbing, +++ edema, no cyanosis. Bilateral peripheral pulses 2+ LYMPHATIC no lymphadenopathy in neck, groin and axilla bilaterally, no thyromegaly. NEUROLOGIC: CN II to XII are grossly intact, no focal neurological deficit. Deep tendon reflexes 2+ bilaterally. Normal light touch sensation to upper and lower extremity PSYCHIATRIC: Oriented x3, with good insight, mood is euthymic. No hallucinations or delusions. SKIN: Skin warm and dry, no rashes, no open wound. Internal Med - H&P Results - Impressions ITS Impressions Chest CTA 11/15/18 16:20 IMPRESSION: No evidence of pulmonary embolism. Overall findings suggestive of CHF decompensation. D/ / Tamir Lassiter / Tamir Lassiter Interpreting Provider: Tamir Lassiter - Summary of Assessment and Plan Summary of Assessment and Plan: Mr. Okefee is a 73 year old male who has history of CHF, COPD p-atrial fibrillation hypertension GERD chronic pain presented to [facility] for sudden onset of shortness of breath. Patient stated that he started to have shortness of breath this morning, but not like COPD, He did notice increasing bilateral leg swelling for 1 week. He denies any chest pain, [facility] trop[facility] 0.172, 2nd trop 0.228, EKG has no ST elevation but has nonspecific ST-T changes. he was sent to emergency room for admission for possible non-STEMI. Patient denies fever or chills no productive cough, he does have scant wheezing bilateral. Diminished breath sounds. He said he takes albuterol as needed at home. Denies any nausea vomiting diarrhea or constipation. Lab reviewed from [facility] creatinine 0.84 INR 3.7 WBC 8.0. Patient is going to be admitted for non-ST elevated [place]. 1. NSTEMI, INR is 3.7, discussed with Dr Murphy, no heparin, hold coumadin, follow up trop, conitneu home plavix, statin, hold lisinopril due to low BP, 2. acute on chronic systolic CHF with EF 30-35%, will give iV lasix 3. COPD with mild exacerbation, will add prednisone, nebs, doxycycline 4. 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
[2018-11-15] MEDS: Insulin NPH 100 UNIT/ML (x5UNIT) SQ SCH (18:52)
[2018-11-15] MEDS: predniSONE 20 MG TABLET PO SCH (18:55)
[2018-11-15] MEDS ORDERED: *HR* OxyCODONE/APAP 5/325 TABLET PO PRN (19:01)
[2018-11-15] MEDS: hydrOXYzine pamoate 25 MG CAPSULE PO PRN (21:26)
[2018-11-15] MEDS: Famotidine 20 MG TABLET PO SCH (21:27)
[2018-11-15] MEDS: Gabapentin 300 MG CAPSULE PO SCH (21:27)
[2018-11-15] MEDS: Doxycycline 100 MG CAPSULE PO SCH (21:27)
[2018-11-15] MEDS: Ipratropium/Albuterol Neb 3 ML IH PRN (21:31)
[2018-11-15] MEDS: *HR* Methadone 10 MG TABLET PO SCH (23:33)
[2018-11-16 01:15] LABS: Basophils % 0.5 %; Hematocrit 30.9 % (37.5-50.1); Immature Granulocytes % 0.3 % (0-4); Immature Platelets 8.7 % (1.1-6.1); Lymphocytes # 0.5 K/mcL (0.6-4.6); Lymphocytes % 8.5 %; Mean Corpuscular HGB Conc 32.4 g/dL (31.6-35.5); Mean Corpuscular Hemoglobin 26.9 pg (28.0-33.3); Mean Corpuscular Volume 83.1 fL (83.0-100.0); Monocytes # 0.1 K/mcL (0.0-1.3); Monocytes % 1.7 %; Neutrophils # 5.3 K/mcL (1.6-8.9); Nucleated Red Blood Cells 0.3 /100 WBC (0); Platelet Count 123 K/mcL (140-400); Red Blood Count 3.72 M/mcL (4.19-5.50)
[2018-11-16 01:23] LABS: INR 4.2
[2018-11-16 01:26] LABS: Prothrombin Time 47.7 Seconds (9.4-12.1)
[2018-11-16 01:32] LABS: BUN/Creatinine Ratio 43 (6-26); Blood Urea Nitrogen 29 mg/dL (8-23); Calcium 8.7 mg/dL (8.6-10.3); Carbon Dioxide 26 mEq/L (23-29); Chloride 93 mEq/L (98-107); Glucose 166 mg/dL (70-105); Osmolality,Calculated 282 (280-300); Potassium 4.3 mEq/L (3.5-5.1); Sodium 131 mEq/L (136-145); eGFR For African Americans > 60 (> 60); eGFR For Non-African Americans > 60 (> 60)
[2018-11-16] MEDS: hydrOXYzine pamoate 25 MG CAPSULE PO PRN ×2 (01:36→10:17)
--- NOTE | 2018-11-16 07:40 | Internal Med Progress Note ---
Hospitalist Progress Note - Encounter Date of Encounter: 11/16/18 Time of Encounter: 07:30 - Subjective Interval History: No acute events overnight - Exam Vitals: Temp Pulse Resp BP Pulse Ox 97.8 F 80 18 122/67 97 11/16/18 06:40 11/16/18 06:40 11/16/18 06:40 11/16/18 06:40 11/16/18 06:40 Exam: CONSTITUTIONAL: Patient appears as an age appropriate male well developed, in no acute distress. EYES Clear sclerae, bilateral pupils are equal, reactive to light and accommodation. Extraocular movements are intact RESPIRATORY: No accessory muscle use, bilateral diminished breath sounds to auscultation, scant wheezing, no crackles/rales. CARDIOVASCULAR: Regular heart rate, normal S1 and S2, no murmurs GASTROINTESTINAL: bowel sounds present, soft, no tenderness. No hepatosplenomegaly. No bilateral CVA tenderness MUSCULOSKELETAL: Joints in normal range of motion, no clubbing, +++ edema, no cyanosis. Bilateral peripheral pulses 2+ LYMPHATIC no lymphadenopathy in neck, groin and axilla bilaterally, no thyromegaly. NEUROLOGIC: CN II to XII are grossly intact, no focal neurological deficit. Deep tendon reflexes 2+ bilaterally. Normal light touch sensation to upper and lower extremity PSYCHIATRIC: Oriented x3, with good insight, mood is euthymic. No hallucinations or delusions. SKIN: Skin warm and dry, no rashes, no open wound. - Assessment and Plan (1) Acute on chronic systolic CHF (congestive heart failure) Current Visit: Yes Status: Acute Assessment and Plan: Pt comes in with shortness of breath and bilateral leg swelling likely secondary to acute worsening of chronic systolic CHF Started on lasix BID. Added metolazone to regimen for improved diuresis Doppler of lower extremities ordered to r/o DVT (2) NSTEMI (non-ST elevated myocardial infarction) Current Visit: Yes Status: Acute Assessment and Plan: Pt has shortness of breath and elevated troponins. Had been seen by cardio in the past and declined cath Seen by cardiology today and amenable to cath (3) Atrial fibrillation Current Visit: Yes Status: Acute Assessment and Plan: Rate controlled. continue metoprolol. COumadin on hold due to elevated INR (4) Diabetes mellitus Current Visit: Yes Status: Chronic Assessment and Plan: Continue home insulin and monitor fingersticks. (5) COPD (chronic obstructive pulmonary disease) Current Visit: Yes Status: Acute Assessment and Plan: Pt has mild COPD exacerbation. Continue nebs and po steroids (6) DVT prophylaxis Current Visit: Yes Status: Acute Assessment and Plan: INR supratherapeutic on warfarin - Time Spent with Patient Total time spent is greater than 50% in coordination of care (as documented) at patient's floor/unit and/or counseling patient: Internal Medicine: Result - Labs CBC & Chem 7: 11/16/18 00:15 11/16/18 00:15 Labs: Short CBC 11/16/18 Range/Units 00:15 WBC 6.0 (4.3-11.1) K/mcL Hgb 10.0 L (12.9-16.9) g/dL Hct 30.9 L (37.5-50.1) % Plt Count 123 L (140-400) K/mcL Neutrophils # 5.3 (1.6-8.9) K/mcL BMP 11/16/18 00:15 Sodium 131 L Potassium 4.3 Chloride 93 L Carbon Dioxide 26 BUN 29 H Creatinine 0.68 L Glucose 166 H Calcium 8.7 Cardiac Enzymes 11/15/18 11/16/18 11/16/18 Range/Units 19:34 00:15 05:51 Troponin I 0.36 H* 0.24 H* 0.26 H* (< 0.04) ng/mL - ABG Interpretation ABG results: PT/INR, D-dimer PT 47.7 Seconds (9.4-12.1) H* 11/16/18 00:15 - Impressions Impressions Chest CTA 11/15/18 16:20 IMPRESSION: No evidence of pulmonary embolism. Overall findings suggestive of CHF decompensation. D/ / Tamir Lassiter / Tamir Lassiter Interpreting Provider: Tamir Lassiter Consult Discharge Plan - Plan Referrals: Evelia Sexton, RN FLOAT [Primary Care Provider] - (3) Atrial fibrillation Qualifiers: Qualified Code(s): I48.91 - Unspecified atrial fibrillation (4) Diabetes mellitus Qualifiers: Diabetes mellitus type: type 2 Diabetes mellitus fci insulin use: with manager long term care use Diabetes mellitus complication status: with circulatory complication Diabetes mellitus complication detail: with peripheral angiopathy without gangrene Qualified Code(s): E11.51 - Type 2 diabetes mellitus with diabetic peripheral angiopathy without gangrene; 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
[2018-11-16] MEDS ORDERED: Furosemide 40 MG TABLET PO SCH (08:00)
[2018-11-16] MEDS: *HR* Methadone 10 MG TABLET PO SCH ×3 (08:01→23:42)
[2018-11-16] MEDS: predniSONE 20 MG TABLET PO SCH (08:01)
[2018-11-16] MEDS: Doxycycline 100 MG CAPSULE PO SCH ×2 (08:01→21:21)
[2018-11-16] MEDS: Famotidine 20 MG TABLET PO SCH ×2 (08:02→21:21)
[2018-11-16] MEDS: Insulin NPH 100 UNIT/ML (x5UNIT) SQ SCH ×2 (08:05→16:44)
[2018-11-16] MEDS: Furosemide 40 MG/4 ML VIAL IVP SCH ×2 (08:06→16:45)
--- NOTE | 2018-11-16 08:16 | Cardiology Consult Note ---
Date of Encounter: 11/16/18 Time of Encounter: 08:16 Assessment and Plan (1) Elevated troponin Current Visit: No Status: Acute Troponins 0.36, 0.24, 0.26--flat and adynamic in setting of acute on chronic systolic CHF exacerbation. Suspect demand ischemia, nondiagnostic for ACS. Hx of chronically elevated troponins dating back to 2018. Heparin gtt not indicated given INR 4.2, on Coumadin for DVT hx. [facility] [place] 04/2018 multivessel PCI--PTCA/SERGIO to mLCx, LMCA, pRCA. Limited TTE 09/11/18: LVEF 30-35%. Global and regional LV systolic dysfunction. No LV thrombus. Recheck Limited TTE. (2) Acute on chronic systolic CHF (congestive heart failure) Current Visit: No Status: Acute Presents with dyspnea, BLE edema. BNP 3701. Chest CTA CHF--small bilateral pleural effusions. Limited TTE 09/11/18: LVEF 30-35%. Global and regional LV systolic dysfunction. Agree with IV Lasix 40mg BID. Cumulative I/O -180mL. Recommend strict I/Os, Na and fluid restriction, daily weights. (3) Coronary artery disease Current Visit: No Status: Chronic [facility] [place] 04/2018 multivessel PCI--PTCA/SERGIO to mLCx, LMCA, pRCA. Continue Plavix, Statin. Add low dose BB. No ASA d/t being on Coumadin. Qualifiers: Coronary Disease-Associated Artery/Lesion type: [place] artery [place] vs. transplanted heart: unspecified whether [place] or transplanted heart Associated angina: angina presence unspecified Qualified Code(s): I25.10 - Atherosclerotic heart disease of [place] coronary artery without angina pectoris (4) Cardiomyopathy Current Visit: No Status: Chronic ICMP EF 30-35% 08/2018. Continue ACEi. Add low dose BB. Repeat TTE. If EF remains <35%, consider outpt referral for ICD evaluation. Qualifiers: Cardiomyopathy type: ischemic Qualified Code(s): I25.5 - Ischemic cardiomyopathy Discussion w patient/family: The assessment and plan as outlined above was discussed with the patient and/or family members who expressed understanding and agreement. All questions were answered. Thank you for involving us in the care of your patient. Please call with any questions. I will discuss all the above with Dr. Parry and make changes as necessary. History of Present Illness Consult date: 11/16/18 Consult reason: elevated troponin Chief complaint: dyspnea History of present illness: Mr. Okeefe is a 73 year old male with PMH of HFrEF 30-35%, ICM, CAD s/p PCI, DVT on warfarin, COPD, DM2, HTN, HLD, PAD s/p and bifem bypass. Patient pre sented to the ED due to shortness of breath that started yesterday. Reports increasing bilateral LE edema for 1 week. He denies any chest pain. [facility].172, 2nd trop 0.228. At [facility] troponins 0.36, 0.24, 0.26. BNP 3701. Chest CTA CHF--small bilateral pleural effusions. Cardiology consulted for further recs. [facility] [place] 04/2018 multivessel PCI--PTCA/SERGIO to mLCx, LMCA, pRCA. Limited TTE 09/11/18: LVEF 30-35%. Global and regional LV systolic dysfunction. Mild to moderately dilated LV. Definity echo contrast was used. There is no LV thrombus. TTE 08/19/18 LVEF 30-35%. Moderately dilated LV. Severe global left ventricular systolic dysfunction with regional variations. There is no LV thrombus. Definity echo contrast was used. Past Med Surg Social Fam HX - Past Medical History Medical history: cardiomyopathy, CHF, COPD, coronary artery disease, DVT, diabetes, GERD, GI bleed, hyperlipidemia, hypertension, myocardial infarction, peripheral artery disease, other Additional medical history: carotid stenosis. lactic acidosis and sepsis. NSTEMI. anemia. cardiomyopathy Psychiatric history: anxiety, depression, prior suicide attempt, previous psychiatric hospitalization - Past Surgical History Surgical History: carotid endarterectomy, LE Bypass, LE stent(s), tonsillectomy Additional surgical history: left carotid. 4 cardiac stents. right leg cleaned out arteries w/2 stents 1 on each groin - Social History Smoking Status: Current some day smoker Smokeless Tobacco Status: No Alcohol use: none Drug use: none - Family History Mother Living Status: Hx Family Cardiac Disorders: Yes (mother heart attack) Hx Family Respiratory Disorders: No Hx Family Cancer: No Hx Family GI Disorders: No Hx Family Endocrine Disorder: No Hx Family Neuromuscular Disorders: No Hx Family Neurologic Disorders: No Hx Family HEENT Disorders: No Hx Family Autoimmune Disorders: No Medications and Allergies Gabapentin [Neurontin] 300 mg PO HS 01/31/18 [History] Insulin NPH Human Isophane [Novolin N] 15 unit SQ QPM 01/31/18 [History] Insulin NPH Human Isophane [Novolin N] 20 unit SQ QAM 01/31/18 [History] Ipratropium/Albuterol Neb [Duoneb] 3 ml IH TID PRN 01/31/18 [History] Methadone 20 mg PO Q8HR 01/31/18 [History] Ranitidine HCl [Acid Vacuum Tester Cans] 150 mg PO BID 01/31/18 [History] Warfarin [Coumadin] 5 mg PO 1800 04/19/18 [History] Clopidogrel [Plavix] 75 mg PO DAILY 05/03/18 [History] Atorvastatin Calcium [Lipitor] 40 mg PO DAILY 08/19/18 [History] Metformin HCl [Glucophage] 1,000 mg PO BIDWM 09/11/18 [History] Furosemide [Lasix] 20 mg PO BID 09/29/18 [History] Albuterol Sulfate [Proair Respiclick] 2 puff IH QID PRN 11/15/18 [History] Ipratropium/Albuterol Sulfate [Combivent Respimat Inhal [place]] 1 gm IH Q4H PRN 11/15/18 [History] Lisinopril [Zestril] 5 mg PO DAILY 11/15/18 [History] Magnesium Hydroxide [Milk of Magnesia] 30 ml PO HS 11/15/18 [History] Multivit-Min/FA/Lutein/Zeaxant [Macular Vitamin Tablet] 1 tab PO BID 11/15/18 [History] Multivitamin with Minerals [Myvitalife] 1 cap PO DAILY 11/15/18 [History] Allergy/AdvReac Type Severity Reaction Status Date / Time No Known Allergies Allergy Verified 09/11/18 06:15 All Systems Review: The remainder of the systems were reviewed and are negative Physical Examination Vital Signs, Last 4 Hours Temp Pulse Resp BP Pulse Ox 11/16/18 06:40 97.8 F 80 18 122/67 97 Vital Signs Temp Pulse Resp BP Pulse Ox 11/16/18 06:40 97.8 F 80 18 122/67 97 11/16/18 03:36 97.6 F 88 17 123/58 100 11/15/18 23:24 98.6 F 88 17 141/72 97 11/15/18 21:31 15 90 11/15/18 19:03 98.3 F 92 16 123/72 93 11/15/18 18:21 18 107/50 11/15/18 16:02 98.0 F 92 20 123/80 100 Intake and Output 11/15/18 11/16/18 11/16/18 23:59 07:59 15:59 Intake Total 120 / 120 Output Total 300 / 300 Balance 120 / 120 -300 / -300 Intake: Oral 120 / 120 Output: Urine 300 / 300 Other: # Voids 2 1 Weight 68.4 kg Blood Glucose* 98 115 General: Conversant, No Apparent Distress HEENT: Atraumatic, Normocephaly, Mucus Membranes Moist Neck: Normal carotid pulses Cardiac: Reg Rate and Rhythm, Normal S1 and S2, No Murmur Lungs: Other (diminished, bibasilar crackles) Neuro: Alert and responsive, No focal deficits noted Abdomen: Soft, Non-Tender Skin: No rashes noted on visualized skin Musculoskeletal: No Chest Wall Tenderness Extremities: Other (mild BLE edema) Results 11/16/18 00:15 11/16/18 00:15 Lab Results 11/15/18 11/16/18 11/16/18 19:34 00:15 00:15 WBC 6.0 Hgb 10.0 L Hct 30.9 L Plt Count 123 L INR Sodium Potassium Chloride Carbon Dioxide BUN Creatinine Glucose Calcium Troponin I 0.36 H* 0.24 H* B-Natriuretic Peptide 11/16/18 11/16/18 11/16/18 00:15 00:15 00:15 WBC Hgb Hct Plt Count INR 4.2 Sodium 131 L Potassium 4.3 Chloride 93 L Carbon Dioxide 26 BUN 29 H Creatinine 0.68 L Glucose 166 H Calcium 8.7 Troponin I B-Natriuretic Peptide 3701 H 11/16/18 05:51 WBC Hgb Hct Plt Count INR Sodium Potassium Chloride Carbon Dioxide BUN Creatinine Glucose Calcium Troponin I 0.26 H* B-Natriuretic Peptide Short CBC 11/16/18 Range/Units 00:15 WBC 6.0 (4.3-11.1) K/mcL Hgb 10.0 L (12.9-16.9) g/dL Hct 30.9 L (37.5-50.1) % Plt Count 123 L (140-400) K/mcL Neutrophils # 5.3 (1.6-8.9) K/mcL BMP 11/16/18 Range/Units 00:15 Sodium 131 L (136-145) mEq/L Potassium 4.3 (3.5-5.1) mEq/L Chloride 93 L (98-107) mEq/L Carbon Dioxide 26 (23-29) mEq/L BUN 29 H (8-23) mg/dL Creatinine 0.68 L (0.70-1.30) mg/dL Glucose 166 H (70-105) mg/dL Calcium 8.7 (8.6-10.3) mg/dL Cardiac Enzymes 11/16/18 11/16/18 11/15/18 Range/Units 05:51 00:15 19:34 Troponin I 0.26 H* 0.24 H* 0.36 H* (< 0.04) ng/mL Impressions Chest CTA 11/15/18 16:20 IMPRESSION: No evidence of pulmonary embolism. Overall findings suggestive of CHF decompensation. D/ / Tamir Lassiter / Tamir Lassiter Interpreting Provider: Tamir Lassiter Active Medications Albuterol Sulfate (Albuterol Inhaler) 2 puff IH QID PRN PRN Reason: Shortness Of Breath Albuterol/Ipratropium (Duoneb) 3 ml IH TID PRN PRN Reason: Shortness Of Breath Stop: 05/17/19 17:32 Last Admin: 11/15/18 21:31 Dose: 3 ml Documented by: Atorvastatin Calcium (Lipitor) 40 mg PO DAILY@2100 [facility] Stop: 05/17/19 21:01 Last Admin: 11/15/18 21:27 Dose: 40 mg Documented by: Clopidogrel Bisulfate (Plavix) 75 mg PO DAILY [facility] Stop: 05/18/19 09:01 Last Admin: 11/16/18 08:02 Dose: 75 mg Documented by: Docusate Sodium (Colace) 100 mg PO BID [facility] Stop: 05/17/19 21:01 Last Admin: 11/16/18 08:02 Dose: 100 mg Documented by: Doxycycline Hyclate (Doxycycline) 100 mg PO BID [facility] Stop: 05/17/19 21:01 Last Admin: 11/16/18 08:01 Dose: 100 mg Documented by: Famotidine (Pepcid) 20 mg PO BID [facility] Stop: 05/17/19 21:01 Last Admin: 11/16/18 08:02 Dose: 20 mg Documented by: Furosemide (Lasix) 40 mg IVP BIDDIURETIC [facility] Stop: 05/18/19 08:01 Last Admin: 11/16/18 08:06 Dose: 40 mg Documented by: Gabapentin (Neurontin) 300 mg PO HS [facility] Stop: 05/17/19 21:01 Last Admin: 11/15/18 21:27 Dose: 300 mg Documented by: Hydroxyzine Pamoate (Hydroxyzine Pamoate) 25 mg PO TID PRN PRN Reason: anxiety Stop: 05/17/19 19:00 Last Admin: 11/16/18 01:36 Dose: 25 mg Documented by: Insulin Human NPH (Humulin N) 15 unit SQ QPM [facility] Stop: 05/17/19 18:01 Last Admin: 11/15/18 18:52 Dose: Not Given Documented by: Insulin Human NPH (Humulin N) 20 unit SQ QAM [facility] Stop: 05/18/19 09:01 Last Admin: 11/16/18 08:05 Dose: 20 unit Documented by: Methadone HCl (Methadone) 20 mg PO Q8HR [facility] Stop: 05/18/19 00:01 Last Admin: 11/16/18 08:01 Dose: 20 mg Documented by: Naloxone HCl (Narcan) 0.4 mg IVP Q2MPRN PRN PRN Reason: SEE COMMENTS Stop: 05/17/19 17:47 Oxycodone/Acetaminophen (Percocet 5/325) 1 each PO Q8HR PRN PRN Reason: Pain Stop: 05/17/19 19:02 Last Admin: 11/15/18 21:34 Dose: 1 each Documented by: Pharmacy Profile Note (Patient Taking Own Medication) 1 each IH Q4H PRN PRN Reason: BREATHING Prednisone (Prednisone) 40 mg PO DAILY [facility] Stop: 05/17/19 18:16 Last Admin: 11/16/18 08:01 Dose: 40 mg Documented by: Promethazine HCl (Phenergan) 12.5 mg IVP Q6HR PRN PRN Reason: Nausea And Vomiting Stop: 05/17/19 17:47 - Imaging and Cardiology Echo: report reviewed Cardiac cath: report reviewed - EKG Interpretation EKG results cardiology: personally reviewed (SR, no acute ischemic changes), other (12 hr tele AVG HR 86, SR, 3 beat NSVT) Consult Discharge Plan - Plan Referrals: Evelia Sexton, MANAGER PARKING [Primary Care Provider] -
[2018-11-16] MEDS: Metoprolol XL (24 HR) Succ 25 MG TAB.ER.24H PO SCH (10:14)
[2018-11-16] MEDS: metOLazone 5 MG TABLET PO SCH (10:14)
--- NOTE | 2018-11-16 14:01 | Electrocardiograph Report ---
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
[2018-11-16] MEDS ORDERED: Perflutren Lipid Microsphere 1.3 ML in 0.9 % Sodium Chloride 8.7 ML IVP ONE (14:14)
[2018-11-16] MEDS: Ipratropium/Albuterol Neb 3 ML IH PRN (15:00)
[2018-11-16] MEDS: ALPRAZolam 0.25 MG TABLET PO PRN (15:33)
[2018-11-16] MEDS: Gabapentin 300 MG CAPSULE PO SCH (21:20)
[2018-11-17] MEDS: ALPRAZolam 0.25 MG TABLET PO PRN ×2 (03:31→15:29)
--- NOTE | 2018-11-17 07:20 | Internal Med Progress Note ---
Hospitalist Progress Note - Encounter Date of Encounter: 11/17/18 Time of Encounter: 07:00 - Subjective Interval History: No acute events overnight - Exam Vitals: Temp Pulse Resp BP Pulse Ox 97.6 F 73 16 108/59 92 11/17/18 06:40 11/17/18 06:40 11/17/18 06:40 11/17/18 06:40 11/17/18 06:40 Exam: CONSTITUTIONAL: Patient appears as an age appropriate male well developed, in no acute distress. EYES Clear sclerae, bilateral pupils are equal, reactive to light and accommodation. Extraocular movements are intact RESPIRATORY: No accessory muscle use, bilateral diminished breath sounds to auscultation, scant wheezing, no crackles/rales. CARDIOVASCULAR: Regular heart rate, normal S1 and S2, no murmurs GASTROINTESTINAL: bowel sounds present, soft, no tenderness. No hepatosplenomegaly. No bilateral CVA tenderness MUSCULOSKELETAL: Joints in normal range of motion, no clubbing, +++ edema, no cyanosis. Bilateral peripheral pulses 2+ LYMPHATIC no lymphadenopathy in neck, groin and axilla bilaterally, no thyromegaly. NEUROLOGIC: CN II to XII are grossly intact, no focal neurological deficit. Deep tendon reflexes 2+ bilaterally. Normal light touch sensation to upper and lower extremity PSYCHIATRIC: Oriented x3, with good insight, mood is euthymic. No hallucinations or delusions. SKIN: Skin warm and dry, no rashes, no open wound. - Assessment and Plan (1) Acute on chronic systolic CHF (congestive heart failure) Current Visit: Yes Status: Acute Assessment and Plan: Pt comes in with shortness of breath and bilateral leg swelling likely secondary to acute worsening of chronic systolic CHF Started on lasix BID. Added metolazone to regimen for improved diuresis Doppler of lower extremities ordered to r/o DVT Diuresing well and less short of breath this am (2) NSTEMI (non-ST elevated myocardial infarction) Current Visit: Yes Status: Acute Assessment and Plan: Pt has shortness of breath and elevated troponins. Had been seen by cardio in the past and declined cath Seen by cardiology today and amenable to cath Plan for cath in am. Limited echo ordered (3) Atrial fibrillation Current Visit: Yes Status: Acute Assessment and Plan: Rate controlled. continue metoprolol. COumadin on hold due to elevated INR (4) Diabetes mellitus Current Visit: Yes Status: Chronic Assessment and Plan: Continue home insulin and monitor fingersticks. (5) COPD (chronic obstructive pulmonary disease) Current Visit: Yes Status: Acute Assessment and Plan: Pt has mild COPD exacerbation. Continue nebs and po steroids (6) DVT prophylaxis Current Visit: Yes Status: Acute Assessment and Plan: INR supratherapeutic on warfarin - Time Spent with Patient Total time spent is greater than 50% in coordination of care (as documented) at patient's floor/unit and/or counseling patient: Internal Medicine: Result - Labs CBC & Chem 7: 11/16/18 00:15 11/16/18 00:15 - ABG Interpretation ABG results: PT/INR, D-dimer PT 47.7 Seconds (9.4-12.1) H* 11/16/18 00:15 Consult Discharge Plan - Plan Referrals: Evelia Sexton CNP [Primary Care Provider] - (3) Atrial fibrillation Qualifiers: Qualified Code(s): I48.91 - Unspecified atrial fibrillation (4) Diabetes mellitus Qualifiers: Diabetes mellitus type: type 2 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
[2018-11-17] MEDS: Doxycycline 100 MG CAPSULE PO SCH ×2 (08:09→22:12)
[2018-11-17] MEDS: metOLazone 5 MG TABLET PO SCH (08:09)
[2018-11-17] MEDS: Famotidine 20 MG TABLET PO SCH ×2 (08:10→22:12)
[2018-11-17] MEDS: *HR* Methadone 10 MG TABLET PO SCH ×2 (08:10→17:13)
[2018-11-17] MEDS: Furosemide 40 MG/4 ML VIAL IVP SCH ×2 (08:10→17:12)
[2018-11-17] MEDS: predniSONE 20 MG TABLET PO SCH (08:10)
[2018-11-17] MEDS: Metoprolol XL (24 HR) Succ 25 MG TAB.ER.24H PO SCH (08:10)
[2018-11-17] MEDS: Insulin NPH 100 UNIT/ML (x5UNIT) SQ SCH ×3 (09:13→22:42)
--- NOTE | 2018-11-17 10:34 | Cardiology Progress Note ---
Date of Encounter: 11/17/18 Time of Encounter: 10:31 Assessment and Plan (1) Elevated troponin Current Visit: No Status: Acute Troponins 0.36, 0.24, 0.26--flat and adynamic in setting of acute on chronic systolic CHF exacerbation. Suspect demand ischemia, nondiagnostic for ACS. Hx of chronically elevated troponins dating back to 2017. Heparin gtt not indicated given INR 4.2, on Coumadin for DVT hx. [facility] at [place] 04/2018 multivessel PCI--PTCA/SERGIO to mLCx, LMCA, pRCA. Since PCI 04/2018 has been admitted multiple times for CHF, Chest pain and e levated troponins as high as 2.48 08/2018. Noncompliance with Plavix s/p PCI until 07/2018 when he started taking it. He has repeatedly declined LHC when offered. Pt is now considering LHC. Limited TTE 09/11/18: LVEF 30-35%. Global and regional LV systolic dysfunction. No LV thrombus. Recheck Limited TTE. Will re-evaluate pt in AM and determine plan. (2) Acute on chronic systolic CHF (congestive heart failure) Current Visit: Yes Status: Acute Presents with dyspnea, BLE edema. BNP 3701. Chest CTA CHF--small bilateral pleural effusions. Limited TTE 09/11/18: LVEF 30-35%. Global and regional LV systolic dysfunction. Agree with IV Lasix 40mg BID. Cumulative I/O +10mL. Question accuracy. Recommend strict I/Os, Na and fluid restriction, daily weights. (3) Coronary artery disease Current Visit: No Status: Chronic [facility] at [place] 04/2018 multivessel PCI--PTCA/SERGIO to mLCx, LMCA, pRCA. Continue Plavix, Statin. Added low dose BB. No ASA d/t being on Coumadin. Qualifiers: Coronary Disease-Associated Artery/Lesion type: [place] artery [place] vs. transplanted heart: unspecified whether [place] or transplanted heart Associated angina: angina presence unspecified Qualified Code(s): I25.10 - Atherosclerotic heart disease of [place] coronary artery without angina pectoris (4) Cardiomyopathy Current Visit: No Status: Chronic ICMP EF 30-35% 08/2018. Continue ACEi. Add low dose BB. Repeat TTE. If EF remains <35%, consider outpt referral for ICD evaluation. Qualifiers: Cardiomyopathy type: ischemic Qualified Code(s): I25.5 - Ischemic cardiomyopathy Discussion w patient/family: The assessment and plan as outlined above was discussed with the patient and/or family members who expressed understanding and agreement. All questions were answered. Thank you for involving us in the care of your patient. Please call with any questions. I will discuss all the above with Dr. Parry and make changes as necessary. Subjective Principal diagnosis: CMP, CHF, CAD Interval history: No acute complaints this AM. Objective Vital Signs, Last 4 Hours Temp Pulse Resp BP Pulse Ox 11/17/18 06:40 97.6 F 73 16 108/59 92 Vital Signs Temp Pulse Resp BP Pulse Ox 11/17/18 06:40 97.6 F 73 16 108/59 92 11/17/18 05:08 97.4 F L 71 17 93/65 90 11/16/18 23:49 97.9 F 86 16 113/59 97 11/16/18 21:40 96 11/16/18 19:28 97.8 F 76 16 106/64 96 11/16/18 15:20 97.9 F 84 16 123/72 95 11/16/18 15:14 14 95 11/16/18 10:41 98.3 F 72 18 124/75 96 Intake and Output 11/16/18 11/17/18 11/17/18 23:59 07:59 15:59 Intake Total 240 / 840 240 / 240 Output Total 650 / 650 Balance 240 / 540 -650 / -410 240 / -410 Intake: Oral 240 / 840 240 / 240 Output: Urine 650 / 650 Other: Meal Dinner Breakfast Percent of Meal Consumed 90% 90% # Voids 1 Blood Glucose* 209 112 General: Conversant, No Apparent Distress HEENT: Atraumatic, Normocephaly, Mucus Membranes Moist Neck: Normal carotid pulses Cardiac: Reg Rate and Rhythm, Normal S1 and S2, No Murmur Lungs: Other (diminished) Neuro: Alert and responsive, No focal deficits noted Abdomen: Soft, Non-Tender Skin: No rashes noted on visualized skin Musculoskeletal: No Chest Wall Tenderness Extremities: No Clubbing, No Cyanosis, No Edema, Normal Pulses Results 11/16/18 00:15 11/16/18 00:15 Active Medications Albuterol Sulfate (Albuterol Inhaler) 2 puff IH QID PRN PRN Reason: Shortness Of Breath Albuterol/Ipratropium (Duoneb) 3 ml IH TID PRN PRN Reason: Shortness Of Breath Stop: 05/17/19 17:32 Last Admin: 11/16/18 15:00 Dose: 3 ml Documented by: Alprazolam (Xanax) 0.25 mg PO BID PRN; Protocol PRN Reason: Anxiety Stop: 05/18/19 15:25 Last Admin: 11/17/18 03:31 Dose: 0.25 mg Documented by: Atorvastatin Calcium (Lipitor) 40 mg PO DAILY@2100 [facility] Stop: 05/17/19 21:01 Last Admin: 11/16/18 21:28 Dose: 40 mg Documented by: Clopidogrel Bisulfate (Plavix) 75 mg PO DAILY [facility] Stop: 05/18/19 09:01 Last Admin: 11/17/18 08:10 Dose: 75 mg Documented by: Docusate Sodium (Colace) 100 mg PO BID [facility] Stop: 05/17/19 21:01 Last Admin: 11/17/18 08:09 Dose: 100 mg Documented by: Doxycycline Hyclate (Doxycycline) 100 mg PO BID [facility] Stop: 05/17/19 21:01 Last Admin: 11/17/18 08:09 Dose: 100 mg Documented by: Famotidine (Pepcid) 20 mg PO BID [facility] Stop: 05/17/19 21:01 Last Admin: 11/17/18 08:10 Dose: 20 mg Documented by: Furosemide (Lasix) 40 mg IVP BIDDIURETIC [facility] Stop: 05/18/19 08:01 Last Admin: 11/17/18 08:10 Dose: 40 mg Documented by: Gabapentin (Neurontin) 300 mg PO HS [facility] Stop: 05/17/19 21:01 Last Admin: 11/16/18 21:20 Dose: 300 mg Documented by: Insulin Human NPH (Humulin N) 15 unit SQ QPM [facility] Stop: 05/17/19 18:01 Last Admin: 11/16/18 16:44 Dose: 15 unit Documented by: Insulin Human NPH (Humulin N) 20 unit SQ QAM [facility] Stop: 05/18/19 09:01 Last Admin: 11/17/18 09:13 Dose: 20 unit Documented by: Methadone HCl (Methadone) 20 mg PO Q8HR [facility] Stop: 05/18/19 00:01 Last Admin: 11/17/18 08:10 Dose: 20 mg Documented by: Metolazone (Zaroxolyn) 10 mg PO DAILY [facility] Stop: 05/18/19 09:31 Last Admin: 11/17/18 08:09 Dose: 10 mg Documented by: Metoprolol Succinate (Toprol Xl) 12.5 mg PO DAILY [facility] Stop: 05/18/19 09:01 Last Admin: 11/17/18 08:10 Dose: 12.5 mg Documented by: Naloxone HCl (Narcan) 0.4 mg IVP Q2MPRN PRN PRN Reason: SEE COMMENTS Stop: 05/17/19 17:47 Oxycodone/Acetaminophen (Percocet 5/325) 1 each PO Q8HR PRN PRN Reason: Pain Stop: 05/17/19 19:02 Last Admin: 11/15/18 21:34 Dose: 1 each Documented by: Pharmacy Profile Note (Patient Taking Own Medication) 1 each IH Q4H PRN PRN Reason: BREATHING Prednisone (Prednisone) 40 mg PO DAILY [facility] Stop: 05/17/19 18:16 Last Admin: 11/17/18 08:10 Dose: 40 mg Documented by: Promethazine HCl (Phenergan) 12.5 mg IVP Q6HR PRN PRN Reason: Nausea And Vomiting Stop: 05/17/19 17:47 - Imaging and Cardiology Echo: pending Cardiac cath: report reviewed Consult Discharge Plan - Plan Referrals: Evelia Sexton, SECURITIES COUNSELOR [Primary Care Provider] -
[2018-11-17 12:03] LABS: Basophils # 0.1 K/mcL (0.0-0.2); Basophils % 0.5 %; Eosinophils % 0.3 %; Hematocrit 33.2 % (37.5-50.1); Hemoglobin 10.6 g/dL (12.9-16.9); Immature Granulocytes % 0.5 % (0-4); Lymphocytes # 1.3 K/mcL (0.6-4.6); Lymphocytes % 12.6 %; Mean Corpuscular HGB Conc 31.9 g/dL (31.6-35.5); Mean Corpuscular Hemoglobin 26.8 pg (28.0-33.3); Mean Corpuscular Volume 84.1 fL (83.0-100.0); Monocytes # 0.5 K/mcL (0.0-1.3); Neutrophils # 8.6 K/mcL (1.6-8.9); Platelet Count 173 K/mcL (140-400); Red Blood Count 3.95 M/mcL (4.19-5.50); Red Cell Distribution Width 22.7 % (11.5-14.5); Segmented Neutrophils % 81.1 %
[2018-11-17 12:05] LABS: White Blood Count 10.6 K/mcL (4.3-11.1)
[2018-11-17 12:10] LABS: INR 2.9; Prothrombin Time 32.7 Seconds (9.4-12.1)
[2018-11-17 12:31] LABS: BUN/Creatinine Ratio 45 (6-26); Blood Urea Nitrogen 37 mg/dL (8-23); Calcium 8.9 mg/dL (8.6-10.3); Carbon Dioxide 31 mEq/L (23-29); Chloride 91 mEq/L (98-107); Glucose 123 mg/dL (70-105); Magnesium 1.1 mg/dL (1.6-2.6); Osmolality,Calculated 286 (280-300); Potassium 3.2 mEq/L (3.5-5.1); Sodium 133 mEq/L (136-145); eGFR For African Americans > 60 (> 60); eGFR For Non-African Americans > 60 (> 60)
[2018-11-17] MEDS ORDERED: Sennosides/Docusate Sodium TABLET PO SCH (14:15)
[2018-11-17] MEDS ORDERED: Sennosides/Docusate Sodium TABLET PO PRN (14:16)
[2018-11-17] MEDS: Gabapentin 300 MG CAPSULE PO SCH (22:12)
[2018-11-18 06:47] LABS: Basophils # 0.1 K/mcL (0.0-0.2); Basophils % 0.6 %; Eosinophils % 0.3 %; Hemoglobin 10.3 g/dL (12.9-16.9); Immature Granulocytes % 0.3 % (0-4); White Blood Count 11.7 K/mcL (4.3-11.1)
[2018-11-18 06:49] LABS: Hematocrit 32.7 % (37.5-50.1); Immature Platelets 9.9 % (1.1-6.1); Lymphocytes # 4.1 K/mcL (0.6-4.6); Lymphocytes % 35.2 %; Mean Corpuscular HGB Conc 31.5 g/dL (31.6-35.5); Mean Corpuscular Hemoglobin 26.3 pg (28.0-33.3); Mean Corpuscular Volume 83.6 fL (83.0-100.0); Monocytes # 1.4 K/mcL (0.0-1.3); Monocytes % 12.1 %; Platelet Count 174 K/mcL (140-400); Red Blood Count 3.91 M/mcL (4.19-5.50); Red Cell Distribution Width 22.8 % (11.5-14.5); Segmented Neutrophils % 51.5 %
[2018-11-18 07:01] LABS: INR 2.2; Prothrombin Time 25.5 Seconds (9.4-12.1)
[2018-11-18 07:10] LABS: BUN/Creatinine Ratio 49 (6-26); Blood Urea Nitrogen 46 mg/dL (8-23); Calcium 9.4 mg/dL (8.6-10.3); Carbon Dioxide 38 mEq/L (23-29); Chloride 87 mEq/L (98-107); Glucose 126 mg/dL (70-105); Magnesium 1.2 mg/dL (1.6-2.6); Osmolality,Calculated 295 (280-300); Phosphorous 4.3 mg/dL (2.7-4.5); Potassium 3.8 mEq/L (3.5-5.1); Sodium 136 mEq/L (136-145); eGFR For African Americans > 60 (> 60); eGFR For Non-African Americans > 60 (> 60)
--- NOTE | 2018-11-18 07:24 | Internal Med Progress Note ---
Hospitalist Progress Note - Encounter Date of Encounter: 11/18/18 Time of Encounter: 07:20 - Exam Vitals: Temp Pulse Resp BP Pulse Ox 97.4 F L 64 16 111/69 92 11/18/18 06:52 11/18/18 06:52 11/18/18 06:52 11/18/18 06:52 11/18/18 03:57 Exam: CONSTITUTIONAL: Patient appears as an age appropriate male well developed, in no acute distress. EYES Clear sclerae, bilateral pupils are equal, reactive to light and accommodation. Extraocular movements are intact RESPIRATORY: No accessory muscle use, bilateral diminished breath sounds to auscultation, scant wheezing, no crackles/rales. CARDIOVASCULAR: Regular heart rate, normal S1 and S2, no murmurs GASTROINTESTINAL: bowel sounds present, soft, no tenderness. No hepatosplenomegaly. No bilateral CVA tenderness MUSCULOSKELETAL: Joints in normal range of motion, no clubbing, +++ edema, no cyanosis. Bilateral peripheral pulses 2+ LYMPHATIC no lymphadenopathy in neck, groin and axilla bilaterally, no thyromegaly. NEUROLOGIC: CN II to XII are grossly intact, no focal neurological deficit. Deep tendon reflexes 2+ bilaterally. Normal light touch sensation to upper and lower extremity PSYCHIATRIC: Oriented x3, with good insight, mood is euthymic. No hallucinations or delusions. SKIN: Skin warm and dry, no rashes, no open wound. - Assessment and Plan (1) Acute on chronic systolic CHF (congestive heart failure) Current Visit: Yes Status: Acute Assessment and Plan: Pt comes in with shortness of breath and bilateral leg swelling likely secondary to acute worsening of chronic systolic CHF Started on lasix BID. Added metolazone to regimen for improved diuresis Doppler of lower extremities ordered to r/o DVT Diuresing well and less short of breath this am (2) NSTEMI (non-ST elevated myocardial infarction) Current Visit: Yes Status: Acute Assessment and Plan: Pt has shortness of breath and elevated troponins likely secondary to NSTEMI. Echo showed worsening EF Had been seen by cardio in the past and declined cath Seen by cardiology today and amenable to cath Plan for cath in am. Limited echo ordered (3) Atrial fibrillation Current Visit: Yes Status: Acute Assessment and Plan: Rate controlled. continue metoprolol. COumadin on hold due to elevated INR (4) Diabetes mellitus Current Visit: Yes Status: Chronic Assessment and Plan: Continue home insulin and monitor fingersticks. (5) COPD (chronic obstructive pulmonary disease) Current Visit: Yes Status: Acute Assessment and Plan: Pt has mild COPD exacerbation. Continue nebs and po steroids (6) DVT prophylaxis Current Visit: Yes Status: Acute Assessment and Plan: INR supratherapeutic on warfarin - Time Spent with Patient Total time spent is greater than 50% in coordination of care (as documented) at patient's floor/unit and/or counseling patient: Internal Medicine: Result - Labs CBC & Chem 7: 11/18/18 06:32 11/18/18 06:32 Labs: Short CBC 11/17/18 11/18/18 Range/Units 11:32 06:32 WBC 10.6 D 11.7 H (4.3-11.1) K/mcL Hgb 10.6 L 10.3 L (12.9-16.9) g/dL Hct 33.2 L 32.7 L (37.5-50.1) % Plt Count 173 174 (140-400) K/mcL Neutrophils # 8.6 6.0 (1.6-8.9) K/mcL BMP 11/17/18 11/18/18 11:32 06:32 Sodium 133 L 136 Potassium 3.2 L 3.8 Chloride 91 L 87 L Carbon Dioxide 31 H 38 H BUN 37 H 46 H Creatinine 0.82 0.93 Glucose 123 H 126 H Calcium 8.9 9.4 - ABG Interpretation ABG results: PT/INR, D-dimer PT 25.5 Seconds (9.4-12.1) H 11/18/18 06:32 - Impressions Impressions Echocardiogram Limited Views 11/16/18 10:32 Impressions: LVEF 25%. Mild to moderately dilated left ventricle. Severe global left ventricular systolic dysfunction with regional variations. Findings: Study Quality * Technically adequate exam. ECG Findings * Sinus rhythm with PVCs. Left Ventricle * LVEF 25%. * Mild to moderately dilated left ventricle. * Severe global left ventricular systolic dysfunction with regional variations. Consult Discharge Plan - Plan Referrals: Evelia Sexton, BIBLICAL LANGUAGES PROFESSOR [Primary Care Provider] - (3) Atrial fibrillation Qualifiers: Qualified Code(s): I48.91 - Unspecified atrial fibrillation (4) Diabetes mellitus Qualifiers: Diabetes mellitus type: type 2 Diabetes mellitus prison insulin use: with punchboard filling machine operator use Diabetes mellitus complication status: with circulatory complication Diabetes mellitus complication detail: with peripheral angiopathy without gangrene Qualified Code(s): E11.51 - Type 2 diabetes mellitus with diabetic peripheral angiopathy without gangrene; Z79.4 - endodontic assistant (current) use of insulin
[2018-11-18] MEDS ORDERED: D5% in Water 1,000 ML IVC PRN (08:02)
[2018-11-18] MEDS ORDERED: Dextrose Gel 15 GM/37.5 ML TUBE PO PRN ×2 (08:02)
[2018-11-18] MEDS ORDERED: *HR* Dextrose 50 % in Water (Syg) 50 ML SYRINGE IVP PRN (08:02)
[2018-11-18] MEDS: Furosemide 40 MG/4 ML VIAL IVP SCH (08:13)
[2018-11-18] MEDS: Doxycycline 100 MG CAPSULE PO SCH (08:13)
[2018-11-18] MEDS: Metoprolol XL (24 HR) Succ 25 MG TAB.ER.24H PO SCH (08:14)
[2018-11-18] MEDS: ALPRAZolam 0.25 MG TABLET PO PRN ×2 (08:14)
[2018-11-18] MEDS: *HR* Methadone 10 MG TABLET PO SCH ×3 (08:14→16:17)
[2018-11-18] MEDS: predniSONE 20 MG TABLET PO SCH (08:14)
[2018-11-18] MEDS ORDERED: Insulin NPH 100 UNIT/ML (x5UNIT) SQ SCH ×2 (08:15→17:00)
[2018-11-18] MEDS ORDERED: Famotidine 20 MG TABLET PO SCH (08:15)
[2018-11-18] MEDS ORDERED: metOLazone 5 MG TABLET PO SCH (08:15)
--- NOTE | 2018-11-18 10:09 | Cardiology Progress Note ---
Date of Encounter: 11/18/18 Time of Encounter: 10:05 Assessment and Plan (1) Elevated troponin Current Visit: No Status: Acute Troponins 0.36, 0.24, 0.26--flat and adynamic in setting of acute on chronic systolic CHF exacerbation. Suspect demand ischemia, nondiagnostic for ACS. Hx of chronically elevated troponins dating back to 2017. Not on heparin gtt d/t therapeutic INR on Coumadin for DVT hx. [facility] at [place] 04/2018 multivessel PCI--PTCA/SERGIO to mLCx, LMCA, pRCA. Since PCI 04/2018 has been admitted multiple times for CHF, Chest pain and shaheed vated troponins as high as 2.48 08/2018. Noncompliance with Plavix s/p PCI until 07/2018 when he started taking it. He has repeatedly declined [facility] when offered. Limited TTE 09/11/18: LVEF 30-35%. Global and regional LV systolic dysfunction. No LV thrombus. Repeated limited TTE LVEF 25%, further reduced. Recommend [facility]. R/B/A discussed. Pt declines. Aware of risks, including . Cardiology signing off. Reconsult PRN. Will coordinate outpt follow-up in 1-2 weeks. (2) Acute on chronic systolic CHF (congestive heart failure) Current Visit: Yes Status: Resolved Presents with dyspnea, BLE edema. BNP 3701. Chest CTA CHF--small bilateral pleural effusions. Limited TTE 09/11/18: LVEF 30-35%. EF further reduced to 25%. Agree with IV Lasix 40mg BID. Cumulative I/O +424mL. Question accuracy, as dyspnea has improved. Recommend strict I/Os, Na and fluid restriction, daily weights. Transition to PO Lasix prior to d/c. Continue Metolazone. (3) Coronary artery disease Current Visit: No Status: Chronic [facility] at [place] 04/2018 multivessel PCI--PTCA/SERGIO to mLCx, LMCA, pRCA. Continue Plavix, Statin. Added low dose BB. No ASA d/t being on Coumadin. Qualifiers: Coronary Disease-Associated Artery/Lesion type: [place] artery [place] vs. transplanted heart: unspecified whether [place] or transplanted heart Associated angina: angina presence unspecified Qualified Code(s): I25.10 - Atherosclerotic heart disease of [place] coronary artery without angina pectoris (4) Cardiomyopathy Current Visit: No Status: Chronic ICMP EF 30-35% 08/2018. Now further reduced to 25%. Continue ACEi. Added low dose BB. Consider outpt referral for ICD evaluation. Qualifiers: Cardiomyopathy type: ischemic Qualified Code(s): I25.5 - Ischemic c ardiomyopathy Discussion w patient/family: The assessment and plan as outlined above was discussed with the patient and/or family members who expressed understanding and agreement. All questions were answered. Thank you for involving us in the care of your patient. Please call with any questions. I will discuss all the above with Dr. Linares and make changes as necessary. Subjective Principal diagnosis: CMP, CHF, CAD Interval history: Reports nausea this AM. Objective Vital Signs, Last 4 Hours Temp Pulse Resp BP 11/18/18 06:52 97.4 F L 64 16 111/69 Vital Signs Temp Pulse Resp BP Pulse Ox 11/18/18 06:52 97.4 F L 64 16 111/69 11/18/18 03:57 97.3 F L 54 16 105/56 92 11/18/18 00:17 97.7 F 67 17 111/49 92 11/17/18 20:20 97.6 F 69 16 102/47 95 11/17/18 20:00 95 11/17/18 15:13 97.5 F L 75 16 106/68 94 11/17/18 11:03 97.7 F 81 17 114/65 93 Intake and Output 11/17/18 11/18/18 11/18/18 23:59 07:59 15:59 Intake Total 360 / 960 104 / 104 Output Total 400 / 1050 250 / 250 Balance -40 / -90 -250 / -146 104 / -146 Intake: IV Fluids 104 / 104 Magnesium Sulfate 2 GM In 0.9 % 104 / 104 Sodium Chloride 100 ML @ 104 mls/hr IVPB ONCE ONE Rx#: [id number] Oral 360 / 960 Output: Urine 400 / 1050 250 / 250 Other: Meal Dinner Percent of Meal Consumed 85% Weight 60.963 kg Blood Glucose* 136 173 Patient Weight 11/18/18 23:59 Weight 60.963 kg General: Conversant, No Apparent Distress HEENT: Atraumatic, Normocephaly, Mucus Membranes Moist Neck: No JVD, Normal carotid pulses Cardiac: Reg Rate and Rhythm, Normal S1 and S2, No Murmur Lungs: Other (diminished) Neuro: Alert and responsive, No focal deficits noted Abdomen: Soft, Non-Tender Skin: No rashes noted on visualized skin Musculoskeletal: No Chest Wall Tenderness Extremities: No Clubbing, No Cyanosis, No Edema, Normal Pulses Results 11/18/18 06:32 11/18/18 06:32 Lab Results 11/17/18 11/17/18 11/17/18 11:32 11:32 11:32 WBC 10.6 D Hgb 10.6 L Hct 33.2 L Plt Count 173 INR 2.9 Sodium 133 L Potassium 3.2 L Chloride 91 L Carbon Dioxide 31 H BUN 37 H Creatinine 0.82 Glucose 123 H Calcium 8.9 Magnesium 1.1 L 11/18/18 11/18/18 11/18/18 06:32 06:32 06:32 WBC 11.7 H Hgb 10.3 L Hct 32.7 L Plt Count 174 INR 2.2 Sodium 136 Potassium 3.8 Chloride 87 L Carbon Dioxide 38 H BUN 46 H Creatinine 0.93 Glucose 126 H Calcium 9.4 Magnesium 1.2 L Impressions Echocardiogram Limited Views 11/16/18 10:32 Impressions: LVEF 25%. Mild to moderately dilated left ventricle. Severe global left ventricular systolic dysfunction with regional variations. Findings: Study Quality * Technically adequate exam. ECG Findings * Sinus rhythm with PVCs. Left Ventricle * LVEF 25%. * Mild to moderately dilated left ventricle. * Severe global left ventricular systolic dysfunction with regional variations. Active Medications Albuterol Sulfate (Albuterol Inhaler) 2 puff IH QID PRN PRN Reason: Shortness Of Breath Albuterol/Ipratropium (Duoneb) 3 ml IH TID PRN PRN Reason: Shortness Of Breath Stop: 05/17/19 17:32 Last Admin: 11/16/18 15:00 Dose: 3 ml Documented by: Alprazolam (Xanax) 0.25 mg PO BID PRN; Protocol PRN Reason: Anxiety Stop: 05/18/19 15:25 Last Admin: 11/18/18 08:14 Dose: 0.25 mg Documented by: Atorvastatin Calcium (Lipitor) 40 mg PO DAILY@2100 [facility] Stop: 05/17/19 21:01 Last Admin: 11/17/18 22:15 Dose: 40 mg Documented by: Clopidogrel Bisulfate (Plavix) 75 mg PO DAILY [facility] Stop: 05/18/19 09:01 Last Admin: 11/18/18 08:14 Dose: 75 mg Documented by: Dextrose/Water (Dextrose 50% (Syg)) 25 ml IVP AD PRN PRN Reason: Hypoglycemia Stop: 05/20/19 08:03 Doxycycline Hyclate (Doxycycline) 100 mg PO BID [facility] Stop: 05/17/19 21:01 Last Admin: 11/18/18 08:13 Dose: 100 mg Documented by: Famotidine (Pepcid) 20 mg PO 0730,1630 [facility] Stop: 05/20/19 08:16 Last Admin: 11/18/18 09:48 Dose: 20 mg Documented by: Furosemide (Lasix) 40 mg IVP BIDDIURETIC [facility] Stop: 05/18/19 08:01 Last Admin: 11/18/18 08:13 Dose: 40 mg Documented by: Gabapentin (Neurontin) 300 mg PO HS [facility] Stop: 05/17/19 21:01 Last Admin: 11/17/18 22:12 Dose: 300 mg Documented by: Glucagon (Glucagen) 1 mg IM ONCE PRN PRN Reason: Hypoglycemia Stop: 05/20/19 08:03 Glucose (Gluctose) 15 gm PO ONCE PRN PRN Reason: Hypoglycemia Stop: 05/20/19 08:03 Glucose (Gluctose) 30 gm PO ONCE PRN PRN Reason: Hypoglycemia Stop: 05/20/19 08:03 Dextrose (Dextrose 5%) 1,000 mls @ 100 mls/hr IVC .Q10H PRN PRN Reason: HYPOGLYCEMIA Stop: 05/20/19 08:03 Insulin Human NPH (Humulin N) 15 unit SQ 1700 [facility] Stop: 05/20/19 17:01 Insulin Human NPH (Humulin N) 20 unit SQ 0800 [facility] Stop: 05/20/19 08:16 Last Admin: 11/18/18 09:48 Dose: 20 unit Documented by: Methadone HCl (Methadone) 20 mg PO Q8HR [facility] Stop: 05/18/19 00:01 Last Admin: 11/18/18 08:14 Dose: 20 mg Documented by: Metolazone (Zaroxolyn) 10 mg PO DAILY@0730 [facility] Stop: 05/20/19 08:16 Last Admin: 11/18/18 09:48 Dose: 10 mg Documented by: Metoprolol Succinate (Toprol Xl) 12.5 mg PO DAILY [facility] Stop: 05/18/19 09:01 Last Admin: 11/18/18 08:14 Dose: 12.5 mg Documented by: Naloxone HCl (Narcan) 0.4 mg IVP Q2MPRN PRN PRN Reason: SEE COMMENTS Stop: 05/17/19 17:47 Oxycodone/Acetaminophen (Percocet 5/325) 1 each PO Q8HR PRN PRN Reason: Pain Stop: 05/17/19 19:02 Last Admin: 11/15/18 21:34 Dose: 1 each Documented by: Prednisone (Prednisone) 40 mg PO DAILY [facility] Stop: 05/17/19 18:16 Last Admin: 11/18/18 08:14 Dose: 40 mg Documented by: Promethazine HCl (Phenergan) 12.5 mg IVP Q6HR PRN PRN Reason: Nausea And Vomiting Stop: 05/17/19 17:47 Last Admin: 11/18/18 09:48 Dose: 12.5 mg Documented by: Senna/Docusate Sodium (Senna Plus) 1 each PO BID PRN; Protocol PRN Reason: Constipation Stop: 05/19/19 14:16 Last Admin: 11/17/18 15:29 Dose: 1 each Documented by: - Imaging and Cardiology Echo: report reviewed - EKG Interpretation EKG results cardiology: other (12 hr tele AVG HR 65, SR, no significant pauses or arrhythmias noted.) Consult Discharge Plan - Plan Referrals: Evelia Sexton, PLAYER MANAGER [Primary Care Provider] -
--- NOTE | 2018-11-18 11:07 | Discharge Summary ---
Date of Encounter: 11/18/18 Time of Encounter: 11:00 - Discharge Diagnosis (1) Acute on chronic systolic CHF (congestive heart failure) Priority: Primary Status: Acute Assessment and Plan: 73 year old male who has history of CHF, COPD p-atrial fibrillation hypertension GERD chronic pain presented to [facility] for sudden onset of shortness of breath. Patient stated that he started to have shortness of breath this morning, but not like COPD, He did notice increasing bilateral leg swelling for 1 week. He denies any chest pain, [facility] trop[facility] 0.172, 2nd trop 0.228, EKG has no ST elevation but has nonspecific ST-T changes. he was sent to emergency room for admission for possible non-STEMI. Patient denies fever or chills no productive cough, he does have scant wheezing bilateral. Diminished breath sounds. He said he takes albuterol as needed at home. Denies any nausea vomiting diarrhea or constipation. Lab reviewed from [facility] creatinine 0.84 INR 3.7 WBC 8.0. He was assesse with shortness of breath and bilateral leg swelling likely secondary to acute worsening of chronic systolic CHF and NSTEMI with elevated troponins. He had an echo showing a worsening EF. He was started on lasix BID and metolazone. He was diuresed and had improved swelling and shortness of breath. He was seen by cardiology and counseled extensively on the need for a cardiac cath but declined despite the risk of . His diuretics were adjusted on discharge and he was discharged home. 35 minutes was spent discharging this patient (2) NSTEMI (non-ST elevated myocardial infarction) Priority: Primary Status: Acute (3) Atrial fibrillation Priority: Primary Status: Acute Qualifiers: Qualified Code(s): I48.91 - Unspecified atrial fibrillation (4) Diabetes mellitus Priority: Primary Status: Chronic Qualifiers: Diabetes mellitus type: type 2 Diabetes mellitus mcc insulin use: with terminal block assembler use Diabetes mellitus complication status: with circulatory complication Diabetes mellitus complication detail: with peripheral angiopathy without gangrene Qualified Code(s): E11.51 - Type 2 diabetes mellitus with diabetic peripheral angiopathy without gangrene; Z79.4 - terminal block assembler (current) use of insulin (5) COPD (chronic obstructive pulmonary disease) Priority: Primary Status: Acute Qualifiers: Qualified Code(s): J44.9 - Chronic obstructive pulmonary disease, unspecified (6) DVT prophylaxis Priority: Primary Status: Acute Hospital course: Mr. Okeefe is a 73 year old male - Time Spent with Patient Total time spent providing and/or coordinating discharge services: - Discharge Medications Prescriptions: New metOLazone [Zaroxolyn] 5 mg PO DAILY@0730 60 Days #60 tablet Metoprolol XL (24 HR) Succ [Toprol Xl] 12.5 mg PO DAILY #30 tab.er.24h Continued Ranitidine HCl [Acid Time Study Technologist] 150 mg PO BID Methadone 20 mg PO Q8HR Insulin NPH Human Isophane [Novolin N] 20 unit SQ QAM Insulin NPH Human Isophane [Novolin N] 15 unit SQ QPM Gabapentin [Neurontin] 300 mg PO HS Ipratropium/Albuterol Neb [Duoneb] 3 ml IH TID PRN PRN Reason: Shortness Of Breath Warfarin [Coumadin] 5 mg PO 1800 Clopidogrel [Plavix] 75 mg PO DAILY Atorvastatin Calcium [Lipitor] 40 mg PO DAILY Metformin HCl [Glucophage] 1,000 mg PO BIDWM Lisinopril [Zestril] 5 mg PO DAILY Magnesium Hydroxide [Milk of Magnesia] 30 ml PO HS Albuterol Sulfate [Proair Respiclick] 2 puff IH QID PRN PRN Reason: Shortness Of Breath Multivitamin with Minerals [Myvitalife] 1 cap PO DAILY Multivit-Min/FA/Lutein/Zeaxant [Macular Vitamin Tablet] 1 tab PO BID Ipratropium/Albuterol Sulfate [Combivent Respimat 20-100 Mcg] 1 gm IH Q4H PRN PRN Reason: BREATHING Changed Furosemide [Lasix] 40 mg PO BID 30 Days #60 tablet Home Medications: Gabapentin [Neurontin] 300 mg PO HS 01/31/18 [History] Insulin NPH Human Isophane [Novolin N] 15 unit SQ QPM 01/31/18 [History] Insulin NPH Human Isophane [Novolin N] 20 unit SQ QAM 01/31/18 [History] Ipratropium/Albuterol Neb [Duoneb] 3 ml IH TID PRN 01/31/18 [History] Methadone 20 mg PO Q8HR 01/31/18 [History] Ranitidine HCl [Acid Time Study Technologist] 150 mg PO BID 01/31/18 [History] Warfarin [Coumadin] 5 mg PO 1800 04/19/18 [History] Clopidogrel [Plavix] 75 mg PO DAILY 05/03/18 [History] Atorvastatin Calcium [Lipitor] 40 mg PO DAILY 08/19/18 [History] Metformin HCl [Glucophage] 1,000 mg PO BIDWM 09/11/18 [History] Albuterol Sulfate [Proair Respiclick] 2 puff IH QID PRN 11/15/18 [History] Ipratropium/Albuterol Sulfate [Combivent Respimat 20-100 Mcg] 1 gm IH Q4H PRN 11/15/18 [History] Lisinopril [Zestril] 5 mg PO DAILY 11/15/18 [History] Magnesium Hydroxide [Milk of Magnesia] 30 ml PO HS 11/15/18 [History] Multivit-Min/FA/Lutein/Zeaxant [Macular Vitamin Tablet] 1 tab PO BID 11/15/18 [History] Multivitamin with Minerals [Myvitalife] 1 cap PO DAILY 11/15/18 [History] Furosemide [Lasix] 40 mg PO BID 30 Days #60 tablet 11/18/18 [Rx] Metoprolol XL (24 HR) Succ [Toprol Xl] 12.5 mg PO DAILY #30 tab.er.24h 11/18/18 [Rx] metOLazone [Zaroxolyn] 5 mg PO DAILY@0730 60 Days #60 tablet 11/18/18 [Rx] Allergies/Adverse Reactions: Allergy/AdvReac Type Severity Reaction Status Date / Time No Known Allergies Allergy Verified 09/11/18 06:15 Date of admission: 11/15/18 17:47 Primary care physician: Evelia Sexton Consults: 11/15/18 17:49 Consult to Physician [CONS] Routine Consulting Provider: Gonzalez Parry Reason for Consult: SOB , NSTEMI Call Completed: Yes 11/15/18 18:50 Consult to Nutrition [CONS] Routine Comment: Consulting Provider: NUTRITION Reason for Dietary Consult: MST Score Consult to Pastoral Services [CONS] Routine Comment: Consult to Dog Or Horse Racing Official [CONS] Routine Reason for SW Consult: POA paperwork 11/16/18 07:39 Consult to Cardiology [CONS] Routine Comment: Consulting Provider: Cardiology [place] Reason for Consult: elevated troponins Call Completed: No - Constitutional Vitals: Temp Pulse Resp BP Pulse Ox 97.4 F L 64 16 111/69 92 11/18/18 06:52 11/18/18 06:52 11/18/18 06:52 11/18/18 06:52 11/18/18 03:57 General appearance: Present: A&O X 3, pleasant Exam: CONSTITUTIONAL: Patient appears as an age appropriate male well developed, in no acute distress. EYES Clear sclerae, bilateral pupils are equal, reactive to light and accommodation. Extraocular movements are intact RESPIRATORY: No accessory muscle use, bilateral diminished breath sounds to auscultation, scant wheezing, no crackles/rales. CARDIOVASCULAR: Regular heart rate, normal S1 and S2, no murmurs GASTROINTESTINAL: bowel sounds present, soft, no tenderness. No hepatosplenomegaly. No bilateral CVA tenderness MUSCULOSKELETAL: Joints in normal range of motion, no clubbing, +++ edema, no cyanosis. Bilateral peripheral pulses 2+ LYMPHATIC no lymphadenopathy in neck, groin and axilla bilaterally, no thyromegaly. NEUROLOGIC: CN II to XII are grossly intact, no focal neurological deficit. Deep tendon reflexes 2+ bilaterally. Normal light touch sensation to upper and lower extremity PSYCHIATRIC: Oriented x3, with good insight, mood is euthymic. No hallucinations or delusions. SKIN: Skin warm and dry, no rashes, no open wound. - Patient Status Disposition: Home, Self-Care Condition: Good - Discharge Instructions Follow Up With: Evelia Sexton CNP [Primary Care Provider] -
[2018-11-18 11:10] VITALS: BP 104/52
--- NOTE | 2018-11-18 14:06 | Physician Discharge Referral ---
Home Health/Hosp Referral Info Transfer to: Home Health - Diagnosis (1) Acute on chronic systolic CHF (congestive heart failure) Priority: Primary Status: Acute (2) NSTEMI (non-ST elevated myocardial infarction) Priority: Primary Status: Acute (3) Atrial fibrillation Priority: Primary Status: Acute (4) Diabetes mellitus Priority: Primary Status: Chronic (5) COPD (chronic obstructive pulmonary disease) Priority: Primary Status: Acute (6) DVT prophylaxis Priority: Primary Status: Acute - Respiratory Orders Smoking Cessation: Smoking cessation has been advised. For more information, call the [place] Tobacco Quit Line at 4-258-ULVE-NOW. - Activity Activity Orders: Ambulate - Services Needed Following services are medically necessary services: Nursing, Home Health Aide, Physical Therapy - Transfer Medications Prescriptions: Furosemide [Lasix] 40 mg PO BID 30 Days #60 tablet Metoprolol XL (24 HR) Succ [Toprol Xl] 12.5 mg PO DAILY #30 tab.er.24h metOLazone [Zaroxolyn] 5 mg PO DAILY@0730 60 Days #60 tablet Home Medications: Gabapentin [Neurontin] 300 mg PO HS 01/31/18 [History] Insulin NPH Human Isophane [Novolin N] 15 unit SQ QPM 01/31/18 [History] Insulin NPH Human Isophane [Novolin N] 20 unit SQ QAM 01/31/18 [History] Ipratropium/Albuterol Neb [Duoneb] 3 ml IH TID PRN 01/31/18 [History] Methadone 20 mg PO Q8HR 01/31/18 [History] Ranitidine HCl [Acid Commuter Pilot] 150 mg PO BID 01/31/18 [History] Warfarin [Coumadin] 5 mg PO 1800 04/19/18 [History] Clopidogrel [Plavix] 75 mg PO DAILY 05/03/18 [History] Atorvastatin Calcium [Lipitor] 40 mg PO DAILY 08/19/18 [History] Metformin HCl [Glucophage] 1,000 mg PO BIDWM 09/11/18 [History] Albuterol Sulfate [Proair Respiclick] 2 puff IH QID PRN 11/15/18 [History] Ipratropium/Albuterol Sulfate [Combivent Respimat 20-100 Mcg] 1 gm IH Q4H PRN 11/15/18 [History] Lisinopril [Zestril] 5 mg PO DAILY 11/15/18 [History] Magnesium Hydroxide [Milk of Magnesia] 30 ml PO HS 11/15/18 [History] Multivit-Min/FA/Lutein/Zeaxant [Macular Vitamin Tablet] 1 tab PO BID 11/15/18 [History] Multivitamin with Minerals [Myvitalife] 1 cap PO DAILY 11/15/18 [History] Furosemide [Lasix] 40 mg PO BID 30 Days #60 tablet 11/18/18 [Rx] Metoprolol XL (24 HR) Succ [Toprol Xl] 12.5 mg PO DAILY #30 tab.er.24h 11/18/18 [Rx] metOLazone [Zaroxolyn] 5 mg PO DAILY@0730 60 Days #60 tablet 11/18/18 [Rx] Allergies/Adverse Reactions: Allergy/AdvReac Type Severity Reaction Status Date / Time No Known Allergies Allergy Verified 09/11/18 06:15 Certification: Further, I certify that my clinical findings support that this patient is homebound (i.e. absences from home require considerable and taxing effort and are for medical reasons or yazidism services or infrequently or short duration when for other reasons) because: Homebound Reason: Patient requires assistance of a person or device to safely leave home Attestation: My signature below is to certify that this patient is under my care and that I, or nurse practitioner, or a physician's regional administrative assistant working with me, has a [id number] encounter with this patient.
== END 2018-11-18 16:40 | disposition home or self-care (01) | DRG 280 ==
LOC: EMEROOARM 15:58 → 2ANU 15:58
PROVIDERS: ADMIT Internal Medicine Nephrology; ATTEND Internal Medicine Nephrology

== ENCOUNTER 2019-02-15 10:06 | Inpatient (IN) ==
--- NOTE | 2019-02-15 10:17 | Emergency Department Note ---
Disposition Clinical Impression: Elevated troponin, Elevated bilirubin Chest pain Qualifiers: Chest pain type: unspecified Qualified Code(s): R07.9 - Chest pain, unspecified Cirrhosis of liver Qualifiers: Hepatic cirrhosis type: other cirrhosis Qualified Code(s): K74.69 - Other cirrhosis of liver Disposition: Admitted As Inpatient [facility] Care Provider[facility] - Forms: ED Satisfaction Letter Time of Disposition: 12:53 General Adult HPI - General Stated complaint: sick Time Seen by Provider: 02/15/19 10:08 Source: patient, EMS Mode of arrival: EMS Limitations: no limitations Nursing Notes Reviewed: Yes Vital Signs Reviewed: Yes - History of Present Illness HPI Narrative: Patient is a 73-year-old male who lives at home alone with past medical history including coronary artery disease with several stents placed, prior history of DVT most recently taken off his Coumadin, congestive heart failure, cirrhosis of the liver, peripheral arterial disease, hypertension, diabetes mellitus, presenting with chief complaint of anxiety and left-sided chest pain. The patient states he has been under increased stress the last several days and called EMS today as he was feeling very anxious. He also endorses left-sided chest pain that he describes as a pressure-like sensation that has been intermittent for the last 3 days. He states it was worse for the last 2 days and he states he developed at rest as well as with exertion. There is also spontaneously on its own, no shortness of breath, diaphoresis, nausea or vomiting. He states he has not eaten much due to his increased stress.He states he was recently at [facility] "to figure out his blood problems." He states his chest pain is less today and his anxiety is what called EMS. He also notes he has swelling and erythema of bilateral lower legs for the last several weeks that are unchanged. - Related Data Home Medications Medication Instructions Recorded Confirmed Gabapentin [Neurontin] 300 mg PO HS 01/31/18 11/29/18 Insulin NPH Human Isophane 15 unit SQ HS 01/31/18 11/29/18 [Novolin N] Insulin NPH Human Isophane 20 unit SQ QA 01/31/18 11/29/18 [Novolin N] Methadone 20 mg PO TID 01/31/18 11/29/18 Ranitidine HCl [Acid Forensic Psychologist] 150 mg PO BID 01/31/18 11/29/18 Clopidogrel [Plavix] 75 mg PO DAILY 05/03/18 11/29/18 Atorvastatin Calcium [Lipitor] 40 mg PO DAILY 08/19/18 11/29/18 Metformin HCl [Glucophage] 1,000 mg PO BIDWM 09/11/18 11/29/18 Ipratropium/Albuterol Sulfate 1 gm IH Q4H PRN 11/15/18 11/29/18 [Combivent Respimat 20-100 Mcg] Lisinopril [Zestril] 5 mg PO DAILY 11/15/18 11/29/18 Albuterol Sulfate [Proair Hfa] 2 puff IH QID PRN 11/29/18 11/29/18 Brimonidine Tartrate [Alphagan P] 1 drop BOTH EYES TID 11/29/18 11/29/18 Ipratropium/Albuterol Sulfate 3 ml IH TID PRN 11/29/18 11/29/18 [Iprat-Albut 0.5-3(2.5) mg/3 ml] Metoprolol Succinate [Toprol Xl] 12.5 mg PO DAILY 11/29/18 11/29/18 Multivitamin with Minerals 1 tab PO DAILY 11/29/18 11/29/18 [One-A-Day Maximum Formula] Vit C/Vit E/Lutein/Min/[place]-3 1 cap PO BID 11/29/18 11/29/18 [Ocuvite Softgel] metOLazone [Zaroxolyn] 5 mg PO QAM 11/29/18 11/29/18 Previous Rx's Medication Instructions Recorded Cyclobenzaprine [Flexeril] 5 mg PO TID 30 Days #60 tablet 12/03/18 Allergies Allergy/AdvReac Type Severity Reaction Status Date / Time No Known Allergies Allergy Verified 11/29/18 08:52 All systems ED: reviewed and negative except as stated. Review of Systems: As Per HPI Constitutional: Denies: fever, chills Cardiovascular: Reports: chest pain, edema. Denies: palpitations Respiratory: Denies: cough, dyspnea Gastrointestinal: Denies: abdominal pain, nausea, vomiting Genitourinary: Denies: dysuria, hematuria Musculoskeletal: Denies: back pain, neck pain Past Medical History - Past Medical History Attestation: Yes The following information was validated with the patient. Source: patient, old records reviewed Medical history: Reports: cardiomyopathy, CHF, COPD, coronary artery disease, DVT, diabetes, GERD, GI bleed, hyperlipidemia, hypertension, myocardial infarction, peripheral artery disease, other Surgical history: Reports: carotid endarterectomy, LE Bypass, LE stent(s), tonsillectomy Psychiatric history: Reports: anxiety, depression, prior suicide attempt, previous psychiatric hospitalization - Social History Smoking Status: Current some day smoker Smokeless Tobacco Status: No Alcohol use: Reports: none Drug use: Reports: none Physical Exam - General Limitations: no limitations General appearance: alert, in no apparent distress, other (talkative) - Head Head exam: atraumatic, normocephalic - Eye Eye exam: Present: PERRL, EOMI, scleral icterus - ENT ENT exam: mucous membranes dry - Neck Neck exam: Present: normal inspection, trachea midline - Chest Chest inspection: Present: normal inspection, symmetric chest wall rise - Respiratory Respiratory exam: Present: other (Family diminished breath sounds bilaterally with scattered expiratory wheezing, no rales or rhonchi) - Cardiovascular Cardiovascular exam: Present: regular rate, normal rhythm, other (Bilateral radial and dorsalis pedis pulses are equal.) - Abdominal Exam Abdominal exam: Present: soft, Non-Tender, other (no asterixis). Absent: distention, guarding, rebound - Extremities Exam Extremities exam: Present: normal capillary refill, other (Chronic venous stasis changes bilateral lower extremities with scaly dry skin, 2+ pitting edema bilateral lower extremities with blanching erythema, no warmth, no open ulcerations noted) - Neurological Exam Neurological exam: Present: alert, oriented X3, CN II-XII intact. Absent: motor sensory deficit - Expanded Neurological Exam Motor strength - LUE: 5/5 Motor strength - RUE: 5/5 Motor strength - LLE: 5/5 Motor strength - RLE: 5/5 - Psychiatric Psychiatric exam: Present: anxious - Skin Skin exam: Present: warm, dry, other (Jaundice) Course Vital Signs Temperature 97.6 F 02/15/19 10:12 Pulse Rate 64 02/15/19 10:12 Respiratory Rate 14 02/15/19 10:12 Blood Pressure 113/70 02/15/19 10:12 O2 Sat by Pulse Oximetry 96 02/15/19 10:12 Temperature 97.6 F 09/21/19 10:12 Pulse Rate 64 02/15/19 10:12 Respiratory Rate 14 02/15/19 10:12 Blood Pressure 113/70 02/15/19 10:12 O2 Sat by Pulse Oximetry 96 02/15/19 10:12 Oxygen Delivery Oxygen Delivery Room Air Medical Decision Making - [facility] Narrative Medical decision making narrative: Patient states that he is presenting here and called EMS for anxiety however he also endorses chest pain for the last 3 days. We will obtain cardiac workup as he is has history of several stents in his heart. EKG was obtained that shows sinus rhythm with no ST elevation or depression concerning for acute ischemia. We will obtain troponin, CBC, BMP, BNP. The patient also appears jaundiced and notes a history of cirrhosis of the liver. Hepatic panel, PT and INR will also be obtained. Chest x-ray be obtained. Old medical records were reviewed and appears that the patient used to be on Coumadin for atrial fibrillation. The patient states that he was recently at [facility] to "figure out his blood problems." He states that they took him off his Coumadin and place him on a different medication which he does not know. 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 He was seen most recently in the ER on November 27 for chest pain or shortness of breath, peripheral edema and had elevated troponin. He had LLE pain and spinal stenosis. He had no DVT on the left. MRI of his back was also performed that shows severe lumbar stenosis. He is to follow-up with Dr. Bentley, ortho spine. He also has a left foot drop and has been evaluated by Neurology. He was discharged on 12/03. Patient does state he is chest pain-free at this time. Patient is alert and oriented x3, no focal neurologic deficits. however he is a poor historian. Will obtain records from [facility] where he was recently admitted and patient states started on 3 new medications. 12:15 Labs and imaging reviewed. Troponin elevated 0.07. He still remains chest pain-free. We will give him aspirin. See has been having chest pain, elevated troponin, he has multiple risk factors for coronary artery disease including prior stent placements, limit the patient for further ACS workup. Liver enzymes also reviewed and bilirubin appears to be elevating. 12:[address] Wells, hospitalist that patient has EF of 25% and most recent admission he declined a coronary catheterization. We still have not received information from [facility]. He does not feel comfortable accepting the patient due to his liver enzymes and unknown what [facility] has done. He would like me to transfer the patient back to [facility]. 12:40 Discussed with patient and patient is refusing transfer to [place]. He states he does not want to go back to [facility]. Patient understands that we do not river[place] ve liver specialist. If something acute occurs, he voices his understanding that his treatment may be delayed. He states he has had cirrhosis for 20 years and denies any alcohol use. He states he wants to be admitted here and refusing transfer to [place]. Patient wants to be admitted here or MD however we have Cardiology here and he has been complaining of chest pain and warrants ACS workup. Patient also states he is agreeable to any intervention such as cardiac intervention coronary catheterization if indicated and he states he does not know why he declined on his last admission. Discussed again with Dr. Wells, hospitalist who will accept the patient for admission for ACS workup. - Medical Records Medical records reviewed: Yes I reviewed the patient's medical records. - Lab Data Lab results reviewed: Yes I reviewed the patient's lab results. Result diagrams: 02/15/19 11:28 02/15/19 11:28 Lab Results 02/15/19 02/15/19 02/15/19 Range/Units 11:28 11:28 11:28 WBC 6.8 (4.3-11.1) K/mcL RBC 3.59 L (4.19-5.50) M/mcL Hgb 10.5 L (12.9-16.9) g/dL Hct 32.4 L (37.5-50.1) % MCV 90.3 (83.0-100.0) fL MCH 29.2 (28.0-33.3) pg MCHC 32.4 (31.6-35.5) g/dL RDW 26.6 H (11.5-14.5) % Plt Count 116 L (140-400) K/mcL MPV TNP Immature Gran % 0.4 (0-4) % Seg Neutrophils % 66.6 % Lymphocytes % 22.4 % Monocytes % 9.9 % Eosinophils % 0.1 % Basophils % 0.6 % Neutrophils # 4.5 (1.6-8.9) K/mcL Lymphocytes # 1.5 (0.6-4.6) K/mcL Monocytes # 0.7 (0.0-1.3) K/mcL Eosinophils # 0.0 (0.0-0.6) K/mcL Basophils # 0.0 (0.0-0.2) K/mcL Nucleated RBCs/100 WBC 0.3 H (0) /100 WBC Platelet Estimate Decreased L (Normal) Immature Plt Fraction 9.1 H (1.1-6.1) % Hypochromasia Present A (Not Present) Poikilocytosis 1+ A (Not Present) Anisocytosis 2+ A (Not Present) Microcytosis Present A (Not Present) Macrocytosis Present A (Not Present) Ovalocytes 1+ A (Not Present) PT 21.2 H (9.4-12.1) Seconds INR 1.9 Sodium 130 L (136-145) mEq/L Potassium 4.2 (3.5-5.1) mEq/L Chloride 91 L (98-107) mEq/L Carbon Dioxide 30 H (23-29) mEq/L BUN 32 H (8-23) mg/dL Creatinine 0.72 (0.70-1.30) mg/dL Est GFR ( Amer) > 60 (> 60) Est GFR (Non-Af Amer) > 60 (> 60) BUN/Creatinine Ratio 44 H (6-26) Glucose 73 (70-105) mg/dL Calculated Osmolality 275 L (280-300) Calcium 9.1 (8.6-10.3) mg/dL Total Bilirubin 5.3 H (0.3-1.0) mg/dL Direct Bilirubin 2.5 H (0.0-0.2) mg/dL Indirect Bilirubin 2.8 H (0.0-1.2) mg/dL AST 53 H (13-39) Units/L ALT 29 (7-52) Units/L Alkaline Phosphatase 105 H (34-104) Units/L Troponin I 0.07 H* (< 0.04) ng/mL B-Natriuretic Peptide (Less than 100) pg/mL Serum Total Protein 5.9 L (6.4-8.9) g/dL Albumin 3.8 (3.5-5.7) g/dL Globulin 2.1 L (2.4-3.5) g/dL Albumin/Globulin Ratio 1.8 (1.1-2.2) 02/15/19 Range/Units 11:28 WBC (4.3-11.1) K/mcL RBC (4.19-5.50) M/mcL Hgb (12.9-16.9) g/dL Hct (37.5-50.1) % MCV (83.0-100.0) fL MCH (28.0-33.3) pg MCHC (31.6-35.5) g/dL RDW (11.5-14.5) % Plt Count (140-400) K/mcL MPV Immature Gran % (0-4) % Seg Neutrophils % % Lymphocytes % % Monocytes % % Eosinophils % % Basophils % % Neutrophils # (1.6-8.9) K/mcL Lymphocytes # (0.6-4.6) K/mcL Monocytes # (0.0-1.3) K/mcL Eosinophils # (0.0-0.6) K/mcL Basophils # (0.0-0.2) K/mcL Nucleated RBCs/100 WBC (0) /100 WBC Platelet Estimate (Normal) Immature Plt Fraction (1.1-6.1) % Hypochromasia (Not Present) Poikilocytosis (Not Present) Anisocytosis (Not Present) Microcytosis (Not Present) Macrocytosis (Not Present) Ovalocytes (Not Present) PT (9.4-12.1) Seconds INR Sodium (136-145) mEq/L Potassium (3.5-5.1) mEq/L Chloride (98-107) mEq/L Carbon Dioxide (23-29) mEq/L BUN (8-23) mg/dL Creatinine (0.70-1.30) mg/dL Est GFR ( Amer) (> 60) Est GFR (Non-Af Amer) (> 60) BUN/Creatinine Ratio (6-26) Glucose (70-105) mg/dL Calculated Osmolality (280-300) Calcium (8.6-10.3) mg/dL Total Bilirubin (0.3-1.0) mg/dL Direct Bilirubin (0.0-0.2) mg/dL Indirect Bilirubin (0.0-1.2) mg/dL AST (13-39) Units/L ALT (7-52) Units/L Alkaline Phosphatase (34-104) Units/L Troponin I (< 0.04) ng/mL B-Natriuretic Peptide > 5000 H (Less than 100) pg/mL Serum Total Protein (6.4-8.9) g/dL Albumin (3.5-5.7) g/dL Globulin (2.4-3.5) g/dL Albumin/Globulin Ratio (1.1-2.2) - Radiology Data Radiology results reviewed: Yes I reviewed the patient's radiology results. Chest X-Ray 02/15/19 11:06 IMPRESSION: Stable portable study showing pulmonary fibrosis. D/ / Jayla Olguin Cha, MD / Jayla Olguin Cha, MD Interpreting Provider: Jayla Olguin Cha, MD - EKG Data EKG #1 EKG attestation: Yes I reviewed and interpreted this EKG. EKG results narrative: EKG obtained at 1016 shows sinus rhythm with heart rate 64, NC interval 170, QRS duration 105, QTC 450, PVCs, no ST elevation, no ST depression, T wave inversion in aVL, compared to old EKG on 11/15/2018 which is many changes.
--- NOTE | 2019-02-15 10:22 | Emergency Department Note ---
Disposition Clinical Impression: Elevated troponin, Elevated bilirubin Chest pain Qualifiers: Chest pain type: unspecified Qualified Code(s): R07.9 - Chest pain, unspecified Cirrhosis of liver Qualifiers: Ascites presence: unspecified Qualified Code(s): K74.60 - Disposition: Admitted As Inpatient Time of Disposition: 17:10 General Adult HPI - General Chief complaint: ED Chest Pain Stated complaint: sick Time Seen by Provider: 02/15/19 10:08 Source: patient, EMS Limitations: no limitations - History of Present Illness Pain Scale: 7 - Related Data Home Medications Medication Instructions Recorded Confirmed Gabapentin [Neurontin] 300 mg PO HS 01/31/18 02/15/19 Insulin NPH Human Isophane 15 unit SQ HS 01/31/18 02/15/19 [Novolin N] Insulin NPH Human Isophane 20 unit SQ QAM 01/31/18 02/15/19 [Novolin N] Methadone 20 mg PO TID 01/31/18 02/15/19 Ranitidine HCl [Acid Knit Goods Press Hand] 150 mg PO BID 01/31/18 02/15/19 Clopidogrel [Plavix] 75 mg PO DAILY 05/03/18 02/15/19 Atorvastatin Calcium [Lipitor] 40 mg PO DAILY 08/19/18 02/15/19 Metformin HCl [Glucophage] 1,000 mg PO BIDWM 09/11/18 02/15/19 Ipratropium/Albuterol Sulfate 1 gm IH Q4H PRN 11/15/18 02/15/19 [Combivent Respimat 20-100 Mcg] Lisinopril [Zestril] 5 mg PO DAILY 11/15/18 02/15/19 Albuterol Sulfate [Proair Hfa] 2 puff IH QID PRN 11/29/18 02/15/19 Brimonidine Tartrate [Alphagan P] 1 drop BOTH EYES TID 11/29/18 02/15/19 Ipratropium/Albuterol Sulfate 3 ml IH TID PRN 11/29/18 02/15/19 [Iprat-Albut 0.5-3(2.5) mg/3 ml] Metoprolol Succinate [Toprol Xl] 12.5 mg PO DAILY 11/29/18 02/15/19 Multivitamin with Minerals 1 tab PO DAILY 11/29/18 02/15/19 [One-A-Day Maximum Formula] Vit C/Vit E/Lutein/Min/[place]-3 1 cap PO BID 11/29/18 02/15/19 [Ocuvite Softgel] metOLazone [Zaroxolyn] 5 mg PO QAM 11/29/18 02/15/19 Previous Rx's Medication Instructions Recorded Cyclobenzaprine [Flexeril] 5 mg PO TID 30 Days #60 tablet 12/03/18 Allergies Allergy/AdvReac Type Severity Reaction Status Date / Time No Known Allergies Allergy Verified 11/29/18 08:52 Past Medical History - Past Medical History Medical history: Reports: cardiomyopathy, CHF, COPD, coronary artery disease, DVT, diabetes, GERD, GI bleed, hyperlipidemia, hypertension, liver disease, my ocardial infarction, peripheral artery disease, other Surgical history: Reports: carotid endarterectomy, LE Bypass, LE stent(s), tonsillectomy Psychiatric history: Reports: anxiety, depression, prior suicide attempt, previous psychiatric hospitalization - Social History Smoking Status: Current some day smoker Smokeless Tobacco Status: No Alcohol use: Reports: none Drug use: Reports: none Physical Exam - General Limitations: no limitations General appearance: alert, anxious Course Vital Signs Temperature 97.6 F 02/15/19 10:12 Pulse Rate 64 02/15/19 10:12 Respiratory Rate 14 02/15/19 10:12 Blood Pressure 113/70 02/15/19 10:12 O2 Sat by Pulse Oximetry 96 02/15/19 10:12 Temperature 98.3 F 02/15/19 15:01 Pulse Rate 70 02/15/19 15:01 Respiratory Rate 18 02/15/19 15:01 Blood Pressure 123/58 02/15/19 15:01 O2 Sat by Pulse Oximetry 95 02/15/19 15:01 Oxygen Delivery Oxygen Delivery Room Air Medical Decision Making - Lab Data Result diagrams: 02/15/19 11:28 02/15/19 11:28 Lab Results 02/15/19 02/15/19 02/15/19 Range/Units 11:28 11:28 11:28 WBC 6.8 (4.3-11.1) K/mcL RBC 3.59 L (4.19-5.50) M/mcL Hgb 10.5 L (12.9-16.9) g/dL Hct 32.4 L (37.5-50.1) % MCV 90.3 (83.0-100.0) fL MCH 29.2 (28.0-33.3) pg MCHC 32.4 (31.6-35.5) g/dL RDW 26.6 H (11.5-14.5) % Plt Count 116 L (140-400) K/mcL MPV TNP Immature Gran % 0.4 (0-4) % Seg Neutrophils % 66.6 % Lymphocytes % 22.4 % Monocytes % 9.9 % Eosinophils % 0.1 % Basophils % 0.6 % Neutrophils # 4.5 (1.6-8.9) K/mcL Lymphocytes # 1.5 (0.6-4.6) K/mcL Monocytes # 0.7 (0.0-1.3) K/mcL Eosinophils # 0.0 (0.0-0.6) K/mcL Basophils # 0.0 (0.0-0.2) K/mcL Nucleated RBCs/100 WBC 0.3 H (0) /100 WBC Platelet Estimate Decreased L (Normal) Immature Plt Fraction 9.1 H (1.1-6.1) % Hypochromasia Present A (Not Present) Poikilocytosis 1+ A (Not Present) Anisocytosis 2+ A (Not Present) Microcytosis Present A (Not Present) Macrocytosis Present A (Not Present) Ovalocytes 1+ A (Not Present) PT 21.2 H (9.4-12.1) Seconds INR 1.9 Sodium 130 L (136-145) mEq/L Potassium 4.2 (3.5-5.1) mEq/L Chloride 91 L (98-107) mEq/L Carbon Dioxide 30 H (23-29) mEq/L BUN 32 H (8-23) mg/dL Creatinine 0.72 (0.70-1.30) mg/dL Est GFR ( Amer) > 60 (> 60) Est GFR (Non-Af Amer) > 60 (> 60) BUN/Creatinine Ratio 44 H (6-26) Glucose 73 (70-105) mg/dL Calculated Osmolality 275 L (280-300) Calcium 9.1 (8.6-10.3) mg/dL Total Bilirubin 5.3 H (0.3-1.0) mg/dL Direct Bilirubin 2.5 H (0.0-0.2) mg/dL Indirect Bilirubin 2.8 H (0.0-1.2) mg/dL AST 53 H (13-39) Units/L ALT 29 (7-52) Units/L Alkaline Phosphatase 105 H (34-104) Units/L Troponin I 0.07 H* (< 0.04) ng/mL B-Natriuretic Peptide (Less than 100) pg/mL Serum Total Protein 5.9 L (6.4-8.9) g/dL Albumin 3.8 (3.5-5.7) g/dL Globulin 2.1 L (2.4-3.5) g/dL Albumin/Globulin Ratio 1.8 (1.1-2.2) 02/15/19 Range/Units 11:28 WBC (4.3-11.1) K/mcL RBC (4.19-5.50) M/mcL Hgb (12.9-16.9) g/dL Hct (37.5-50.1) % MCV (83.0-100.0) fL MCH (28.0-33.3) pg MCHC (31.6-35.5) g/dL RDW (11.5-14.5) % Plt Count (140-400) K/mcL MPV Immature Gran % (0-4) % Seg Neutrophils % % Lymphocytes % % Monocytes % % Eosinophils % % Basophils % % Neutrophils # (1.6-8.9) K/mcL Lymphocytes # (0.6-4.6) K/mcL Monocytes # (0.0-1.3) K/mcL Eosinophils # (0.0-0.6) K/mcL Basophils # (0.0-0.2) K/mcL Nucleated RBCs/100 WBC (0) /100 WBC Platelet Estimate (Normal) Immature Plt Fraction (1.1-6.1) % Hypochromasia (Not Present) Poikilocytosis (Not Present) Anisocytosis (Not Present) Microcytosis (Not Present) Macrocytosis (Not Present) Ovalocytes (Not Present) PT (9.4-12.1) Seconds INR Sodium (136-145) mEq/L Potassium (3.5-5.1) mEq/L Chloride (98-107) mEq/L Carbon Dioxide (23-29) mEq/L BUN (8-23) mg/dL Creatinine (0.70-1.30) mg/dL Est GFR ( Amer) (> 60) Est GFR (Non-Af Amer) (> 60) BUN/Creatinine Ratio (6-26) Glucose (70-105) mg/dL Calculated Osmolality (280-300) Calcium (8.6-10.3) mg/dL Total Bilirubin (0.3-1.0) mg/dL Direct Bilirubin (0.0-0.2) mg/dL Indirect Bilirubin (0.0-1.2) mg/dL AST (13-39) Units/L ALT (7-52) Units/L Alkaline Phosphatase (34-104) Units/L Troponin I (< 0.04) ng/mL B-Natriuretic Peptide > 5000 H (Less than 100) pg/mL Serum Total Protein (6.4-8.9) g/dL Albumin (3.5-5.7) g/dL Globulin (2.4-3.5) g/dL Albumin/Globulin Ratio (1.1-2.2) Attestation Statement - Attestation Attestation: I reviewed the residents documentation and agree with the residents assessment and plan of care. I have personally had face to face time with the patient. (Brief History, Brief Exam, and MDM) I personally supervised and was present for the fritz/critical portions of the following procedures completed by the resident: (add procedures performed here). [id number] time provided Patient arrives from home by EMS. He complains of chest discomfort. He is talkative and appears in no acute distress on exam. I attest to supervising the resident physician's interpretation of the ECG. Patient has a remote history of lower extremity DVT but no longer takes Coumadin.
[2019-02-15 11:45] LABS: Basophils % 0.6 %; Eosinophils % 0.1 %
[2019-02-15 11:47] LABS: Hematocrit 32.4 % (37.5-50.1); Hemoglobin 10.5 g/dL (12.9-16.9); Immature Granulocytes % 0.4 % (0-4); Immature Platelets 9.1 % (1.1-6.1); Lymphocytes # 1.5 K/mcL (0.6-4.6); Lymphocytes % 22.4 %; Mean Corpuscular HGB Conc 32.4 g/dL (31.6-35.5); Mean Corpuscular Hemoglobin 29.2 pg (28.0-33.3); Mean Corpuscular Volume 90.3 fL (83.0-100.0); Monocytes # 0.7 K/mcL (0.0-1.3); Monocytes % 9.9 %; Nucleated Red Blood Cells 0.3 /100 WBC (0); Platelet Count 116 K/mcL (140-400); Red Blood Count 3.59 M/mcL (4.19-5.50); Red Cell Distribution Width 26.6 % (11.5-14.5); Segmented Neutrophils % 66.6 %; White Blood Count 6.8 K/mcL (4.3-11.1)
[2019-02-15 11:58] LABS: Neutrophils # 4.5 K/mcL (1.6-8.9)
[2019-02-15 11:59] LABS: INR 1.9; Prothrombin Time 21.2 Seconds (9.4-12.1)
[2019-02-15 12:13] LABS: Alanine Aminotransferase 29 Units/L (7-52); Albumin 3.8 g/dL (3.5-5.7); Albumin/Globulin Ratio 1.8 (1.1-2.2); Alkaline Phosphatase 105 Units/L (34-104); Aspartate Amino Transferase 53 Units/L (13-39); BUN/Creatinine Ratio 44 (6-26); Bilirubin,Direct 2.5 mg/dL (0.0-0.2); Bilirubin,Indirect 2.8 mg/dL (0.0-1.2); Bilirubin,Total 5.3 mg/dL (0.3-1.0); Blood Urea Nitrogen 32 mg/dL (8-23); Calcium 9.1 mg/dL (8.6-10.3); Carbon Dioxide 30 mEq/L (23-29); Chloride 91 mEq/L (98-107); Globulin 2.1 g/dL (2.4-3.5); Glucose 73 mg/dL (70-105); Osmolality,Calculated 275 (280-300); Potassium 4.2 mEq/L (3.5-5.1); Sodium 130 mEq/L (136-145); Total Protein 5.9 g/dL (6.4-8.9); Troponin I 0.07 ng/mL (< 0.04); eGFR For African Americans > 60 (> 60); eGFR For Non-African Americans > 60 (> 60)
[2019-02-15] MEDS ORDERED: Aspirin 81 MG TAB.CHEW PO ONE (12:15)
[2019-02-15 12:29] LABS: Anisocytosis 2+ (Not Present); Macrocytosis Present (Not Present); Platelet Estimate Decreased (Normal)
[2019-02-15 12:30] LABS: Microcytosis Present (Not Present)
[2019-02-15 12:31] LABS: Hypochromasia Present (Not Present); Ovalocytes 1+ (Not Present); Poikilocytosis 1+ (Not Present)
--- NOTE | 2019-02-15 12:53 | Internal Med History&Physical ---
Date of Encounter: 02/15/19 Time of Encounter: 12:49 Internal Medicine - H&P: HPI Chief complaint: chest pain Plans for Post Hospital Care: Home History of present illness: Mr. Okeefe is a 73 year old male who is a relatively poor historian with past medical history of diabetes, coronary artery disease, DVT unclear exact date, cirrhosis of unknown cause, COPD, systolic CHF with last EF of 25% in , who was recently admitted to [facility] for unclear reason came in due to chest pain ongoing for 3-4 days. Patient reported chest pressure sensation about his 4 days at rest and sometimes with exertion occasionally radiating to neck. He had some nausea and lightheadedness but denies denied any vomiting or syncopal episodes. Patient had multivessel PCI last year on 05/14 and [place]. He had admission earlier this year where he was seen by cardiology and was recommended [facility] however he declined. Patient was reportedly at [place] about 1-2 weeks ago which is not able to explain why exactly he was admitted. He is not able to remember and he does not want to go back to [place] for further evaluation. Patient has signs of cirrhosis however he does not know exactly what led to it. Denies any heavy alcohol use. Patient has history of DVT and was on Coumadin which was reportedly did recently stop. He is unclear whether he was started on another anticoagulant. Denies any cough or shortness of breath or fevers at home. Denies any abdominal pain abdominal distention or diarrhea. Denies any history of hepatitis. Has some constipation and decreased appetite. Patient was evaluated in the ER where he was found to have stable anemia, INR of 1.9 and elevated bilirubin direct and indirect, troponin of 0.07 and BNP of more than 5000. Chest x-ray showed pulmonary fibrosis. Patient did not have any significant ischemic EKG changes. Given his history of coronary artery disease admission was requested for further management. Patient was offered transfer to [facility] given his liver illness and previous cardiac workup at [place] however he declined. Patient's chest pain has resolved. Denies any difficulty breathing. Patient is a poor historian and any aspect of history were obtained from previous chart review. Past Med Surg Social Fam HX - Past Medical History Medical history: cardiomyopathy, CHF, COPD, coronary artery disease, DVT, diabetes, GERD, GI bleed, hyperlipidemia, hypertension, liver disease, myocardial infarction, peripheral artery disease, other Additional medical history: carotid stenosis. lactic acidosis and sepsis. NSTEMI. anemia. cardiomyopathy Psychiatric history: anxiety, depression - Past Surgical History Surgical History: carotid endarterectomy, LE Bypass, LE stent(s), tonsillectomy Additional surgical history: left carotid. 4 cardiac stents. right leg cleaned out arteries w/2 stents 1 on each groin - Social History Smoking Status: Current some day smoker Smokeless Tobacco Status: No Alcohol use: none Drug use: none - Family History Mother Living Status: Hx Family Cardiac Disorders: Yes (mother heart attack) Hx Family Respiratory Disorders: No Hx Family Cancer: No Hx Family GI Disorders: No Hx Family Endocrine Disorder: No Hx Family Neuromuscular Disorders: No Hx Family Neurologic Disorders: No Hx Family HEENT Disorders: No Hx Family Autoimmune Disorders: No Internal Medicine - H&P: Meds Gabapentin [Neurontin] 300 mg PO HS 01/31/18 [History] Insulin NPH Human Isophane [Novolin N] 15 unit SQ HS 01/31/18 [History] Insulin NPH Human Isophane [Novolin N] 20 unit SQ QA 01/31/18 [History] Methadone 20 mg PO TID 01/31/18 [History] Ranitidine HCl [Acid Principal Statistical Programmer] 150 mg PO BID 01/31/18 [History] Clopidogrel [Plavix] 75 mg PO DAILY 05/03/18 [History] Atorvastatin Calcium [Lipitor] 40 mg PO DAILY 08/19/18 [History] Metformin HCl [Glucophage] 1,000 mg PO BIDWM 09/11/18 [History] Ipratropium/Albuterol Sulfate [Combivent Respimat 20-100 Mcg] 1 gm IH Q4H PRN 11/15/18 [History] Lisinopril [Zestril] 5 mg PO DAILY 11/15/18 [History] Albuterol Sulfate [Proair Hfa] 2 puff IH QID PRN 11/29/18 [History] Brimonidine Tartrate [Alphagan P] 1 drop BOTH EYES TID 11/29/18 [History] Ipratropium/Albuterol Sulfate [Iprat-Albut 0.5-3(2.5) mg/3 ml] 3 ml IH TID PRN 11/29/18 [History] Metoprolol Succinate [Toprol Xl] 12.5 mg PO DAILY 11/29/18 [History] Multivitamin with Minerals [One-A-Day Maximum Formula] 1 tab PO DAILY 11/29/18 [History] Vit C/Vit E/Lutein/Min/[place]-3 [Ocuvite Softgel] 1 cap PO BID 11/29/18 [History] metOLazone [Zaroxolyn] 5 mg PO QAM 11/29/18 [History] Cyclobenzaprine [Flexeril] 5 mg PO TID 30 Days #60 tablet 12/03/18 [Rx] Allergy/AdvReac Type Severity Reaction Status Date / Time No Known Allergies Allergy Verified 11/29/18 08:52 All Systems PM: A 10-system review of systems was performed and is negative for pertinent findings except as documented above in the HPI. - Constitutional Vitals: Temp Pulse Resp BP Pulse Ox 97.6 F 64 14 113/70 96 02/15/19 10:12 02/15/19 10:12 02/15/19 10:12 02/15/19 10:12 02/15/19 10:12 Exam: Constitutional: Vitals as noted. Conversant. No Apparent Distress. Eyes : icteric conjunctiva ENT : Grossly normal hearing. Respiratory : Clear to auscultation bilaterally. No accessory muscle use, rales, rhonchi or wheezes Cardiovascular : RRR, +S1, +S2. no murmur, gallop, rubs. No chest wall tenderness GI/Abdominal : Soft, Non-tender, Non-distended, normal bowel sounds, no periton eal signs Musculoskeletal: 1+ pedal edema b/l mild tenderness on Lt LLE. Neurological: AO X3, CN II-XII grossly intact, grossly normal motor and sensory exam. Skin: icteric skin, Mild excoration and tenderness on LLE posteriorly, Pych: poor memory. AOx3. Internal Med - H&P Results - Labs CBC & Chem 7: 02/15/19 11:28 02/15/19 11:28 Labs: Short CBC 02/15/19 Range/Units 11:28 WBC 6.8 (4.3-11.1) K/mcL Hgb 10.5 L (12.9-16.9) g/dL Hct 32.4 L (37.5-50.1) % Plt Count 116 L (140-400) K/mcL Neutrophils # 4.5 (1.6-8.9) K/mcL BMP 02/15/19 11:28 Sodium 130 L Potassium 4.2 Chloride 91 L Carbon Dioxide 30 H BUN 32 H Creatinine 0.72 Glucose 73 Calcium 9.1 Cardiac Enzymes 02/15/19 Range/Units 11:28 Troponin I 0.07 H* (< 0.04) ng/mL Liver Function 02/15/19 Range/Units 11:28 Total Bilirubin 5.3 H (0.3-1.0) mg/dL Direct Bilirubin 2.5 H (0.0-0.2) mg/dL AST 53 H (13-39) Units/L ALT 29 (7-52) Units/L Alkaline Phosphatase 105 H (34-104) Units/L Albumin 3.8 (3.5-5.7) g/dL - EKG Data -: EKG Interpreted by Myself EKG shows normal: sinus rhythm (many PVC) - Impressions ITS Impressions Chest X-Ray 02/15/19 11:06 IMPRESSION: Stable portable study showing pulmonary fibrosis. D/ / Jayla Olguin Cha, MD / Jayla Olguin Cha, MD Interpreting Provider: Jayla Olguin Cha, MD - Assessment and Plan (1) Chest pain Current Visit: Yes Status: Acute Assessment and plan: Patient with known history of coronary artery disease with multiple PCI with stents last year. Was recommended [facility] earlier this year but declined. He agrees to get [facility] if recommended again We will keep patient on telemetry and trend troponin. Currently patient without any chest pain Continue patient's aspirin, atorvastatin and metoprolol and Plavix Patient's last echocardiogram with EF of 25%. We will consult cardiology for further recommendation. Qualifiers: Chest pain type: unspecified Qualified Code(s): R07.9 - Chest pain, unspecified (2) Cirrhosis Current Visit: Yes Status: Acute Assessment and plan: Patient history of liver cirrhosis however does not know exactly what caused it. Denies significant alcohol history however he is getting methadone for pain management and he reported that he drank more alcohol than he was not on it. We will obtain a reverse had records for further clarification as to his last endoscopies and cause of his underlying liver cirrhosis. Qualifiers: Ascites presence: unspecified Qualified Code(s): K74.60 - Unspecified cirrhosis of liver (3) Elevated troponin Current Visit: Yes Status: Acute Assessment and plan: As above (4) ACS (acute coronary syndrome) Current Visit: No Status: Acute (5) Acute HFrEF (heart failure with reduced ejection fraction) Current Visit: No Status: Acute Assessment and plan: Has mild pedal edema but without significant volume overload Continue home diuretics, beta uziel and VERONICA inhibitor. (6) COPD exacerbation Current Visit: No Status: Acute Assessment and plan: Not in COPD exacerbation. When necessary albuterol (7) Peripheral edema Current Visit: No Status: Acute (8) Type 2 diabetes mellitus Current Visit: No Status: Chronic Assessment and plan: We will keep patient on sliding scale insulin and Accu-Cheks and basal insulin of 10 HS Qualifiers: Diabetes mellitus penitentiary insulin use: with penitentiary use Diabetes mellitus complication status: with circulatory complication Diabetes mellitus complication detail: with other circulatory complications Qualified Code(s): E11.59 - Type 2 diabetes mellitus with other circulatory complications; Z79.4 - [facility] (current) use of insulin (9) Supratherapeutic INR Current Visit: No Status: Resolved Assessment and plan: Patient reported previously being on Coumadin for DVT. His Coumadin was recently discontinued and was started on a different medication which is unclear. We will obtain records from [place] for further clarification. We will obtain DVT study. - Time Spent With Patient Total time spent is greater than 50% in coordination of care (as documented) at patient's floor/unit and/or counseling patient:
[2019-02-15] MEDS: Insulin LISPRO 300 UNITS/3 ML VIAL SQ SCH ×2 (15:54→21:48)
[2019-02-15] MEDS: *HR* Methadone 10 MG TABLET PO SCH ×2 (16:47→21:47)
[2019-02-15] MEDS: Gabapentin 300 MG CAPSULE PO SCH (21:47)
[2019-02-15] MEDS: Insulin DETEMIR 100 UNIT/ML X5UNITS SQ SCH (21:48)
[2019-02-16 02:15] LABS: Hemoglobin 9.6 g/dL (12.9-16.9)
[2019-02-16 02:17] LABS: BUN/Creatinine Ratio 41 (6-26); Blood Urea Nitrogen 29 mg/dL (8-23); Carbon Dioxide 29 mEq/L (23-29); Chloride 93 mEq/L (98-107); Glucose 152 mg/dL (70-105); Hematocrit 29.4 % (37.5-50.1); Immature Platelets 8.6 % (1.1-6.1); Mean Corpuscular HGB Conc 32.7 g/dL (31.6-35.5); Mean Corpuscular Hemoglobin 29.3 pg (28.0-33.3); Mean Corpuscular Volume 89.6 fL (83.0-100.0); Osmolality,Calculated 279 (280-300); Platelet Count 103 K/mcL (140-400); Potassium 3.8 mEq/L (3.5-5.1); Red Blood Count 3.28 M/mcL (4.19-5.50); Red Cell Distribution Width 26.5 % (11.5-14.5); Sodium 130 mEq/L (136-145); White Blood Count 7.7 K/mcL (4.3-11.1); eGFR For African Americans > 60 (> 60); eGFR For Non-African Americans > 60 (> 60)
[2019-02-16] MEDS: Insulin LISPRO 300 UNITS/3 ML VIAL SQ SCH ×4 (07:59→20:59)
[2019-02-16] MEDS: Metoprolol XL (24 HR) Succ 25 MG TAB.ER.24H PO SCH (08:44)
[2019-02-16] MEDS: *HR* Methadone 10 MG TABLET PO SCH ×3 (08:44→22:23)
--- NOTE | 2019-02-16 10:03 | Cardiology Consult Note ---
Date of Encounter: 02/16/19 Time of Encounter: 09:00 Assessment and Plan (1) Acute on chronic HFrEF (heart failure with reduced ejection fraction) Current Visit: Yes Status: Chronic Pt with acute on chronic CHF. BNP >5000. Troponins minimally elevated, adynamic at 0.07, 0.06, 0.06. Likely elevated in setting of acute CHF. Do not think ACS. Would diurese. Obtain records from [facility]. Suspect pt noncompliant with medical regimen. No indication for [facility] at this time and pt declines [facility] anyways. (2) Ischemic cardiomyopathy Current Visit: Yes Status: Chronic Continue beta blockade, VERONICA-I. Do not think candidate for Entresto due to cirrhosis. (3) Coronary artery disease Current Visit: No Status: Chronic Continue current meds including DAPT. Qualifiers: Coronary Disease-Associated Artery/Lesion type: [place] artery [place] vs. transplanted heart: unspecified whether [place] or transplanted heart Associated angina: angina presence unspecified Qualified Code(s): I25.10 - Atherosclerotic heart disease of [place] coronary artery without angina pectoris (4) Medical non-compliance Current Visit: Yes Status: Chronic Suspect noncompliance with meds. Agree with social work c/s. Pt's primary complaint to me today was wanting to have home health for assistance. Discussion w patient/family: The assessment and plan as outlined above was discussed with the patient and/or family members who expressed understanding and agreement. All questions were answered. Thank you for involving us in the care of your patient. Please call with any questions. History of Present Illness Consult date: 02/16/19 Requesting physician: Dennis Wells Consult reason: chest pain Chief complaint: chest pain History of present illness: Mr. Okeefe is a 73 year old male with hx of CAD s/p PCI, ischemic CMP, cirrhosis, DVT, COPD, DM, HTN, hyperlipidemia, PVD presents to [facility] c/o CP. Pt poor historian. No family available. States has been having intermittent sharp CP over past few weeks as well as SOB. Attributes to "anxiety." Has not taken SL NTG. Pt was recently admitted to [facility] 1-2 weeks ago for unknown reasons- no records available for my review, pt does not recall. Notes that [facility] changed his medications, but does not know which ones. Pt primarily upset that reportedly [facility] was to set up home health for him and "that didn't happen." Pt unsure if has had any weight gain. Denies palpitations, syncope, lightheadedness. Wants to go home and have home health. Pt has had multiple admissions for chest pain, CHF over past year. Has declined [facility] multiple times. Has known CAD. Last known cath at [facility] in Apr 2018 with multivessel PCI of LM, Cx, pRCA. Pt noncompliant with Plavix after PCI per records. Echocardiogram 11/16/18: LVEF 25%. Mild to moderately dilated left ventricle. Severe global left ventricular systolic dysfunction with regional variations. Limited TTE 09/11/18: LVEF 30-35%. Global and regional LV systolic dysfunction. No LV thrombus. Past Med Surg Social Fam HX - Past Medical History Source: old records reviewed Medical history: cardiomyopathy, CHF, COPD, coronary artery disease, DVT, diabetes, GERD, GI bleed, hyperlipidemia, hypertension, liver disease, myocardial infarction, peripheral artery disease, other Additional medical history: carotid stenosis. lactic acidosis and sepsis. NSTEMI. anemia. cardiomyopathy Psychiatric history: anxiety, depression - Past Surgical History Surgical History: carotid endarterectomy, LE Bypass, LE stent(s), tonsillectomy Additional surgical history: left carotid. 4 cardiac stents. right leg cleaned out arteries w/2 stents 1 on each groin - Social History Smoking Status: Current some day smoker Smokeless Tobacco Status: No Alcohol use: none Drug use: none - Family History Mother Living Status: Hx Family Cardiac Disorders: Yes (mother heart attack) Hx Family Respiratory Disorders: No Hx Family Cancer: No Hx Family GI Disorders: No Hx Family Endocrine Disorder: No Hx Family Neuromuscular Disorders: No Hx Family Neurologic Disorders: No Hx Family HEENT Disorders: No Hx Family Autoimmune Disorders: No Medications and Allergies Insulin NPH Human Isophane [Novolin N] 15 unit SQ HS 01/31/18 [History] Insulin NPH Human Isophane [Novolin N] 20 unit SQ QAM 01/31/18 [History] Methadone 20 mg PO TID 01/31/18 [History] Ranitidine HCl [Acid Analytical Data Miner] 150 mg PO BID 01/31/18 [History] Clopidogrel [Plavix] 75 mg PO DAILY 05/03/18 [History] Atorvastatin Calcium [Lipitor] 40 mg PO DAILY 08/19/18 [History] Metformin HCl [Glucophage] 1,000 mg PO BIDWM 09/11/18 [History] Ipratropium/Albuterol Sulfate [Combivent Respimat 20-100 Mcg] 1 gm IH Q4H PRN 11/15/18 [History] Lisinopril [Zestril] 5 mg PO DAILY 11/15/18 [History] Albuterol Sulfate [Proair Hfa] 2 puff IH QID PRN 11/29/18 [History] Brimonidine Tartrate [Alphagan P] 1 drop BOTH EYES TID 11/29/18 [History] Ipratropium/Albuterol Sulfate [Iprat-Albut 0.5-3(2.5) mg/3 ml] 3 ml IH TID PRN 11/29/18 [History] Metoprolol Succinate [Toprol Xl] 12.5 mg PO DAILY 11/29/18 [History] Multivitamin with Minerals [One-A-Day Maximum Formula] 1 tab PO DAILY 11/29/18 [History] Vit C/Vit E/Lutein/Min/[place]-3 [Ocuvite Softgel] 1 cap PO BID 11/29/18 [History] metOLazone [Zaroxolyn] 5 mg PO QAM 11/29/18 [History] Allergy/AdvReac Type Severity Reaction Status Date / Time No Known Allergies Allergy Verified 11/29/18 08:52 All Systems Review: The remainder of the systems were reviewed and are negative - Cardiovascular Cardiovascular: as per HPI Physical Examination Vital Signs, Last 4 Hours Temp Pulse Resp BP Pulse Ox 02/16/19 07:54 98.1 F 74 16 108/61 90 General: Conversant, Other (appears chronically ill) HEENT: Atraumatic, Normocephaly, Mucus Membranes Moist Neck: No JVD, Normal carotid pulses Cardiac: Reg Rate and Rhythm, Normal S1 and S2, No Murmur Lungs: Other (decreased BS b/l throughout) Neuro: Alert and responsive Abdomen: Soft, Non-Tender Extremities: No Clubbing, No Cyanosis (chronic venous stasis changes of LE) Results 02/16/19 01:42 02/16/19 01:42 Lab Results 02/15/19 02/15/1902/15/19 11:28 11:28 11:28 WBC 6.8 Hgb 10.5 L Hct 32.4 L Plt Count 116 L INR 1.9 Sodium 130 L Potassium 4.2 Chloride 91 L Carbon Dioxide 30 H BUN 32 H Creatinine 0.72 Glucose 73 Calcium 9.1 Total Bilirubin 5.3 H AST 53 H ALT 29 Alkaline Phosphatase 105 H Troponin I 0.07 H* B-Natriuretic Peptide 02/15/19 02/15/19 02/15/19 11:28 17:00 19:01 WBC Hgb Hct Plt Count INR Sodium Potassium Chloride Carbon Dioxide BUN Creatinine Glucose Calcium Total Bilirubin AST ALT Alkaline Phosphatase Troponin I 0.06 H* 0.06 H* B-Natriuretic Peptide > 5000 H 02/16/19 02/16/19 02/16/19 01:42 01:42 01:42 WBC 7.7 Hgb 9.6 L Hct 29.4 L Plt Count 103 L INR Sodium 130 L Potassium 3.8 Chloride 93 L Carbon Dioxide 29 BUN 29 H Creatinine 0.71 Glucose 152 H Calcium 8.0 L Total Bilirubin AST ALT Alkaline Phosphatase Troponin I 0.06 H* B-Natriuretic Peptide - Imaging and Cardiology Chest Xray: report reviewed (Stable portable study showing pulmonary fibrosis.) - EKG Interpretation EKG results cardiology: personally reviewed (EKG- NSR, PVCs, LAE, prior anterior IN) Consult Discharge Plan - Plan [facility]errals: [facility] [Primary Care Provider] -
[2019-02-16] MEDS ORDERED: Ondansetron 4 MG/2 ML VIAL IVP PRN (10:34)
[2019-02-16] MEDS: Furosemide 40 MG/4 ML VIAL IVP SCH (12:14)
--- NOTE | 2019-02-16 12:43 | Internal Med Progress Note ---
Hospitalist Progress Note - Encounter Date of Encounter: 02/16/19 Time of Encounter: 10:35 - Subjective Interval History: Patient was seen at bedside. Complaining of anxiety and nausea. Denies chest pain, shortness of breath. Endorses pain in the bilateral lower extremities. Mentions that his swelling is improved after the lengthy evaluation but still she is in a lot of pain in the lower extremities. Denies any discharge. Denies fever, chills, rigors. Denied any history of chronic ulcers or wounds. - Exam Vitals: Temp Pulse Resp BP Pulse Ox 97.6 F 69 16 99/47 93 02/16/19 11:59 02/16/19 11:59 02/16/19 11:59 02/16/19 11:59 02/16/19 11:59 Exam: General: Alert and oriented, mild physical distress, able to follow commands. HEENT: No thyromegaly, no lymphadenopathy, no discharge. Eyes: No discharge. Normal conjuctiva, no icterus Respiratory: Normal vesicular breathing, no added sounds, breathing equal in both sides. CVS: Normal heart sounds, no murmurs, regular rhthm, 1+ edema Extremities: 1+ bilateral peripheral edema, peripheral pulses intact. Both extremities eryhtematous, warm and tender, tenderness more on the left than tight side. No open wounds, or ulcers, no discarge. Lymph nodes: No lymphadenopathy Gastrointestinal: Soft, nontender abdomen, normal abdominal sounds. No distention noted. Genitourinary: No paravertebral tenderness. Skin: No rash, ulcers or wound. Neurological: Alert and oriented. No focal deficits. Cranial nerves II-XII intact.. - Assessment and Plan (1) Acute HFrEF (heart failure with reduced ejection fraction) Current Visit: No Status: Acute Assessment and Plan: Bipedal edema. Chest x-ray concerning for pulmonary fibrosis. BNP elevated. Troponin stable at 0.06. Most recent echocardiogram with ejection fraction of 25%, severe global left ventricular systolic dysfunction with regional ideations. Patient has refused left heart catheterization in the past. Cardiology on [facility] Continued to diurese. Plan for the cardiac catheter as per cardiology. (2) Chest pain Current Visit: Yes Status: Acute Assessment and Plan: Known history of CAD. Troponin stable at 0.06. [facility] [place] 04/2018 multivessel PCI--PTCA/SERGIO to mLCx, LMCA, pRCA. Currently on aspirin, Lasix He has refused PCI multiple times falling when he was admitted for the chest pain and congestive heart failure. Echocardiogram findings mentioned above. Cardiology on board. Plan for cardiac catheter as per cardiology. Continue aspirin, Plavix, atorvastatin, metoprolol. (3) Cirrhosis Current Visit: Yes Status: Acute Assessment and Plan: History of cirrhosis, totally unclear. Outpatient follow-up. (4) Elevated troponin Current Visit: Yes Status: Acute Assessment and Plan: Likely nonspecific elevation or type II in context of CHF (5) Type 2 diabetes mellitus Current Visit: No Status: Chronic Assessment and Plan: COntinue the current regimen BG levels within range (6) Supratherapeutic INR Current Visit: No Status: Resolved Assessment and Plan: Patient reported previously being on Coumadin for DVT. His Coumadin was recently discontinued and was started on a different medication which is unclear. We will obtain records from [place] for further clarification. We will obtain DVT study. (7) Cellulitis Current Visit: No Status: Acute Assessment and Plan: B/L lower extremiites swelling and redness Afebrile, WBC count normal Physcial exam concerning fir the cellulitis on bith sides Start on cefazolin - Time Spent with Patient Total time spent is greater than 50% in coordination of care (as documented) at patient's floor/unit and/or counseling patient: Internal Medicine: Result - Labs CBC & Chem 7: 02/16/19 01:42 02/16/19 01:42 Labs: Short CBC 02/16/19 Range/Units 01:42 WBC 7.7 (4.3-11.1) K/mcL Hgb 9.6 L (12.9-16.9) g/dL Hct 29.4 L (37.5-50.1) % Plt Count 103 L (140-400) K/mcL BMP 02/16/19 01:42 Sodium 130 L Potassium 3.8 Chloride 93 L Carbon Dioxide 29 BUN 29 H Creatinine 0.71 Glucose 152 H Calcium 8.0 L Cardiac Enzymes 02/15/19 02/15/19 02/16/19 Range/Units 17:00 19:01 01:42 Troponin I 0.06 H* 0.06 H* 0.06 H* (< 0.04) ng/mL - ABG Interpretation ABG results: PT/INR, D-dimer PT 21.2 Seconds (9.4-12.1) H 02/15/19 11:28 Consult Discharge Plan - Plan Referrals: [facility] [Primary Care Provider] - (2) Chest pain Qualifiers: Chest pain type: unspecified Qualified Code(s): R07.9 - Chest pain, unspecified (3) Cirrhosis Qualifiers: Ascites presence: unspecified Qualified Code(s): K74.60 - Unspecified cirrhosis of liver (5) Type 2 diabetes mellitus Qualifiers: Diabetes mellitus group home insulin use: with group home use Diabetes mellitus complication status: with circulatory complication Diabetes mellitus complication detail: with other circulatory complications Qualified Code(s): E11.59 - Type 2 diabetes mellitus with other circulatory complications; Z79.4 - assistant terminal manager (current) use of insulin (7) Cellulitis Qualifiers: Site of cellulitis: extremity Site of cellulitis of extremity: lower extremity Laterality: unspecified laterality Qualified Code(s): L03.119 - Cellulitis of unspecified part of limb
[2019-02-16] MEDS: *HR* LORazepam 0.5 MG TABLET PO PRN (14:05)
[2019-02-16] MEDS: Aspirin 81 MG TAB.CHEW PO SCH (14:06)
[2019-02-16] MEDS: ceFAZolin 1,000 MG in Water for inj. (sterile) 10 ML IVP SCH (17:22)
[2019-02-16] MEDS: *HR* Heparin 5,000 UNIT/ML VIAL SQ SCH (17:22)
[2019-02-16] MEDS: Gabapentin 300 MG CAPSULE PO SCH (20:56)
[2019-02-16] MEDS: Insulin DETEMIR 100 UNIT/ML X5UNITS SQ SCH (21:01)
[2019-02-17] MEDS: ceFAZolin 1,000 MG in Water for inj. (sterile) 10 ML IVP SCH ×3 (00:41→15:00)
[2019-02-17 04:52] LABS: BUN/Creatinine Ratio 37 (6-26); Blood Urea Nitrogen 27 mg/dL (8-23); Calcium 8.1 mg/dL (8.6-10.3); Carbon Dioxide 32 mEq/L (23-29); Chloride 93 mEq/L (98-107); Glucose 64 mg/dL (70-105); Osmolality,Calculated 279 (280-300); Potassium 4.5 mEq/L (3.5-5.1); Sodium 133 mEq/L (136-145); eGFR For African Americans > 60 (> 60); eGFR For Non-African Americans > 60 (> 60)
[2019-02-17] MEDS: *HR* Heparin 5,000 UNIT/ML VIAL SQ SCH ×2 (06:10→17:48)
[2019-02-17] MEDS: Insulin LISPRO 300 UNITS/3 ML VIAL SQ SCH ×4 (08:15→22:07)
[2019-02-17] MEDS: Metoprolol XL (24 HR) Succ 25 MG TAB.ER.24H PO SCH (08:48)
[2019-02-17] MEDS: Furosemide 40 MG/4 ML VIAL IVP SCH (08:52)
[2019-02-17] MEDS: *HR* Methadone 10 MG TABLET PO SCH ×3 (08:58→22:10)
[2019-02-17] MEDS: Aspirin 81 MG TAB.CHEW PO SCH (08:58)
--- NOTE | 2019-02-17 10:32 | Electrocardiograph Report ---
[employer] Test Date: 2019-02-15 Pat Name: Gerson Okeefe Department: [id number] Room: 2A25 Gender: M Resource Management Specialist: : [id number] Requested By: Zehra Yung Order Number: [id number] Reading MD: Shaun Staton Measurements Intervals [place] Rate: 64 P: 92 IA: 170 QRS: 91 QRSD: 105 T: 99 QT: 436 QTc: 450 Interpretive Statements Sinus rhythm Multiform ventricular premature complexes Anterior infarct, old Nonspecific T abnormalities, lateral leads Electronically Signed On 02-17-2019 10:03:55 EDT by Shaun Staton
--- NOTE | 2019-02-17 11:07 | Cardiology Progress Note ---
Date of Encounter: 02/17/19 Time of Encounter: 11:00 Assessment and Plan (1) Acute on chronic HFrEF (heart failure with reduced ejection fraction) Current Visit: Yes Status: Chronic Pt with acute on chronic CHF. BNP >5000. Troponins minimally elevated, adynamic at 0.07, 0.06, 0.06. Likely elevated in setting of acute CHF. Do not think ACS. Would gabriella durán added. Obtain records from [place]. Suspect pt noncompliant with medical regimen. No indication for LHC at this time and pt declines LHC anyways. Near euvolemic upon exam. Recommend SW consult for d/c planning. (2) Ischemic cardiomyopathy Current Visit: Yes Status: Chronic Continue beta blockade, VERONICA-I. Do not think candidate for Entresto due to cirrhosis. (3) Medical non-compliance Current Visit: Yes Status: Chronic Suspect noncompliance with meds. Agree with social work c/s. Pt's primary complaint to me today was wanting to have home health for assistance. (4) Coronary artery disease Current Visit: No Status: Chronic Continue current meds including DAPT. Qualifiers: Coronary Disease-Associated Artery/Lesion type: [place] artery [place] vs. transplanted heart: unspecified whether [place] or transplanted heart Associated angina: angina presence unspecified Qualified Code(s): I25.10 - Atherosclerotic heart disease of [place] coronary artery without angina pectoris Discussion w patient/family: The assessment and plan as outlined above was discussed with the patient and/or family members who expressed understanding and agreement. All questions were answered. Thank you for involving us in the care of your patient. Please call with any questions. The patient will be discussed and reviewed with Dr. Up; changes to be made accordingly. Subjective Principal diagnosis: Elevated trop, CHF Interval history: Seen examined. No CV complaints today--denies chest pain/discomfort. Reports buttock pain today. Objective Vital Signs, Last 4 Hours Temp Pulse Resp BP Pulse Ox 02/17/19 08:00 98.0 F 115 19 97/61 91 General: Conversant, No Apparent Distress HEENT: Atraumatic, Normocephaly, Mucus Membranes Moist Cardiac: Reg Rate and Rhythm, Normal S1 and S2 Lungs: Normal Breath Sounds Neuro: Alert and responsive Abdomen: Soft Skin: No rashes noted on visualized skin Extremities: Other (poor skin intergrity to BLE, +2 non-pitting. Signficant redness) Results 02/16/19 01:42 02/17/19 03:54 Lab Results 02/17/19 03:54 Sodium 133 L Potassium 4.5 Chloride 93 L Carbon Dioxide 32 H BUN 27 H Creatinine 0.73 Glucose 64 L Calcium 8.1 L Active Medications Albuterol Sulfate (Proventil Inhaler) 2 puff IH QID PRN PRN Reason: Shortness Of Breath Stop: 08/17/19 13:47 Aspirin (Aspirin) 81 mg PO DAILY [facility] Stop: 08/18/19 13:01 Last Admin: 02/17/19 08:58 Dose: 81 mg Documented by: Atorvastatin Calcium (Lipitor) 40 mg PO DAILY [facility] Stop: 08/18/19 09:01 Last Admin: 02/17/19 08:58 Dose: 40 mg Documented by: Brimonidine Tartrate (Alphagan) 1 drop BOTH EYES TID [facility] Stop: 08/17/19 15:01 Last Admin: 02/17/19 08:15 Dose: Not Given Documented by: Clopidogrel Bisulfate (Plavix) 75 mg PO DAILY [facility] Stop: 08/18/19 09:01 Last Admin: 02/17/19 08:58 Dose: 75 mg Documented by: Furosemide (Lasix) 40 mg IVP DAILY [facility] Stop: 08/18/19 10:46 Last Admin: 02/17/19 08:52 Dose: 40 mg Documented by: Gabapentin (Neurontin) 300 mg PO HS [facility] Stop: 08/17/19 21:01 Last Admin: 02/16/19 20:56 Dose: 300 mg Documented by: Heparin Sodium (Porcine) (Heparin) 5,000 unit SQ Q12HCO [facility]; Protocol Stop: 08/18/19 18:01 Last Admin: 02/17/19 06:10 Dose: 5,000 unit Documented by: Cefazolin Sodium 1,000 mg/ (Sterile Water) 10 mls @ 200 mls/hr IVP Q8HR [facility]; Protocol Stop: 08/18/19 16:01 Last Infusion: 02/17/19 08:58 Dose: Infused Documented by: Insulin Detemir (Levemir) 10 unit SQ HS [facility] Stop: 08/17/19 21:01 Last Admin: 02/16/19 21:01 Dose: 10 unit Documented by: Insulin Human Lispro (Humalog) 0 units SQ TIDAC [facility]; Protocol Stop: 08/17/19 16:31 Last Admin: 02/17/19 08:15 Dose: Not Given Documented by: Insulin Human Lispro (Humalog) 0 units SQ HS [facility]; Protocol Stop: 08/17/19 21:01 Last Admin: 02/16/19 20:59 Dose: 5 units Documented by: Lisinopril (Zestril) 5 mg PO DAILY [facility]; Protocol Stop: 08/18/19 09:01 Last Admin: 02/17/19 08:48 Dose: Not Given Documented by: Lorazepam (Ativan) 0.5 mg PO TID PRN PRN Reason: Anxiety Stop: 08/18/19 12:39 Last Admin: 02/16/19 14:05 Dose: 0.5 mg Documented by: Methadone HCl (Methadone) 20 mg PO TID [facility] Stop: 08/17/19 15:01 Last Admin: 02/17/19 08:58 Dose: 20 mg Documented by: Metoprolol Succinate (Toprol Xl) 12.5 mg PO DAILY [facility] Stop: 08/18/19 09:01 Last Admin: 02/17/19 08:48 Dose: Not Given Documented by: Ondansetron HCl (Zofran) 4 mg IVP Q8HR PRN; Protocol PRN Reason: Nausea And Vomiting Stop: 08/18/19 10:35 Last Admin: 02/16/19 12:14 Dose: 4 mg Documented by: Polyethylene Glycol (Miralax) 17 gm PO DAILY PRN PRN Reason: Constipation Stop: 08/19/19 00:42 Last Admin: 02/17/19 06:10 Dose: 17 gm Documented by: Potassium Chloride (Potassium Chloride) 20 meq PO DAILY [facility] Stop: 08/18/19 10:46 Last Admin: 02/17/19 08:58 Dose: 20 meq Documented by: - Imaging and Cardiology Echo: report reviewed Cardiac cath: report reviewed Other Results: 12 hour tele: avg HR=62 SR. - EKG Interpretation EKG results cardiology: personally reviewed Consult Discharge Plan - Plan [facility]errals: [facility] [Primary Care Provider] -
--- NOTE | 2019-02-17 12:55 | Internal Med Progress Note ---
Hospitalist Progress Note - Encounter Date of Encounter: 02/17/19 Time of Encounter: 10:15 - Subjective Interval History: Patient was seen at bedside. Refused Lasix yesterday. Also refused other medications, has a history of noncompliance. Discussed with him the reason for the refusal and he mentioned that he does not like to go to bathroom because of the Lasix. He was told that he be provided with the bed urinal. Denies fever, chills, rigors. Endorses pain in the bilateral lower bilateral extremities. - Exam Vitals: Temp Pulse Resp BP Pulse Ox 98.3 F 68 16 96/60 15 02/17/19 11:59 02/17/19 11:59 02/17/19 11:59 02/17/19 11:59 02/17/19 11:59 Exam: General: Alert and oriented, mild physical distress, able to follow commands. Respiratory: Normal vesicular breathing, no added sounds, breathing equal in both sides. CVS: Normal heart sounds, no murmurs, regular rhthm, 1+ edema Extremities: 1+ bilateral peripheral edema, peripheral pulses intact. Both extremities eryhtematous, warm and tender, tenderness more on the left than tigh t side. No open wounds, or ulcers, no discarge. Lymph nodes: No lymphadenopathy Gastrointestinal: Soft, nontender abdomen, normal abdominal sounds. No distention noted. Genitourinary: No paravertebral tenderness. Skin: No rash, ulcers or wound. Neurological: Alert and oriented. No focal deficits. Cranial nerves II-XII intact.. - Assessment and Plan (1) Acute HFrEF (heart failure with reduced ejection fraction) Current Visit: No Status: Acute Assessment and Plan: Bipedal edema. Chest x-ray concerning for pulmonary fibrosis. BNP elevated. Troponin stable at 0.06. Most recent echocardiogram with ejection fraction of 25%, severe global left ventricular systolic dysfunction with regional ideations. Patient has refused left heart catheterization in the past. Patient will get the Lasix today. Strong history of noncompliance. (2) Chest pain Current Visit: Yes Status: Acute Assessment and Plan: Known history of CAD. Troponin stable at 0.06. [facility] [place] 04/2018 multivessel PCI--PTCA/SERGIO to mLCx, LMCA, pRCA. Currently on aspirin, Lasix He has refused PCI multiple times falling when he was admitted for the chest pain and congestive heart failure. Echocardiogram findings mentioned above. No plan for cardiac catheterization considering the patient's history of noncompliance, patient refusal. Continue aspirin, Plavix, atorvastatin, metoprolol. (3) Cirrhosis Current Visit: Yes Status: Acute Assessment and Plan: History of cirrhosis History of hepatitis C and the alcohol abuse. Outpatient follow-up. (4) Elevated troponin Current Visit: Yes Status: Acute Assessment and Plan: Likely nonspecific elevation or type II in context of CHF (5) Type 2 diabetes mellitus Current Visit: No Status: Chronic Assessment and Plan: COntinue the current regimen BG levels within range (6) Supratherapeutic INR Current Visit: No Status: Resolved Assessment and Plan: Patient reported previously being on Coumadin for DVT. His Coumadin was recently discontinued. Reviewed the records from [facility], bilateral atrial Dopplers were done and there was no evidence of acute or chronic DVT and the plan was made to discontinue Coumadin considering the patient's history of noncompliance. We will continue to hold Coumadin for now. Patient should follow-up as an outpatient with her PCP for further discussion and planning regarding AC (7) Cellulitis Current Visit: No Status: Acute Assessment and Plan: B/L lower extremiites swelling and redness Afebrile, WBC count normal Physcial exam concerning fir the cellulitis on bith sides Continue cefazolin - Summary of Assessment and Plan Summary of Assessment and Plan: Patient is a history of noncompliance, currently [place] taking the medications when he wants to and refusing otherwise. At this point, this seems to be no active issues going on with the patient. His heart failure seems to be at his baseline, does not seem to be in acute exacerbation. He has chronic elevation of troponin and there is no plan anyway for cardiac catheterization considering the patient's history of noncompliance. 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 We will try to arrange the discharge for the patient tomorrow and arrange home health for the patient. - Time Spent with Patient Total time spent is greater than 50% in coordination of care (as documented) at patient's floor/unit and/or counseling patient: Internal Medicine: Result - Labs CBC & Chem 7: 02/16/19 01:42 02/17/19 03:54 Labs: BMP 02/17/19 03:54 Sodium 133 L Potassium 4.5 Chloride 93 L Carbon Dioxide 32 H BUN 27 H Creatinine 0.73 Glucose 64 L Calcium 8.1 L - ABG Interpretation ABG results: PT/INR, D-dimer PT 21.2 Seconds (9.4-12.1) H 02/15/19 11:28 Consult Discharge Plan - Plan [facility]errals: [facility] [Primary Care Provider] - (2) Chest pain Qualifiers: Chest pain type: unspecified Qualified Code(s): R07.9 - Chest pain, unspecified (3) Cirrhosis Qualifiers: Ascites presence: unspecified Qualified Code(s): K74.60 - Unspecified cirrhosis of liver (5) Type 2 diabetes mellitus Qualifiers: Diabetes mellitus terminal supervisor insulin use: with fdc use Diabetes mellitus complication status: with circulatory complication Diabetes mellitus complication detail: with other circulatory complications Qualified Code(s): E11.59 - Type 2 diabetes mellitus with other circulatory complications; Z79.4 - FDC (current) use of insulin (7) Cellulitis Qualifiers: Site of cellulitis: extremity Site of cellulitis of extremity: lower extremity Laterality: unspecified laterality Qualified Code(s): L03.119 - Noemi lulitis of unspecified part of limb
[2019-02-17] MEDS: Gabapentin 300 MG CAPSULE PO SCH (20:20)
[2019-02-17] MEDS: *HR* LORazepam 0.5 MG TABLET PO PRN (20:20)
[2019-02-17] MEDS: Insulin DETEMIR 100 UNIT/ML X5UNITS SQ SCH (22:11)
[2019-02-18] MEDS: ceFAZolin 1,000 MG in Water for inj. (sterile) 10 ML IVP SCH ×2 (00:44→08:59)
[2019-02-18] MEDS: *HR* Heparin 5,000 UNIT/ML VIAL SQ SCH (05:41)
[2019-02-18 06:10] LABS: Basophils % 0.5 %; Eosinophils # 0.1 K/mcL (0.0-0.6); Eosinophils % 1.5 %; Hemoglobin 9.4 g/dL (12.9-16.9); Immature Granulocytes % 0.3 % (0-4); Immature Platelets 8.4 % (1.1-6.1); Lymphocytes # 2.4 K/mcL (0.6-4.6); Lymphocytes % 32.3 %; Mean Corpuscular HGB Conc 33.6 g/dL (31.6-35.5); Mean Corpuscular Hemoglobin 29.7 pg (28.0-33.3); Mean Corpuscular Volume 88.6 fL (83.0-100.0); Monocytes # 0.7 K/mcL (0.0-1.3); Monocytes % 9.9 %; Neutrophils # 4.1 K/mcL (1.6-8.9); Red Blood Count 3.16 M/mcL (4.19-5.50); Red Cell Distribution Width 26.6 % (11.5-14.5); Segmented Neutrophils % 55.5 %; White Blood Count 7.3 K/mcL (4.3-11.1)
[2019-02-18 06:31] LABS: BUN/Creatinine Ratio 40 (6-26); Blood Urea Nitrogen 25 mg/dL (8-23); Calcium 7.9 mg/dL (8.6-10.3); Carbon Dioxide 32 mEq/L (23-29); Chloride 92 mEq/L (98-107); Glucose 143 mg/dL (70-105); Osmolality,Calculated 275 (280-300); Potassium 4.2 mEq/L (3.5-5.1); Sodium 129 mEq/L (136-145); eGFR For African Americans > 60 (> 60); eGFR For Non-African Americans > 60 (> 60)
[2019-02-18 06:38] LABS: Platelet Count 93 K/mcL (140-400)
[2019-02-18 06:40] LABS: Anisocytosis 1+ (Not Present); Platelet Estimate Decreased (Normal); Poikilocytosis 1+ (Not Present)
[2019-02-18] MEDS: Insulin LISPRO 300 UNITS/3 ML VIAL SQ SCH ×2 (08:00→11:57)
[2019-02-18] MEDS: *HR* Methadone 10 MG TABLET PO SCH ×2 (09:01→14:29)
[2019-02-18] MEDS: Metoprolol XL (24 HR) Succ 25 MG TAB.ER.24H PO SCH (09:01)
[2019-02-18] MEDS: Furosemide 40 MG/4 ML VIAL IVP SCH (09:01)
[2019-02-18] MEDS: Aspirin 81 MG TAB.CHEW PO SCH (09:01)
[2019-02-18] MEDS: *HR* LORazepam 0.5 MG TABLET PO PRN (09:13)
--- NOTE | 2019-02-18 10:15 | Discharge Summary ---
- NOTES TO OUTPATIENT PROVIDER Notes to Outpatient Provider: Presented wiht the chest pain, no interventions done due to non complaince and the pt refusal. FOund to have cellulitis, will give antibioics for totoal of 7 days Date of Encounter: 02/18/19 Time of Encounter: 09:00 - Discharge Diagnosis (1) Acute HFrEF (heart failure with reduced ejection fraction) Priority: Primary Status: Acute (2) Chest pain Priority: Secondary Status: Acute Qualifiers: Chest pain type: unspecified Qualified Code(s): R07.9 - Chest pain, unspecified (3) Cirrhosis Priority: Secondary Status: Acute Qualifiers: Ascites presence: unspecified Qualified Code(s): K74.60 - Unspecified cirrhosis of liver (4) Elevated troponin Priority: Secondary Status: Acute (5) Type 2 diabetes mellitus Priority: Secondary Status: Chronic Qualifiers: Diabetes mellitus intermediate designer insulin use: with intermediate designer use Diabetes mellitus complication status: with circulatory complication Diabetes mellitus complication detail: with other circulatory complications Qualified Code(s): E11.59 - Type 2 diabetes mellitus with other circulatory complications; Z79.4 - [facility] (current) use of insulin (6) Cellulitis Priority: Secondary Status: Acute Qualifiers: Site of cellulitis: extremity Site of cellulitis of extremity: lower extremity Laterality: unspecified laterality Qualified Code(s): L03.119 - Cellulitis of unspecified part of limb Hospital course: Mr. Okeefe is a 73 year old male with a past medical history significant for diabetes mellitus, CAD, cirrhosis, congestive heart failure with decreased ejection fraction, multiple admissions to the hospitalist, noncompliance, presented to the hospital because of the chest pain. Patient EKG was concerning for ischemic changes. He had mild troponin elevation at 0.06. Cardiology was consulted, recommended IV diuresis , patient was fusing treatment on the D1 but with further counseling due to the treatment on day 2. Considering the patient noncompliance with her medications, and the patient multiple refusal for the PCI, no interventions were done by the cardiology. Patient is agreeable to the plan. We will continue the patient on the same medication at home. On evaluation, patient was also found to have cellulitis of the lower extremity, he was started on IV cefazolin, had improvement, switch to oral antibiotics, total of 7 days. Patient with a history of noncompliance with the medication, treatment and has not multiple admission to the hospital with treatment refusal. Discussed with the patient that Medication noncompliance will put him at increased risk of further morbidity and mortality .patient voiced understanding. disability services coordinator were also consulted, plan was made to send the patient home with a home health to prevent readmissions to the hospital. Patient is still a high risk for the readmission concerning in noncompliance , lack of social and psychological support. - Time Spent with Patient Total time spent providing and/or coordinating discharge services: 35 minutes - Discharge Medications Prescriptions: New RX: Aspirin 81 mg PO DAILY tab.chew RX: cephALEXin [Keflex] 500 mg PO QID 5 Days #20 capsule RX: Gabapentin [Neurontin] 300 mg PO HS #30 capsule Continued RX: Ranitidine HCl [Acid Camera Repairer] 150 mg PO BID RX: Methadone 20 mg PO TID RX: Insulin NPH Human Isophane [Novolin N] 20 unit SQ QAM RX: Insulin NPH Human Isophane [Novolin N] 15 unit SQ HS RX: Clopidogrel [Plavix] 75 mg PO DAILY RX: Atorvastatin Calcium [Lipitor] 40 mg PO DAILY RX: Metformin HCl [Glucophage] 1,000 mg PO BIDWM RX: Lisinopril [Zestril] 5 mg PO DAILY RX: Ipratropium/Albuterol Sulfate [Combivent Respimat 20-100 Mcg] 1 gm IH Q4H PRN PRN Reason: BREATHING RX: Albuterol Sulfate [Proair Hfa] 2 puff IH QID PRN PRN Reason: Shortness Of Breath RX: Brimonidine Tartrate [Alphagan P] 1 drop BOTH EYES TID RX: Ipratropium/Albuterol Sulfate [Iprat-Albut 0.5-3(2.5) mg/3 ml] 3 ml IH TID PRN PRN Reason: Shortness Of Breath RX: metOLazone [Zaroxolyn] 5 mg PO QAM RX: Metoprolol Succinate [Toprol Xl] 12.5 mg PO DAILY RX: Multivitamin with Minerals [One-A-Day Maximum Formula] 1 tab PO DAILY RX: Vit C/Vit E/Lutein/Min/Elysian-3 [Ocuvite Softgel] 1 cap PO BID Home Medications: RX: Insulin NPH Human Isophane [Novolin N] 15 unit SQ HS 01/31/18 [History] RX: Insulin NPH Human Isophane [Novolin N] 20 unit SQ QAM 01/31/18 [History] RX: Methadone 20 mg PO TID 01/31/18 [History] RX: Ranitidine HCl [Acid Camera Repairer] 150 mg PO BID 01/31/18 [History] RX: Clopidogrel [Plavix] 75 mg PO DAILY 05/03/18 [History] RX: Atorvastatin Calcium [Lipitor] 40 mg PO DAILY 08/19/18 [History] RX: Metformin HCl [Glucophage] 1,000 mg PO BIDWM 09/11/18 [History] RX: Ipratropium/Albuterol Sulfate [Combivent Respimat 20-100 Mcg] 1 gm IH Q4H PRN 11/15/18 [History] RX: Lisinopril [Zestril] 5 mg PO DAILY 11/15/18 [History] RX: Albuterol Sulfate [Proair Hfa] 2 puff IH QID PRN 11/29/18 [History] RX: Brimonidine Tartrate [Alphagan P] 1 drop BOTH EYES TID 11/29/18 [History] RX: Ipratropium/Albuterol Sulfate [Iprat-Albut 0.5-3(2.5) mg/3 ml] 3 ml IH TID PRN 11/29/18 [History] RX: Metoprolol Succinate [Toprol Xl] 12.5 mg PO DAILY 11/29/18 [History] RX: Multivitamin with Minerals [One-A-Day Maximum Formula] 1 tab PO DAILY 11/29/18 [History] RX: Vit C/Vit E/Lutein/Min/Elysian-3 [Ocuvite Softgel] 1 cap PO BID 11/29/18 [History] RX: metOLazone [Zaroxolyn] 5 mg PO QAM 11/29/18 [History] RX: Aspirin 81 mg PO DAILY tab.chew 02/18/19 [Rx] RX: Gabapentin [Neurontin] 300 mg PO HS #30 capsule 02/18/19 [Rx] RX: cephALEXin [Keflex] 500 mg PO QID 5 Days #20 capsule 02/18/19 [Rx] Allergies/Adverse Reactions: Allergy/AdvReac Type Severity Reaction Status Date / Time No Known Allergies Allergy Verified 11/29/18 08:52 Date of admission: 02/17/19 14:04 [facility] care physician: [facility] Consults: 02/15/19 13:48 Consult to Cardiology [CONS] Routine Comment: Consulting Provider: Cardiology [place] Reason for Consult: chest pain Call Completed: Yes 02/15/19 15:52 Consult to Federal Aid Coordinator [CONS] Routine Reason for SW Consult: requesting HH services 02/16/19 14:12 Consult to Wound Care [CONS] Routine Reason for Consult: diabetic wound L great toe Call Completed: Yes - Constitutional Vitals: Temp Pulse Resp BP Pulse Ox 97.7 F 67 17 102/63 92 02/18/19 07:26 02/18/19 07:26 02/18/19 07:26 02/18/19 07:26 02/18/19 07:26 Exam: General: Alert and oriented, mild physical distress, able to follow commands. Respiratory: Normal vesicular breathing, no added sounds, breathing equal in both sides. CVS: Normal heart sounds, no murmurs, regular rhthm, 1+ edema Extremities: 1+ bilateral peripheral edema, peripheral pulses intact. Both extremities eryhtematous, warm and tender, tenderness more on the left than tight side, improvement as compared to before. No open wounds, or ulcers, no discarge. Lymph nodes: No lymphadenopathy Gastrointestinal: Soft, nontender abdomen, normal abdominal sounds. No distention noted. Genitourinary: No paravertebral tenderness. Skin: No rash, ulcers or wound. Neurological: Alert and oriented. No focal deficits. Cranial nerves II-XII intact.. - Patient Status Disposition: Home Health Service Condition: Serious - Discharge Instructions Follow Up With: [facility] [Primary Care Provider] - - Diet and Activity Activity: as per physical therapy, increase activity as tolerated Diet: advance to your usual diet
--- NOTE | 2019-02-18 10:25 | Physician Discharge Referral ---
Home Health/Hosp Referral Info Transfer to: Home Health Provider in Charge Post Discharge: PCP - Diagnosis (1) Acute HFrEF (heart failure with reduced ejection fraction) Priority: Primary Status: Acute (2) Chest pain Priority: Secondary Status: Acute (3) Cirrhosis Priority: Secondary Status: Acute (4) Elevated troponin Priority: Secondary Status: Acute (5) Type 2 diabetes mellitus Priority: Secondary Status: Chronic (6) Cellulitis Priority: Secondary Status: Acute - Respiratory Orders Smoking Cessation: Smoking cessation has been advised. For more information, call the [place] [employer] Quit Line at 4-273-GPTW-NOW. - Services Needed Following services are medically necessary services: Nursing, Physical Therapy, Occupational Therapy - Transfer Medications Prescriptions: cephALEXin [Keflex] 500 mg PO QID 5 Days #20 capsule Transmission Status: Pending to [facility] Gabapentin [Neurontin] 300 mg PO HS #30 capsule Transmission Status: Pending to [facility] Home Medications: Insulin NPH Human Isophane [Novolin N] 15 unit SQ HS 01/31/18 [History] Insulin NPH Human Isophane [Novolin N] 20 unit SQ QAM 01/31/18 [History] Methadone 20 mg PO TID 01/31/18 [History] Ranitidine HCl [Acid Special Makeup Fx Artist Instructor] 150 mg PO BID 01/31/18 [History] Clopidogrel [Plavix] 75 mg PO DAILY 05/03/18 [History] Atorvastatin Calcium [Lipitor] 40 mg PO DAILY 08/19/18 [History] Metformin HCl [Glucophage] 1,000 mg PO BIDWM 09/11/18 [History] Ipratropium/Albuterol Sulfate [Combivent Respimat 20-100 Mcg] 1 gm IH Q4H PRN 11/15/18 [History] Lisinopril [Zestril] 5 mg PO DAILY 11/15/18 [History] Albuterol Sulfate [Proair Hfa] 2 puff IH QID PRN 11/29/18 [History] Brimonidine Tartrate [Alphagan P] 1 drop BOTH EYES TID 11/29/18 [History] Ipratropium/Albuterol Sulfate [Iprat-Albut 0.5-3(2.5) mg/3 ml] 3 ml IH TID PRN 11/29/18 [History] Metoprolol Succinate [Toprol Xl] 12.5 mg PO DAILY 11/29/18 [History] Multivitamin with Minerals [One-A-Day Maximum Formula] 1 tab PO DAILY 11/29/18 [History] Vit C/Vit E/Lutein/Min/Metz-3 [Ocuvite Softgel] 1 cap PO BID 11/29/18 [History] metOLazone [Zaroxolyn] 5 mg PO QAM 11/29/18 [History] Aspirin 81 mg PO DAILY tab.chew 02/18/19 [Rx] Gabapentin [Neurontin] 300 mg PO HS #30 capsule 02/18/19 [Rx] cephALEXin [Keflex] 500 mg PO QID 5 Days #20 capsule 02/18/19 [Rx] Allergies/Adverse Reactions: Allergy/AdvReac Type Severity Reaction Status Date / Time No Known Allergies Allergy Verified 11/29/18 08:52 Certification: Further, I certify that my clinical findings support that this patient is homebound (i.e. absences from home require considerable and taxing effort and are for medical reasons or adventist services or infrequently or short duration when for other reasons) because: Homebound Reason: Patient requires assistance of a person or device to safely leave home Attestation: My signature below is to certify that this patient is under my care and that I, or nurse practitioner, or a physician's assistant facility manager working with me, has a [id number] encounter with this patient.
[2019-02-18 11:30] VITALS: BP 106/58
[2019-02-18] MEDS ORDERED: cephALEXin 500 MG CAPSULE PO SCH (13:00)
[2019-02-18] MEDS ORDERED: FLU Vac QV 19-20 (6Month+)/PF 0.5 ML SYRINGE IM ONE (14:36)
== END 2019-02-18 15:02 | disposition home health service (06) | DRG 292 ==
LOC: EMEROOARM 10:06 → 2ANU 10:06 → SUATTDRO 13:02 → 2ANU 14:25
PROVIDERS: ADMIT Internal Medicine; ATTEND Internal Medicine

== ENCOUNTER 2019-02-28 06:13 | Inpatient (IN) ==
[2019-02-28] MEDS ORDERED: 0.9 % Sodium Chloride 1,000 ML IVC ONE (06:32)
[2019-02-28 07:32] LABS: Basophils % 0.8 %
[2019-02-28 07:34] LABS: Basophils # 0.1 K/mcL (0.0-0.2); Eosinophils # 0.1 K/mcL (0.0-0.6); Hematocrit 32.2 % (37.5-50.1); Hemoglobin 10.3 g/dL (12.9-16.9); Immature Granulocytes % 0.4 % (0-4); Immature Platelets 8.9 % (1.1-6.1); Lymphocytes # 2.3 K/mcL (0.6-4.6); Lymphocytes % 25.3 %; Mean Corpuscular Volume 90.7 fL (83.0-100.0); Monocytes # 0.9 K/mcL (0.0-1.3); Neutrophils # 5.6 K/mcL (1.6-8.9); Platelet Count 143 K/mcL (140-400); Red Blood Count 3.55 M/mcL (4.19-5.50); Red Cell Distribution Width 25.8 % (11.5-14.5); Segmented Neutrophils % 62.5 %
[2019-02-28] MEDS ORDERED: Ondansetron 4 MG/2 ML VIAL IVP ONE (07:36)
[2019-02-28 07:40] LABS: INR 1.8; Prothrombin Time 20.6 Seconds (9.4-12.1)
[2019-02-28 08:08] LABS: Troponin I 0.07 ng/mL (< 0.04)
[2019-02-28 08:10] LABS: Anisocytosis 2+ (Not Present)
[2019-02-28 08:11] LABS: Acanthocytes 1+ (Not Present); Polychromasia 1+ (Not Present)
[2019-02-28 08:20] LABS: Alanine Aminotransferase 18 Units/L (7-52); Albumin 3.7 g/dL (3.5-5.7); Albumin/Globulin Ratio 1.4 (1.1-2.2); Alkaline Phosphatase 83 Units/L (34-104); Aspartate Amino Transferase 44 Units/L (13-39); BUN/Creatinine Ratio 37 (6-26); Bilirubin,Direct 1.1 mg/dL (0.0-0.2); Bilirubin,Indirect 1.7 mg/dL (0.0-1.2); Bilirubin,Total 2.8 mg/dL (0.3-1.0); Blood Urea Nitrogen 23 mg/dL (8-23); Calcium 8.6 mg/dL (8.6-10.3); Carbon Dioxide 33 mEq/L (23-29); Chloride 92 mEq/L (98-107); Globulin 2.6 g/dL (2.4-3.5); Glucose 48 mg/dL (70-105); Magnesium 1.3 mg/dL (1.6-2.6); Osmolality,Calculated 267 (280-300); Phosphorous 3.5 mg/dL (2.7-4.5); Potassium 4.2 mEq/L (3.5-5.1); Sodium 128 mEq/L (136-145); Total Protein 6.3 g/dL (6.4-8.9); eGFR For African Americans > 60 (> 60); eGFR For Non-African Americans > 60 (> 60)
[2019-02-28] MEDS ORDERED: *HR* Dextrose 50 % in Water (Syg) 50 ML SYRINGE IVP ONE (09:51)
[2019-02-28 10:05] LABS: ABG Base Excess 3 mEq/L (-2 to 3); ABG HCO3 28 mEq/L (21-27); ABG Oxygen Saturation 99 % (95-98); ABG PCO2 45 mmHg (35-45); ABG PO2 119 mmHg (85-104); ABG TCO2 29 mEq/L (20-26)
[2019-02-28] MEDS ORDERED: Naloxone 0.4 MG/ML INJ IVP PRN (13:03)
[2019-02-28] MEDS ORDERED: Acetaminophen 325 MG TABLET PO PRN (13:10)
[2019-02-28] MEDS: Furosemide 240 MG in 0.9 % Sodium Chloride 96 ML IVC SCH (15:36)
[2019-02-28] MEDS: Piperacillin/Tazobactam 3.375 GM in 0.9 % Sodium Chloride Mini Bag 100 ML IVPB SCH ×2 (16:30→23:00)
[2019-02-28] MEDS ORDERED: *HR* FentaNYL (PF) 100 MCG/2 ML VIAL IVP PRN (16:42)
[2019-02-28 17:49] LABS: Bilirubin,Urine Negative (Negative); Blood,Urine Negative (Negative); Clarity,Urine Clear (Clear); Color,Urine Dark Yellow (Yellow); Glucose,Urine (UA) Normal (Normal); Ketones,Urine Negative (Negative); Leukocyte Esterase,Urine Small (Negative); Nitrite,Urine Negative (Negative); Protein,Urine 30 mg/dL (Neg-Trace); Specific Gravity,Urine 1.019 (1.010-1.025); Urobilinogen,Urine Normal (Normal)
[2019-02-28] MEDS ORDERED: *HR* Dextrose 50 % in Water (Syg) 50 ML SYRINGE IVP PRN (17:50)
[2019-02-28] MEDS ORDERED: D5% in Water 1,000 ML IVC PRN (17:50)
[2019-02-28] MEDS ORDERED: Dextrose Gel 15 GM/37.5 ML TUBE PO PRN ×2 (17:50)
[2019-02-28 17:51] LABS: Bacteria,Urine None Seen per hpf (None-Few); Hyaline Casts,Urine None Seen per lpf (None-Few); RBC,Urine 0-3 per hpf (0-3); Squamous Epithelial Cell,Urine Many per lpf (None-Few); WBC,Urine 0-3 per hpf (0-3)
[2019-02-28] MEDS: Insulin LISPRO 300 UNITS/3 ML VIAL SQ SCH (20:30)
[2019-02-28] MEDS: Gabapentin 300 MG CAPSULE PO SCH (21:03)
[2019-02-28] MEDS: *HR* Heparin 5,000 UNIT/ML VIAL SQ SCH (21:03)
[2019-02-28] MEDS: *HR* Methadone 10 MG TABLET PO SCH (21:26)
[2019-03-01 03:27] LABS: Basophils % 0.5 %; Immature Granulocytes % 0.3 % (0-4)
[2019-03-01 03:29] LABS: Eosinophils # 0.1 K/mcL (0.0-0.6); Hematocrit 25.8 % (37.5-50.1); Hemoglobin 8.7 g/dL (12.9-16.9); Immature Platelets 7.1 % (1.1-6.1); Lymphocytes # 1.4 K/mcL (0.6-4.6); Lymphocytes % 22.8 %; Mean Corpuscular HGB Conc 33.7 g/dL (31.6-35.5); Monocytes # 0.5 K/mcL (0.0-1.3); Monocytes % 8.7 %; Platelet Count 100 K/mcL (140-400); Red Cell Distribution Width 24.8 % (11.5-14.5); Segmented Neutrophils % 66.7 %
[2019-03-01 03:34] LABS: INR 1.8
[2019-03-01 03:46] LABS: BUN/Creatinine Ratio 40 (6-26); Blood Urea Nitrogen 25 mg/dL (8-23); Calcium 8.1 mg/dL (8.6-10.3); Carbon Dioxide 34 mEq/L (23-29); Chloride 92 mEq/L (98-107); Glucose 117 mg/dL (70-105); Magnesium 1.1 mg/dL (1.6-2.6); Osmolality,Calculated 271 (280-300); Phosphorous 4.1 mg/dL (2.7-4.5); Potassium 3.8 mEq/L (3.5-5.1); Sodium 128 mEq/L (136-145); eGFR For African Americans > 60 (> 60); eGFR For Non-African Americans > 60 (> 60)
[2019-03-01 04:43] LABS: Platelet Estimate Decreased (Normal); Poikilocytosis 1+ (Not Present)
[2019-03-01 04:44] LABS: Anisocytosis 2+ (Not Present)
[2019-03-01] MEDS: *HR* Heparin 5,000 UNIT/ML VIAL SQ SCH ×2 (05:13→16:22)
[2019-03-01] MEDS: Insulin LISPRO 300 UNITS/3 ML VIAL SQ SCH ×3 (07:35→16:22)
[2019-03-01] MEDS: Aspirin 81 MG TAB.CHEW PO SCH (07:51)
[2019-03-01] MEDS: *HR* Methadone 10 MG TABLET PO SCH ×3 (07:51→21:34)
[2019-03-01] MEDS: Piperacillin/Tazobactam 3.375 GM in 0.9 % Sodium Chloride Mini Bag 100 ML IVPB SCH ×3 (07:52→23:03)
[2019-03-01] MEDS ORDERED: Sennosides 8.6 MG TABLET PO PRN (15:23)
[2019-03-01] MEDS ORDERED: *HR* LORazepam 1 MG TABLET PO ONE (15:24)
[2019-03-01 17:06] LABS: Alanine Aminotransferase 16 Units/L (7-52); Albumin 3.4 g/dL (3.5-5.7); Albumin/Globulin Ratio 1.5 (1.1-2.2); Alkaline Phosphatase 72 Units/L (34-104); Aspartate Amino Transferase 32 Units/L (13-39); BUN/Creatinine Ratio 34 (6-26); Bilirubin,Total 2.3 mg/dL (0.3-1.0); Blood Urea Nitrogen 23 mg/dL (8-23); Calcium 8.2 mg/dL (8.6-10.3); Carbon Dioxide 37 mEq/L (23-29); Chloride 89 mEq/L (98-107); Globulin 2.2 g/dL (2.4-3.5); Glucose 183 mg/dL (70-105); Magnesium 1.3 mg/dL (1.6-2.6); Osmolality,Calculated 278 (280-300); Potassium 4.2 mEq/L (3.5-5.1); Sodium 130 mEq/L (136-145); Total Protein 5.6 g/dL (6.4-8.9); eGFR For African Americans > 60 (> 60); eGFR For Non-African Americans > 60 (> 60)
[2019-03-01] MEDS: Furosemide 240 MG in 0.9 % Sodium Chloride 96 ML IVC SCH (18:13)
[2019-03-01] MEDS: Gabapentin 300 MG CAPSULE PO SCH (21:34)
[2019-03-02 04:36] LABS: Eosinophils % 1.7 %; Hematocrit 29.1 % (37.5-50.1); Hemoglobin 9.4 g/dL (12.9-16.9); Mean Corpuscular HGB Conc 32.3 g/dL (31.6-35.5); Mean Corpuscular Hemoglobin 28.8 pg (28.0-33.3); Mean Corpuscular Volume 89.3 fL (83.0-100.0); Monocytes % 10.9 %; Red Blood Count 3.26 M/mcL (4.19-5.50)
[2019-03-02 04:38] LABS: Basophils # 0.1 K/mcL (0.0-0.2); Basophils % 0.7 %; Eosinophils # 0.1 K/mcL (0.0-0.6); Immature Granulocytes % 0.3 % (0-4); Immature Platelets 8.3 % (1.1-6.1); Lymphocytes # 2.3 K/mcL (0.6-4.6); Lymphocytes % 33.2 %; Monocytes # 0.8 K/mcL (0.0-1.3); Neutrophils # 3.7 K/mcL (1.6-8.9); Platelet Count 116 K/mcL (140-400); Red Cell Distribution Width 24.8 % (11.5-14.5); Segmented Neutrophils % 53.2 %; White Blood Count 6.9 K/mcL (4.3-11.1)
[2019-03-02] MEDS: *HR* Heparin 5,000 UNIT/ML VIAL SQ SCH ×2 (04:45→17:07)
[2019-03-02 04:58] LABS: Alanine Aminotransferase 15 Units/L (7-52); Albumin 3.4 g/dL (3.5-5.7); Albumin/Globulin Ratio 1.4 (1.1-2.2); Alkaline Phosphatase 70 Units/L (34-104); Aspartate Amino Transferase 31 Units/L (13-39); BUN/Creatinine Ratio 37 (6-26); Bilirubin,Total 2.9 mg/dL (0.3-1.0); Blood Urea Nitrogen 26 mg/dL (8-23); Calcium 8.5 mg/dL (8.6-10.3); Carbon Dioxide 37 mEq/L (23-29); Chloride 90 mEq/L (98-107); Globulin 2.4 g/dL (2.4-3.5); Glucose 129 mg/dL (70-105); Magnesium 1.5 mg/dL (1.6-2.6); Osmolality,Calculated 278 (280-300); Sodium 131 mEq/L (136-145); Total Protein 5.8 g/dL (6.4-8.9); eGFR For African Americans > 60 (> 60); eGFR For Non-African Americans > 60 (> 60)
[2019-03-02 05:23] LABS: Anisocytosis 2+ (Not Present); Platelet Estimate Slight Decrease (Normal); Poikilocytosis 1+ (Not Present)
[2019-03-02] MEDS: Piperacillin/Tazobactam 3.375 GM in 0.9 % Sodium Chloride Mini Bag 100 ML IVPB SCH (08:57)
[2019-03-02] MEDS: Aspirin 81 MG TAB.CHEW PO SCH (08:58)
[2019-03-02] MEDS: *HR* Methadone 10 MG TABLET PO SCH ×3 (08:58→20:45)
[2019-03-02] MEDS: Insulin LISPRO 300 UNITS/3 ML VIAL SQ SCH ×3 (09:17→17:07)
[2019-03-02] MEDS ORDERED: Acetaminophen 325 MG TABLET PO PRN (09:47)
[2019-03-02] MEDS ORDERED: *HR* Dextrose 50 % in Water (Syg) 50 ML SYRINGE IVP PRN (09:47)
[2019-03-02] MEDS ORDERED: Dextrose Gel 15 GM/37.5 ML TUBE PO PRN ×2 (09:47)
[2019-03-02] MEDS ORDERED: Naloxone 0.4 MG/ML INJ IVP PRN (09:47)
[2019-03-02] MEDS ORDERED: D5% in Water 1,000 ML IVC PRN (09:47)
[2019-03-02] MEDS: Furosemide 240 MG in 0.9 % Sodium Chloride 96 ML IVC SCH (10:36)
[2019-03-02] MEDS: Sennosides 8.6 MG TABLET PO PRN (12:27)
[2019-03-02] MEDS ORDERED: *HR* LORazepam 0.5 MG TABLET PO PRN (14:59)
[2019-03-02] MEDS: Levalbuterol Neb 0.63 MG/3 ML IH PRN ×2 (15:16→22:01)
[2019-03-02] MEDS: Gabapentin 300 MG CAPSULE PO SCH (20:45)
[2019-03-03] MEDS: *HR* LORazepam 0.5 MG TABLET PO PRN ×3 (01:22→21:06)
[2019-03-03] MEDS: Sennosides 8.6 MG TABLET PO PRN ×2 (04:21→09:36)
[2019-03-03 05:15] LABS: Alanine Aminotransferase 16 Units/L (7-52); Albumin 3.8 g/dL (3.5-5.7); Albumin/Globulin Ratio 1.4 (1.1-2.2); Alkaline Phosphatase 82 Units/L (34-104); Aspartate Amino Transferase 32 Units/L (13-39); BUN/Creatinine Ratio 51 (6-26); Bilirubin,Total 3.7 mg/dL (0.3-1.0); Blood Urea Nitrogen 35 mg/dL (8-23); Calcium 8.9 mg/dL (8.6-10.3); Carbon Dioxide 36 mEq/L (23-29); Chloride 93 mEq/L (98-107); Globulin 2.7 g/dL (2.4-3.5); Glucose 206 mg/dL (70-105); Magnesium 1.4 mg/dL (1.6-2.6); Osmolality,Calculated 288 (280-300); Potassium 4.9 mEq/L (3.5-5.1); Sodium 132 mEq/L (136-145); Total Protein 6.5 g/dL (6.4-8.9); eGFR For African Americans > 60 (> 60); eGFR For Non-African Americans > 60 (> 60)
[2019-03-03] MEDS: *HR* Heparin 5,000 UNIT/ML VIAL SQ SCH ×2 (06:48→21:06)
[2019-03-03] MEDS: *HR* Methadone 10 MG TABLET PO SCH ×3 (07:53→21:07)
[2019-03-03] MEDS: Aspirin 81 MG TAB.CHEW PO SCH (07:53)
[2019-03-03] MEDS: Insulin LISPRO 300 UNITS/3 ML VIAL SQ SCH ×3 (07:54→16:09)
[2019-03-03] MEDS: Furosemide 240 MG in 0.9 % Sodium Chloride 96 ML IVC SCH (09:06)
[2019-03-03] MEDS ORDERED: Lactulose Oral Soln 20 GM/30 ML UDC PO PRN (11:33)
[2019-03-03] MEDS ORDERED: Metoprolol XL (24 HR) Succ 25 MG TAB.ER.24H PO SCH (11:45)
[2019-03-03] MEDS ORDERED: Furosemide 240 MG in 0.9 % Sodium Chloride 96 ML IVC SCH ×2 (14:14→14:29)
[2019-03-03] MEDS ORDERED: Magnesium Oxide 400 MG TABLET PO ONE (20:31)
[2019-03-03] MEDS: Sennosides 8.6 MG TABLET PO SCH (21:07)
[2019-03-03] MEDS: Gabapentin 300 MG CAPSULE PO SCH (21:08)
[2019-03-04 05:02] LABS: BUN/Creatinine Ratio 63 (6-26); Blood Urea Nitrogen 47 mg/dL (8-23); Calcium 8.9 mg/dL (8.6-10.3); Carbon Dioxide 36 mEq/L (23-29); Chloride 91 mEq/L (98-107); Glucose 240 mg/dL (70-105); Osmolality,Calculated 294 (280-300); Potassium 4.6 mEq/L (3.5-5.1); Sodium 132 mEq/L (136-145); eGFR For African Americans > 60 (> 60); eGFR For Non-African Americans > 60 (> 60)
[2019-03-04] MEDS: *HR* Heparin 5,000 UNIT/ML VIAL SQ SCH ×2 (06:18→18:14)
[2019-03-04] MEDS: Sennosides 8.6 MG TABLET PO SCH ×2 (09:09→21:12)
[2019-03-04] MEDS: *HR* Methadone 10 MG TABLET PO SCH ×3 (09:09→21:12)
[2019-03-04] MEDS: Insulin LISPRO 300 UNITS/3 ML VIAL SQ SCH ×3 (09:09→18:10)
[2019-03-04] MEDS: Aspirin 81 MG TAB.CHEW PO SCH (09:09)
[2019-03-04] MEDS: *HR* LORazepam 0.5 MG TABLET PO PRN ×2 (09:17→21:12)
[2019-03-04] MEDS: Levalbuterol Neb 0.63 MG/3 ML IH PRN (10:38)
[2019-03-04] MEDS ORDERED: Furosemide 240 MG in 0.9 % Sodium Chloride 96 ML IVC SCH (15:16)
[2019-03-04] MEDS ORDERED: Ipratropium Neb 0.5 MG NEBULIZER IH PRN (16:29)
[2019-03-04 19:15] LABS: BUN/Creatinine Ratio 65 (6-26); Blood Urea Nitrogen 55 mg/dL (8-23); Carbon Dioxide 35 mEq/L (23-29); Chloride 91 mEq/L (98-107); Glucose 161 mg/dL (70-105); Osmolality,Calculated 297 (280-300); Potassium 4.2 mEq/L (3.5-5.1); Sodium 134 mEq/L (136-145); eGFR For African Americans > 60 (> 60); eGFR For Non-African Americans > 60 (> 60)
[2019-03-04] MEDS: methylPREDNISolone 125 MG/2 ML VIAL IVP SCH (19:31)
[2019-03-04] MEDS: Gabapentin 300 MG CAPSULE PO SCH (21:12)
[2019-03-05 05:11] LABS: BUN/Creatinine Ratio 68 (6-26); Blood Urea Nitrogen 61 mg/dL (8-23); Calcium 9.1 mg/dL (8.6-10.3); Carbon Dioxide 32 mEq/L (23-29); Chloride 90 mEq/L (98-107); Glucose 231 mg/dL (70-105); Osmolality,Calculated 307 (280-300); Potassium 4.7 mEq/L (3.5-5.1); Sodium 136 mEq/L (136-145); eGFR For African Americans > 60 (> 60); eGFR For Non-African Americans > 60 (> 60)
[2019-03-05] MEDS: methylPREDNISolone 125 MG/2 ML VIAL IVP SCH (06:00)
[2019-03-05] MEDS: *HR* Heparin 5,000 UNIT/ML VIAL SQ SCH (06:05)
[2019-03-05] MEDS: Insulin LISPRO 300 UNITS/3 ML VIAL SQ SCH ×3 (08:01→20:01)
[2019-03-05] MEDS: Sennosides 8.6 MG TABLET PO SCH ×2 (08:02→20:02)
[2019-03-05] MEDS: Aspirin 81 MG TAB.CHEW PO SCH (08:02)
[2019-03-05] MEDS: *HR* Methadone 10 MG TABLET PO SCH ×3 (08:03→20:03)
[2019-03-05] MEDS: *HR* LORazepam 0.5 MG TABLET PO PRN (08:08)
[2019-03-05 08:41] LABS: Hematocrit 32.5 % (37.5-50.1); Hemoglobin 10.4 g/dL (12.9-16.9); Immature Granulocytes % 0.4 % (0-4); Lymphocytes # 1.2 K/mcL (0.6-4.6); Lymphocytes % 13.8 %; Mean Corpuscular Hemoglobin 29.6 pg (28.0-33.3); Mean Corpuscular Volume 92.6 fL (83.0-100.0); Monocytes # 0.2 K/mcL (0.0-1.3); Monocytes % 2.1 %; Platelet Count 182 K/mcL (140-400); Red Blood Count 3.51 M/mcL (4.19-5.50); Red Cell Distribution Width 25.1 % (11.5-14.5); Segmented Neutrophils % 83.7 %; White Blood Count 8.9 K/mcL (4.3-11.1)
[2019-03-05 08:43] LABS: Neutrophils # 7.5 K/mcL (1.6-8.9)
[2019-03-05 08:53] LABS: BUN/Creatinine Ratio 70 (6-26); Blood Urea Nitrogen 68 mg/dL (8-23); Calcium 9.2 mg/dL (8.6-10.3); Carbon Dioxide 32 mEq/L (23-29); Chloride 90 mEq/L (98-107); Glucose 261 mg/dL (70-105); Magnesium 1.5 mg/dL (1.6-2.6); Osmolality,Calculated 305 (280-300); Potassium 4.7 mEq/L (3.5-5.1); Sodium 133 mEq/L (136-145); eGFR For African Americans > 60 (> 60); eGFR For Non-African Americans > 60 (> 60)
[2019-03-05] MEDS ORDERED: Metoprolol XL (24 HR) Succ 25 MG TAB.ER.24H PO SCH (09:00)
[2019-03-05 09:02] LABS: Anisocytosis 1+ (Not Present); Platelet Estimate Normal (Normal)
[2019-03-05 09:03] LABS: Poikilocytosis 1+ (Not Present)
[2019-03-05] MEDS ORDERED: Morphine Sulfate Oral CONC 10 MG/0.5 ML ORAL.SYG SL PRN (10:01)
[2019-03-05] MEDS ORDERED: *HR* LORazepam Oral Conc 2 MG/ML SL PRN (10:03)
[2019-03-05] MEDS ORDERED: metOLazone 2.5 MG TABLET PO SCH (10:52)
[2019-03-05] MEDS ORDERED: Furosemide 40 MG TABLET PO SCH (17:00)
[2019-03-05] MEDS ORDERED: D5% in Water 1,000 ML IVC PRN (17:37)
[2019-03-05] MEDS ORDERED: Dextrose Gel 15 GM/37.5 ML TUBE PO PRN ×2 (17:37)
[2019-03-05] MEDS ORDERED: *HR* Dextrose 50 % in Water (Syg) 50 ML SYRINGE IVP PRN (17:37)
[2019-03-05] MEDS: Gabapentin 300 MG CAPSULE PO SCH (20:03)
[2019-03-06] MEDS ORDERED: Insulin LISPRO 300 UNITS/3 ML VIAL SQ SCH (07:30)
[2019-03-06] MEDS ORDERED: Metoprolol XL (24 HR) Succ 25 MG TAB.ER.24H PO SCH (09:00)
[2019-03-06] MEDS ORDERED: Aspirin 81 MG TAB.CHEW PO SCH (09:00)
[2019-03-06] MEDS ORDERED: Furosemide 40 MG/4 ML VIAL IVP SCH (09:00)
[2019-03-06] MEDS: Insulin LISPRO 300 UNITS/3 ML VIAL SQ SCH ×2 (09:23→13:19)
[2019-03-06] MEDS: Sennosides 8.6 MG TABLET PO SCH (10:59)
[2019-03-06] MEDS: *HR* Methadone 10 MG TABLET PO SCH (11:00)
[2019-03-06 11:34] VITALS: BP 118/56
== END 2019-03-06 14:32 | disposition hospice, inpatient (51) | DRG 291 ==
LOC: EMEROOARM 06:13 → ICNU 11:32 → SUATTDRO 11:32 → ICNU 12:28 → 2NNU 03-02 10:10
PROVIDERS: ADMIT Pediatrics; ATTEND Pharmacist